=== PATIENT | female | born 1945 | race Caucasian/White ===

== ENCOUNTER → 2018-03-12 14:27 | Outpatient (CLI) | payer MEDICARE, SELFPAY ==
[2018-03-12 16:02] LABS: ALB/GLOB Ratio 1.3 RATIO (0.9-2.4); AST(SGOT) 21 U/L (15-37); Alanine Aminotransfer ALT/SGPT 23 U/L (13-56); Albumin, Serum 3.9 g/dL (3.2-5.0); Alkaline Phosphatase 98 U/L (45-117); Anion Gap 6 (5-15); BUN 12 mg/dL (7-18); Calcium,Total 8.8 mg/dL (8.5-10.1); Chloride 104 mmol/L (98-107); Creatinine, Serum 1.09 mg/dL (0.55-1.02); EST Glomerular Filtration Rate 52 mL/min (>60); Est Glom Filt Rate - Afr Amer 63 mL/min (>60); Globulin 3.1 g/dL (2.2-4.2); Glucose 85 mg/dL (74-106); Potassium 3.6 mmol/L (3.5-5.1); Sodium Level 140 mmol/L (136-145); Thyroid Stim Hormone (TSH) 1.42 uIU/mL (0.358-3.74)
== END ==
PROVIDERS: Family Provider Family Medicine; PCP Family Medicine; Referring Provider Family Medicine; Visit Provider Family Medicine
DX: Z00.00 Encounter for general adult medical examination without abnormal findings (principal); J44.9 Chronic obstructive pulmonary disease, unspecified; R53.83 Other fatigue; E55.9 Vitamin D deficiency, unspecified; E66.9 Obesity, unspecified; Z13.220 Encounter for screening for lipoid disorders
CPT/HCPCS: 36415; 80053; 82306; 84443

== ENCOUNTER → 2018-06-25 14:11 | Outpatient (CLI) | payer MEDICARE, SELFPAY ==
--- NOTE | 2018-06-25 14:14 | RAD_ITS ---
STUDY: X-RAY - PELVIS AND RIGHT HIP REASON FOR EXAM: Female, 72 years old. Right hip pain. TECHNIQUE: 3 views of the pelvis and hip. COMPARISON: None. FINDINGS: There is a normal bowel gas pattern. Normal visualized soft tissue structures. s there is scoliotic curvature of the lower lumbar spine with degenerative change. Normal bilateral iliac wings, sacroiliac joints and visualized sacrum. Normal bilateral superior and inferior pubic rami. Normal pubic symphysis. Normal bilateral ischial tuberosities. Normal visualized femoral head. There is enthesopathic spurring at the greater trochanter. Normal acetabulum. Normal hip joint. There is no fracture. RAD/HIP, UNI W/ Pelvis 2-3 Views IMPRESSION: Mild spurring. Joint space is well-preserved. Electronically Signed: Pk Ramirez MD at 14:32 EST , Service support ,
== END ==
PROVIDERS: Family Provider Family Medicine; PCP Family Medicine; Referring Provider Family Medicine; Visit Provider Family Medicine
DX: M25.551 Pain in right hip (principal)
CPT/HCPCS: 73502

== ENCOUNTER 2018-09-20 16:42 | Inpatient (IN) | payer MEDICARE, SELFPAY ==
[2018-09-20] VITALS (25 sets, daily range): BP systolic 111–155; BP diastolic 43–81; PULSE 59–98; RESP 11–23; TEMP 35.6–36.5; O2SAT 96–100; BMI 41.3
--- NOTE | 2018-09-20 16:48 | RAD_ITS ---
STUDY: X-RAY CHEST REASON FOR EXAM: Female, 73 years old. Chest pain TECHNIQUE: Single AP portable view of the chest. COMPARISON: Prior chest radiograph of January 19, 2017. FINDINGS: Reduced inspiration with some mild generalized atelectatic changes without new consolidation, focal atelectasis or a substantial pleural effusion. There is no demonstrated pleural abnormality. Normal size heart. Normal mediastinum and elvie. Normal visualized pulmonary arteries. There is atherosclerotic calcification of the aortic arch with tortuosity. Normal visualized thoracic spine. Normal visualized ribs, clavicles, and shoulders. There is no demonstrated abnormality of the visualized soft tissue structures of the upper abdomen. RAD/Chest 1 View (Portable) IMPRESSION: Reduced inspiration with generalized atelectatic changes without other acute findings or changes. Negative for major consolidation, focal atelectasis, pleural effusion or cardiomegaly. Electronically Signed: Melba Alva MD at 17:02 EDT , Service support ,
--- NOTE | 2018-09-20 16:48 | EKG12_ITS ---
Test Reason : CP Blood Pressure : / mmHG Vent. Rate : 081 BPM Atrial Rate : 081 BPM P-R Int : 170 ms QRS Dur : 130 ms QT Int : 430 ms P-R-T Axes : 071 015 102 degrees QTc Int : 499 ms Normal sinus rhythm Left bundle branch block Abnormal ECG Confirmed by HALI PEDERSEN ([id number]), brands editor PAMELA GIRON ([id number]) on 09/24/2018 4:54:44 PM Referred By: Hali Pedersen Confirmed By:HALI PEDERSEN
[2018-09-20] MEDS: TICAGRELOR 90 MG TABLET 180 MG PO (16:53)
[2018-09-20] MEDS: Heparin Injection (Vial) 5,000 UNIT/ML VIAL 4000 UNIT IV (16:55)
--- NOTE | 2018-09-20 17:00 | CM.ED ---
SOCIAL WORK NOTE THIS WORKER RESPONDED TO STEMI. PATIENT'S SISTER, MOY PRESENT. INTRODUCED ROLE. EDUCATION AND EMOTIONAL SUPPORT PROVIDED. SHAUNA HUERTAS, WOOD MODEL BUILDER, GARNETT MACHINE OPERATOR HELPER.
[2018-09-20] MEDS: 0.9% Normal Saline 1,000 ML 150 ML IV ×2 (17:01→21:30)
[2018-09-20] MEDS: fentaNYL 100 MCG/2 ML Ampul 50 MCG IV (17:01)
[2018-09-20 17:06] LABS: Absolute Lymphocyte Count 2.53 X10^3/ul (0.83-4.51); Absolute Neutrophil Count 3.6 X10^3/uL (2.0-7.7); Basophil# 0.02 X10^3/uL; Basophil% 0.3 % (0-1); Eosinophil# 0.21 X10^3/uL; Hematocrit 42.6 % (37-47); Hemoglobin 14.3 g/dl (12.0-15.0); Lymphocyte # 2.53 X10^3/ul (4.0); Lymphocyte % 35.9 % (19-41); Mean Corp Hgb Conc 33.6 g/gl (32-36); Mean Corpuscular Hgb 31.7 pg (27.0-32.0); Mean Corpuscular Volume 94.5 fL (81-99); Mean Platelet Vol. 10.3 fl (6.2-12.0); Monocyte# 0.73 X10^3/uL; Monocyte% 10.4 % (0-10); Neutrophil # 3.55 X10^3/uL (2.7-7.7); Neutrophil % 50.3 % (47-70); Platelet Count 219 K/mm3 (150-450); RBC Distribution Width CV 13.5 % (11.6-14.6); RBC Distribution Width SD 44.7 fl (35.1-43.9); Red Blood Count 4.51 M/mm3 (4.2-5.4); White Blood Count 7.1 K/mm3 (4.4-11.0)
[2018-09-20 17:07] LABS: POSITIVE COUNT NO; POSITIVE DIFFERENTIAL NO; POSITIVE MORPHOLOGY NO
[2018-09-20 17:13] LABS: International Normalized Ratio 1.1; Prothrombin Time (Protime)PT. 13.6 SECONDS (11.7-14.9)
--- NOTE | 2018-09-20 17:25 | ED.DCSUM_ITS ---
- ER Visit Summary Date of Service: 09/20/18 Chief Complaint: Chest pain History of Present Illness: The patient is a 73 F presents to the emergency department chest pain and arm pain. The patient has no significant history of coronary vascular disease. She does have a long-standing history of smoking and quit in 2014. She has a history of COPD. States on Monday, she began to get a tightness across her chest into her right side with some mild shortness of breath. She states it lasted 2 hours and then went away. She is never had pain like this before. It happened again yesterday but was only there for half an hour. Return today and she was feeling nauseated and more short of breath. It happened with rest. She has no history of coronary vascular disease. Physical Examination: Vital signs reviewed General: Well-nourished, well-developed Head: Normocephalic, atraumatic Eyes: Pupils equal and reactive, extraocular muscles intact Neck, supple, no lymphadenopathy Heart: Regular rate and rhythm Respiratory: No distress, clear bilaterally Abdomen: Soft, nontender, nondistended, no peritoneal signs Back: Nontender Extremities: Nontender, no edema, no cords Skin: Normal color no rash Neuro: Alert and oriented, no focal or lateralizing deficits Test Results: [] Emergency Department Course and Treatment: Prehospital EKG was reviewed. She did have left bundle branch block and some inferior changes, but nothing that would meet criteria for STEMI. On arrival, EKG was repeated. This does show inferior elevation consistent with STEMI. I did send this to Dr. Pedersen and a STEMI team was activated. The patient had already received aspirin in route. She was given Brilinta and heparin. She was given fentanyl which did seem to improve her pain. Chest x-ray was unremarkable. The patient was consented and will be taken to the Coordinator Of Rehabilitation Services for intervention. Treatment Plan: [] Disposition: Admission Impression: 1. Inferior STEMI This note was generated with [employer] dictation software. It may contain incorrect words, spelling, and punctuation that were not noted in review of the chart prior to signing ED Disposition - Plan for ED Patient: Referrals: Jerson Vigil MD [Primary Care Provider] -
--- NOTE | 2018-09-20 17:26 | ED.RN ---
PT TRANSPORTED TO [facility] AT 1718. HAND OFF REPORT GIVEN.
[2018-09-20 17:33] LABS: Anion Gap 5 (5-15); BUN 17 mg/dL (7-18); BUN/Creat Ratio 15.5 RATIO (10-20); Chloride 106 mmol/L (98-107); EST Glomerular Filtration Rate 52 mL/min (>60); Est Glom Filt Rate - Afr Amer 63 mL/min (>60); Estimated Creatinine Clearance 36.03 ml/min; Glucose 128 mg/dL (74-106); Potassium 3.8 mmol/L (3.5-5.1); Sodium Level 139 mmol/L (136-145)
[2018-09-20 17:41] LABS: Pregnancy, Serum, hCG Quali. NEGATIVE Negative (0-9 Nonpreg)
--- NOTE | 2018-09-20 18:15 | CM.ED ---
Social Work Assessment Referral Date: 09/20/18 Date of Assessment: 09/20/18 Informant: SELF REFERRAL Reason for Consult: STEMI/INITIAL ASSESSMENT Information obtained from: PATIENT'S SISTERMOY [phone] Living Arrangements: PATIENT LIVES HOME ALONE IN A 2 STORY APARTMENT NEXT DOOR TO SISTERMOY. DME: NONE Employment/Financial: RETIRED. PATIENT CURRENTLY WORKING FOR [employer] AND IS INVOLVED IN THE COMMUNITY. NO FINANCIAL NEEDS ADDRESSED. Supports: PATIENT HAS GOOD SUPPORT FROM FAMILY AND FRIENDS. Mental Health History: SISTER REPORTS HX OF DEPRESSION FOR PATIENT. PATIENT PRESCRIBED ANTIDEPRESSANT BY PRIMARY CARE PHYSICIAN DR. BUTTS. Substance Abuse History: PATIENT QUIT SMOKING IN 2014 Interventions: SOCIAL SERVICE ASSESSMENT RESPONDED TO STEMI Assessment: ASSESSMENT COMPLETED WITH PATIENT'S SISTER IN TOUR NARRATOR WAITING ROOM. SISTER REPORTS PATIENT HAS GOOD SUPPORT FROM FAMILY AND FRIENDS. SISTER HAS UPDATED PATIENT'S SON, PATRICIA WHO RESIDES IN [place]. PATIENT LIVES HOME ALONE IN A 2 STORY APARTMENT AND IS INDEPENDENT WITH ALL ADLS. SISTER LIVES NEXT DOOR. SISTER REPORTS PATIENT WITH HX OF DEPRESSION AND IS PRESCRIBED AN ANTI DEPRESSANT. PATIENT FOLLOWS WITH DR. BUTTS FOR PRIMARY CARE. EXPLAINED THIS WORKER'S ROLE. SISTER DENIES ANY NEEDS AT THIS TIME. PLAN: ADMIT
[2018-09-20 18:30] LABS: ACT Activated Clotting Time 169 sec (74-137)
[2018-09-20 18:31] LABS: ACT Activated Clotting Time 246 sec (74-137)
--- NOTE | 2018-09-20 18:49 | ECHOCS_ITS ---
Reason For Study: CAD/ASHD Procedure This was a 2D Doppler, Color Flow transthoracic echocardiogram. Contrast injection was performed. Exam performed portable in ICU/CCU. Left Ventricle Normal size and thickness. The estimated ejection fraction is 65 %. Stage 1 diastolic dysfunction. No regional wall motion abnormalities noted. Right Ventricle Normal size and thickness. Normal systolic function. Atria Normal left atrium. Normal right atrium. Normal atrial septum. Mitral Valve The mitral valve is structurally normal. No prolapse or stenosis seen. Trivial mitral valve insufficiency. Tricuspid Valve Normal tricuspid valve. Mild (1+) tricuspid valve insufficiency. Right ventricular systolic pressure estimated to be 33 mmHg. Aortic Valve Normal aortic valve. Trisinus/trileaflet aortic valve. Pulmonic Valve Normal pulmonic valve. Great Vessels Normal aortic root. Normal arch. Normal inferior vena cava. Inferior vena cava collapse with sniff. Pericardium/Pleural No pericardial effusion. Medication Diluted definity 2ml given slow IV push to enhance endocardial definition. Performed a rapid injection of agitated mix of 9 cc saline and 1cc air to assess for atrial septal defect. MMode/2D Measurements & Calculations LVIDd: 3.8 cm IVSd: 0.91 cm LAV(MOD-sp4): 37.9 ml LVIDs: 2.2 cm LVPWd: 0.85 cm FS: 41.6 % LVAd ap4: 24.8 cm2 SV(MOD-sp4): 43.4 ml SV(sp4-el): 46.9 ml EDV(MOD-sp4): 69.5 ml EDV(sp4-el): 75.3 ml LVAs ap4: 13.5 cm2 ESV(MOD-sp4): 26.1 ml ESV(sp4-el): 28.4 ml EF(MOD-sp4): 62.5 % EF(sp4-el): 62.2 % LA A4 area: 14.2 cm2 RA A4 area: 12.5 cm2 Time Measurements MV dec time: 0.18 sec Doppler Measurements & Calculations MV E max martinez: 108.9 cm/sec Lat Peak E' Martinez: 8.5 cm/sec Med Peak E' Martinez: 7.3 cm/sec MV A max martinez: 101.4 cm/sec E/E' lat: 12.8 E/E' med: 14.9 MV E/A: 1.1 MV V2 max: 131.0 cm/sec MV P1/2t max martinez: 131.0 cm/sec Ao V2 max: 123.6 cm/sec MV max P.9 mmHg MV P1/2t: 55.9 msec Ao max P.1 mmHg MV V2 mean: 73.9 cm/sec Ao V2 mean: 85.4 cm/sec MV mean P.6 mmHg MV dec slope: 685.8 cm/sec2 Ao mean P.3 mmHg MV V2 VTI: 31.8 cm MVA(P1/2t): 3.9 cm2 Ao V2 VTI: 26.1 cm LV V1 max: 114.3 cm/sec TR max martinez: 249.0 cm/sec LV V1 max P.2 mmHg TR max P.9 mmHg LV V1 mean P.6 mmHg LV V1 mean: 73.8 cm/sec LV V1 VTI: 24.3 cm Interpretation Summary The estimated ejection fraction is 65 %. Stage 1 diastolic dysfunction. Trivial mitral valve insufficiency. Mild (1+) tricuspid valve insufficiency. Right ventricular systolic pressure estimated to be 33 mmHg. Compared to echo report dated 02/18/2012, no appreciable changes noted. The study was technically difficult. Contrast injection was performed. Ordering Physician: Mani Pedersen Referring Physician: Mani Pedersen Performed By: Warren Sim [facility]
--- NOTE | 2018-09-20 18:59 | CL.I_ITS ---
Patient Name: FAITH GOMEZ Study Date: 09/20/2018 Performing: Mani Pedersen MD Ht: 62 inches 157 cm : 1945 Wt: 225.2 lbs 102 kg Age: 73 Gender: female BSA: 2 PROCEDURE(S) PERFORMED AD80-MST/COR/LV FL33-JIS, KIM AND/OR PTCA, ARTERY OR GRAFT, SINGLE VESSEL CLINICAL PROFILE AND CO-MORBIDITIES Patient presents with STEMI for emergent cardiac cath. Indications: ACS <= 24 hrs, New Onset Angina <= 2 months, Worsening Angina, Suspected CAD Heart Failure: None Stress/Imaging Stress/Image Study Performed: No Angina Classification Anginal Classification w/in 2 Weeks: CCS III CAD Presentations: STEMI. Symptom onset Date/Time: 09/20/2018 Time Not Available STEMI. 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 Successful PTCA/KIM mid RCA just upstream from initial stent with a 3.5 x 8 Promus synergy, post dila josé antonio with a 4.0 x 8 NC Balloon at 9 atim (3.80 mm) and then at 14 reanna within body of second stent. RECOMMENDATIONS Referred for immediate PCI Highly recommend quitting all tobacco products Follow up with primary sales route driver Risk factor modification ASA Indefinitley Plavix for at least 12 months Routine post interventional care Refer for Outpatient Cardiac Rehab Manual sheath removal per protocol Follow up with Dr. Pedersen Stress test in 3-4 weeks to eval LAD. Will keep sheath in overnight. DESCRIPTION OF PROCEDURE The patient arrived to the procedure lab. The risks and benefits of the procedure as well as a full d escription of our services here and lack of surgical backup were fully explained to the patient and/o r their significant other prior to the catheterization. The Timeout was completed, verifying the christa ect patient and procedure. The patient's procedural site was prepped and draped in the usual fashion. Local anesthetic was given subcutaneously to right groin region with Lidocaine 2%. Using a modified Seldinger technique, arterial access was obtained via the right femoral artery, a 6Fr sheath was inse rted.. Left Coronary Artery selective angiography was performed in multiple views using a 4 Fr. JL5 catheter. Right Coronary Artery selective angiography was then performed in multiple views using a 6 Fr. HS II Guide. Left Ventriculography was performed in FOLRES projection using a 4 Fr. Pigtail catheter . LV to AO pullback pressures were then recorded Runthrough Guide wire was advanced to the RCA. Emerge 2.0 x12 Balloon catheter was inserted. Ball oon catheter was advanced across lesion in the right coronary, mid. PTCA balloon inflated at 6 atms f or 8 secs. PTCA balloon inflated at 12 atms for 9 secs. PTCA balloon inflated at 14 atms for 11 secs. PTCA balloon inflated at 15 atms for 10 secs. Angiogram performed post balloon dilatation. Emerge 2. 50 x 12 Balloon catheter was inserted. Balloon catheter was advanced across lesion in the right coron vicki, mid. PTCA balloon inflated at 10 atms for 9 secs. PTCA balloon inflated at 12 atms for 9 secs. A ngiogram performed post balloon dilatation. Synergy 2.5 x 38 Drug Eluting stent was inserted. Drug El uting stent was advanced across the lesion in the right coronary, mid. Angiogram performed pre stent deployment. Angiogram performed post stent deployment. NC Emerge 3.0 x 12 Balloon catheter was insert ed. Balloon catheter was inserted post stent. Angiogram performed pre balloon dilatation. Angiogram performed post balloon dilatation. Angiogram performed post balloon dilatation. Synergy 3.5 x 8 Drug Eluting stent was inserted. Drug Eluting stent was advanced across the lesion in the right coronary, mid. Angiogram performed pre stent deployment. Angiogram performed post stent deployment. N C Emerge 4.0 x 8 Balloon catheter was inserted. Balloon catheter was advanced across lesion in the ri ght coronary, mid. Angiogram performed pre balloon dilatation. Angiogram performed post balloon dilat ation. The arterial sheath was sutured in place and capped CORONARY ANGIOGRAPHY DOMINANCE: Right Dominant LEFT HEART ASSESSMENT Left Ventricular Ejection Fraction: by LV Gram 55 % Depressed Left Ventricular systolic function LVEDP: 20 mmHg Elevated Left Ventricular End Diastolic Pressure Inferior Basal Hypokinesis - Mild LEFT MAIN: Mild calcification LEFT ANTERIOR DECENDING ARTERY: PROX LAD: Moderate calcification, Mild luminal irregularities less than 30% MID LAD: 65 % Stenosis CIRCUMFLEX ARTERY: Mild luminal irregularities less than 30% RIGHT CORONARY ARTERY: MID RCA: Moderate calcification, 90 % Stenosis RT PLV: Angiographically normal RT PDA: Proximal - Angiographically normal INTERVENTION INFORMATION LESION SITE: RCA (Mid) Lesion Complexity: High/C, lesion at bifurcation: No, thrombus present: Yes, lesion length: 46 mm, cu lprit lesion: Yes Pre Stenosis: 90 % Pre intervention JAXSON flow: 2 PROCEDURE: Drug Eluting Stent with pre and post dilatation Possible small type B contained vessel dissection, covered by initial stent and no evidence of extrav asation or staining. No additional post stent dilation done other than 3.0 12 NC balloon out of conc koko for possible vessel tear or rupture. Post Stenosis: 0 % Post intervention JXASON flow: 3 Lesion Devices: Paperwoventronic 6 Fr HSII 100cm Guide Catheter Germán Sci EMERGE MR 2.00x12 BALLOON Terumo .014 Runthrough Extra Floppy 180cm straight Germán Sci EMERGE MR 2.50x12 BALLOON [employer]án [employer] Synergy MR KIM 2.50x38 Germán Sci NC EMERGE MR 3.00x12 BALLOON [employer]án [employer] Synergy MR KIM 3.50x08 Germán Sci NC EMERGE MR 4.00x08 BALLOON COMPLICATIONS No Complications PROCEDURE MEDICATIONS Fentanyl 25 mcg IV Oxygen: 2 L/min via nasal cannula Heparin 6000 unit(s) IV 09/20/2018 17:34:35 Nitro 200 mcg IC 09/20/2018 17:37:23 IV Bolus: .9 NaCl 1500 ml total 09/20/2018 17:38:01 SUMMARY OF HEMODYNAMIC DATA Time AIR REST ECG 17:26:54 AO 108/62 (85) SA 17:30:58 LV 134/0, 20 18:04:56 LV 130/8, 23 18:05:02 LVp 126/5, 25 18:05:07 AOp 139/63 (97) 18:05:12 Signed By Mani Pedersen MD On 09/21/2018 10:53:44 Signed By Mani Pedersen MD On 09/20/2018 18:58:13 Mani Pedersen MD
--- NOTE | 2018-09-20 19:09 | PCM.HP.STD ---
Problem List (1) CAD (coronary artery disease) Status: Chronic Qualifiers: Coronary Disease-Associated Artery/Lesion type: [place] artery (2) HTN (hypertension) Status: Chronic (3) STEMI (ST elevation myocardial infarction) Status: Acute (4) S/P PTCA (percutaneous transluminal coronary angioplasty) Status: Acute Comment: RCA with KIM on 09/20/18 (5) H/O partial thyroidectomy Status: Chronic (6) Former smoker Status: Chronic Comment: quit 2014 (7) Elevated serum creatinine Status: Acute (8) Obesity Status: Chronic Qualifiers: Obesity classification: adult class 3 (BMI >= 40) (9) Depression Status: Chronic (10) GERD (gastroesophageal reflux disease) Status: Chronic (11) History of breast cancer Status: Chronic Comment: mastectomy was 30 years ago. (12) Left bundle branch block Status: Acute History of Present Illness Date of Admission: 09/20/18 Chief Complaint: chest pain The patient is a 73 year old F with a past medical history of hypertension, GERD, depression, obesity, partial thyroidectomy and former smoking history (quit in 2014) who presented to the emergency department at [facility] on 09/20/2018 complaining of substernal chest pain that radiated to both arms and both shoulders while sitting watching TV The pain was associated with shortness of breath, nausea and diaphoresis. She denied any personal hx of CAD but, there is a FH of CAD in both her parents. She initially had the pain on Monday while exerting herself and described it as tightness across her chest with shortness of breath. It lasted a few hours and went away. the pain recurred the next day with exertion but, once again resolved with no treatment. EKG in the squad showed a left bundle branch block and some inferior changes. The EKG was repeated upon arrival to the emergency department and showed inferior ST segment elevation consistent with STEMI. Code STEMI was called and the cath team was activated. She was given aspirin 324 mg by the paramedics. She was given Brilinta and heparin in the emergency department. EKG showed no evidence of congestive heart failure, pulmonary vascular congestion or infiltrates. It was a decreased respiratory effort. CBC was unremarkable. BMP showed a BUN of 17 with a creatinine of 1.1. Troponin was 0.081 initially. Random glucose was elevated at 128 and she denies any history of diabetes mellitus. She was taken to the Lead Maintenance Technician and had a 90% occlusion of the RCA. There was a 65% occlusion of the mid LAD. 2 stents were placed in the RCA. Postprocedure she was transferred to the intensive care unit. Past Medical History Past Medical History (Chronic Problems): Chronic Problems CAD (coronary artery disease) (Chronic) HTN (hypertension) (Chronic) H/O partial thyroidectomy (Chronic) Former smoker (Chronic) quit 2014 Obesity (Chronic) Depression (Chronic) GERD (gastroesophageal reflux disease) (Chronic) History of breast cancer (Chronic) mastectomy was 30 years ago. Allergies Penicillins Allergy (Verified 09/20/18 16:52) Unknown Sulfa (Sulfonamide Antibiotics) Allergy (Verified 09/20/18 16:52) Hives Home Medications: Ambulatory Orders Medication Instructions Recorded Bupropion HCl [Bupropion Xl] 300 mg PO DAILY 09/20/18 Meloxicam 15 mg PO DAILY 09/20/18 Surgical History: - - Left mastectomy Psychiatric History: Depression BATCH UNLOADER History: No pertinent BATCH UNLOADER history Lives: Alone Smoking Status: Former smoker - Quit in 2014 Tobacco Use: Non-smoker Alcohol: Occasional Drugs: None - *Family History Maternal History Items: Heart Disease Paternal History Items: Heart Disease Review of Systems Constitutional: Denies: Chills, Fever, Weight Change HEENT: Denies: Head Aches, Sinus Congestion, Sinus Drainage Cardiovascular: Reports: Chest Pain. Denies: Edema, Light Headedness, Orthopnea, Palpitations, Syncope Respiratory: Reports: Shortness of Breath - Associated with chest pain. Denies: Cough, Shortness of breath at rest, Sputum production Gastrointestinal: Denies: Abdominal Pain, Nausea, Vomiting Genitourinary: Denies: Dysuria Gynecological: Denies: Vaginal discharge Musculoskeletal: Reports: Joint Pain, Joint stiffness Skin: Denies: Jaundice, Rash, Wounds Neurological: Denies: Focal weakness, Numbness, Tingling, Tremor, Seizures Psychiatric: Denies: Anxiety, Depression, Homicidal Ideations, Suicidal Ideations Endocrine: Denies: Hx of Thyroiditis Hematologic/ Lymphatic: Denies: Easy Bruising, Easy Bleeding, Hx of blood clot VTE Information - Inpt Only VTE Present on Admission: No VTE Mechan Device Prophylaxis: SCD's, Knee High ABRAHAN Hose VTE Pharm Prophylaxis ordered?: No Reason prophylaxis not ordered:: Treatment Not Indicated - Patient just returned from cath and had a large amount of heparin. Will likely start anticoagulation for DVT prophylaxis in the a.m. Patient Problems: Active and Suspected Problems STEMI (ST elevation myocardial infarction) (Acute) S/P PTCA (percutaneous transluminal coronary angioplasty) (Acute) RCA with KIM on 09/20/18 Elevated serum creatinine (Acute) Left bundle branch block (Acute) - Physical Exam General: Alert, Oriented x3, Cooperative, No apparent distress, Well developed, Well nourished HEENT: Atraumatic, PERRLA, EOMI, Normocephalic Oral: Moist Mucosa, No Gingival or Mucosal Lesions/ Ulcerations, - - halitosis Neck: Supple, No JVD, Negative Carotid Bruits, No Nodes, No Nuchal Rigidity, Trachea Midline Lungs: Clear to auscultation - Anterior and lateral.. She is lying flat in bed for the next 6 hours., No rhonchi, No wheeze, No rales Cardiovascular: Regular rate, Regular Rhythm, Normal S1, Normal S2, No murmurs, No rub noted, No Gallop Abdomen: Bowel Sounds Present, Soft, Non Tender, Non-Distended Extremities: No clubbing, No cyanosis, No edema, No Calf Tenderness, Peripheral Pulses Normal Skin: No rashes, No breakdown Musculoskeletal: No Muscle Wasting Neurological: Cranial nerves II-XII grossly intact, Neuro grossly intact Psych/Mental Status: Normal Affect, Appropriate Vital Signs Temp Pulse Resp BP Pulse Ox 97.7 F L 82 21 H 148/79 H 99 09/20/18 16:42 09/20/18 18:50 09/20/18 18:45 09/20/18 18:45 09/20/18 18:45 Oxygen Flow Rate (L/min) 2 Oxygen Delivery Method Nasal Cannula Weight: 225 lb 12.054 oz Body Mass Index (BMI) 41.3 Laboratory Tests Past 24 Hrs 09/20/18 09/20/18 09/20/18 16:55 16:55 16:55 WBC Cancelled 7.1 Corrected WBC Cancelled RBC Cancelled 4.51 Hgb Cancelled 14.3 Hct Cancelled 42.6 MCV Cancelled 94.5 MCH Cancelled 31.7 MCHC Cancelled 33.6 RDW Cancelled 13.5 RDW Differential Cancelled 44.7 H Plt Count Cancelled 219 MPV Cancelled 10.3 Immature Gran % (Auto) Cancelled 0.100 Neut % (Auto) Cancelled 50.3 Lymph % (Auto) Cancelled 35.9 [place] % (Auto) Cancelled 10.4 H Eos % (Auto) Cancelled 3.0 Baso % (Auto) Cancelled 0.3 Absolute Neuts (auto) Cancelled 3.6 Absolute Lymphs (auto) Cancelled 2.53 Total Counted Cancelled Not Reportable Neutrophils % (Manual) Cancelled Band Neutrophils % Cancelled Lymphocytes % (Manual) Cancelled Monocytes % (Manual) Cancelled Eosinophils % (Manual) Cancelled Basophils % (Manual) Cancelled Metamyelocytes % Cancelled Myelocytes % Cancelled Promyelocytes % Cancelled Blast Cells % Cancelled Plasma Cell % (Manual) Cancelled Other Cells % Cancelled Nucleated RBCs/100 WBC Cancelled Differential Comment Cancelled Diff Path Review Cancelled Hypersegmented Neuts Cancelled Atypical Lymphocytes Cancelled Reactive Lymphocytes Cancelled Smudge Cells Cancelled Toxic Granulation Cancelled Dohle Bodies Cancelled Heena Rods Cancelled Platelet Estimate Cancelled Plt Morphology Comment Cancelled RBC Morphology Cancelled Polychromasia Cancelled Hypochromasia Cancelled Poikilocytosis Cancelled Basophilic Stippling Cancelled Anisocytosis Cancelled Microcytosis Cancelled Macrocytosis Cancelled Spherocytes Cancelled Sickle Cells Cancelled Target Cells Cancelled Tear Drop Cells Cancelled Ovalocytes Cancelled Stomatocytes Cancelled Back-Celebration Bodies Cancelled Gael Cells Cancelled Bite Cells Cancelled Acanthocytes (Spur) Cancelled Rouleaux Cancelled Schistocytes Cancelled PT INR APTT Activated Clotting Time Sodium Cancelled Potassium Cancelled Chloride Cancelled Carbon Dioxide Cancelled Anion Gap Cancelled BUN Cancelled Creatinine Cancelled Estim Creat Clear Calc Cancelled Est GFR (MDRD) Af Amer Cancelled Est GFR (MDRD) Non-Af Cancelled BUN/Creatinine Ratio Cancelled Glucose Cancelled Calcium Cancelled Troponin I Cancelled Serum , Qual 09/20/18 09/20/18 09/20/18 16:55 16:55 16:55 WBC Corrected WBC RBC Hgb Hct MCV MCH MCHC RDW RDW Differential Plt Count MPV Immature Gran % (Auto) Neut % (Auto) Lymph % (Auto) [place] % (Auto) Eos % (Auto) Baso % (Auto) Absolute Neuts (auto) Absolute Lymphs (auto) Total Counted Neutrophils % (Manual) Band Neutrophils % Lymphocytes % (Manual) Monocytes % (Manual) Eosinophils % (Manual) Basophils % (Manual) Metamyelocytes % Myelocytes % Promyelocytes % Blast Cells % Plasma Cell % (Manual) Other Cells % Nucleated RBCs/100 WBC Differential Comment Diff Path Review Hypersegmented Neuts Atypical Lymphocytes Reactive Lymphocytes Smudge Cells Toxic Granulation Dohle Bodies Heena Rods Platelet Estimate Plt Morphology Comment RBC Morphology Polychromasia Hypochromasia Poikilocytosis Basophilic Stippling Anisocytosis Microcytosis Macrocytosis Spherocytes Sickle Cells Target Cells Tear Drop Cells Ovalocytes Stomatocytes Back-Celebration Bodies [place] Cells Bite Cells Acanthocytes (Spur) Rouleaux Schistocytes PT 13.6 INR 1.1 APTT 28.0 Activated Clotting Time Sodium 139 Potassium 3.8 Chloride 106 Carbon Dioxide 28.0 Anion Gap 5 BUN 17 Creatinine 1.10 H Estim Creat Clear Calc 36.03 Est GFR (MDRD) Af Amer 63 Est GFR (MDRD) Non-Af 52 L BUN/Creatinine Ratio 15.5 Glucose 128 H Calcium 9.0 Troponin I 0.081 H Serum , Qual NEGATIVE 09/20/18 09/20/18 17:32 18:05 WBC Corrected WBC RBC Hgb Hct MCV MCH MCHC RDW RDW Differential Plt Count MPV Immature Gran % (Auto) Neut % (Auto) Lymph % (Auto) [place] % (Auto) Eos % (Auto) Baso % (Auto) Absolute Neuts (auto) Absolute Lymphs (auto) Total Counted Neutrophils % (Manual) Band Neutrophils % Lymphocytes % (Manual) Monocytes % (Manual) Eosinophils % (Manual) Basophils % (Manual) Metamyelocytes % Myelocytes % Promyelocytes % Blast Cells % Plasma Cell % (Manual) Other Cells % Nucleated RBCs/100 WBC Differential Comment Diff Path Review Hypersegmented Neuts Atypical Lymphocytes Reactive Lymphocytes Smudge Cells Toxic Granulation Dohle Bodies Heena Rods Platelet Estimate Plt Morphology Comment RBC Morphology Polychromasia Hypochromasia Poikilocytosis Basophilic Stippling Anisocytosis Microcytosis Macrocytosis Spherocytes Sickle Cells Target Cells Tear Drop Cells Ovalocytes Stomatocytes Back-Celebration Bodies Gael Cells Bite Cells Acanthocytes (Spur) Rouleaux Schistocytes PT INR APTT Activated Clotting Time 169 H 246 H Sodium Potassium Chloride Carbon Dioxide Anion Gap BUN Creatinine Estim Creat Clear Calc Est GFR (MDRD) Af Amer Est GFR (MDRD) Non-Af BUN/Creatinine Ratio Glucose Calcium Troponin I Serum , Qual Assessment/Plan All Active Problems STEMI (ST elevation myocardial infarction) (Acute) S/P PTCA (percutaneous transluminal coronary angioplasty) (Acute) Elevated serum creatinine (Acute) Left bundle branch block (Acute) Impressions 1. STEMI 2. Status post PTCA/KIM to the RCA with 2 stents -possible dissection but the area is covered by the stent 3. Coronary artery disease 4. Hypertension 5. Depression-on Wellbutrin 6. GERD 7. History of left breast cancer-status post left mastectomy in 1988 8. History of partial thyroidectomy 9. Elevated creatinine 10. Elevated blood sugar at 128 11. 65% stenosis of the mid LAD 12. Former smoker Admitted to the ICU ASA and Brilinta metoprolol, Losartan and high intensity statin Cardiac rehab will meet with the patient in the next 1-2 days Lipid panel in the a.m. Hemoglobin A1c, BMP and CBC in the a.m. Will be brought back in 3-4 weeks for a stress test to evaluate the LAD Sheath was left in because of the possible dissection Code Visit Inpatient E&M: 71906 [facility] Hosp L3
[2018-09-20 20:21] LABS: ACT Activated Clotting Time 186 sec (74-137)
[2018-09-20 21:36] LABS: ACT Activated Clotting Time 180 sec (74-137)
--- NOTE | 2018-09-20 21:45 | NURSING ---
Entered pt room to place manley catheter in pt, hematoma noted around sheath at right arterial femoral site. Pressure applied to area and Dr. Pedersen notified by Yaneli Steiner RN. Orders received to remove sheath. Sheath removed at 2210, hemostasis achieved at 2240.
[2018-09-20] MEDS: Morphine 2 MG/ML Syringe IV (22:14)
[2018-09-20] MEDS: LORazepam 1 MG Tablet PO (23:12)
[2018-09-20] MEDS: Atorvastatin Calcium 80 MG Tablet PO (23:15)
[2018-09-20] MEDS: Metoprolol Tartrate 25 MG Tablet PO (23:15)
[2018-09-20] MEDS: TICAGRELOR 90 MG TABLET PO (23:15)
[2018-09-21] VITALS (44 sets, daily range): BP systolic 90–139; BP diastolic 29–75; PULSE 73–99; RESP 13–33; TEMP 36.6–36.9; O2SAT 92–97
[2018-09-21] MEDS: Morphine 2 MG/ML Syringe IV (03:06)
[2018-09-21 05:24] LABS: Hematocrit 35.2 % (37-47); Hemoglobin 11.6 g/dl (12.0-15.0); Mean Corpuscular Hgb 31.4 pg (27.0-32.0); Mean Corpuscular Volume 95.4 fL (81-99); Mean Platelet Vol. 10.7 fl (6.2-12.0); Platelet Count 204 K/mm3 (150-450); RBC Distribution Width CV 13.4 % (11.6-14.6); RBC Distribution Width SD 44.3 fl (35.1-43.9); Red Blood Count 3.69 M/mm3 (4.2-5.4); Scan Indicated on CBC? Y/N NO; White Blood Count 14.4 K/mm3 (4.4-11.0)
[2018-09-21 05:47] LABS: Hemoglobin A1c 5.8 % (4.2-6.3)
[2018-09-21 06:02] LABS: ALB/GLOB Ratio 1.1 RATIO (0.9-2.4); AST(SGOT) 41 U/L (15-37); Alanine Aminotransfer ALT/SGPT 27 U/L (13-56); Albumin, Serum 2.9 g/dL (3.2-5.0); Alkaline Phosphatase 72 U/L (45-117); Anion Gap 7 (5-15); BUN 16 mg/dL (7-18); BUN/Creat Ratio 18.4 RATIO (10-20); Calcium,Total 7.7 mg/dL (8.5-10.1); Chloride 113 mmol/L (98-107); Cholesterol 159 mg/dL (200); Creatinine, Serum 0.87 mg/dL (0.55-1.02); EST Glomerular Filtration Rate 68 mL/min (>60); Est Glom Filt Rate - Afr Amer 82 mL/min (>60); Estimated Creatinine Clearance 43.46 ml/min; Globulin 2.7 g/dL (2.2-4.2); Glucose 164 mg/dL (74-106); High Density Lipoprotein 61 mg/dL; Magnesium 1.7 mg/dL (1.6-2.6); Protein, Total 5.6 g/dL (6.4-8.2); Sodium Level 144 mmol/L (136-145); Triglycerides 51 mg/dL; Very Low Density Lipoprotein 10 mg/dL (5-40)
[2018-09-21] MEDS: TICAGRELOR 90 MG TABLET PO ×2 (08:11→21:46)
[2018-09-21] MEDS: Losartan Potassium 25 MG Tablet 12.5 MG PO (08:11)
[2018-09-21] MEDS: Aspirin E.C. 81 MG Tablet PO (08:11)
[2018-09-21] MEDS: Metoprolol Tartrate 25 MG Tablet PO ×2 (08:11→21:46)
[2018-09-21] MEDS: Famotidine 20 MG Tablet PO (08:13)
[2018-09-21] MEDS: buPROPion (XL) 300 MG TABLET.XL PO (08:13)
--- NOTE | 2018-09-21 08:21 | CRPHASE1 ---
Patient Communication PHII Cardiac Rehab Discussed with Patient:: Yes Guide to Cardiac Rehab Given to Patient:: Yes Cardiac Rehab Facility Choice List Given to Patient:: Yes Choice Program [facility] CR PHII:: Communication Given to CR, Refer to [facility] Refer Phase II Cardiac Rehab:: Yes Sessions:: 36 sessions - 3 days/wk, 12 weeks Risk Factors/Lifestyle Smoking Status: Former smoker Hx Hypertension: Yes Hx Diabetes Mellitus Type 1: No Hx Diabetes Mellitus Type 2: No Hx Metabolic Disorders: No Hx Dyslipidemia: No Hx Obesity: Yes Height: 5 ft 1 in - BMI 41.2 Post-Menopausal: Yes Stress: Home/Family Laboratory Values: Cardiac Rehab Phase I Labs Hemoglobin A1c 5.8 % (4.2-6.3) 09/21/18 05:10 Triglycerides 51 mg/dL (-199) 09/21/18 05:10 Cholesterol 159 mg/dL (200) 09/21/18 05:10 LDL Cholesterol 88 mg/dL (0-130) 09/21/18 05:10 HDL Cholesterol 61 mg/dL (40-) 09/21/18 05:10 Phase I Education Given On:: [place], Nutrition, Antiplatelet medication Issues Affecting Care:: None Knowledge of Condition:: Yes Learning Preferences: Verbal, Written Hospital Course Presenting Symptoms:: STEMI Medical/Surgical History ND:: Yes - STEMI CAD:: Yes Diabetes:: No Hypertension:: Yes Dyslipidemia:: No GERD:: Yes Cancer:: Yes - HX BREAST Thyroid:: Yes - PARTIAL THYROIDECTOMY Depression:: Yes CABG: No PTCA:: No Discharge/Home/Social Eval Discharge Disposition: Home Cardiac Rehabilitation Info Cardiac Rehabilitation Program Information: Cardiac Rehabilitation is important for patients like you who are recovering from a heart problem. Cardiac rehabilitation programs are recognized as integral to the continued care of the patient with coronary heart disease. The cardiac rehabilitation program is designed to optimize a patient's physical, psychological, and social functioning. Health wound care rn work in cardiac rehabilitation programs and assist you with getting the treatments you need to get stronger and healthier - like exercise, healthy eating habits, and medications. Cardiac rehabilitation has been show to help people with heart problems live longer and have better life enjoyment than people who do not go to cardiac rehabilitation. Please contact the Cardiac Rehabilitation Program at [facility] at in two weeks if you have not heard from them.
--- NOTE | 2018-09-21 08:26 | CRPHASE1_ITS ---
Patient Communication PHII Cardiac Rehab Discussed with Patient:: Yes Guide to Cardiac Rehab Given to Patient:: Yes Cardiac Rehab Facility Choice List Given to Patient:: Yes Choice Program [facility] CR PHII:: Communication Given to CR, Refer to [facility] Refer Phase II Cardiac Rehab:: Yes Sessions:: 36 sessions - 3 days/wk, 12 weeks Risk Factors/Lifestyle Smoking Status: Former smoker Hx Hypertension: Yes Hx Diabetes Mellitus Type 1: No Hx Diabetes Mellitus Type 2: No Hx Metabolic Disorders: No Hx Dyslipidemia: No Hx Obesity: Yes Height: 5 ft 1 in - BMI 41.2 Post-Menopausal: Yes Stress: Home/Family Laboratory Values: Cardiac Rehab Phase I Labs Hemoglobin A1c 5.8 % (4.2-6.3) 09/21/18 05:10 Triglycerides 51 mg/dL (-199) 09/21/18 05:10 Cholesterol 159 mg/dL (200) 09/21/18 05:10 LDL Cholesterol 88 mg/dL (0-130) 09/21/18 05:10 HDL Cholesterol 61 mg/dL (40-) 09/21/18 05:10 Phase I Education Given On:: [place], Nutrition, Antiplatelet medication Issues Affecting Care:: None Knowledge of Condition:: Yes Learning Preferences: Verbal, Written Hospital Course Presenting Symptoms:: STEMI Medical/Surgical History ID:: Yes - STEMI CAD:: Yes Diabetes:: No Hypertension:: Yes Dyslipidemia:: No GERD:: Yes Cancer:: Yes - HX BREAST Thyroid:: Yes - PARTIAL THYROIDECTOMY Depression:: Yes CABG: No PTCA:: No Discharge/Home/Social Eval Discharge Disposition: Home Cardiac Rehabilitation Info Cardiac Rehabilitation Program Information: Cardiac Rehabilitation is important for patients like you who are recovering from a heart problem. Cardiac rehabilitation programs are recognized as integral to the continued care of the patient with coronary heart disease. The cardiac rehabilitation program is designed to optimize a patient's physical, psychological, and social functioning. Health special needs caregiver work in cardiac rehabilitation programs and assist you with getting the treatments you need to get stronger and healthier - like exercise, healthy eating habits, and medications. Cardiac rehabilitation has been show to help people with heart problems live longer and have better life enjoyment than people who do not go to cardiac rehabilitation. Please contact the Cardiac Rehabilitation Program at [facility] at in two weeks if you have not heard from them.
--- NOTE | 2018-09-21 08:27 | CRPH1.INSTRU ---
General Education CAD and cardiac anatomy and function:: Patient communicates acknowledgment Explanation of diagnoses and procedures:: Patient communicates acknowledgment Sign/Symptoms of UT:: Patient communicates acknowledgment Antiplatelet therapy: Patient communicates acknowledgment Proper use of NTG-SL: Not instructed Emergency procedures and activation of EMS: Patient communicates acknowledgment Compliance of all prescribed medications: Patient communicates acknowledgment Smoking Patient Nicotine/Smoking Risk Factors Are:: Cigarettes Recommendations Include:: Previous smoker; encourage continued cessation Nicotine/Smoking Response Code:: Patient communicates acknowledgment Dyslipidemia Recommendations Include:: Lipid profile provided, Reviewed NCEP/ATP guidelines, Therapeutic Lifestyle Change dietary guidelines Dyslipidemia Response Code:: Patient communicates acknowledgment Overweight/Obesity Patient Overweight/Obesity Risk Factors Are:: Obesity - > or = 30 Recommendations Include:: Weight loss of 5-10%, Reduced calorie diet, Exercise 5-7 times/week Overweight/Obesity:: Patient communicates acknowledgment Hypertension Recommendations Include:: Maintain BP <130/85, DASH dietary guidelines, Decrease/maintain normal body weight, Moderation of ETOH Hypertension:: Patient communicates acknowledgment Heart Disease Heart Disease Response Code:: Patient communicates acknowledgment Diabetes Patient Diabetes Risk Factors Are:: No documented hx of diabetes Metabolic Syndrome Recommendations Include:: Does not meet criteria Sedentary Patient Sedentary Risk Factors Are:: Lack of regular exercise Recommendations Include:: Aerobic exercise 5-7 times/week for 20-30 minutes continuously, Benefits of regular exercise, Discussed home walking program, Monitored Outpatient Cardiac Rehab Sedentary Response Code:: Patient communicates acknowledgment Stress Recommendations Include:: Identification of stressors, and assessment of coping skills, Stress management techniques Stress Response Code:: Patient communicates acknowledgment
--- NOTE | 2018-09-21 08:51 | PN_ITS ---
Patient Problems: Active and Suspected Problems STEMI (ST elevation myocardial infarction) (Acute) S/P PTCA (percutaneous transluminal coronary angioplasty) (Acute) RCA with KIM on 09/20/18 Elevated serum creatinine (Acute) Left bundle branch block (Acute) Subjective: All events the past 24 hours of been reviewed. The patient is a 73-year-old female admitted with STEMI on 09/20/2018 and went to [facility]. Catheterization showed a 90% occlusion of the RCA and a 65% occlusion of the mid LAD. 2 stents were placed in the RCA. She developed a hematoma in the right groin last evening and now has extensive bruising. She is afebrile. Blood pressure and heart rate are within normal limits. She is 94-96% saturated on room air. White blood cell count today is elevated at 14.4 and the hemoglobin is 11.6. Creatinine has decreased from 1.1-0.87 with a BUN of 16. Magnesium is 1.7 today. SHANELLE globin A1c was 5.8. Troponin peaked at 7.72. The LDL is 88 and the HDL is 61. Triglycerides are 51. She was seen by cardiac rehab today Review of telemetry shows normal sinus rhythm with occasional PACs and PVCs. No nonsustained ventricular tachycardia or ventricular couplets. She denies chest pain, shortness of breath, nausea, palpitations. She does have some discomfort in her right groin from the pressure applied last night for the hematoma. Denies any calf tenderness. Objective: - Physical Exam General: Alert, Oriented x3, Cooperative, No apparent distress, Well developed, Well nourished, sitting up in bed and waiting for breakfast HEENT: Atraumatic, PERRLA, EOMI, Normocephalic Oral: Moist Mucosa, No Gingival or Mucosal Lesions/ Ulcerations, Neck: Supple, No JVD, Negative Carotid Bruits, No Nodes, No Nuchal Rigidity, Trachea Midline Lungs: Clear to auscultation. No rhonchi, No wheeze, No rales. No conversational dyspnea and no accessory muscle use. She is not tachypneic. Cardiovascular: Regular rate, Regular Rhythm, Normal S1, Normal S2, No murmurs, No rub noted, No Gallop Abdomen: Bowel Sounds Present, Soft, Non Tender, Non-Distended. She has extensive bruising in the right groin extending into the upper anterior thigh and medial thigh. The dressing is dry with no acute bleeding. Extremities: No clubbing, No cyanosis, No edema, No Calf Tenderness, Peripheral Pulses Normal Skin: No rashes, No breakdown Musculoskeletal: No Muscle Wasting Neurological: Cranial nerves II-XII grossly intact, Neuro grossly intact Psych/Mental Status: Normal Affect, Appropriate - Physical Exam Vital Signs Temp Pulse Resp BP Pulse Ox 97.8 F 87 19 H 106/43 L 96 09/21/18 00:00 09/21/18 08:11 09/21/18 08:00 09/21/18 08:00 09/21/18 08:00 Oxygen Flow Rate (L/min) 2 Oxygen Delivery Method Room Air Weight: 223 lb 15.834 oz Body Mass Index (BMI) 41.3 Intake and Output for Last 24 Hours 09/19/18 09/20/18 09/21/18 23:59 23:59 23:59 Intake Total 2912 / 2912 Output Total 1150 / 1150 Balance 1762 / 1762 Laboratory Tests Past 24 Hrs 09/20/18 09/20/18 09/20/18 16:55 16:55 16:55 WBC Cancelled 7.1 Corrected WBC Cancelled RBC Cancelled 4.51 Hgb Cancelled 14.3 Hct Cancelled 42.6 MCV Cancelled 94.5 MCH Cancelled 31.7 MCHC Cancelled 33.6 RDW Cancelled 13.5 RDW Differential Cancelled 44.7 H Plt Count Cancelled 219 MPV Cancelled 10.3 Immature Gran % (Auto) Cancelled 0.100 Neut % (Auto) Cancelled 50.3 Lymph % (Auto) Cancelled 35.9 [place] % (Auto) Cancelled 10.4 H Eos % (Auto) Cancelled 3.0 Baso % (Auto) Cancelled 0.3 Absolute Neuts (auto) Cancelled 3.6 Absolute Lymphs (auto) Cancelled 2.53 Total Counted Cancelled Not Reportable Neutrophils % (Manual) Cancelled Band Neutrophils % Cancelled Lymphocytes % (Manual) Cancelled Monocytes % (Manual) Cancelled Eosinophils % (Manual) Cancelled Basophils % (Manual) Cancelled Metamyelocytes % Cancelled Myelocytes % Cancelled Promyelocytes % Cancelled Blast Cells % Cancelled Plasma Cell % (Manual) Cancelled Other Cells % Cancelled Nucleated RBCs/100 WBC Cancelled Differential Comment Cancelled Diff Path Review Cancelled Hypersegmented Neuts Cancelled Atypical Lymphocytes Cancelled Reactive Lymphocytes Cancelled Smudge Cells Cancelled Toxic Granulation Cancelled Dohle Bodies Cancelled Heena Rods Cancelled Platelet Estimate Cancelled Plt Morphology Comment Cancelled RBC Morphology Cancelled Polychromasia Cancelled Hypochromasia Cancelled Poikilocytosis Cancelled Basophilic Stippling Cancelled Anisocytosis Cancelled Microcytosis Cancelled Macrocytosis Cancelled Spherocytes Cancelled Sickle Cells Cancelled Target Cells Cancelled Tear Drop Cells Cancelled Ovalocytes Cancelled Stomatocytes Cancelled [place] Bodies Cancelled [place] Cells Cancelled Bite Cells Cancelled Acanthocytes (Spur) Cancelled Rouleaux Cancelled Schistocytes Cancelled PT INR APTT Activated Clotting Time Sodium Cancelled Potassium Cancelled Chloride Cancelled Carbon Dioxide Cancelled Anion Gap Cancelled BUN Cancelled Creatinine Cancelled Estim Creat Clear Calc Cancelled Est GFR (MDRD) Af Amer Cancelled Est GFR (MDRD) Non-Af Cancelled BUN/Creatinine Ratio Cancelled Glucose Cancelled Hemoglobin A1c Calcium Cancelled Magnesium Total Bilirubin AST ALT Alkaline Phosphatase Troponin I Cancelled Total Protein Albumin Globulin Albumin/Globulin Ratio Triglycerides Cholesterol LDL Cholesterol VLDL Cholesterol HDL Cholesterol Serum , Qual 09/20/18 09/20/18 09/20/18 16:55 16:55 16:55 WBC Corrected WBC RBC Hgb Hct MCV MCH MCHC RDW RDW Differential Plt Count MPV Immature Gran % (Auto) Neut % (Auto) Lymph % (Auto) [place] % (Auto) Eos % (Auto) Baso % (Auto) Absolute Neuts (auto) Absolute Lymphs (auto) Total Counted Neutrophils % (Manual) Band Neutrophils % Lymphocytes % (Manual) Monocytes % (Manual) Eosinophils % (Manual) Basophils % (Manual) Metamyelocytes % Myelocytes % Promyelocytes % Blast Cells % Plasma Cell % (Manual) Other Cells % Nucleated RBCs/100 WBC Differential Comment Diff Path Review Hypersegmented Neuts Atypical Lymphocytes Reactive Lymphocytes Smudge Cells Toxic Granulation Dohle Bodies Heena Rods Platelet Estimate Plt Morphology Comment RBC Morphology Polychromasia Hypochromasia Poikilocytosis Basophilic Stippling Anisocytosis Microcytosis Macrocytosis Spherocytes Sickle Cells Target Cells Tear Drop Cells Ovalocytes Stomatocytes [place] Bodies Gael Cells Bite Cells Acanthocytes (Spur) Rouleaux Schistocytes PT 13.6 INR 1.1 APTT 28.0 Activated Clotting Time Sodium 139 Potassium 3.8 Chloride 106 Carbon Dioxide 28.0 Anion Gap 5 BUN 17 Creatinine 1.10 H Estim Creat Clear Calc 36.03 Est GFR (MDRD) Af Amer 63 Est GFR (MDRD) Non-Af 52 L BUN/Creatinine Ratio 15.5 Glucose 128 H Hemoglobin A1c Calcium 9.0 Magnesium Total Bilirubin AST ALT Alkaline Phosphatase Troponin I 0.081 H Total Protein Albumin Globulin Albumin/Globulin Ratio Triglycerides Cholesterol LDL Cholesterol VLDL Cholesterol HDL Cholesterol Serum , Qual NEGATIVE 09/20/18 09/20/18 09/20/18 17:32 18:05 20:08 WBC Corrected WBC RBC Hgb Hct MCV MCH MCHC RDW RDW Differential Plt Count MPV Immature Gran % (Auto) Neut % (Auto) Lymph % (Auto) [place] % (Auto) Eos % (Auto) Baso % (Auto) Absolute Neuts (auto) Absolute Lymphs (auto) Total Counted Neutrophils % (Manual) Band Neutrophils % Lymphocytes % (Manual) Monocytes % (Manual) Eosinophils % (Manual) Basophils % (Manual) Metamyelocytes % Myelocytes % Promyelocytes % Blast Cells % Plasma Cell % (Manual) Other Cells % Nucleated RBCs/100 WBC Differential Comment Diff Path Review Hypersegmented Neuts Atypical Lymphocytes Reactive Lymphocytes Smudge Cells Toxic Granulation Dohle Bodies Heena Rods Platelet Estimate Plt Morphology Comment RBC Morphology Polychromasia Hypochromasia Poikilocytosis Basophilic Stippling Anisocytosis Microcytosis Macrocytosis Spherocytes Sickle Cells Target Cells Tear Drop Cells Ovalocytes Stomatocytes [place] Bodies [place] Cells Bite Cells Acanthocytes (Spur) Rouleaux Schistocytes PT INR APTT Activated Clotting Time 169 H 246 H 186 H Sodium Potassium Chloride Carbon Dioxide Anion Gap BUN Creatinine Estim Creat Clear Calc Est GFR (MDRD) Af Amer Est GFR (MDRD) Non-Af BUN/Creatinine Ratio Glucose Hemoglobin A1c Calcium Magnesium Total Bilirubin AST ALT Alkaline Phosphatase Troponin I Total Protein Albumin Globulin Albumin/Globulin Ratio Triglycerides Cholesterol LDL Cholesterol VLDL Cholesterol HDL Cholesterol Serum , Qual 09/20/18 09/20/18 09/20/18 20:15 21:18 23:20 WBC Corrected WBC RBC Hgb Hct MCV MCH MCHC RDW RDW Differential Plt Count MPV Immature Gran % (Auto) Neut % (Auto) Lymph % (Auto) [place] % (Auto) Eos % (Auto) Baso % (Auto) Absolute Neuts (auto) Absolute Lymphs (auto) Total Counted Neutrophils % (Manual) Band Neutrophils % Lymphocytes % (Manual) Monocytes % (Manual) Eosinophils % (Manual) Basophils % (Manual) Metamyelocytes % Myelocytes % Promyelocytes % Blast Cells % Plasma Cell % (Manual) Other Cells % Nucleated RBCs/100 WBC Differential Comment Diff Path Review Hypersegmented Neuts Atypical Lymphocytes Reactive Lymphocytes Smudge Cells Toxic Granulation Dohle Bodies Heena Rods Platelet Estimate Plt Morphology Comment RBC Morphology Polychromasia Hypochromasia Poikilocytosis Basophilic Stippling Anisocytosis Microcytosis Macrocytosis Spherocytes Sickle Cells Target Cells Tear Drop Cells Ovalocytes Stomatocytes [place] Bodies [place] Cells Bite Cells Acanthocytes (Spur) Rouleaux Schistocytes PT INR APTT Activated Clotting Time 180 H Sodium Potassium Chloride Carbon Dioxide Anion Gap BUN Creatinine Estim Creat Clear Calc Est GFR (MDRD) Af Amer Est GFR (MDRD) Non-Af BUN/Creatinine Ratio Glucose Hemoglobin A1c Calcium Magnesium Total Bilirubin AST ALT Alkaline Phosphatase Troponin I 2.900 H* 7.720 H* Total Protein Albumin Globulin Albumin/Globulin Ratio Triglycerides Cholesterol LDL Cholesterol VLDL Cholesterol HDL Cholesterol Serum , Qual 09/21/18 09/21/18 09/21/18 05:10 05:10 05:10 WBC 14.4 H Corrected WBC RBC 3.69 L Hgb 11.6 L Hct 35.2 L MCV 95.4 MCH 31.4 MCHC 33.0 RDW 13.4 RDW Differential 44.3 H Plt Count 204 MPV 10.7 Immature Gran % (Auto) Neut % (Auto) Lymph % (Auto) [place] % (Auto) Eos % (Auto) Baso % (Auto) Absolute Neuts (auto) Absolute Lymphs (auto) Total Counted Neutrophils % (Manual) Band Neutrophils % Lymphocytes % (Manual) Monocytes % (Manual) Eosinophils % (Manual) Basophils % (Manual) Metamyelocytes % Myelocytes % Promyelocytes % Blast Cells % Plasma Cell % (Manual) Other Cells % Nucleated RBCs/100 WBC Differential Comment Diff Path Review Hypersegmented Neuts Atypical Lymphocytes Reactive Lymphocytes Smudge Cells Toxic Granulation Dohle Bodies Heena Rods Platelet Estimate Plt Morphology Comment RBC Morphology Polychromasia Hypochromasia Poikilocytosis Basophilic Stippling Anisocytosis Microcytosis Macrocytosis Spherocytes Sickle Cells Target Cells Tear Drop Cells Ovalocytes Stomatocytes [place] Bodies Gael Cells Bite Cells Acanthocytes (Spur) Rouleaux Schistocytes PT INR APTT Activated Clotting Time Sodium 144 Potassium 4.0 Chloride 113 H Carbon Dioxide 24.0 Anion Gap 7 BUN 16 Creatinine 0.87 Estim Creat Clear Calc 43.46 Est GFR (MDRD) Af Amer 82 Est GFR (MDRD) Non-Af 68 BUN/Creatinine Ratio 18.4 Glucose 164 H Hemoglobin A1c 5.8 Calcium 7.7 L Magnesium 1.7 Total Bilirubin 0.50 AST 41 H ALT 27 Alkaline Phosphatase 72 Troponin I 7.200 H* Total Protein 5.6 L Albumin 2.9 L Globulin 2.7 Albumin/Globulin Ratio 1.1 Triglycerides 51 Cholesterol 159 LDL Cholesterol 88 VLDL Cholesterol 10 HDL Cholesterol 61 Serum , Qual Medical Necessity - Tobacco Use Smoking Status: Former smoker Tobacco Use: Non-smoker Assessment/Plan All Active Problems STEMI (ST elevation myocardial infarction) (Acute) S/P PTCA (percutaneous transluminal coronary angioplasty) (Acute) Elevated serum creatinine (Acute) Left bundle branch block (Acute) Impressions 1. STEMI 2. Status post PTCA/KIM to the RCA with 2 stents -possible dissection but the area is covered by the stent 3. Coronary artery disease 4. Hypertension 5. Depression-on Wellbutrin 6. GERD 7. History of left breast cancer-status post left mastectomy in 1988 8. History of partial thyroidectomy 9. Elevated creatinine 10. Elevated blood sugar at 128 11. 65% stenosis of the mid LAD 12. Former smoker 13. hematoma right groin supplement the mag to keep it around 2. Maintain the potassium around 4 check a UA and culture and DC the sindhu this AM She has been seen by the rn cvor who recommends a [id number] calorie diet for weight loss If she remains stable will likely transfer to PCU later today. Recheck lab in a.m. Will be brought back in 3-4 weeks for a stress test to evaluate the LAD. If the stress test is positive she will likely need a stent to the LAD. Code Visit Inpatient E&M: 70764 Subs Hosp L2
[2018-09-21] MEDS: Magnesium Oxide 400 MG Tablet PO (09:17)
--- NOTE | 2018-09-21 09:19 | CASEMGMT ---
RN CM Assessment Presentation: STEMI Intro role of CM and purpose of RN CM assessment to patient in room. Demographics, PCP and Pharmacy verified. PCP: Dr. Jerson Vigil Specialists: Dr. Pedersen Preferred Pharmacy: [facility] [place] [place]rien Insurance: [facility] [place] Prescription Benefit: yes, discussed Brillinta savings card with pt. Pt states she does not have a lot of income. - Call to [facility]. Cost of Brillinta 90 mg BID one month @ [facility] would be ~$97.00/month; Cost for mail order- 90 day supply would be $165.00. Spoke with patient who will consider. Pt will get first month free supply. LNOK: Jenifer Jasso, Sister Living Arrangements: Lives independently in own home, sister lives next door. Pt states she is independent in ADL. Transportation: Drives DME:Cane only HHC: none Patient DC goals:Home DC PLAN: Home
[2018-09-21 09:22] LABS: Color, Urine Yellow (Yellow); Glucose, Dipstick Normal (Normal); Ketone-Dipstick 5 mg/dl (Negative); Leukocyte Esterase-Dipstick 100 /ul (Negative); Nitrite-Dipstick Positive (Negative); Occult Blood-Urine 150 /ul (Negative); Protein-Dipstick 30 mg/dl (Negative); Specific Gravity, Urine 1.025 (1.002-1.030); Urine Clarity Sl. Cloudy (Clear); Urine Urobilinogen Normal (Normal)
[2018-09-21 09:25] LABS: Urine Bilirubin Dipstick 1 mg/dL (Negative)
[2018-09-21 09:28] LABS: Bacteria 1+ /hpf (None Seen); Mucous, Urine 1+ /hpf (<or=2+); Red Blood Cells-Urine 10-25 SEEN /hpf (0-5); Squamous Epithelial Cells - UA 0-5 SEEN /hpf (5-10); White Blood Cells 10-25 SEEN /hpf (0-5)
--- NOTE | 2018-09-21 10:00 | EKG12_ITS ---
Test Reason : AM Blood Pressure : / mmHG Vent. Rate : 076 BPM Atrial Rate : 076 BPM P-R Int : 162 ms QRS Dur : 120 ms QT Int : 448 ms P-R-T Axes : 071 -02 077 degrees QTc Int : 504 ms Normal sinus rhythm Low voltage QRS Septal infarct , age undetermined Abnormal ECG When compared with ECG of 20-SEP-2018 18:42, MANUAL COMPARISON REQUIRED, DATA IS UNCONFIRMED Confirmed by LUIS EDUARDO MILLER, MISTI ([id number]), image editor PAMELA GIRON ([id number]) on 09/26/2018 2:03:13 PM Referred By: Mani Pedersen Confirmed By:MISTI HOFF MD
--- NOTE | 2018-09-21 10:12 | PCM.PN.CARD ---
Subjectve: Patient doing much better this morning. No further chest pain or arm pain. Patient had a slight hematoma last evening requiring sheath removal overnight with a FemoStop placement. Patient has a moderate-sized superficial medial ecchymosis which is soft. She has 2+ DP and PT pulses bilaterally. Hemoglobin and creatinine are within nominal limits. EKG shows normal sinus rhythm with resolved inferior ST elevation and baseline left bundle branch block. Peak troponin is 7.7 and now trending downwards to 7.2.. Objective: Vital Signs Temp Pulse Resp BP Pulse Ox 97.8 F 79 20 H 99/34 L 95 09/21/18 00:00 09/21/18 09:00 09/21/18 09:00 09/21/18 09:00 09/21/18 09:00 Oxygen Flow Rate (L/min) 2 Oxygen Delivery Method Room Air Weight: 223 lb 15.834 oz Body Mass Index (BMI) 41.3 Intake and Output for Last 24 Hours 09/19/18 09/20/18 09/21/18 23:59 23:59 23:59 Intake Total 2912 / 2912 Output Total 1150 / 1150 Balance 1762 / 1762 General: Awake, Alert, Oriented x 3 HEENT: PERRL, EOMI, Sclera Non Icteric Neck: Supple, Good ROM, No Lymph Node Enlargement Lungs: Clear to auscultation Cardiovascular: Regular Rhythm, Normal S1, Normal S2, No Murmurs, No Rubs, No Gallops Vascular: No Carotid Bruits, Normal Femoral Pulses, Normal Radial Pulses, Normal Dorsalis Pedal Pulse, Normal Posterior Tibial Pulses Abdomen: Bowel Sounds Present, Soft, Non Tender, No HSM, No Organomegaly Extremities: No Cyanosis, No Clubbing, No edema Neurological: No Focal Motor or Sensory Deficit 09/20/18 16:55: WBC Cancelled, Corrected WBC Cancelled, RBC Cancelled, Hgb Cancelled, Hct Cancelled, MCV Cancelled, MCH Cancelled, MCHC Cancelled, RDW Cancelled, RDW Differential Cancelled, Plt Count Cancelled, MPV Cancelled, Immature Gran % (Auto) Cancelled, Neut % (Auto) Cancelled, Lymph % (Auto) Cancelled, [place] % (Auto) Cancelled, Eos % (Auto) Cancelled, Baso % (Auto) Cancelled, Absolute Neuts (auto) Cancelled, Total Counted Cancelled, Neutrophils % (Manual) Cancelled, Band Neutrophils % Cancelled, Lymphocytes % (Manual) Cancelled, Monocytes % (Manual) Cancelled, Eosinophils % (Manual) Cancelled, Basophils % (Manual) Cancelled, Metamyelocytes % Cancelled, Myelocytes % Cancelled, Promyelocytes % Cancelled, Blast Cells % Cancelled, Plasma Cell % (Manual) Cancelled, Other Cells % Cancelled 09/20/18 16:55: Sodium Cancelled, Potassium Cancelled, Chloride Cancelled, Carbon Dioxide Cancelled, Anion Gap Cancelled, BUN Cancelled, Creatinine Cancelled, Est GFR (MDRD) Af Amer Cancelled, Est GFR (MDRD) Non-Af Cancelled, BUN/Creatinine Ratio Cancelled, Glucose Cancelled, Calcium Cancelled, Troponin I Cancelled 09/20/18 16:55: WBC 7.1, RBC 4.51, Hgb 14.3, Hct 42.6, MCV 94.5, MCH 31.7, MCHC 33.6, RDW 13.5, RDW Differential 44.7 H, Plt Count 219, MPV 10.3, Immature Gran % (Auto) 0.100, Neut % (Auto) 50.3, Lymph % (Auto) 35.9, [place] % (Auto) 10.4 H, Eos % (Auto) 3.0, Baso % (Auto) 0.3, Absolute Neuts (auto) 3.6, Total Counted Not Reportable 09/20/18 16:55: PT 13.6, INR 1.1, APTT 28.0 09/20/18 16:55: Sodium 139, Potassium 3.8, Chloride 106, Carbon Dioxide 28.0, Anion Gap 5, BUN 17, Creatinine 1.10 H, Est GFR (MDRD) Af Amer 63, Est GFR (MDRD) Non-Af 52 L, BUN/Creatinine Ratio 15.5, Glucose 128 H, Calcium 9.0, Troponin I 0.081 H 09/20/18 20:15: Troponin I 2.900 H* 09/20/18 23:20: Troponin I 7.720 H* 09/21/18 05:10: WBC 14.4 H, RBC 3.69 L, Hgb 11.6 L, Hct 35.2 L, MCV 95.4, MCH 31.4, MCHC 33.0, RDW 13.4, RDW Differential 44.3 H, Plt Count 204, MPV 10.7 09/21/18 05:10: Sodium 144, Potassium 4.0, Chloride 113 H, Carbon Dioxide 24.0, Anion Gap 7, BUN 16, Creatinine 0.87, Est GFR (MDRD) Af Amer 82, Est GFR (MDRD) Non-Af 68, BUN/Creatinine Ratio 18.4, Glucose 164 H, Calcium 7.7 L, Magnesium 1.7, Total Bilirubin 0.50, Troponin I 7.200 H*, Triglycerides 51, Cholesterol 159, LDL Cholesterol 88, VLDL Cholesterol 10, HDL Cholesterol 61 09/21/18 05:10: Hemoglobin A1c 5.8 09/21/18 09:10: Urine Color Yellow, Urine Clarity Sl. Cloudy, Urine pH 5.0, Ur Specific [place] 1.025, Urine Protein 30 H, Urine Glucose (UA) Normal, Urine Ketones 5 H, Urine Occult Blood 150 H, Urine Nitrite Positive H, Urine Bilirubin 1 H, Urine Urobilinogen Normal, Ur Leukocyte Esterase 100 H, Urine RBC 10-25 SEEN, Urine WBC 10-25 SEEN Rhythm: EKG: ECHO: Stress Test: Cardiac Cath: PCI: CT Surgery: Holter monitor: EPS: PPM: CXR: Chest CT Scan: Medical Necessity - Tobacco Use Smoking Status: Former smoker Tobacco Use: Non-smoker Assessment/Plan 1. Coronary artery disease: Patient is status post acute inferior wall myocardial infarction requiring emergent catheterization and angioplasty and drug-eluting stent to her mid RCA. She received a 2.5 ex-38 Promus Synergy stent, followed immediately upstream with a 3.5 ex-8 Promus Synergy stent. The longer of the 2 stents was postdilated with a 3.0 noncompliant balloon and the shorter stent was postdilated with a 4.0 mm balloon. Patient has remaining mid LAD's eccentric moderately calcified stenosis which was left for medical management and assessment by stress testing in several weeks time. Patient's peak troponin is 7.7 and is trending downwards. Her LV function appeared to be normal at the end of the procedure. We are awaiting echocardiogram to document her LV function. This point I would recommend continuing baby aspirin, Brilinta, beta blockers, Cozaar, and statin based medications. I would recommend continuing telemetry in the ICU for at least 24 more hours given her myocardial infarction. Assuming everything is okay with her groin tomorrow morning she may be able to be discharged home on Monday. 2. Hyperlipidemia: We have initiated statin based medication with Lipitor 80 mg p.o. nightly and will repeat lipid profile in 6 weeks time. 3. If her stress test is abnormal for anterior ischemia, would recommend returning for elective angioplasty and stenting of her mid LAD at the bifurcation of the diagonal branch. Her stress test will take place in 3-4 weeks time. 4. Thank you very much for the opportunity to participate in the cardiac care of your patient. Code Visit Inpatient E&M: 87292 Subs Hosp L2
--- NOTE | 2018-09-21 16:38 | PN_ITS ---
Progress Note Patient is scheduled for a post hospital office follow-up on 10/05/2018 at 11:[address] Pedersen with the [facility] office.
[2018-09-21] MEDS: LORazepam 1 MG Tablet PO (21:46)
[2018-09-21] MEDS: Atorvastatin Calcium 80 MG Tablet PO (21:46)
[2018-09-22] VITALS (19 sets, daily range): BP systolic 98–149; BP diastolic 31–68; PULSE 74–95; RESP 16–22; TEMP 36.8–37.2; O2SAT 92–97
[2018-09-22] MEDS: 0.9% Normal Saline 1,000 ML 999 ML IV (04:34)
[2018-09-22 06:26] LABS: Absolute Lymphocyte Count 2.22 X10^3/ul (0.83-4.51); Absolute Neutrophil Count 8.5 X10^3/uL (2.0-7.7); Basophil# 0.02 X10^3/uL; Basophil% 0.2 % (0-1); Eosinophil# 0.24 X10^3/uL; Eosinophils% 1.9 % (0-5); Hemoglobin 10.5 g/dl (12.0-15.0); Lymphocyte # 2.22 X10^3/ul (4.0); Lymphocyte % 17.7 % (19-41); Mean Corp Hgb Conc 32.8 g/gl (32-36); Mean Corpuscular Hgb 31.7 pg (27.0-32.0); Mean Corpuscular Volume 96.7 fL (81-99); Mean Platelet Vol. 10.1 fl (6.2-12.0); Monocyte# 1.55 X10^3/uL; Monocyte% 12.4 % (0-10); Neutrophil # 8.46 X10^3/uL (2.7-7.7); Neutrophil % 67.6 % (47-70); Platelet Count 160 K/mm3 (150-450); RBC Distribution Width CV 13.8 % (11.6-14.6); RBC Distribution Width SD 48.5 fl (35.1-43.9); Red Blood Count 3.31 M/mm3 (4.2-5.4); White Blood Count 12.5 K/mm3 (4.4-11.0)
[2018-09-22 06:28] LABS: Differential Indicated SCAN CRITERIA MET; POSITIVE COUNT NO; POSITIVE DIFFERENTIAL YES; POSITIVE MORPHOLOGY NO
[2018-09-22 06:36] LABS: Anion Gap 2 (5-15); BUN 20 mg/dL (7-18); BUN/Creat Ratio 19.4 RATIO (10-20); Calcium,Total 7.6 mg/dL (8.5-10.1); Chloride 112 mmol/L (98-107); Creatinine, Serum 1.03 mg/dL (0.55-1.02); EST Glomerular Filtration Rate 56 mL/min (>60); Est Glom Filt Rate - Afr Amer 68 mL/min (>60); Estimated Creatinine Clearance 36.71 ml/min; Glucose 92 mg/dL (74-106); Potassium 3.7 mmol/L (3.5-5.1); Sodium Level 141 mmol/L (136-145)
--- NOTE | 2018-09-22 07:39 | PN_ITS ---
Patient Problems: Active and Suspected Problems STEMI (ST elevation myocardial infarction) (Acute) S/P PTCA (percutaneous transluminal coronary angioplasty) (Acute) RCA with KIM on 09/20/18 Elevated serum creatinine (Acute) Left bundle branch block (Acute) Subjective: All events of the past 24 hours of been reviewed. She is afebrile. Vital signs are stable. Pulse ox is 93-96% on room air She became somewhat confused and agitated last night and was given Ativan. Ativan seemed to increase confusion. At admission she admitted to social use of alcohol. All lab was personally reviewed. White blood cell count was 12.5 today with 60% neutrophils. Hemoglobin is 10.5 and platelets are within normal limits. BMP is remarkable for a BUN of 20 and a creatinine of 1.03, up from 0.87 on 09/21/2018. Intake and output are not accurate. Calcium corrected for hypoalbuminemia is low normal. Echocardiogram showed an ejection fraction of 65%. There is stage I diastolic dysfunction and trivial mitral valve insufficiency. The right ventricular systolic pressure was estimated to be 33. Telemetry with no no significant ectopy Objective: - Physical Exam General: Alert, Oriented x3, Cooperative, had some confusion last night and states she had nightmares. She got Ativan and the confusion worsened HEENT: Atraumatic, PERRLA, EOMI, Normocephalic Oral: Moist Mucosa, No Gingival or Mucosal Lesions/ Ulcerations, Neck: Supple, No JVD, Negative Carotid Bruits, No Nodes, No Nuchal Rigidity, Trachea Midline Lungs: she has coarse crackles in the bases today. Was tachypneic after walking back from the BR today. No conversational dyspnea and no accessory muscle use. She is not tachypneic. Cardiovascular: Regular rate, Regular Rhythm, Normal S1, Normal S2, No murmurs, No rub noted, No Gallop Abdomen: Bowel Sounds Present, Soft, Non Tender, Non-Distended. She has extensive bruising in the right groin extending into the upper anterior thigh and medial thigh. She also has bruising of the left medial thigh today. The areas of ecchymosis are soft. The dressing is dry with no acute bleeding. Extremities: No clubbing, No cyanosis, No edema, No Calf Tenderness, Peripheral Pulses Normal Skin: No rashes, No breakdown Musculoskeletal: No Muscle Wasting Neurological: Cranial nerves II-XII grossly intact, Neuro grossly intact Psych/Mental Status: Normal Affect, Appropriate - Physical Exam Vital Signs Temp Pulse Resp BP Pulse Ox 98.3 F 86 22 H 135/59 H 96 09/22/18 00:00 09/22/18 06:00 09/22/18 06:00 09/22/18 06:00 09/22/18 06:00 Oxygen Flow Rate (L/min) 2 Oxygen Delivery Method Room Air Weight: 226 lb 6.636 oz Body Mass Index (BMI) 41.3 Intake and Output for Last 24 Hours 09/20/18 09/21/18 09/22/18 23:59 23:59 23:59 Intake Total 4002 / 4002 1300 / 1300 Output Total 1585 / 1585 Balance 2417 / 2417 1300 / 1300 Laboratory Tests Past 24 Hrs 09/21/18 09/22/18 09/22/18 09:10 06:00 06:00 WBC 12.5 H RBC 3.31 L Hgb 10.5 L Hct 32.0 L MCV 96.7 MCH 31.7 MCHC 32.8 RDW 13.8 RDW Differential 48.5 H Plt Count 160 MPV 10.1 Immature Gran % (Auto) 0.200 Neut % (Auto) 67.6 Lymph % (Auto) 17.7 L [place] % (Auto) 12.4 H Eos % (Auto) 1.9 Baso % (Auto) 0.2 Absolute Neuts (auto) 8.5 H Absolute Lymphs (auto) 2.22 Total Counted Not Reportable Sodium 141 Potassium 3.7 Chloride 112 H Carbon Dioxide 27.0 Anion Gap 2 L BUN 20 H Creatinine 1.03 H Estim Creat Clear Calc 36.71 Est GFR (MDRD) Af Amer 68 Est GFR (MDRD) Non-Af 56 L BUN/Creatinine Ratio 19.4 Glucose 92 Calcium 7.6 L Magnesium 2.0 Urine Color Yellow Urine Clarity Sl. Cloudy Urine pH 5.0 Ur Specific [place] 1.025 Urine Protein 30 H Urine Glucose (UA) Normal Urine Ketones 5 H Urine Occult Blood 150 H Urine Nitrite Positive H Urine Bilirubin 1 H Urine Urobilinogen Normal Ur Leukocyte Esterase 100 H Urine RBC 10-25 SEEN Urine WBC 10-25 SEEN Ur Squamous Epith Cells 0-5 SEEN Urine Bacteria 1+ Urine Mucus 1+ Medical Necessity - Tobacco Use Smoking Status: Former smoker Tobacco Use: Non-smoker Assessment/Plan All Active Problems STEMI (ST elevation myocardial infarction) (Acute) S/P PTCA (percutaneous transluminal coronary angioplasty) (Acute) Elevated serum creatinine (Acute) Left bundle branch block (Acute) Impressions 1. STEMI 2. Status post PTCA/KIM to the RCA with 2 stents -possible dissection but the area is covered by the stent 3. Coronary artery disease 4. Hypertension 5. Depression-on Wellbutrin 6. GERD 7. History of left breast cancer-status post left mastectomy in 1988 8. History of partial thyroidectomy 9. Elevated creatinine 10. Elevated blood sugar at 128 11. 65% stenosis of the mid LAD 12. Former smoker 13. hematoma right groin with ecchymosis of the perineum, R medial and upper anterior thigh 14. sundowning? transfer to PCU Increase activity - lives alone and needs to be closer to her baseline with ambulation prior to DC Seroquel 25 mg at 2100 nightly while in the hospital recheck lab in the AM PA and Lateral CXR.......may need lasix if there is PVC Overnight trending pulse ox for sleep disordered breathing. She desaturates in the night when sleeping Start Rocephin for suspected UTI - it was a cath specimen Code Visit Inpatient E&M: 13218 Subs Hosp L2
[2018-09-22] MEDS: Magnesium Oxide 400 MG Tablet PO (08:46)
[2018-09-22] MEDS: Aspirin E.C. 81 MG Tablet PO (08:46)
--- NOTE | 2018-09-22 08:52 | PN.CARD_ITS ---
Subjectve: She has some mild crackles at her right base this morning, but denies any chest pain. Patient completely lucid this morning however last evening she appeared to have some owning and confusion. Heart rate is running around 99-100 bpm but the patient states that her heart rate at home is always in the 90s. Her right groin is clean/dry/intact with mild soft ecchymosis along the surface and medial part of her thigh. Improving from yesterday. No fevers or chills. Objective: Vital Signs Temp Pulse Resp BP Pulse Ox 98.3 F 86 22 H 135/59 H 96 09/22/18 00:00 09/22/18 06:00 09/22/18 06:00 09/22/18 06:00 09/22/18 06:00 Oxygen Flow Rate (L/min) 2 Oxygen Delivery Method Room Air Weight: 226 lb 6.636 oz Body Mass Index (BMI) 41.3 Intake and Output for Last 24 Hours 09/20/18 09/21/18 09/22/18 23:59 23:59 23:59 Intake Total 4002 / 4002 1300 / 1300 Output Total 1585 / 1585 Balance 2417 / 2417 1300 / 1300 General: Awake, Alert, Oriented x 3 HEENT: PERRL, EOMI, Sclera Non Icteric Neck: Supple, Good ROM, No Lymph Node Enlargement Lungs: Clear to auscultation Cardiovascular: Regular Rhythm, Normal S2, No Rubs, No Gallops Murmur Murmur: Grade 2/6, Holosystolic Vascular: No Carotid Bruits, Normal Femoral Pulses, Normal Radial Pulses, Normal Dorsalis Pedal Pulse, Normal Posterior Tibial Pulses Abdomen: Bowel Sounds Present, Soft, Non Tender, No HSM, No Organomegaly Extremities: No Cyanosis, No Clubbing, No edema Neurological: No Focal Motor or Sensory Deficit 09/21/18 09:10: Urine Color Yellow, Urine Clarity Sl. Cloudy, Urine pH 5.0, Ur Specific [place] 1.025, Urine Protein 30 H, Urine Glucose (UA) Normal, Urine Ketones 5 H, Urine Occult Blood 150 H, Urine Nitrite Positive H, Urine Bilirubin 1 H, Urine Urobilinogen Normal, Ur Leukocyte Esterase 100 H, Urine RBC 10-25 SEEN, Urine WBC 10-25 SEEN 09/22/18 06:00: WBC 12.5 H, RBC 3.31 L, Hgb 10.5 L, Hct 32.0 L, MCV 96.7, MCH 31.7, MCHC 32.8, RDW 13.8, RDW Differential 48.5 H, Plt Count 160, MPV 10.1, Immature Gran % (Auto) 0.200, Neut % (Auto) 67.6, Lymph % (Auto) 17.7 L, [place] % (Auto) 12.4 H, Eos % (Auto) 1.9, Baso % (Auto) 0.2, Absolute Neuts (auto) 8.5 H, Total Counted Not Reportable 09/22/18 06:00: Sodium 141, Potassium 3.7, Chloride 112 H, Carbon Dioxide 27.0, Anion Gap 2 L, BUN 20 H, Creatinine 1.03 H, Est GFR (MDRD) Af Amer 68, Est GFR (MDRD) Non-Af 56 L, BUN/Creatinine Ratio 19.4, Glucose 92, Calcium 7.6 L, Magnesium 2.0 Rhythm: Telemetry normal sinus rhythm with rare PACs. EKG: Normal sinus rhythm with resolved inferior ST elevation and baseline left bundle branch block. ECHO: Normal LV function, no evidence of pericardial effusion. Stress Test: Cardiac Cath: PCI: CT Surgery: Holter monitor: EPS: PPM: CXR: Chest CT Scan: Medical Necessity - Tobacco Use Smoking Status: Former smoker Tobacco Use: Non-smoker Assessment/Plan 1. Coronary artery disease: Patient is status post acute inferior wall myocardial infarction requiring emergent catheterization and angioplasty and drug-eluting stent to her mid RCA. She received a 2.5 x-38 Promus Synergy stent, followed immediately upstream with a 3.5 x-8 Promus Synergy stent. The longer of the 2 stents was postdilated with a 3.0 noncompliant balloon and the shorter stent was postdilated with a 4.0 mm balloon. Patient has remaining mid LAD's eccentric moderately calcified stenosis which was left for medical management and assessment by stress testing in several weeks time. Patient's peak troponin is 7.7 and is trending downwards. Her LV function appeared to be normal at the end of the procedure. Echocardiogram on 09/21/18 confirmed normal LV function, no evidence of pericardial effusion, 1+ tricuspid regurgitation which would explain her systolic murmur. This point I would recommend continuing baby aspirin, Brilinta, beta blockers, Cozaar, and statin based medications. Would recommend increasing her metoprolol to 50 mg p.o. twice daily and titrating up from there to keep her heart rate in the 70s. In addition, recommend chest x-ray PA and lateral to determine if she possibly has any concomitant pneumonia. Her initial chest x-ray suggested poss ible right lower lobe infiltrate although this was minimal at best. She does have some crackles in her right base and did have an episode of confusion last evening. If there is any suspicion of pneumonia would recommend antibiotic treatment given her recent myocardial infarction. 2. Hyperlipidemia: We have initiated statin based medication with Lipitor 80 mg p.o. nightly and will repeat lipid profile in 6 weeks time. 3. If her stress test is abnormal for anterior ischemia, would recommend returning for elective angioplasty and stenting of her mid LAD at the bifurcation of the diagonal branch. Her stress test will take place in 3-4 weeks time. 4. Thank you very much for the opportunity to participate in the cardiac care of your patient. Patient may be transferred to PCU. Discussed with Dr. Orta. Code Visit Inpatient E&M: 36941 Subs Hosp L2
--- NOTE | 2018-09-22 10:00 | RAD_ITS ---
STUDY: X-RAY CHEST REASON FOR EXAM: Female, 73 years old. Shortness of breath. TECHNIQUE: Single AP portable view of the chest. COMPARISON: 09/20/2016. FINDINGS: The lungs are clear and expanded. There is no demonstrated pleural abnormality. Normal size heart. Normal mediastinum and elvie. Normal visualized pulmonary arteries. There is atherosclerotic calcification of the aortic arch. Normal visualized thoracic spine. Normal visualized ribs, clavicles, and shoulders. There is no demonstrated abnormality of the visualized soft tissue structures of the upper abdomen. RAD/Chest PA and Lateral IMPRESSION: No active pulmonary disease. Electronically Signed: Leon Araya MD at 14:17 EDT Tel , Service support ,
--- NOTE | 2018-09-22 10:00 | EKG12_ITS ---
Test Reason : AM EKG Blood Pressure : / mmHG Vent. Rate : 088 BPM Atrial Rate : 088 BPM P-R Int : 166 ms QRS Dur : 126 ms QT Int : 412 ms P-R-T Axes : 074 003 046 degrees QTc Int : 498 ms Normal sinus rhythm Left bundle branch block Abnormal ECG When compared with ECG of 21-SEP-2018 05:19, MANUAL COMPARISON REQUIRED, DATA IS UNCONFIRMED Confirmed by LUIS EDUARDO MILLER, MISTI ([id number]), television news video editor PAMELA GIRON ([id number]) on 09/26/2018 2:02:23 PM Referred By: Mani Pedersen Confirmed By:MISTI HOFF MD
[2018-09-22] MEDS: Ceftriaxone 1 GM/50 ML BAG IV (10:46)
[2018-09-22] MEDS: Losartan Potassium 25 MG Tablet 12.5 MG PO (10:53)
[2018-09-22] MEDS: buPROPion (XL) 300 MG TABLET.XL PO (10:53)
[2018-09-22] MEDS: Famotidine 20 MG Tablet PO (10:54)
[2018-09-22] MEDS: TICAGRELOR 90 MG TABLET PO ×2 (10:54→21:50)
[2018-09-22] MEDS: Metoprolol Tartrate 50 MG Tablet PO ×2 (10:55→21:50)
[2018-09-22] MEDS: Atorvastatin Calcium 80 MG Tablet PO (21:50)
[2018-09-22] MEDS: QUEtiapine 25 MG Tablet PO (21:50)
[2018-09-23] VITALS (13 sets, daily range): BP systolic 112–133; BP diastolic 40–59; PULSE 74–89; RESP 16–18; TEMP 36.6–37.1; O2SAT 94–98
[2018-09-23 06:19] LABS: Hematocrit 30.5 % (37-47); Hemoglobin 9.8 g/dl (12.0-15.0); Mean Corp Hgb Conc 32.1 g/gl (32-36); Mean Corpuscular Volume 96.5 fL (81-99); Mean Platelet Vol. 11.4 fl (6.2-12.0); Platelet Count 145 K/mm3 (150-450); RBC Distribution Width CV 13.8 % (11.6-14.6); RBC Distribution Width SD 46.3 fl (35.1-43.9); Red Blood Count 3.16 M/mm3 (4.2-5.4); White Blood Count 9.6 K/mm3 (4.4-11.0)
[2018-09-23 06:20] LABS: Scan Indicated on CBC? Y/N NO
[2018-09-23 06:49] LABS: Anion Gap 6 (5-15); BUN 17 mg/dL (7-18); BUN/Creat Ratio 19.2 RATIO (10-20); Calcium,Total 8.1 mg/dL (8.5-10.1); Chloride 113 mmol/L (98-107); Creatinine, Serum 0.89 mg/dL (0.55-1.02); EST Glomerular Filtration Rate 66 mL/min (>60); Est Glom Filt Rate - Afr Amer 80 mL/min (>60); Estimated Creatinine Clearance 42.48 ml/min; Glucose 97 mg/dL (74-106); Potassium 3.8 mmol/L (3.5-5.1); Sodium Level 143 mmol/L (136-145)
--- NOTE | 2018-09-23 09:24 | ADUL_ITS ---
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 Rt CFV demonstrated normal phasic bloodflow. Rt Groin Pseudoaneurysm identified measuring 1.2 x 1.3 cm with a visible neck measuring .9 cm x .4 cm. Procedure Exam performed portable in patient room. Interpretation Summary Right groin pseudoaneurysm 1.2 x 1.3 cm. Neck 0.9 x 0.4 cm Normal flow right common femoral artery and vein. Ordering Physician: Mani Pedersen Referring Physician: OLI BUTTS Performed By: Veronica Marrero, VALERIE, RVT
[2018-09-23] MEDS: Famotidine 20 MG Tablet PO (09:27)
[2018-09-23] MEDS: buPROPion (XL) 300 MG TABLET.XL PO (09:27)
[2018-09-23] MEDS: Aspirin E.C. 81 MG Tablet PO (09:27)
[2018-09-23] MEDS: Ceftriaxone 1 GM/50 ML BAG IV (09:27)
[2018-09-23] MEDS: Losartan Potassium 25 MG Tablet 12.5 MG PO (09:27)
[2018-09-23] MEDS: TICAGRELOR 90 MG TABLET PO ×2 (09:27→21:57)
[2018-09-23] MEDS: Magnesium Oxide 400 MG Tablet PO (09:27)
[2018-09-23] MEDS: Metoprolol Tartrate 50 MG Tablet PO ×2 (09:27→21:57)
[2018-09-23] MEDS: 0.9% NaCl Peripheral Flush Adult/Peds IV (09:49)
--- NOTE | 2018-09-23 10:00 | EKG12_ITS ---
Test Reason : AM EKG Blood Pressure : / mmHG Vent. Rate : 077 BPM Atrial Rate : 077 BPM P-R Int : 166 ms QRS Dur : 122 ms QT Int : 410 ms P-R-T Axes : 080 006 019 degrees QTc Int : 463 ms Normal sinus rhythm Left bundle branch block Abnormal ECG When compared with ECG of 22-SEP-2018 05:31, MANUAL COMPARISON REQUIRED, DATA IS UNCONFIRMED Confirmed by LUIS EDUARDO MILLER, MISTI ([id number]), web content editor PAMELA GIRON ([id number]) on 09/26/2018 1:39:27 PM Referred By: Mani Pedersen Confirmed By:MISTI HOFF MD
--- NOTE | 2018-09-23 10:00 | PN.CARD_ITS ---
Subjectve: Patient complains of worsening right groin pain, ecchymosis, and tenderness. Physical exam this morning demonstrated a right femoral artery area which was tender, and an audible bruit was noted over her right femoral artery area. She also has some point tenderness over her right lateral part of her thigh, and ecchymosis which has worsened since yesterday. I am concerned the patient may have an undiagnosed or newly formed pseudoaneurysm, and I recommended to complete bedrest with a sandbag at 10 pounds until an ultrasound can be obtained of her right femoral artery area. No plans for discharge today. From a cardiac standpoint she denies any chest pain and feels much better. No further issues last evening. Patient got a good night sleep and feels much better. Objective: Vital Signs Temp Pulse Resp BP Pulse Ox 98.5 F 82 16 122/57 H 95 09/23/18 09:24 09/23/18 09:27 09/23/18 09:24 09/23/18 09:24 09/23/18 09:24 Oxygen Flow Rate (L/min) 2 Oxygen Delivery Method Room Air Weight: 223 lb 1.725 oz Body Mass Index (BMI) 41.3 Intake and Output for Last 24 Hours 09/21/18 09/22/18 09/23/18 23:59 23:59 23:59 Intake Total 4002 / 4002 1939 120 / 120 Output Total 1585 / 1585 Balance 2417 / 2417 1939 120 / 120 General: Awake, Alert, Oriented x 3 HEENT: PERRL, EOMI, Sclera Non Icteric Neck: Supple, Good ROM, No Lymph Node Enlargement Lungs: Clear to auscultation Cardiovascular: Regular Rhythm, Normal S1, Normal S2, No Murmurs, No Rubs, No Gallops Vascular: No Carotid Bruits, Normal Femoral Pulses, Normal Radial Pulses, Normal Dorsalis Pedal Pulse, Normal Posterior Tibial Pulses Abdomen: Bowel Sounds Present, Soft, Non Tender, No HSM, No Organomegaly Extremities: No Cyanosis, No Clubbing, No edema Neurological: No Focal Motor or Sensory Deficit 09/23/18 05:15: WBC 9.6, RBC 3.16 L, Hgb 9.8 L, Hct 30.5 L, MCV 96.5, MCH 31.0, MCHC 32.1, RDW 13.8, RDW Differential 46.3 H, Plt Count 145 L, MPV 11.4 09/23/18 05:15: Sodium 143, Potassium 3.8, Chloride 113 H, Carbon Dioxide 24.0, Anion Gap 6, BUN 17, Creatinine 0.89, Est GFR (MDRD) Af Amer 80, Est GFR (MDRD) Non-Af 66, BUN/Creatinine Ratio 19.2, Glucose 97, Calcium 8.1 L Rhythm: EKG: ECHO: Stress Test: Cardiac Cath: PCI: CT Surgery: Holter monitor: EPS: PPM: CXR: Chest CT Scan: Medical Necessity - Tobacco Use Smoking Status: Former smoker Tobacco Use: Non-smoker Assessment/Plan 1. Coronary artery disease: Patient is status post acute inferior wall myocardial infarction requiring emergent catheterization and angioplasty and drug-eluting stent to her mid RCA. She received a 2.5 x-38 Promus Synergy stent, followed immediately upstream with a 3.5 x-8 Promus Synergy stent. The longer of the 2 stents was postdilated with a 3.0 noncompliant balloon and the shorter stent was postdilated with a 4.0 mm balloon. Patient has remaining mid LAD's eccentric moderately calcified stenosis which was left for medical management and assessment by stress testing in several weeks time. Patient's peak troponin is 7.7 and is trending downwards. Her LV function appeared to be normal at the end of the procedure. Echocardiogram on 09/21/18 confirmed normal LV function, no evidence of pericardial effusion, 1+ tricuspid regurgitation which would explain her systolic murmur. This point I would recommend continuing baby aspirin, Brilinta, beta blockers, Cozaar, and statin based medications. Would recommend increasing her metoprolol to 50 mg p.o. twice daily and titrating up from there to keep her heart rate in the 70s. In addition, chest x-ray yesterday was negative. Her initial chest x- ray suggested possible right lower lobe infiltrate although this was minimal at best. This morning, the patient complains of worsening right groin tenderness, ecchymosis, and now the patient has evidence of a systolic bruit over her right femoral artery artery suggesting either pseudoaneurysm or AV fistula. I recommended the patient maintain complete bedrest, have a 10 pound sandbag placed over her right femoral area, and undergo an ultrasound of her right groin tomorrow morning. The patient has a pseudoaneurysm, she will require this to be injected prior to discharge or surgically corrected if indicated. 2. Hyperlipidemia: We have initiated statin based medication with Lipitor 80 mg p.o. nightly and will repeat lipid profile in 6 weeks time. 3. If her stress test is abnormal for anterior ischemia, would recommend returning for elective angioplasty and stenting of her mid LAD at the bifurcation of the diagonal branch. Her stress test will take place in 3-4 weeks time. This may need to be done via the left groin given her right groin complications. 4. Thank you very much for the opportunity to participate in the cardiac care of your patient. Patient will remain admitted and on bedrest until her ultrasound tomorrow morning. Code Visit Inpatient E&M: 54239 Subs Hosp L2
--- NOTE | 2018-09-23 13:45 | PN_ITS ---
Patient Problems: Active and Suspected Problems Pseudoaneurysm following procedure (Acute) STEMI (ST elevation myocardial infarction) (Acute) S/P PTCA (percutaneous transluminal coronary angioplasty) (Acute) RCA with KIM on 09/20/18 Elevated serum creatinine (Acute) Left bundle branch block (Acute) Subjective: All events of the past 24 hours been reviewed Patient is afebrile. Vital signs are stable and she is 95% saturated on room air. All lab was personally reviewed. White blood cell count is normal at 9.6 today. Hemoglobin is 9.8, down from 10.5 yesterday and the patient is not on IV fluids. Platelet count is decreasing and is 145,000 and this may be secondary to blood loss from extensive ecchymosis of the groin. Creatinine has improved and is 0.89 today with a BUN of 17. Microbiology: Urine is growing a pansensitive E. coli, greater than 100,000 colonies. Radiology: Chest x-ray on 09/22/2018 shows no infiltrates, pleural effusions or pulmonary vascular congestion. She complains of increased right groin pain today. Dr. Pedersen feels she may have formed a pseudoaneurysm and he recommended bed rest with a sandbag at 10 pounds until a femoral artery ultrasound can be done. Objective: PHYSICAL EXAM: GENERAL: alert, oriented X 3, Cooperative, NAD ORAL: moist mucosa, no mucosal lesions NECK: No JVD, supple, trachea midline LUNGS: CTA, symmetric chest expansion HEART: RRR, Normal S1 and S2, no rub, no gallop, no murmur ABDOMEN: soft, NT, ND, BS present, no guarding with palpation EXTREMITIES: no edema, no cyanosis, no calf tenderness, bruit in the right groin, extensive ecchymosis but skin is soft SKIN: No rashes, no breakdown NEUROLOGIC: no focal neurologic deficits PSYCH: appropriate, normal affect, pleasant - Physical Exam Vital Signs Temp Pulse Resp BP Pulse Ox 98.5 F 82 16 122/57 H 95 09/23/18 09:24 09/23/18 09:27 09/23/18 09:24 09/23/18 09:24 09/23/18 09:24 Oxygen Flow Rate (L/min) 2 Oxygen Delivery Method Room Air Weight: 223 lb 1.725 oz Body Mass Index (BMI) 41.3 Intake and Output for Last 24 Hours 09/21/18 09/22/18 09/23/18 23:59 23:59 23:59 Intake Total 4002 / 4002 1939 422 / 422 Output Total 1585 / 1585 Balance 2417 / 2417 1939 422 / 422 Microbiology Past 72 Hours 09/21/18 09:10 Urine Culture - Final Urine Catheter - Samson Presumptive E. coli Laboratory Tests Past 24 Hrs 09/23/18 09/23/18 05:15 05:15 WBC 9.6 RBC 3.16 L Hgb 9.8 L Hct 30.5 L MCV 96.5 MCH 31.0 MCHC 32.1 RDW 13.8 RDW Differential 46.3 H Plt Count 145 L MPV 11.4 Sodium 143 Potassium 3.8 Chloride 113 H Carbon Dioxide 24.0 Anion Gap 6 BUN 17 Creatinine 0.89 Estim Creat Clear Calc 42.48 Est GFR (MDRD) Af Amer 80 Est GFR (MDRD) Non-Af 66 BUN/Creatinine Ratio 19.2 Glucose 97 Calcium 8.1 L Medical Necessity - Tobacco Use Smoking Status: Former smoker Tobacco Use: Non-smoker Assessment/Plan All Active Problems Pseudoaneurysm following procedure (Acute) STEMI (ST elevation myocardial infarction) (Acute) S/P PTCA (percutaneous transluminal coronary angioplasty) (Acute) Elevated serum creatinine (Acute) Left bundle branch block (Acute) Impressions 1. STEMI 2. Status post PTCA/KIM to the RCA with 2 stents -possible dissection but the area is covered by the stent 3. Coronary artery disease 4. Hypertension 5. Depression-on Wellbutrin 6. GERD 7. History of left breast cancer-status post left mastectomy in 1988 8. History of partial thyroidectomy 9. Elevated creatinine 10. Elevated blood sugar at 128 11. 65% stenosis of the mid LAD 12. Former smoker 13. hematoma right groin with ecchymosis of the perineum, R medial and upper anterior thigh - 14. Suspected pseudoaneurysm right groin-ultrasound ordered 15. Urinary tract infection Await the results of the ultrasound-if pseudoaneurysm is present will need to consult Dr. Salamanca Discussed with Dr. Pedersen-we will keep at bedrest Recheck H&H in the a.m. Code Visit Inpatient E&M: [id number] [facility] Hosp L2
[2018-09-23] MEDS: Atorvastatin Calcium 80 MG Tablet PO (21:57)
[2018-09-23] MEDS: QUEtiapine 25 MG Tablet PO (21:57)
[2018-09-24] VITALS (20 sets, daily range): BP systolic 100–129; BP diastolic 34–60; PULSE 66–82; RESP 16–20; TEMP 36.6–37.1; O2SAT 95–100
[2018-09-24] MEDS: Menthol/Lanolin/Calamine/Znox 113 GM Tube 1 APPLIC TOPICAL ×3 (09:21→22:28)
[2018-09-24] MEDS: Metoprolol Tartrate 50 MG Tablet PO ×2 (09:22→22:29)
[2018-09-24] MEDS: Famotidine 20 MG Tablet PO (09:22)
[2018-09-24] MEDS: buPROPion (XL) 300 MG TABLET.XL PO (09:23)
[2018-09-24] MEDS: TICAGRELOR 90 MG TABLET PO (09:23)
[2018-09-24] MEDS: Losartan Potassium 25 MG Tablet 12.5 MG PO (09:23)
[2018-09-24] MEDS: Magnesium Oxide 400 MG Tablet PO (09:23)
[2018-09-24] MEDS: Aspirin E.C. 81 MG Tablet PO (09:24)
[2018-09-24] MEDS: 0.9% NaCl Peripheral Flush Adult/Peds IV (09:26)
[2018-09-24] MEDS: Ceftriaxone 1 GM/50 ML BAG IV (09:31)
--- NOTE | 2018-09-24 13:46 | PN.CARD_ITS ---
Subjectve: Patient doing well this morning. Ultrasound evaluation this morning shows possible pseudoaneurysm of unknown size. Final result is pending. Right groin demonstrates mild ecchymosis and is softer than yesterday. Right femoral artery bruit heard yesterday is very faint today. 2+ DP and PT pulses bilaterally. Given the patient's hematoma her hemoglobin has dropped more than 4 g but is mostly contained in her right thigh area which is soft. No RP bleed noted. Objective: Vital Signs Temp Pulse Resp BP Pulse Ox 98.5 F 66 18 129/59 H 97 09/24/18 09:20 09/24/18 10:52 09/24/18 09:20 09/24/18 09:22 09/24/18 09:20 Oxygen Flow Rate (L/min) 2 Oxygen Delivery Method Room Air Weight: 216 lb 4.375 oz Body Mass Index (BMI) 41.3 Intake and Output for Last 24 Hours 09/22/18 09/23/18 09/24/18 23:59 23:59 23:59 Intake Total 1939 / 1939 1292 / 1292 310 / 310 Output Total 1725 / 1725 1000 / 1000 Balance 1939 / 1939 -433 / -433 -690 / -690 General: Awake, Alert, Oriented x 3 HEENT: PERRL, EOMI, Sclera Non Icteric Neck: Supple, Good ROM, No Lymph Node Enlargement Lungs: Clear to auscultation Cardiovascular: Regular Rhythm, Normal S1, Normal S2, No Murmurs, No Rubs, No Gallops Vascular: No Carotid Bruits, Normal Femoral Pulses, R Femoral Artery Bruit, Normal Radial Pulses, Normal Dorsalis Pedal Pulse, Normal Posterior Tibial Pulses Abdomen: Bowel Sounds Present, Soft, Non Tender, No HSM, No Organomegaly Extremities: No Cyanosis, No Clubbing, No edema Neurological: No Focal Motor or Sensory Deficit Rhythm: EKG: ECHO: Stress Test: Cardiac Cath: PCI: CT Surgery: Holter monitor: EPS: PPM: CXR: Chest CT Scan: Medical Necessity - Tobacco Use Smoking Status: Former smoker Tobacco Use: Non-smoker Assessment/Plan 1. Coronary artery disease: Patient is status post acute inferior wall myocardial infarction requiring emergent catheterization and angioplasty and drug-eluting stent to her mid RCA. She received a 2.5 x-38 Promus Synergy stent, followed immediately upstream with a 3.5 x-8 Promus Synergy stent. The longer of the 2 stents was postdilated with a 3.0 noncompliant balloon and the shorter stent was postdilated with a 4.0 mm balloon. Patient has remaining mid LAD's eccentric moderately calcified stenosis which was left for medical management and assessment by stress testing in several weeks time. Patient's peak troponin is 7.7 and is trending downwards. Her LV function appeared to be normal at the end of the procedure. Echocardiogram on 09/21/18 confirmed normal LV function, no evidence of pericardial effusion, 1+ tricuspid regurgitation which would explain her systolic murmur. This point I would recommend continuing baby aspirin, Brilinta, beta blockers, Cozaar, and statin based medications. Would recommend increasing her metoprolol to 50 mg p.o. twice daily and titrating up from there to keep her heart rate in the 70s. In addition, chest x-ray yesterday was negative. Her initial chest x- ray suggested possible right lower lobe infiltrate although this was minimal at best. This morning, the patient complains of worsening right groin tenderness, ecchymosis, and now the patient has evidence of a systolic bruit over her right femoral artery artery suggesting either pseudoaneurysm or AV fistula. U/s done this am suggests a pseuodaneurysm with final results pending. Pt may require thrombin injection with Dr Salamanca later today if indicated. I recommended the patient maintain complete bedrest until this has been determined. Given the patient's right groin hematoma and large thigh, she has dropped her hemoglobin below the 4.0 g threshold however she has no additional bleeding, no retroperitoneal bleeding, and no evidence of other sources of anemia. Hopefully with time this will normalize. We will repeat her CBC in several weeks time. 2. Hyperlipidemia: We have initiated statin based medication with Lipitor 80 mg p.o. nightly and will repeat lipid profile in 6 weeks time. 3. If her stress test is abnormal for anterior ischemia, would recommend returning for elective angioplasty and stenting of her mid LAD at the bifurcation of the diagonal branch. Her stress test will take place in 3-4 weeks time. This may need to be done via the left groin given her right groin complications. 4. Thank you very much for the opportunity to participate in the cardiac care of your patient. Patient will remain admitted and on bedrest until her ultrasound eval has been completed. Will await Dr Salamanca's recommendation with respect to d/c home. Code Visit Inpatient E&M: 22842 Subs Hosp L2
--- NOTE | 2018-09-24 17:01 | PN_ITS ---
Patient Problems: Active and Suspected Problems STEMI (ST elevation myocardial infarction) (Acute) S/P PTCA (percutaneous transluminal coronary angioplasty) (Acute) RCA with KIM on 09/20/18 Elevated serum creatinine (Acute) Left bundle branch block (Acute) Subjective: All events of the past 24 hours been reviewed. Afebrile since admission Vital signs are stable She is 97% saturated on room air I was in her room talking to her when she got a sudden pain in the right groin. There is a hematoma just distal to the puncture site and it was enlarging as I stood there. Per Dr. Pedersen's note there is a possible pseudoaneurysm. I called Dr. Salamanca and he was unaware of a consult. We are applying pressure and he is alerting the non-invasive vascular lab. She had 2 BM's yesterday. One was formed and the other had a lot of gas and was more loose. Someone put in a C. difficile and she is currently in isolation but she does not meet criteria for even checking C. difficile. Objective: - Physical Exam General: Alert, Oriented x3, Cooperative slept better last night. no confusion frustrated about being restricted to bed HEENT: Atraumatic, PERRLA, EOMI, Normocephalic Oral: Moist Mucosa, No Gingival or Mucosal Lesions/ Ulcerations, Neck: Supple, No JVD, Negative Carotid Bruits, No Nodes, No Nuchal Rigidity, Trachea Midline Lungs: she has coarse crackles in the bases today but they mostly cleared after a few deep breaths Cardiovascular: Regular rate, Regular Rhythm, Normal S1, Normal S2, No murmurs, No rub noted, No Gallop Abdomen: Bowel Sounds Present, Soft, Non Tender, Non-Distended. Extremities: No clubbing, No cyanosis, No edema, No Calf Tenderness, Peripheral Pulses Normal Skin: No rashes, No breakdown Musculoskeletal: No Muscle Wasting Neurological: Cranial nerves II-XII grossly intact, Neuro grossly intact Psych/Mental Status: Normal Affect, Appropriate There is a rapidly enlarging hematoma in the right groin. The remainder of the thigh is soft. She had sudden onset of pain. - Physical Exam Vital Signs Temp Pulse Resp BP Pulse Ox 98.5 F 75 18 117/57 L 97 09/24/18 14:56 09/24/18 14:59 09/24/18 14:56 09/24/18 14:56 09/24/18 14:56 Oxygen Flow Rate (L/min) 2 Oxygen Delivery Method Room Air Weight: 216 lb 4.375 oz Body Mass Index (BMI) 41.3 Intake and Output for Last 24 Hours 09/22/18 09/23/18 09/24/18 23:59 23:59 23:59 Intake Total 1939 1292 / 1292 310 / 310 Output Total 1725 / 1725 1000 / 1000 Balance 1939 -433 / -433 -690 / -690 Microbiology Past 72 Hours 09/21/18 09:10 Urine Culture - Final Urine Catheter - Samson Presumptive E. coli Medical Necessity - Tobacco Use Smoking Status: Former smoker Tobacco Use: Non-smoker Assessment/Plan All Active Problems STEMI (ST elevation myocardial infarction) (Acute) S/P PTCA (percutaneous transluminal coronary angioplasty) (Acute) Elevated serum creatinine (Acute) Left bundle branch block (Acute) Impressions 1. STEMI 2. Status post PTCA/KIM to the RCA with 2 stents -possible dissection but the area is covered by the stent 3. Coronary artery disease 4. Hypertension 5. Depression-on Wellbutrin 6. GERD 7. History of left breast cancer-status post left mastectomy in 1988 8. History of partial thyroidectomy 9. Elevated creatinine 10. Elevated blood sugar at 128 11. 65% stenosis of the mid LAD 12. Former smoker 13. hematoma right groin with ecchymosis of the perineum, R medial and upper anterior thigh - possible pseudoaneurysm...... currently there is a rapidly enlarging hematoma which we are applying pressure to. Dr. Salamanca has been notified and is calling in the noninvasive vascular team. Dr. Pedersen was notified via text and is now in the room holding pressure Recheck HH tonight after vascular lab Recheck Lab in the AM Continue the Rocephin for now Maintain Samson until she is off bedrest - Code Visit Inpatient E&M: [id number] [facility] L3
[2018-09-24] MEDS: Morphine 4 MG/ML Syringe IV (17:25)
--- NOTE | 2018-09-24 18:14 | NURSING ---
Dr. Orta reported to charge histotechnologist at 1700 that pt was having sudden onset of pain while she was at the patients bedside and visualized hematoma forming at this time. Dr. Pedersen and Dr. Salamanca informed immediately. This RN spoke with Dr. Salamanca on the phone by 1705 and made him aware of the hematoma. Dr. Pedersen at the bedside by 17:08 with charge histotechnologist continuing to apply manual pressure to right groin hematoma site. Verbal orders taken and morphine 4mg IV given with Dr. Pedersen at the bedside. Dr. Salamanca called this RN at 1721 to state the pt would be going down in about 30 minutes to noninvasive vascular lab. This RN stated to Dr. Salamanca unaware of last time pt had ate but would make NPO immediately.
--- NOTE | 2018-09-24 18:15 | ADUL_ITS ---
Reason For Study: RT groin PSA thrombin injection Right Velocities Successfully thrombosed rt groin pseudoaneurysm. Procedure Exam performed in department. Interpretation Summary Successful thrombosis right groin pseudoaneurysm Ordering Physician: Sanjiv Salamanca Referring Physician: Mani Pedersen Performed By: Shayla Kohler RVT
--- NOTE | 2018-09-24 18:32 | PCM.OPRPT ---
Problem List (1) Pseudoaneurysm following procedure Status: Acute Report of Operation Date of Procedure: 09/24/18 Pre-Operative Diagnosis: Pseudoaneurysm right common femoral artery status post cardiac catheterization Post-Operative Diagnosis: Expanding pseudoaneurysm right common femoral artery status post cardiac catheterization Surgery/Procedure Performed:: Right groin pseudoaneurysm thrombin injection Description of Surgical Findings:: 73-year-old female. She had undergone a right common femoral artery access cardiac catheterization and coronary stent placement x2. A small pseudoaneurysm 1.3 cm in diameter was noted earlier today. Later today the patient had acute onset of right groin burning and pain. A FemoStop was applied and direct pressure was held. The patient was subsequently taken to the noninvasive vascular lab. Duplex ultrasound was again performed suggesting more hematoma and slight extension of the pseudoaneurysm. It was felt pertinent to proceed on with ultrasound-guided thrombin injection. I discussed the technique with the patient. She is aware of the benefit risk complications and alternatives. The patient was supine in her bed. Ultrasound had been performed demonstrating a good line of access. The right groin was sterilely prepped and draped with Betadine. Under ultrasound guidance 1% lidocaine was instilled and a total of 5 cc was used. Then utilizing thrombin 5000 units per vial diluted to 1000 units/cc was utilized. Under ultrasound guidance a 25-gauge needle was advanced into the more anterior aspect of the pseudoaneurysm. A fairly broad neck was identified. 0.15 cc was injected under ultrasound color-flow guidance. The pseudoaneurysm was rapidly thrombosed as did the neck. The femoral vessels remain patent. The patient had no discomfort. The patient remained with a 3+ vigorous right DP pulse. There were no apparent complications. The patient was relieved to groin discomfort at the completion. A sterile gauze dressing was applied. The patient will be returned to her room. It is anticipated that 6 hours of bedrest will be performed. Vascular checks to the right lower extremity have been requested. A follow-up duplex exam of the right groin will be requested tomorrow morning. There were no apparent complications the patient tolerated it well. After discussion with Dr. Mani Pedersen her evening dose of Brilinta will be held. Pending any difficulties she may resume her normal anticoagulation tomorrow morning ideally after the duplex is achieved. Sanjiv Salamanca M.D., F.A.C.S. Type of Anesthesia:: Local
[2018-09-24 21:15] LABS: Hematocrit 30.1 % (37-47); Hemoglobin 9.9 g/dl (12.0-15.0)
[2018-09-24] MEDS: QUEtiapine 25 MG Tablet PO (22:29)
[2018-09-24] MEDS: Atorvastatin Calcium 80 MG Tablet PO (22:29)
[2018-09-25] VITALS (15 sets, daily range): BP systolic 107–125; BP diastolic 43–58; PULSE 61–132; RESP 16–18; TEMP 36.7–37.4; O2SAT 94–99
--- NOTE | 2018-09-25 05:22 | PCM.PN.SRG ---
Patient Problems: Active and Suspected Problems Pseudoaneurysm following procedure (Acute) STEMI (ST elevation myocardial infarction) (Acute) S/P PTCA (percutaneous transluminal coronary angioplasty) (Acute) RCA with KIM on 09/20/18 Elevated serum creatinine (Acute) Left bundle branch block (Acute) Subjective: Pt notes persistent tenderness right groin and swollen right thigh and leg - Physical Exam Extremities: - - Right groin appropriately tender but not severe 3+ right DP pulse Vital Signs Temp Pulse Resp BP Pulse Ox 98.0 F 77 16 123/45 H 99 09/25/18 00:33 09/25/18 00:33 09/25/18 00:33 09/25/18 00:33 09/25/18 00:33 Oxygen Flow Rate (L/min) 2 Oxygen Delivery Method Room Air Weight: 216 lb 4.375 oz Body Mass Index (BMI) 41.3 Intake and Output for Last 24 Hours 09/23/18 09/24/18 09/25/18 23:59 23:59 23:59 Intake Total 1292 / 1292 850 / 850 Output Total 1725 / 1725 1525 / 1525 Balance -433 / -433 -675 / -675 Microbiology Past 72 Hours 09/21/18 09:10 Urine Culture - Final Urine Catheter - Samson Presumptive E. coli Laboratory Tests Past 24 Hrs 09/24/18 21:00 Hgb 9.9 L Hct 30.1 L Medical Necessity - Tobacco Use Smoking Status: Former smoker Tobacco Use: Non-smoker Assessment/Plan All Active Problems Pseudoaneurysm following procedure (Acute) STEMI (ST elevation myocardial infarction) (Acute) S/P PTCA (percutaneous transluminal coronary angioplasty) (Acute) Elevated serum creatinine (Acute) Left bundle branch block (Acute) Pt may mobilize Duplex right groin repeat this a.m.
[2018-09-25 07:18] LABS: Hematocrit 28.9 % (37-47); Hemoglobin 9.5 g/dl (12.0-15.0); Mean Corp Hgb Conc 32.9 g/gl (32-36); Mean Corpuscular Hgb 31.6 pg (27.0-32.0); Mean Platelet Vol. 10.9 fl (6.2-12.0); Platelet Count 185 K/mm3 (150-450); RBC Distribution Width CV 14.1 % (11.6-14.6); RBC Distribution Width SD 48.8 fl (35.1-43.9); Red Blood Count 3.01 M/mm3 (4.2-5.4); White Blood Count 12.3 K/mm3 (4.4-11.0)
[2018-09-25 07:23] LABS: Scan Indicated on CBC? Y/N NO
[2018-09-25 07:36] LABS: Anion Gap 4 (5-15); BUN 18 mg/dL (7-18); BUN/Creat Ratio 17.6 RATIO (10-20); Calcium,Total 8.2 mg/dL (8.5-10.1); Chloride 109 mmol/L (98-107); Creatinine, Serum 1.02 mg/dL (0.55-1.02); EST Glomerular Filtration Rate 56 mL/min (>60); Est Glom Filt Rate - Afr Amer 68 mL/min (>60); Estimated Creatinine Clearance 37.07 ml/min; Glucose 101 mg/dL (74-106); Sodium Level 140 mmol/L (136-145)
--- NOTE | 2018-09-25 08:00 | ADUL_ITS ---
Reason For Study: PSA s/p thrombin injection Right Velocities Successfully thrombosed rt groin pseudoaneurysm ONLINE ADVERTISING MANAGER demonstrates normal color flow and doppler signal of 138 cm/s CFV demonstrates normal phasic blood flow signal. Procedure Exam performed portable in patient room. Interpretation Summary Right groin pseudoaneurysm remains thrombosed. Normal flow seen in the right common femoral artery and vein Ordering Physician: Mani Pedersen Referring Physician: Mani Pedersen Performed By: Shayla Kohler RVT
--- NOTE | 2018-09-25 09:20 | PN.CARD_ITS ---
Subjectve: Patient doing okay this morning, complains of right inner thigh pain and tenderness. Patient had newly discovered pseudoaneurysm yesterday and while awaiting injection had release of acute bleeding from her pseudoaneurysm requiring direct manual pressure for 30 minutes followed by FemoStop placement. Patient underwent urgent thrombin injection by ultrasound guidance by Dr. Salamanca last evening with a successful occlusion of her pseudoaneurysm. This morning she has some mild tenderness over the site however there are no bruits. Her hemoglobin has decreased more than 4 g all of which appears to be due to groin hematoma. Patient has no evidence of GI or retroperitoneal hematoma. She has 2+ DP and PT pulses bilaterally. No chest pain overnight. Objective: Vital Signs Temp Pulse Resp BP Pulse Ox 99.4 F H 87 18 110/48 L 95 09/25/18 04:30 09/25/18 07:21 09/25/18 04:30 09/25/18 04:30 09/25/18 06:27 Oxygen Flow Rate (L/min) 2 Oxygen Delivery Method Room Air Weight: 221 lb 5.506 oz Body Mass Index (BMI) 41.3 Intake and Output for Last 24 Hours 09/23/18 09/24/18 09/25/18 23:59 23:59 23:59 Intake Total 1292 / 1292 850 / 850 150 / 150 Output Total 1725 / 1725 1525 / 1525 200 / 200 Balance -433 / -433 -675 / -675 -50 / -50 General: Awake, Alert, Oriented x 3 HEENT: PERRL, EOMI, Sclera Non Icteric Neck: Supple, Good ROM, No Lymph Node Enlargement Lungs: Clear to auscultation Cardiovascular: Regular Rhythm, Normal S1, Normal S2, No Murmurs, No Rubs, No Gallops Vascular: No Carotid Bruits, Normal Femoral Pulses, Normal Radial Pulses, Normal Dorsalis Pedal Pulse, Normal Posterior Tibial Pulses Abdomen: Bowel Sounds Present, Soft, Non Tender, No HSM, No Organomegaly Extremities: No Cyanosis, No Clubbing, No edema Neurological: No Focal Motor or Sensory Deficit 09/24/18 21:00: Hgb 9.9 L, Hct 30.1 L 09/25/18 06:23: WBC 12.3 H, RBC 3.01 L, Hgb 9.5 L, Hct 28.9 L, MCV 96.0, MCH 31.6, MCHC 32.9, RDW 14.1, RDW Differential 48.8 H, Plt Count 185, MPV 10.9 09/25/18 06:23: Sodium 140, Potassium 4.0, Chloride 109 H, Carbon Dioxide 27.0, Anion Gap 4 L, BUN 18, Creatinine 1.02, Est GFR (MDRD) Af Amer 68, Est GFR (MDRD) Non-Af 56 L, BUN/Creatinine Ratio 17.6, Glucose 101, Calcium 8.2 L Rhythm: EKG: ECHO: Stress Test: Cardiac Cath: PCI: CT Surgery: Holter monitor: EPS: PPM: CXR: Chest CT Scan: Medical Necessity - Tobacco Use Smoking Status: Former smoker Tobacco Use: Non-smoker Assessment/Plan 1. Coronary artery disease: Patient is status post acute inferior wall myocardial infarction requiring emergent catheterization and angioplasty and drug-eluting stent to her mid RCA. She received a 2.5 x-38 Promus Synergy stent, followed immediately upstream with a 3.5 x-8 Promus Synergy stent. The longer of the 2 stents was postdilated with a 3.0 noncompliant balloon and the shorter stent was postdilated with a 4.0 mm balloon. Patient has remaining mid LAD's eccentric moderately calcified stenosis which was left for medical management and assessment by stress testing in several weeks time. Patient's peak troponin is 7.7 and is trending downwards. Her LV function appeared to be normal at the end of the procedure. Echocardiogram on 09/21/18 confirmed normal LV function, no evidence of pericardial effusion, 1+ tricuspid regurgitation which would explain her systolic murmur. This point I would recommend continuing baby aspirin, Brilinta, beta blockers, Cozaar, and statin based medications. Would recommend increasing her metoprolol to 50 mg p.o. twice daily and titrating up from there to keep her heart rate in the 70s. In addition, chest x-ray yesterday was negative. Her initial chest x- ray suggested possible right lower lobe infiltrate although this was minimal at best. This morning, the patient complains of worsening right groin tenderness, ecchymosis, and now the patient has evidence of a systolic bruit over her right femoral artery artery suggesting either pseudoaneurysm or AV fistula. U/s done yesterday suggested a pseuodaneurysm with final results pending. During the day pt developed another spontaneous hematoma requiring direct manual pressure and urgent successful thrombin injection. Repeat u/s is pending but no bruit noted this am. Given the patient's right groin hematoma and large thigh, she has dropped her hemoglobin below the 4.0 g threshold however she has no additional bleeding, no retroperitoneal bleeding, and no evidence of other sources of anemia. Hopefully with time this will normalize. Hgb stable at 9.0. We will repeat her CBC in several weeks time. Patient's right groin area has some significant ecchymosis and resolving hematoma and feels warm to touch however no overt infectious process noted at this time. Pending the outcome of her ultrasound will determine whether she can get into a chair today and ambulate. She may require physical therapy evaluation to determine if she can go home versus a bridge facility. 2. Hyperlipidemia: We have initiated statin based medication with Lipitor 80 mg p.o. nightly and will repeat lipid profile in 6 weeks time. 3. If her stress test is abnormal for anterior ischemia, would recommend returning for elective angioplasty and stenting of her mid LAD at the bifurcation of the diagonal branch. Her stress test will take place in 3-4 weeks time. This may need to be done via the left groin given her right groin complications. 4. Thank you very much for the opportunity to participate in the cardiac care of your patient. Code Visit Inpatient E&M: 02311 Subs Hosp L2
[2018-09-25] MEDS: Famotidine 20 MG Tablet PO (10:06)
[2018-09-25] MEDS: buPROPion (XL) 300 MG TABLET.XL PO (10:06)
[2018-09-25] MEDS: Magnesium Oxide 400 MG Tablet PO (10:06)
[2018-09-25] MEDS: Losartan Potassium 25 MG Tablet 12.5 MG PO (10:07)
[2018-09-25] MEDS: Aspirin E.C. 81 MG Tablet PO (10:07)
[2018-09-25] MEDS: TICAGRELOR 90 MG TABLET PO ×2 (10:07→21:23)
[2018-09-25] MEDS: Metoprolol Tartrate 50 MG Tablet PO ×2 (10:07→21:23)
[2018-09-25] MEDS: Ceftriaxone 1 GM/50 ML BAG IV (10:08)
[2018-09-25] MEDS: QUEtiapine 25 MG Tablet PO (21:23)
[2018-09-25] MEDS: Atorvastatin Calcium 80 MG Tablet PO (21:23)
--- NOTE | 2018-09-25 23:09 | PCM.PROGNOTE ---
Patient Problems: Active and Suspected Problems Pseudoaneurysm following procedure (Acute) STEMI (ST elevation myocardial infarction) (Acute) S/P PTCA (percutaneous transluminal coronary angioplasty) (Acute) RCA with KIM on 09/20/18 Elevated serum creatinine (Acute) Left bundle branch block (Acute) Subjective: The patient is a 73 year old F with a past medical history of hypertension, GERD, depression, obesity, partial thyroidectomy and former smoking history (quit in 2014) who presented to the emergency department at [facility] on 09/20/2018 complaining of substernal chest pain that radiated to both arms and both shoulders while sitting watching TV The pain was associated with shortness of breath, nausea and diaphoresis. She denied any personal hx of CAD but, there is a FH of CAD in both her parents. She initially had the pain on Monday while exerting herself and described it as tightness across her chest with shortness of breath. It lasted a few hours and went away. the pain recurred the next day with exertion but, once again resolved with no treatment. EKG in the squad showed a left bundle branch block and some inferior changes. The EKG was repeated upon arrival to the emergency department and showed inferior ST segment elevation consistent with STEMI. Code STEMI was called and the cath team was activated. She was given aspirin 324 mg by the paramedics. She was given Brilinta and heparin in the emergency department. EKG showed no evidence of congestive heart failure, pulmonary vascular congestion or infiltrates. It was a decreased respiratory effort. CBC was unremarkable. BMP showed a BUN of 17 with a creatinine of 1.1. Troponin was 0.081 initially. Random glucose was elevated at 128 and she denies any history of diabetes mellitus. She was taken to the [facility] and had a 90% occlusion of the RCA. There was a 65% occlusion of the mid LAD. 2 stents were placed in the RCA. Postprocedure she was transferred to the intensive care unit. She developed a large hematoma on the first night in ICU and had to have pressure held. Following transfer to the intensive care unit on 09/23 she developed a bruit in the right groin and there was concern for a pseudoaneurysm. A duplex scan of the right groin revealed a right groin pseudoaneurysm measuring 1.2 x 1.3 cm. On 09/24/2018 the bruit was very soft and she was thought to be stable. Later in the day on 09/24/2018 she developed sudden onset of pain in the right groin with a rapidly enlarging hematoma. Dr. Salamanca was consulted and she was taken to the vascular lab and had a right groin pseudoaneurysm thrombin injection. Hemoglobin on 09/25/2018 is stable at 9.5 and there has been no further bleeding. Duplex scan of the right groin on 09/25/2018 showed that the right groin pseudoaneurysm remained thrombosed. She was taken out of bed rest and allowed to move about her room. She has been at bedrest for a large portion of her admission and feels that her gait is unsteady. She lives by herself and has steps so she will need to be cleared by physical therapy to be safe prior to going home. All events of the past 24 hours of been reviewed. She is afebrile with stable vital signs She is 97% saturated on room air All lab was personally reviewed and the hemoglobin is stable. White blood cell count is elevated at 12.3 and I suspect this is due to stress. Platelets are within normal limits. The BMP is unremarkable. She denies chest pain, shortness of breath, palpitations. Her only complaint at this time is some pain in the right groin and stiff knees. Objective: General: Alert, Oriented x3, Cooperative HEENT: Atraumatic, PERRLA, EOMI, Normocephalic Oral: Moist Mucosa, No Gingival or Mucosal Lesions/ Ulcerations, Neck: Supple, No JVD, Negative Carotid Bruits, No Nodes, No Nuchal Rigidity, Trachea Midline Lungs: she has coarse crackles in the bases today again but, they mostly cleared after a few deep breaths Cardiovascular: Regular rate, Regular Rhythm, Normal S1, Normal S2, No murmurs, No rub noted, No Gallop Abdomen: Bowel Sounds Present, Soft, Non Tender, Non-Distended. Extremities: No clubbing, No cyanosis, No edema, No Calf Tenderness, Peripheral Pulses Normal Skin: No rashes, No breakdown Musculoskeletal: No Muscle Wasting Neurological: Cranial nerves II-XII grossly intact, Neuro grossly intact Psych/Mental Status: Normal Affect, Appropriate There is considerable difference in size between the right thigh and the left thigh. There is extensive ecchymosis of the right thigh with small area of ecchymosis on the medial left side thigh. There is extensive bruising over the mons pubis. The tissue is soft with no hematoma palpated however she does have some tenderness with palpation in the right groin. - Physical Exam Vital Signs Temp Pulse Resp BP Pulse Ox 98.3 F 80 16 125/58 H 97 09/25/18 21:00 09/25/18 22:57 09/25/18 21:00 09/25/18 21:23 09/25/18 21:00 Oxygen Flow Rate (L/min) 2 Oxygen Delivery Method Room Air Weight: 221 lb 5.506 oz Body Mass Index (BMI) 41.3 Intake and Output for Last 24 Hours 09/23/18 09/24/18 09/25/18 23:59 23:59 23:59 Intake Total 1292 / 1292 850 / 850 150 / 150 Output Total 1725 / 1725 1525 / 1525 440 / 440 Balance -433 / -433 -675 / -675 -290 / -290 Microbiology Past 72 Hours 09/21/18 09:10 Urine Culture - Final Urine Catheter - Samson Presumptive E. coli Laboratory Tests Past 24 Hrs 09/25/18 09/25/18 06:23 06:23 WBC 12.3 H RBC 3.01 L Hgb 9.5 L Hct 28.9 L MCV 96.0 MCH 31.6 MCHC 32.9 RDW 14.1 RDW Differential 48.8 H Plt Count 185 MPV 10.9 Sodium 140 Potassium 4.0 Chloride 109 H Carbon Dioxide 27.0 Anion Gap 4 L BUN 18 Creatinine 1.02 Estim Creat Clear Calc 37.07 Est GFR (MDRD) Af Amer 68 Est GFR (MDRD) Non-Af 56 L BUN/Creatinine Ratio 17.6 Glucose 101 Calcium 8.2 L Medical Necessity - Tobacco Use Smoking Status: Former smoker Tobacco Use: Non-smoker Assessment/Plan All Active Problems Pseudoaneurysm following procedure (Acute) STEMI (ST elevation myocardial infarction) (Acute) S/P PTCA (percutaneous transluminal coronary angioplasty) (Acute) Elevated serum creatinine (Acute) Left bundle branch block (Acute) Impressions 1. STEMI 2. Status post PTCA/KIM to the RCA with 2 stents -possible dissection but the area is covered by the stent 3. Coronary artery disease 4. Hypertension 5. Depression-on Wellbutrin 6. GERD 7. History of left breast cancer-status post left mastectomy in 1988 8. History of partial thyroidectomy 9. Elevated creatinine 10. Elevated blood sugar at 128 11. 65% stenosis of the mid LAD 12. Former smoker 13. hematoma right groin with ecchymosis of the perineum, R medial and upper anterior thigh - 14. Pseudoaneurysm requiring emergent consult by Dr. Salamanca for thrombin injection. 15. Urinary tract infection Hemoglobin is stable. Discontinue Samson catheter Discontinue bed rest Continue PT/OT She will need to be brought back for a stress test in 3-4 weeks to evaluate the LAD-there was a 65% stenosis at the time of cath. She has been seen by cardiac rehab. She should be referred by her primary care physician for an outpatient sleep study because she desaturates while sleeping Stable for discharge whenever she demonstrates that she is safe to ambulate and to go upstairs at her home. She does live alone Code Visit Inpatient E&M: [id number] [facility] Hosp L2
[2018-09-26] VITALS (7 sets, daily range): BP systolic 106–123; BP diastolic 45–63; PULSE 75–90; RESP 16–20; TEMP 36.7–37.1; O2SAT 95–97
--- NOTE | 2018-09-26 08:37 | PCM.PN.CARD ---
Subjectve: Patient doing much better this morning, still with some minor tenderness over her right groin site but or hematoma is much softer, ecchymosis is about the same in her upper thigh down to the medial portion of her right knee. No bruits detected, 2+ DP and PT pulses bilaterally. Telemetry negative. Hemoglobin stable. Objective: Vital Signs Temp Pulse Resp BP Pulse Ox 98.2 F 79 18 121/58 H 95 09/26/18 06:42 09/26/18 07:07 09/26/18 06:42 09/26/18 06:42 09/26/18 06:42 Oxygen Flow Rate (L/min) 2 Oxygen Delivery Method Room Air Weight: 223 lb 15.834 oz Body Mass Index (BMI) 41.3 Intake and Output for Last 24 Hours 09/24/18 09/25/18 09/26/18 23:59 23:59 23:59 Intake Total 850 / 850 350 / 350 100 / 100 Output Total 1525 / 1525 440 / 440 350 / 350 Balance -675 / -675 -90 / -90 -250 / -250 General: Awake, Alert, Oriented x 3 HEENT: PERRL, EOMI, Sclera Non Icteric Neck: Supple, Good ROM, No Lymph Node Enlargement Lungs: Clear to auscultation Cardiovascular: Regular Rhythm, Normal S1, Normal S2, No Murmurs, No Rubs, No Gallops Vascular: No Carotid Bruits, Normal Femoral Pulses, Normal Radial Pulses, Normal Dorsalis Pedal Pulse, Normal Posterior Tibial Pulses Abdomen: Bowel Sounds Present, Soft, Non Tender, No HSM, No Organomegaly Extremities: No Cyanosis, No Clubbing, No edema Neurological: No Focal Motor or Sensory Deficit Rhythm: EKG: ECHO: Stress Test: Cardiac Cath: PCI: CT Surgery: Holter monitor: EPS: PPM: CXR: Chest CT Scan: Medical Necessity - Tobacco Use Smoking Status: Former smoker Tobacco Use: Non-smoker Assessment/Plan 1. Coronary artery disease: Patient is status post acute inferior wall myocardial infarction requiring emergent catheterization and angioplasty and drug-eluting stent to her mid RCA. She received a 2.5 x-38 Promus Synergy stent, followed immediately upstream with a 3.5 x-8 Promus Synergy stent. The longer of the 2 stents was postdilated with a 3.0 noncompliant balloon and the shorter stent was postdilated with a 4.0 mm balloon. Patient has remaining mid LAD's eccentric moderately calcified stenosis which was left for medical management and assessment by stress testing in several weeks time. Patient's peak troponin is 7.7 and is trending downwards. Her LV function appeared to be normal at the end of the procedure. Echocardiogram on 09/21/18 confirmed normal LV function, no evidence of pericardial effusion, 1+ tricuspid regurgitation which would explain her systolic murmur. This point I would recommend continuing baby aspirin, Brilinta, beta blockers, Cozaar, and statin based medications. Would recommend increasing her metoprolol to 50 mg p.o. twice daily and titrating up from there to keep her heart rate in the 70s. In addition, chest x-ray yesterday was negative. Her initial chest x-ray suggested possible right lower lobe infiltrate although this was minimal at best. Given the patient's right groin hematoma and large thigh, she has dropped her hemoglobin below the 4.0 g threshold however she has no additional bleeding, no retroperitoneal bleeding, and no evidence of other sources of anemia. Hopefully with time this will normalize. Hgb stable at 9.0. We will repeat her CBC in several weeks time. Patient had a right groin pseudoaneurysm which was injected with thrombin by Dr. Sanjiv Salamanca on 09/24/18. Repeat ultrasound demonstrated successful thrombin injection and no recurrence of pseudoaneurysm. Her right groin is still somewhat tender however much improved over yesterday and continues to improve on a daily basis. The patient was ambulate in yesterday without difficulty. I recommended the patient ambulate this morning in the halls of the hospital and if her right groin remained stable she may be discharged home. She will follow-up in 2 weeks time for blood pressure check and a groin check. I have instructed the patient that if she notices any worsening pain, discharge, tenderness, or develops fevers or chills or redness around the wound site that she is to notify us immediately or call 911 if her groin begins to bleed. The patient does have support at home with her sister living next door and several friends who live above her who can check on her. 2. Hyperlipidemia: We have initiated statin based medication with Lipitor 80 mg p.o. nightly and will repeat lipid profile in 6 weeks time. 3. If her stress test is abnormal for anterior ischemia, would recommend returning for elective angioplasty and stenting of her mid LAD at the bifurcation of the diagonal branch. Her stress test will take place in 4 weeks time. This may need to be done via the left groin given her right groin complications. 4. Thank you very much for the opportunity to participate in the cardiac care of your patient. Patient may be discharged home of her ambulation is successful this morning. Code Visit Inpatient E&M: [id number] Subs Hosp L2
--- NOTE | 2018-09-26 08:41 | PN.CARD_ITS ---
Subjectve: Patient doing much better this morning, still with some minor tenderness over her right groin site but or hematoma is much softer, ecchymosis is about the same in her upper thigh down to the medial portion of her right knee. No bruits detected, 2+ DP and PT pulses bilaterally. Telemetry negative. Hemoglobin stable. Objective: Vital Signs Temp Pulse Resp BP Pulse Ox 98.2 F 79 18 121/58 H 95 09/26/18 06:42 09/26/18 07:07 09/26/18 06:42 09/26/18 06:42 09/26/18 06:42 Oxygen Flow Rate (L/min) 2 Oxygen Delivery Method Room Air Weight: 223 lb 15.834 oz Body Mass Index (BMI) 41.3 Intake and Output for Last 24 Hours 09/24/18 09/25/18 09/26/18 23:59 23:59 23:59 Intake Total 850 / 850 350 / 350 100 / 100 Output Total 1525 / 1525 440 / 440 350 / 350 Balance -675 / -675 -90 / -90 -250 / -250 General: Awake, Alert, Oriented x 3 HEENT: PERRL, EOMI, Sclera Non Icteric Neck: Supple, Good ROM, No Lymph Node Enlargement Lungs: Clear to auscultation Cardiovascular: Regular Rhythm, Normal S1, Normal S2, No Murmurs, No Rubs, No Gallops Vascular: No Carotid Bruits, Normal Femoral Pulses, Normal Radial Pulses, Normal Dorsalis Pedal Pulse, Normal Posterior Tibial Pulses Abdomen: Bowel Sounds Present, Soft, Non Tender, No HSM, No Organomegaly Extremities: No Cyanosis, No Clubbing, No edema Neurological: No Focal Motor or Sensory Deficit Rhythm: EKG: ECHO: Stress Test: Cardiac Cath: PCI: CT Surgery: Holter monitor: EPS: PPM: CXR: Chest CT Scan: Medical Necessity - Tobacco Use Smoking Status: Former smoker Tobacco Use: Non-smoker Assessment/Plan 1. Coronary artery disease: Patient is status post acute inferior wall myocardial infarction requiring emergent catheterization and angioplasty and drug-eluting stent to her mid RCA. She received a 2.5 x-38 Promus Synergy stent, followed immediately upstream with a 3.5 x-8 Promus Synergy stent. The longer of the 2 stents was postdilated with a 3.0 noncompliant balloon and the shorter stent was postdilated with a 4.0 mm balloon. Patient has remaining mid LAD's eccentric moderately calcified stenosis which was left for medical manag ement and assessment by stress testing in several weeks time. Patient's peak troponin is 7.7 and is trending downwards. Her LV function appeared to be normal at the end of the procedure. Echocardiogram on 09/21/18 confirmed normal LV function, no evidence of pericardial effusion, 1+ tricuspid regurgitation which would explain her systolic murmur. This point I would recommend continuing baby aspirin, Brilinta, beta blockers, Cozaar, and statin based medications. Would recommend increasing her metoprolol to 50 mg p.o. twice daily and titrating up from there to keep her heart rate in the 70s. In addition, chest x-ray yesterday was negative. Her initial chest x- ray suggested possible right lower lobe infiltrate although this was minimal at best. Given the patient's right groin hematoma and large thigh, she has dropped her hemoglobin below the 4.0 g threshold however she has no additional bleeding, no retroperitoneal bleeding, and no evidence of other sources of anemia. Hopefully with time this will normalize. Hgb stable at 9.0. We will repeat her CBC in several weeks time. Patient had a right groin pseudoaneurysm which was injected with thrombin by Dr. Sanjiv Salamanca on 09/24/18. Repeat ultrasound demonstrated successful thrombin injection and no recurrence of pseudoaneurysm. Her right groin is still somewhat tender however much improved over yesterday and continues to improve on a daily basis. The patient was ambulate in yesterday without difficulty. I recommended the patient ambulate this morning in the halls of the hospital and if her right groin remained stable she may be discharged home. She will follow- up in 2 weeks time for blood pressure check and a groin check. I have instructed the patient that if she notices any worsening pain, discharge, te nderness, or develops fevers or chills or redness around the wound site that she is to notify us immediately or call 911 if her groin begins to bleed. The patient does have support at home with her sister living next door and several friends who live above her who can check on her. 2. Hyperlipidemia: We have initiated statin based medication with Lipitor 80 mg p.o. nightly and will repeat lipid profile in 6 weeks time. 3. If her stress test is abnormal for anterior ischemia, would recommend returning for elective angioplasty and stenting of her mid LAD at the bifurcation of the diagonal branch. Her stress test will take place in 4 weeks time. This may need to be done via the left groin given her right groin complications. 4. Thank you very much for the opportunity to participate in the cardiac care of your patient. Patient may be discharged home of her ambulation is successful this morning. Code Visit Inpatient E&M: [id number] Subs Hosp L2
[2018-09-26] MEDS: Ceftriaxone 1 GM/50 ML BAG IV (09:40)
[2018-09-26] MEDS: Metoprolol Tartrate 50 MG Tablet PO (09:41)
[2018-09-26] MEDS: Magnesium Oxide 400 MG Tablet PO (09:41)
[2018-09-26] MEDS: buPROPion (XL) 300 MG TABLET.XL PO (09:41)
[2018-09-26] MEDS: Famotidine 20 MG Tablet PO (09:41)
[2018-09-26] MEDS: Losartan Potassium 25 MG Tablet 12.5 MG PO (09:41)
[2018-09-26] MEDS: Acetaminophen 325 MG Tablet 650 MG PO (09:41)
[2018-09-26] MEDS: Aspirin E.C. 81 MG Tablet PO (09:42)
[2018-09-26] MEDS: TICAGRELOR 90 MG TABLET PO (09:42)
--- NOTE | 2018-09-26 11:35 | DCINST_ITS ---
- Discharge Diagnoses Current Active Problems: Current Active and Chronic Problems Pseudoaneurysm following procedure (Acute) Stented coronary artery (Chronic 09/20/18) Single vessel CAD of the mid RCA Successful PTCA/KIM mid RCA with a 2.5 x 38 Promus post dilated with a 3.0 x 12 NC Balloon; 90%-->0%, no rupture. Successful PTCA/KIM mid RCA just upstream from initial stent with a 3.5 x 8 Promus synergy, post dilated with a 4.0 x 8 NC Balloon at 9 atim (3.80 mm) and then at 14 reanna within body of second stent. CAD (coronary artery disease) (Chronic) HTN (hypertension) (Chronic) STEMI (ST elevation myocardial infarction) (Acute) S/P PTCA (percutaneous transluminal coronary angioplasty) (Acute) RCA with KIM on 09/20/18 H/O partial thyroidectomy (Chronic) Former smoker (Chronic) quit 2014 Elevated serum creatinine (Acute) Obesity (Chronic) Depression (Chronic) GERD (gastroesophageal reflux disease) (Chronic) History of breast cancer (Chronic) mastectomy was 30 years ago. Left bundle branch block (Acute) You will use the following diet at home:: Cardiac Discharge Activity: Return to Normal Activity Call your doctor if your incision/area has: Continuous Slow Oozing, Sudden Increased Bleeding, Increased Pain/ Swelling, Increased Redness, Foul Smelling Discharge, Swelling at the incision site Call your doctor if you observe: Fever of 101 or Higher, Shortness of breath, Dizziness, Fainting spells, - - If you notice right groin worsening pain, discharge, tenderness or if you develop fever, notify cardiology immediately. If right groin site begins to bleed, call 911. Additional Instructions: Stress test ordered for 10/19/18. Allergies/Adverse Reactions: Allergies Penicillins Allergy (Verified 09/20/18 16:52) Unknown Sulfa (Sulfonamide Antibiotics) Allergy (Verified 09/20/18 16:52) Hives Medications to take at Discharge Bupropion HCl [Bupropion Xl] 300 mg PO DAILY 09/20/18 Aspirin E.C. [Ecotrin] 81 mg PO DAILY@0800 #30 tablet 09/26/18 Atorvastatin Calcium [Lipitor] 80 mg PO QHS #30 tablet 09/26/18 Famotidine [Pepcid] 20 mg PO DAILY #30 tablet 09/26/18 Losartan Potassium [Cozaar] 12.5 mg PO DAILY #30 tablet 09/26/18 Metoprolol Tartrate [Lopressor (beta navya)] 50 mg PO BID #60 tablet 09/26/18 Ticagrelor [Brilinta] 90 mg PO BID #60 tablet 09/26/18 The following prescriptions were given: Aspirin E.C. [Ecotrin] 81 mg PO DAILY@0800 #30 tablet Atorvastatin Calcium [Lipitor] 80 mg PO QHS #30 tablet Famotidine [Pepcid] 20 mg PO DAILY #30 tablet Losartan Potassium [Cozaar] 12.5 mg PO DAILY #30 tablet Metoprolol Tartrate [Lopressor (beta navya)] 50 mg PO BID #60 tablet Ticagrelor [Brilinta] 90 mg PO BID #60 tablet Orders to be completed after discharge: Phase II, Outpatient Cardiac Rehab Location: None Selected Primary Care Physician: Jerson Vigil MD [Primary Care Provider] - Please follow up with your Primary Care Physician in: 1 Week Test Results: Test results from this visit will be discussed in further detail at your follow- up appointment, if applicable. Please Follow Up With: Mani Pedersen MD - Blood pressure and groin check When: 10/05/18 Proposed Discharge Date: 09/26/18
--- NOTE | 2018-09-26 11:36 | PCM.DC.SUM ---
<Hermila Valente - Last Filed: 09/26/18 11:58> Discharge Date and Diagnosis Date of Admission: 09/20/18 Date of Discharge: 09/26/18 - Primary Discharge Diagnosis Active and Suspected Problems 1. STEMI/CAD s/p PTCA/KIM to RCA with two stents 2. Right groin hematoma/pseudoaneurysm post cardiac catheterization status post thrombin injection 3. Acute E. coli UTI 4. Hypertension 5. Hyperlipidemia 6. Depression 7. GERD 8. History of left breast cancer status post left mastectomy 1988 9. History of tobacco use 10. Chronic kidney disease stage II - Secondary Discharge Diagnosis Chronic Problems Stented coronary artery (Chronic 09/20/18) Single vessel CAD of the mid RCA Successful PTCA/KIM mid RCA with a 2.5 x 38 Promus post dilated with a 3.0 x 12 NC Balloon; 90%-->0%, no rupture. Successful PTCA/KIM mid RCA just upstream from initial stent with a 3.5 x 8 Promus synergy, post dilated with a 4.0 x 8 NC Balloon at 9 atim (3.80 mm) and then at 14 reanna within body of second stent. CAD (coronary artery disease) (Chronic) HTN (hypertension) (Chronic) H/O partial thyroidectomy (Chronic) Former smoker (Chronic) quit 2014 Obesity (Chronic) Depression (Chronic) GERD (gastroesophageal reflux disease) (Chronic) History of breast cancer (Chronic) mastectomy was 30 years ago. Hospital Course and Treatment Imaging Results: Diagnostic Data Chest X-Ray 09/22/18 10:00 IMPRESSION: No active pulmonary disease. Electronically Signed: Leon Araya MD at 14:17 EDT Tel , Service support , Dr. Salamanca- Vascular Surgery Dr. Kee- Cardiology Operations: None Procedures: 2-D Echocardiogram, Cardiac catheterization - w/ PTCA to RCA, - - Right groin pseudoaneurysm thrombin injection Summary of Care Provided: The patient is a 73 year old F admitted 09/20/2018 due to chest pain. 1. STEMI/CAD s/p PTCA/KIM to RCA with two stents-patient underwent cardiac catheterization 09/20/18 which demonstrated a 90% occlusion of the RCA and 2 stents were placed in the RCA. She was noted to have 65% occlusion of the mid LAD. Echocardiogram completed which showed an EF of 65%, stage I diastolic dysfunction, mild tricuspid valve insufficiency, RVSP estimated to be 33 mmHg. Patient will undergo outpatient stress echo in approximately 4 weeks, if abnormal she will return for elective angioplasty and stenting of her mid LAD. Stress echo ordered by cardiology for 10/19/2018. She will continue aspirin, statin, Brilinta, losartan, metoprolol at discharge. Follow-up with cardiology 10/05/18 for groin check. 2. Right groin hematoma/pseudoaneurysm post cardiac catheterization status post thrombin injection-patient underwent right groin pseudoaneurysm injection with thrombin 09/24/[address] Salamanca. Duplex scan of right groin 09/25/2018 showed right groin pseudoaneurysm remains thrombosed. No further complications. Patient instructed if she has recurrent bleeding to call 911. She was also educated that if she has worsening pain, discharge, tenderness or develops fevers that she is to call cardiology immediately. Follow-up with cardiology as noted above. Follow-up with primary care physician in 1 week. 3. Acute E. coli UTI-culture showed E. coli. Patient received IV Rocephin X5 days. 4. Hypertension-stable, continue losartan and metoprolol regimen. 5. Hyperlipidemia-placed on high-dose statin by cardiology. Patient will have repeat lipid profile in 6 weeks. 6. Depression-continue home bupropion regimen. 7. GERD-continue famotidine regimen. 8. History of left breast cancer status post left mastectomy 1988 9. History of tobacco use 10. Chronic kidney disease stage II-stable. General: Alert, Oriented x3, Cooperative HEENT: Atraumatic, PERRLA, EOMI, Normocephalic Oral: Moist Mucosa, No Gingival or Mucosal Lesions/ Ulcerations, Neck: Supple, No JVD, Negative Carotid Bruits, No Nodes, No Nuchal Rigidity, Trachea Midline Lungs: she has coarse crackles in the bases today again but, they mostly cleared after a few deep breaths Cardiovascular: Regular rate, Regular Rhythm, Normal S1, Normal S2, No murmurs, No rub noted, No Gallop Abdomen: Bowel Sounds Present, Soft, Non Tender, Non-Distended. Extremities: No clubbing, No cyanosis, No edema, No Calf Tenderness, Peripheral Pulses Normal Skin: No rashes, No breakdown Musculoskeletal: No Muscle Wasting Neurological: Cranial nerves II-XII grossly intact, Neuro grossly intact Psych/Mental Status: Normal Affect, Appropriate Patient seen and examined prior to discharge. Physical assessment as noted above. Patient is stable for discharge with follow up recommendations as noted above. This patient was seen by RAYNE Cornejo under the supervision of Dr. Powers. - Physical Exam Vital Signs Temp Pulse Resp BP Pulse Ox 98.6 F 90 16 123/63 H 97 09/26/18 09:40 09/26/18 09:41 09/26/18 09:40 09/26/18 09:40 09/26/18 09:40 Oxygen Flow Rate (L/min) 2 Oxygen Delivery Method Room Air Weight: 223 lb 15.834 oz Body Mass Index (BMI) 41.3 Intake and Output for Last 24 Hours 09/24/18 09/25/18 09/26/18 23:59 23:59 23:59 Intake Total 850 / 850 350 / 350 100 / 100 Output Total 1525 / 1525 440 / 440 350 / 350 Balance -675 / -675 -90 / -90 -250 / -250 Microbiology Past 72 Hours 09/21/18 09:10 Urine Culture - Final Urine Catheter - Samson Presumptive E. coli Discharge Diet: Low fat/ Low Cholesterol Discharge Activity: Return to Normal Activity Call your doctor if your incision/area has: Continuous Slow Oozing, Sudden Increased Bleeding, Increased Pain/ Swelling, Increased Redness, Foul Smelling Discharge, Swelling at the incision site Call your doctor if you observe: Fever of 101 or Higher, Shortness of breath, Dizziness, Fainting spells, - - If you notice right groin worsening pain, discharge, tenderness or if you develop fever, notify cardiology immediately. If right groin site begins to bleed, call 911. Home Medications: Medications to take at Discharge Bupropion HCl [Bupropion Xl] 300 mg PO DAILY 09/20/18 Aspirin E.C. [Ecotrin] 81 mg PO DAILY@0800 #30 tablet 09/26/18 Atorvastatin Calcium [Lipitor] 80 mg PO QHS #30 tablet 09/26/18 Famotidine [Pepcid] 20 mg PO DAILY #30 tablet 09/26/18 Losartan Potassium [Cozaar] 12.5 mg PO DAILY #30 tablet 09/26/18 Metoprolol Tartrate [Lopressor (beta kayla)] 50 mg PO BID #60 tablet 09/26/18 Ticagrelor [Brilinta] 90 mg PO BID #60 tablet 09/26/18 Following Prescrptions Were Given to Patient: Aspirin E.C. [Ecotrin] 81 mg PO DAILY@0800 #30 tablet Atorvastatin Calcium [Lipitor] 80 mg PO QHS #30 tablet Famotidine [Pepcid] 20 mg PO DAILY #30 tablet Losartan Potassium [Cozaar] 12.5 mg PO DAILY #30 tablet Metoprolol Tartrate [Lopressor (beta kayla)] 50 mg PO BID #60 tablet Ticagrelor [Brilinta] 90 mg PO BID #60 tablet Other Amb Orders: Phase II, Outpatient Cardiac Rehab Location: None Selected Primary Care Physician: Jerson Vigil MD [Primary Care Provider] - Please follow up with your Primary Care Physician in: 1 Week Please Follow Up With: Mani Pedersen MD - Blood pressure and groin check When: 10/05/18 Disposition: Home Minutes spent on discharge:: 35 Patient Condition:: Stable Medical Necessity - Tobacco Use Smoking Status: Former smoker Tobacco Use: Non-smoker Meaningful Use Info Meaningful Use Diagnoses (Choose all that apply): AMI - AMI Aspirin given w/in 24hrs of arrival?: Yes ASA at discharge?: Yes Statins at discharge?: Yes Micheal/ARB at discharge?: Yes Beta Kayla at discharge?: Yes Done w/ Acute [place] measure.: Yes <Marjorie Powers - Last Filed: 09/27/18 13:33> Discharge Date and Diagnosis - Secondary Discharge Diagnosis Chronic Problems (Last Updated 09/26/18 @ 11:37 by RAYNE Cornejo) Stented coronary artery (Chronic 09/20/18) Single vessel CAD of the mid RCA Successful PTCA/KIM mid RCA with a 2.5 x 38 Promus post dilated with a 3.0 x 12 NC Balloon; 90%-->0%, no rupture. Successful PTCA/KIM mid RCA just upstream from initial stent with a 3.5 x 8 Promus synergy, post dilated with a 4.0 x 8 NC Balloon at 9 atim (3.80 mm) and then at 14 reanna within body of second stent. CAD (coronary artery disease) (Chronic) HTN (hypertension) (Chronic) H/O partial thyroidectomy (Chronic) Former smoker (Chronic) quit 2014 Obesity (Chronic) Depression (Chronic) GERD (gastroesophageal reflux disease) (Chronic) History of breast cancer (Chronic) mastectomy was 30 years ago. Hospital Course and Treatment Summary of Care Provided: Hospitalist note: Discharge summary above reviewed and I agree with above discharge and treatment plan. Patient was admitted because of chest pain, found to have acute ST elevation WA. She underwent emergent cardiac catheterization and she was found to have RCA lesion status post PTCA/KIM. Post catheterization, patient had right groin hematoma and pseudoaneurysm that was treated with thrombin injection. She was treated with aspirin, statins, beta-blockers, Brilinta and losartan. She was found to have E. coli acute cystitis which was treated with IV Rocephin and she completed 5 days of IV Rocephin. with treatment, patient symptoms improved and she was stabilized. Her vital signs are stable on the day of discharge. 2D echocardiogram revealed ejection fraction of 65%, stage I diastolic dysfunction, RVSP of 33. Patient discharged home in a stable medical condition, discharged on aspirin, statins, Brilinta, metoprolol and losartan, recommended follow-up with PCP in 1 week, follow-up with cardiology in 2 weeks. - Physical Exam General: Alert, Oriented x3, Cooperative, No apparent distress. HEENT: Atraumatic, PERRLA, EOMI. Neck: Supple, No JVD, Negative Carotid Bruits, Trachea Midline, Thyroid Normal. Lungs: Clear to auscultation, Normal air movement, No rhonchi, No wheeze, No rales. Cardiovascular: Regular rate, Regular Rhythm, Normal S1, Normal S2, PMI Normal. Abdomen: Bowel Sounds Present, Soft, Non Tender, Non-Distended, No Hepato-splenomegaly. Extremities: No clubbing, No cyanosis, No edema Skin: No rashes, No breakdown Neurological: Neuro grossly intact Vital Signs are stable. This note was generated with [employer] software. It may contain incorrect words, spelling, and punctuation that were not noted in checking the note before signing. - Physical Exam Vital Signs Temp Pulse Resp BP Pulse Ox 98.1 F 79 16 106/45 L 96 09/26/18 13:50 09/26/18 13:50 09/26/18 13:50 09/26/18 13:50 09/26/18 13:50 Oxygen Flow Rate (L/min) 2 Oxygen Delivery Method Room Air Weight: 223 lb 15.834 oz Body Mass Index (BMI) 41.3 Intake and Output for Last 24 Hours 09/24/18 09/25/18 09/26/18 23:59 23:59 23:59 Intake Total 850 / 850 350 / 350 439.9 / 439.9 Output Total 1525 / 1525 440 / 440 650 / 650 Balance -675 / -675 -90 / -90 -210.1 / -210.1 Disposition: Home Minutes spent on discharge:: 32 Patient Condition:: Stable Meaningful Use Info Meaningful Use Diagnoses (Choose all that apply): AMI - AMI Aspirin given w/in 24hrs of arrival?: Yes ASA at discharge?: Yes Statins at discharge?: Yes Micheal/ARB at discharge?: Yes Beta Kayla at discharge?: Yes Done w/ Acute [place] measure.: Yes Code Visit Inpatient E&M: 28576 Disch Hosp
--- NOTE | 2018-09-27 16:27 | CASEMGMT ---
HANG JAQUEZ Discharge Follow-Up Phone Call. Candace: 12 Strata: 4 Discharge Date: 09/26/18 Adm Dx: STEMI. Call to pt to inquire about how she has been doing since being discharged from the hospital. Pt stated, I'm not doing very well. She states she is having back pain but that she is currently sitting in Dr Vigil's office awaiting for her appt. She also states she has not picked up her medications she was discharged home on and is concerned about having to walk back to the pharmacy. HANG JAQUEZ inquired if there is someone that can go to the pharmacy for her. She states her sister is with her and can help her but that she feels she needs to be there to discuss the cost of the medication with the pharmacist. HANG JAQUEZ suggested if she has questions/concerns for the pharmacist that she call the pharmacist 1st to see if she can discuss these things over the phone 1st before walking back to the pharmacy. Pt stated that's a good idea. I think I will do that. Offered to give pt her pharmacy's phone number but she states already has it. Pt stated she has the Brilinta savings card with her and will give it to her sister when she picks up the medication. Pt also stated she was concerned about the cost of refills on the Brilinta after the savings card. HANG JAQUEZ advised pt to talk with Dr Pedersen about this at her follow-up appt to discuss other options of more affordable medication. Pt voices understanding and states she will do that. Pt voices appreciation of phone call and assistance. Pt denies having any other questions/concerns about discharge instructions/appt's at this time. Renan ODOM RN, CM
== END 2018-09-26 14:51 | disposition home or self-care (01) | DRG 246 ==
LOC: ED 16:54 → ICU 19:28 → PCU 09-23 13:40 → ICU 09-24 11:28 → PCU 09-24 11:29
PROVIDERS: Admitting Provider Internal Medicine; Emergency Provider Emergency Medicine; Family Provider Family Medicine; PCP Family Medicine; Referring Provider Internal Medicine Cardiovascular Disease; Visit Provider Hospitalist
DX: I21.19 ST elevation (STEMI) myocardial infarction involving other coronary artery of inferior wall (principal); I25.42 Coronary artery dissection; N39.0 Urinary tract infection, site not specified; I97.630 Postprocedural hematoma of a circulatory system organ or structure following a cardiac catheterization; I97.89 Other postprocedural complications and disorders of the circulatory system, not elsewhere classified; Z68.41 Body mass index [BMI] 40.0-44.9, adult; I25.10 Atherosclerotic heart disease of native coronary artery without angina pectoris; F32.9 Major depressive disorder, single episode, unspecified; I10 Essential (primary) hypertension; Y84.0 Cardiac catheterization as the cause of abnormal reaction of the patient, or of later complication, without mention of misadventure at the time of the procedure; I44.7 Left bundle-branch block, unspecified; E78.5 Hyperlipidemia, unspecified; K21.9 Gastro-esophageal reflux disease without esophagitis; I72.4 Aneurysm of artery of lower extremity; Z87.891 Personal history of nicotine dependence; Z90.12 Acquired absence of left breast and nipple; Z85.3 Personal history of malignant neoplasm of breast; E66.9 Obesity, unspecified
CPT/HCPCS: 36415; 71045; 71046; 80048; 80053; 80061; 81001; 83036; 83735; 84484; 84703; 85014; 85018; 85025; 85027; 85347; 85610; 85730; 87086; 87088; 87186; 92941; 93005; 93306; 93458; 93926; 97110; 97116; 97162; 97166; 97530; 99152; 99285; J7030; Q9957; Q9967; A4216; C1725; C1769; C1874; C1887; C8929; C9606

== ENCOUNTER → 2018-09-27 17:06 | Outpatient (CLI) | payer MEDICARE, SELFPAY ==
[2018-09-20 18:25] VITALS: BMI 41.3
[2018-09-27 17:43] LABS: Absolute Lymphocyte Count 1.79 X10^3/ul (0.83-4.51); Absolute Neutrophil Count 9.2 X10^3/uL (2.0-7.7); Basophil# 0.02 X10^3/uL; Basophil% 0.2 % (0-1); Eosinophils% 2.3 % (0-5); Hemoglobin 9.3 g/dl (12.0-15.0); Lymphocyte # 1.79 X10^3/ul (4.0); Lymphocyte % 13.9 % (19-41); Mean Corp Hgb Conc 32.1 g/gl (32-36); Mean Corpuscular Hgb 31.4 pg (27.0-32.0); Mean Platelet Vol. 11.4 fl (6.2-12.0); Monocyte# 1.53 X10^3/uL; Monocyte% 11.9 % (0-10); Neutrophil # 9.21 X10^3/uL (2.7-7.7); Neutrophil % 71.3 % (47-70); Platelet Count 228 K/mm3 (150-450); RBC Distribution Width CV 14.3 % (11.6-14.6); RBC Distribution Width SD 46.7 fl (35.1-43.9); Red Blood Count 2.96 M/mm3 (4.2-5.4); White Blood Count 12.9 K/mm3 (4.4-11.0)
[2018-09-27 17:45] LABS: Differential Indicated SCAN CRITERIA MET; POSITIVE COUNT NO; POSITIVE DIFFERENTIAL YES; POSITIVE MORPHOLOGY NO
[2018-09-27 18:10] LABS: Anisocytosis RARE; Hypochromasia RARE; Macrocytosis RARE; Platelet Estimate ADEQUATE (ADEQ)
[2018-10-01 12:57] LABS: Pathologist Review Reviewed
== END ==
PROVIDERS: Family Provider Family Medicine; PCP Family Medicine; Referring Provider Family Medicine; Visit Provider Family Medicine
DX: D64.9 Anemia, unspecified (principal)
CPT/HCPCS: 36415; 85025

== ENCOUNTER → 2018-10-16 11:35 | Outpatient (CLI) | payer MEDICARE, SELFPAY ==
[2018-09-20 18:25] VITALS: BMI 41.3
[2018-10-05 11:28] VITALS: BMI 38.9
--- NOTE | 2018-10-16 12:24 | PCM.CR.ITP ---
General Information - Education/Goals Barriers to Learning: None Individual Counseling: Initial Assessment: Overweight/Obesity, Sedentary Lifestyle, Stress, Family History of Heart Disease (under 65 years) Cardiac Rehabilitation Goals: 1. Maintain the individual as the primary focus of care. 2. To improve the patient's quality of life. 3. Identification of cardiac risk factors and provide cardiac risk factor management. 4. Enhance the psychosocial status of the patient. 5. Reconditioning enough to allow the patient to resume customary activities. 6. Control symptoms of cardiac disease Scale for measuring improvement of personal goals: Enter appropriate number in Comments. 2 = Unchanged. 3 = Slightly Better. 4 = Moderate Improvement. 5 = Met my Goal Personal Goals: Initial Assessment: Improve management of stress and emotions, Improve energy level, Participate in home exercise program, Get back to work, or to resume activities faster, Improve knowledge of cardiac disease, Improve muscle strength and endurance, Improve diet and eating habits (eat healthier), Control risk factors (learn risk factor modification), Other goal: - IMPROVE BALANCE, WT CONTROL, Exercise - Initial Assessment - Visit Date of Eval: 10/16/18 - Stages of Change Stages of Change:: Action - Hypertension Do any of the following apply?: No - Intervention Home Exercise/Activity Goal:: Sitting Time <3 hrs/day Nutrition - Initial Assessment - Program Goals Nutrition Program Goals: LDL <70. Total Cholesterol <200. HDL >45. Triglycerides <150. HgbA1C <7%. BMI <25 - Visit Date of Assessment:: 10/16/18 - Stages of Change Stages of Change:: Action - Lipids Total Cholesterol (mg/dL) Goal = less than 200 mg/dL: 159 HDL Cholesterol (mg/dL) Goal = less than 45 mg/dL: 61 LDL Cholesterol (mg/dL) Goal = less than 70 mg/dL: 88 Triglycerides (mg/dL) Goal = less than 150 mg/dL: 51 Lipid Medication: LIPITOR - Diabetes Diabetes:: No - Weight Management Height: 5 ft 2 in Weight:: 213 lb - Intervention Referral to dietitian:: No Referral to Diabetic Clinic:: No Will attend diet classes:: Yes - Education Gave educational materials for:: Signs & symptoms of hypoglycemia, Signs & symptoms of hyperglycemia, Relate diabetes to coronary artery disease, Healthy eating Tobacco - Initial Assessment - Program Goals Tobacco Program Goals: Complete smoking cessation. Attend education classes. Improve Knowledge Test score - Stage of Change Stages of Change:: Action - Family Support Do you have family support?: Yes - Tobacco Use Tobacco Use: Non-smoker How long ago did you quit using tobacco products?: Greater than or equal to 6 months ago Years Smokin Do you use smokeless tobacco?: No - Intervention Smoking Cessation Referral:: No - Education Gave educational material for:: Tobacco triggers, Coronary artery disease, Risk factors, Sexuality, Medical compliance, Cardiac A&P, Angina signs & symptoms Psychosocial - Initial Assess - Target Goals Target Goals: Assess presence or absence of depression. Using a valid screening tool, maximizes coping skills. Positive support system - Stages of Change Stages of Change:: Action - Psychosocial Test Tool Used:: HANDS Depression Questionnaire - Intervention PS - Interventions: Yes Attend Stress Management Classes, Yes Uses Stress Management Skills, No Referral to Mental Health, No Referral to [facility] Case Management, No Referral to Physician - Education Gave educational materials for:: Coping techniques, Signs & symptoms of depression, Stress management, Relaxation techniques - Patient/Program Goal Preventative Medication(s):: Aspirin, Clopidogrel, Beta navya, Statin/lipid - Assistive Devices Assistive Devices:: Cane - PT USES CAN NEEDED FOR BALANCE Patient Health Questionnaire Initial Assessment 1. Little interest or pleasure in doing things: Several days 2. Feeling down, depressed, or hopeless: Several days 3. Trouble falling or staying asleep, or sleeping too much: More than half the days 4. Feeling tired or having little energy: Several days 5. Poor appetite or overeating: Nearly every day 6. Feeling bad about yourself -- or that you are a failure or have let yourself or your family down: Several days 7. Trouble concentrating on things, such as reading the newspaper or watching television: Not at all 8. Moving or speaking so slowly that other people could have noticed. Or the opposite - being so fidgety or restless that you have been moving around a lot more than usual: Not at all 9. Thoughts that you would be better off , or of hurting yourself in some way: Not at all How difficult have these problems made it for you to do your work, take care of things at home, or get along with other people?: Somewhat difficult Total Score: 9 SAURABH-Q SV Test - Statements CAD is a disease of the arteries in the heart: False - Examples of risk factors for heart disease: True Angina is chest pain or discomfort: I Don't Know The benefits of resistance training include: True Eating more meat and dairy products: False Anti-platelet medications such as aspirin are important: True The only effective way to manage stress: False An exercise warm-up slowly increases heart rate: True Prepared, processed foods usually have high sodium: True Depression is common after a heart attack: True The statin medications lower cholesterol: True To control blood pressure, lower the amount of sodium: True If someone gets chest discomfort during walking: False Transfats are partially hydrogenated vegetable oils: True Sleep apnea that is not treated increases the risk: I Don't Know To control cholesterol, one should become a vegetarian: False Someone knows if he/she is exercising at the right level: True Diabetes cannot be prevented with exercise & health eating: False Stress is a large risk for heart attack: I Don't Know A diet that can help lower blood pressure is rich in: True - Total Score Total Correct Responses: 17 Self-Efficacy Initial Assessment We would like to know how confident you are in doing certain activities. Please select your confidence level for:: Select your confidence level for the following using the scale 1-10 where 1 is not at all confident and 10 is totally confident. Your score is the average of all 6 responses. Fatigue: How confident are you that you can keep the fatigue caused by your disease from interfering with the things you want to do? Select Number: 9 Physical Discomfort or Pain: How confident are you that you can keep the physical discomfort or pain of your disease from interfering with the things you want to do? Select Number: 9 Emotional Distress: How confident are you that you can keep the emotional distress caused by your disease from interfering with the things you want to do? Select Number: 8 Other Symptoms or Health Problems: How confident are you that you can keep other symptoms or health problems from interfering with the things you want to do? Select Number: 9 Different Tasks and Activities: How confident are you that you can do the different tasks and activities needed to manage your health condition so as to reduce your need to see a doctor? Select Number: 9 Medication: How confident are you that you can do things other than just taking medication to reduce how much your illness affects your everyday life? Select Number: 10 Total Score:: 9 Nutrition Survey - Nutrition Survey Instructions Scoring Instructions: Scoring is as follows: Yes = 1 points. No = 0 point. Patient score that is >/=12 is considered to be at potential nutritional risk and could benefit from a referral to a registered dietitian. - Nutrition Survey Initial Have you lost >10 lbs over the past 2 months without trying?: Yes Are you following a special diet at home for diabetes, low fat, or low salt?: No Are you interested in meeting with a dietitian for help understanding your diet?: Yes Do you eat less than 3 meals a day?: Yes Do you eat fatty meats (glez, sausage, ribs, etc), fried foods, desserts, large amounts of salad dressings, margarine, butter, or cheese most days?: No Do you have food allergies? [Enter types in comment field]: No Do you eat in restaurants more than 3 times a week?: No Do you season food with salt, seasoning salt, or garlic salt?: Yes Do you used canned, boxed, frozen meals, or soups, seasoning packets?: Yes Total Score:: 5
--- NOTE | 2018-10-16 12:27 | CR.HP_ITS ---
CR - History & Physical - General Arrival date:: 10/16/18 Arrival time:: 11:30 Date of Referral:: 09/21/18 Date of CR Evaluation:: 10/16/18 Referring Physician: HALI REYES Primary Diagnosis: PCI WITH STENT - History of Present Cardiac Event Onset Date: Enter Onset Date of cardiac illnesses in Comment field below - Medications Home Medications: Ambulatory Orders Medication Instructions Recorded Bupropion HCl [Bupropion Xl] 300 mg PO DAILY 09/20/18 Aspirin E.C. [Ecotrin] 81 mg PO DAILY@0800 #30 tab 09/26/18 Atorvastatin Calcium [Lipitor] 80 mg PO QHS #30 tab 09/26/18 Famotidine [Pepcid] 20 mg PO DAILY #30 tab 09/26/18 Losartan Potassium [Cozaar] 12.5 mg PO DAILY #30 tab 09/26/18 Metoprolol Tartrate [Lopressor 50 mg PO BID #60 tab 09/26/18 (beta navya)] clopidogrel 75 mg tablet 75 mg PO DAILY #90 tab 10/02/18 ferrous sulfate 325 mg (65 mg 325 mg PO DAILY tab 10/05/18 iron) tablet omeprazole 20 mg capsule,delayed 20 mg PO DAILY 10/05/18 release tramadol 50 mg tablet 50 mg PO QHS 10/05/18 - Allergies Allergies/Adverse Reactions: Allergies Penicillins Allergy (Verified 10/05/18 11:38) localized swelling at injection site Sulfa (Sulfonamide Antibiotics) Allergy (Verified 10/01/18 14:19) Hives - Sleep Disorder Evaluation Hx of Sleep Apnea: No Do you snore loudly (louder than talking or can be heard through closed doors)?: No Do you often feel tired/ fatigued/ sleepy during daytime?: Yes Has anyone observed you stop breathing during sleep?: No History of Hypertension (for STOP score): No STOP Results: Negative Advanced Directives - Advanced Directives Power of Circular Knife Machine Cutter: No Living Will: No - ON MY LIST OF THINGS TO DO Advance Directives Information Provided: Yes Advance Directives on File: No DNR Order?:: No Past Medical History - Past Medical Illness Medical History: Past Medical History (Last Updated 10/05/18 @ 11:37 by Zuri Bennett) Atherosclerotic heart disease of [place] coronary artery without angina pectoris (Chronic) I25.10 Single vessel CAD of the mid RCA Successful PTCA/KIM mid RCA with a 2.5 x 38 Promus post dilated with a 3.0 x 12 NC Balloon; 90%-->0%, no rupture. Successfulm within body of second stent. PTCA/KIM mid RCA just upstream from initial stent with a 3.5 x 8 Promus synergy, post dilated with a 4.0 x 8 NC Balloon at 9 atim (3.80 mm) and then at 14 reanna within body of second stent. STEMI (ST elevation myocardial infarction) (Acute) I21.3 Former smoker (Chronic) Z87.891 quit 2014 Obesity (Chronic) E66.9 GERD (gastroesophageal reflux disease) (Chronic) K21.9 History of breast cancer (Chronic) Z85.3 mastectomy was 30 years ago. 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 Successfulm within body of second stent. PTCA/KIM mid RCA just upstream from initial stent with a 3.5 x 8 Promus synergy, post dilated with a 4.0 x 8 NC Balloon at 9 atim (3.80 mm) and then at 14 reanna within body of second stent. 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 Left click = Reports ([place]) Review of Present Symptoms: Reports: Shortness of Breath with Exertion, Fatigue - MOSTLY FROM THE LEG DISCOMFORT, Appetite - Special Diet - CARDIAC DIET. Denies: Shortness of Breath at Rest, Operative Discomfort, Angina, Wound Healing, Dizziness/Lightheadedness, Heart Arrhythmia/Irregularities, Appetite - Normal - NO APPETITE AT ALL, Sleep - Normal - HARD TO GO TO SLEEP AND HARD TO STAY ASLEEP - Pain Is Patient Pain Free?: Yes Pain Location: other - PT STILL HAS LEG DICOMFORT FROM THE PSEUDOANEURYSM Risk Factor Assessment - Vital Signs Temperature: 98.6 F Respiratory Rate: 16 Pulse Ox: 97 Blood Pressure: 118/70 Nailbeds:: PINK - Pulse Pulse Rate: 67 Pulse Rhythm: Regular - Hypertension How long have you been treated?: I NEVER HAT HTN Blood Pressure Sitting - Left Arm: 118/70 - Stress Stress: Long-standing - VOLUNTEER WORK - Blood Cholesterol/Lipids Total Cholesterol (mg/dL) Goal = less than 200 mg/dL: 159 HDL Cholesterol (mg/dL) Goal = less than 40 mg/dL: 61 LDL Cholesterol (mg/dL) Goal = less than 70 mg/dL: 88 Triglycerides (mg/dL) Goal = less than 150 mg/dL: 51 - Diabetes Nutrition Referral for Diabetes: No - Obesity Height: 5 ft 2 in Weight:: 213 lb Weight in Pounds: 213.0 lbs Weight Source: Estimated by Patient Body Mass Index (BMI): 38.9 Nutritional Referral for Obesity: No - Physical Inactivity Physical Inactivity: None - Risk Stratification Risk Guidelines: Lowest Risk: Risk Factor for Smoking, Risk Factor for Dyslipidemia, Risk Factor for Diabetes, Risk Factor for Hypertension, Moderate Risk: Risk Factor for Obesity, Risk Factor for Sedentary Lifestyle - INACTIVE DUE TO LEG DISCOMFORT, Highest Risk: Risk Factor for Depression - WELLBUTRIN - For Smoking Smoking Risk Guidelines: Smoking Low Risk: None or quit greater than 6 months ago. Smoking Moderate Risk: Smoker or quit 6 months or less ago. Smoking High Risk: Smoker - For Dyslipidemia Dyslipidemia Risk Guidelines: Low Risk: Moderate Risk: High Risk: 15-25% fat 25.1-29% fat >/= 30% fat. <7% sat fat 7-9% sat fat >9% sat fat. <150 mg chol 150-299 mg chol >/= 300 mg chol. LDL <100 LDL 100-129 LDL >/= 130. Chol/HDL ratio <5.0 Chol/HDL ratio 5.0-6.0 Chol/HDL ratio >6.0. Triglycerides <100 Triglycerides 100-149 Triglycerides >/= 150 - For Diabetes Mellitus Diabetes Risk Guidelines: Diabetes Low Risk: HgA1c <6.5% and/or FBG <120. Diabetes Moderate Risk: HgA1c 6.6-7.9% and/or FBG 120-180. Diabetes High Risk: HgA1c >/= 8% and/or FBG >180 - For Obesity/Overweight Obesity/Overweight Risk Guidelines: Obesity Low Risk: BMI <25.0. Obesity Moderate Risk: BMI 25-29.9. Obesity High Risk: BMI >/= 30.0 - For Hypertension Hypertension Risk Guidelines: Hypertension Low Risk: Systolic <120 and Diastolic <80. Hypertension Moderate Risk: Systolic 120-139 and Diastolic 80-89. Hypertension High Risk: Systolic >/= 140 and Diastolic >/= 90 - For Sedentary Lifestyle Sedentary Lifestyle Risk Guidelines: Sedentary Lifestyle Low Risk: >/= 1,500 kcal/week. Sedentary Lifestyle Moderate Risk: 700-1,499 kcal/week. Sedentary Lifestyle High Risk: < 700 kcal/week - For Depression Depression Risk Guidelines: Depression Low Risk: Not clinically depressed. Depression Moderate Risk: Mildly depressed. Depression High Risk: Clinically depressed - Family History Family History: Family History (Last Updated 10/05/18 @ 11:37 by Zuri Bennett) Father CAD (coronary artery disease) Myocardial infarction Mother Hypertension Motivation - Motivation to Participate On a scale of 1 to 10, how prepared are you to commit to attending program?: 10 What do you see as barriers to successfully being able to complete the program?: POSSIBLE SCHEDULE? What do you see as the benefits of succesfully completing the program? In other words, what do you hope to get out of participating in the program?: BETTER PHYSICAL AND EMOTION HEALTH, DIETARY Are there issues you are dealing with that will interfere with completing the program?: NONE Do you have a spouse or signficant other, family or friends who will help support you to complete the program?: FRIEND, SISTER WHO LIVES NEXT DOOR AND SON
[2018-10-16 12:56] VITALS: BP 118/70; PULSE 67; RESP 16; TEMP 37; O2SAT 97; BMI 38.9
== END ==
PROVIDERS: Family Provider Family Medicine; PCP Family Medicine; Referring Provider Internal Medicine Cardiovascular Disease; Visit Provider Internal Medicine Cardiovascular Disease
DX: I25.10 Atherosclerotic heart disease of native coronary artery without angina pectoris (principal); I25.2 Old myocardial infarction; Z95.5 Presence of coronary angioplasty implant and graft

== ENCOUNTER → 2018-10-24 13:39 | Outpatient (CLI) | payer MEDICARE, SELFPAY ==
[2018-09-20 18:25] VITALS: BMI 41.3
[2018-10-16 12:56] VITALS: BMI 38.9
--- NOTE | 2018-10-24 13:41 | STEWCON_ITS ---
Reason For Study: EVALUATE RCA Stress Results Protocol: Dobutamine with definity Maximum Predicted HR: 147 bpm Target HR: 125 bpm % Maximum Predicted HR: 86 % DurationHeart Rate Stage (mm:ss) (bpm) BP Comment BASELINE 82 151/752.5 CC DEFINITY DOBUTAMINE 10 MCG 3:17 91 139/680.5 MG DEFINITY DOBUTAMINE 20 MCG 3:00 113 134/66LOW BACK(RIGHT TAIL BONE AREA)PRESSURE PAIN DOBUTAMINE 30 MCG 2:05 126 118/531CC DEFINITY, LOW BACK PAIN EASING SLIGHTLY RECOVERY 98 120/611.5 CC DEFINITY Stress Duration: 8:22 mm:ss Maximum Stress HR: 126 bpm Baseline Echocardiogram Findings The estimated ejection fraction is 65 %. Stress Echo Wall motion Data Resting WM Intermediate WM Stress WM Resting Wall Motion Wall Motion Stress No regional wall motion No regional wall motion abnormalities noted. abnormalities noted. EKG Data The baseline ECG displays normal sinus rhythm. LBBB. The patient was titrated from 10 mcg to a maximun of 30 mcg of dobutamine during the stress. The maximum heart rate attained was 134 beats per minute. This was 91% of maximum predicted heart rate. During dobutamine infusion, there were no ST or T wave changes noted to suggest ischemia. No clinical angina was noted. Doppler Measurements & Calculations TR max itgre: 288.9 cm/sec TR max P.4 mmHg Interpretation Summary The estimated ejection fraction is 65 %. Normal, adequate, dobutamine echocardiogram. Negative for ischemia by EKG and echocardiographic anterior. No anginal symptoms noted. Rare PVCs and PACs noted. Appropriate blood pressure response to dobutamine. Final LVEF is 75%. Decreased sensitivity due to baseline left bundle branch block and poor echo windows requiring Definity enhancing agent. Test terminated due to attainment of target heart rate. No complications. The study was technically difficult. Contrast injection was performed. Ordering Physician: Mani Pedersen Referring Physician: Mani Pedersen Performed By: Bebe Villavicencio RDCS
== END ==
PROVIDERS: Family Provider Family Medicine; PCP Family Medicine; Referring Provider Internal Medicine Cardiovascular Disease; Visit Provider Internal Medicine Cardiovascular Disease
DX: I25.10 Atherosclerotic heart disease of native coronary artery without angina pectoris (principal); I25.2 Old myocardial infarction; Z95.5 Presence of coronary angioplasty implant and graft
CPT/HCPCS: 93017; 93350; J7040; Q9957; A4216; C8928

== ENCOUNTER → 2018-10-26 10:42 | Outpatient (CLI) | payer MEDICARE, SELFPAY ==
[2018-10-26 09:33] VITALS: BMI 38.4
[2018-10-26 12:31] LABS: Absolute Lymphocyte Count 1.51 X10^3/ul (0.83-4.51); Absolute Neutrophil Count 3.3 X10^3/uL (2.0-7.7); Basophil# 0.03 X10^3/uL; Basophil% 0.5 % (0-1); Eosinophil# 0.26 X10^3/uL; Eosinophils% 4.4 % (0-5); Hematocrit 39.3 % (37-47); Hemoglobin 12.2 g/dl (12.0-15.0); Lymphocyte # 1.51 X10^3/ul (4.0); Lymphocyte % 25.8 % (19-41); Mean Corpuscular Hgb 31.2 pg (27.0-32.0); Mean Corpuscular Volume 100.5 fL (81-99); Mean Platelet Vol. 11.8 fl (6.2-12.0); Monocyte# 0.77 X10^3/uL; Monocyte% 13.1 % (0-10); Neutrophil # 3.28 X10^3/uL (2.7-7.7); Platelet Count 169 K/mm3 (150-450); RBC Distribution Width CV 14.9 % (11.6-14.6); RBC Distribution Width SD 53.8 fl (35.1-43.9); Red Blood Count 3.91 M/mm3 (4.2-5.4); White Blood Count 5.9 K/mm3 (4.4-11.0)
[2018-10-26 12:34] LABS: POSITIVE COUNT NO; POSITIVE DIFFERENTIAL NO; POSITIVE MORPHOLOGY NO
== END ==
PROVIDERS: Family Provider Family Medicine; PCP Family Medicine; Referring Provider Family Medicine; Visit Provider Family Medicine
DX: D64.9 Anemia, unspecified (principal)
CPT/HCPCS: 36415; 85025

== ENCOUNTER 2018-11-09 14:15 | Outpatient (RCR) | payer MEDICARE, SELFPAY ==
[2018-10-16 12:56] VITALS: BMI 38.9
== END 2018-11-09 23:59 ==
LOC: CR 14:15
PROVIDERS: Family Provider Family Medicine; PCP Family Medicine; Referring Provider Internal Medicine Cardiovascular Disease; Visit Provider Internal Medicine Cardiovascular Disease
DX: I21.3 ST elevation (STEMI) myocardial infarction of unspecified site (principal); I25.10 Atherosclerotic heart disease of native coronary artery without angina pectoris; Z95.5 Presence of coronary angioplasty implant and graft
CPT/HCPCS: 93798

== ENCOUNTER 2018-12-07 14:15 | Outpatient (RCR) | payer MEDICARE, SELFPAY ==
[2018-11-10 01:18] VITALS: BMI 38.9
--- NOTE | 2018-11-14 08:37 | CR.ITP_ITS ---
Exercise - 30-day Assessment - Visit Date of Eval: 11/14/18 Session #:: 7 - Stages of Change Stages of Change:: Action - Physician Prescribed Exercise Modalities: Treadmill, Airdyne, NuStep, SciFit Frequency (days/week): 3 Duration (Minutes):: 30-45 Intensity: 60-80% age predicted maximum heart rate reserve METs - Progression: 0.5-1.0 MET, RPE 11-14 WEEK: 2.5 Target Heart Rate:: 96-125 - Hypertension Resting Blood Pressure:: 128/56 Peak Exercise Blood Pressure:: 150/76 Medication Changes:: No - Intervention Home Exercise/Activity Goal:: Moderate Exercise 30 min/day x 5 days/wk - Education Goals:: Warm-up, RPE ESTEFANY Scale, S/S, Safe Exercise, Self-Monitoring - Exercise Program Goals Exercise Program Goals: Aerobic Activity >30 min Nutrition - 30-Day Assessment - Program Goals Nutrition Program Goals: LDL <70. Total Cholesterol <200. HDL >45. Triglycerides <150. HgbA1C <7%. BMI <25 - Visit Date of Eval: 11/14/18 - Stages of Change Stages of Change:: Action - Lipids Has the patient seen the dietitian?: No - Diabetes Diabetes:: No Insulin: No Non-Insulin Dependent?: No - Weight Management Weight:: 207 lb - decrease 6# this month - Intervention Referral to dietitian:: No Referral to Diabetic Clinic:: No Will attend diet classes:: Yes - Education Attended class for:: Healthy eating Tobacco - 30-Day Assessment - Program Goals Tobacco Program Goals: Complete smoking cessation. Attend education classes. Improve Knowledge Test score - Stage of Change Stages of Change:: Action - Learning Barriers Learning Barriers: Participates in education - Family Support Do you have family support?: Yes - Tobacco Use Tobacco Use: Non-smoker Do you use smokeless tobacco?: No - Intervention Smoking Cessation Referral:: No Individual Education/Counseling:: No Education Schedule Given:: Yes - Education Attended class for:: Coronary artery disease, Risk factors, Sexuality, Medical compliance, Cardiac A&P, Angina signs & symptoms Psychosocial - 30-Day Assess - Target Goals Target Goals: Assess presence or absence of depression. Using a valid screening tool, maximizes coping skills. Positive support system - Stages of Change Stages of Change:: Action - Psychosocial Test Tool Used:: HANDS Depression Questionnaire - Intervention PS - Interventions: Yes Attend Stress Management Classes, No Referral to Mental Health, No Referral to [facility] Case Management, No Referral to Physician, No Uses Stress Management Skills - Education Attended classes for:: Coping techniques, Signs & symptoms of depression, Stress management, Relaxation techniques - Patient/Program Goal Preventative Medication(s):: Aspirin, Clopidogrel, Beta navya, Statin/lipid - Assistive Devices Assistive Devices:: None Fall Risk Assessed:: Yes Patient Health Questionnaire 30-Day Re-eval Assessment 1. Little interest or pleasure in doing things: Several days 2. Feeling down, depressed, or hopeless: Several days 3. Trouble falling or staying asleep, or sleeping too much: Several days 4. Feeling tired or having little energy: Not at all 5. Poor appetite or overeating: More than half the days 6. Feeling bad about yourself -- or that you are a failure or have let yourself or your family down: Several days 7. Trouble concentrating on things, such as reading the newspaper or watching television: Not at all 8. Moving or speaking so slowly that other people could have noticed. Or the opposite - being so fidgety or restless that you have been moving around a lot more than usual: Not at all 9. Thoughts that you would be better off , or of hurting yourself in some way: Not at all How difficult have these problems made it for you to do your work, take care of things at home, or get along with other people?: Somewhat difficult Total Score: 6 Self-Efficacy 30-Day Re-eval Assessment We would like to know how confident you are in doing certain activities. Please select your confidence level for:: Select your confidence level for the following using the scale 1-10 where 1 is not at all confident and 10 is totally confident. Your score is the average of all 6 responses. Fatigue: How confident are you that you can keep the fatigue caused by your disease from interfering with the things you want to do? Select Number: 9 Physical Discomfort or Pain: How confident are you that you can keep the physical discomfort or pain of your disease from interfering with the things you want to do? Select Number: 9 Emotional Distress: How confident are you that you can keep the emotional distress caused by your disease from interfering with the things you want to do? Select Number: 8 Other Symptoms or Health Problems: How confident are you that you can keep other symptoms or health problems from interfering with the things you want to do? Select Number: 9 Different Tasks and Activities: How confident are you that you can do the different tasks and activities needed to manage your health condition so as to reduce your need to see a doctor? Select Number: 10 Medication: How confident are you that you can do things other than just taking medication to reduce how much your illness affects your everyday life? Select Number: 10 Total Score:: 9
[2018-11-14 08:39] VITALS: BP 128/56; BP 150/76
== END 2018-12-09 23:59 ==
LOC: CR 14:15
PROVIDERS: Family Provider Family Medicine; PCP Family Medicine; Referring Provider Internal Medicine Cardiovascular Disease; Visit Provider Internal Medicine Cardiovascular Disease
DX: I21.3 ST elevation (STEMI) myocardial infarction of unspecified site (principal); I25.10 Atherosclerotic heart disease of native coronary artery without angina pectoris; Z95.5 Presence of coronary angioplasty implant and graft
CPT/HCPCS: 93798

== ENCOUNTER → 2018-12-21 14:54 | Outpatient (CLI) | payer MEDICARE, SELFPAY ==
[2018-12-10 00:52] VITALS: BMI 38.4
[2018-12-21 16:25] LABS: AST(SGOT) 28 U/L (15-37); Alanine Aminotransfer ALT/SGPT 30 U/L (13-56); Albumin, Serum 3.6 g/dL (3.2-5.0); Alkaline Phosphatase 124 U/L (45-117); Bilirubin, Direct 0.16 mg/dL (0.00-0.30); Cholesterol 125 mg/dL (200); Globulin 3.4 g/dL (2.2-4.2); High Density Lipoprotein 72 mg/dL; Triglycerides 65 mg/dL; Very Low Density Lipoprotein 13 mg/dL (5-40)
== END ==
PROVIDERS: Family Provider Family Medicine; PCP Family Medicine; Referring Provider Physician Assistant Medical; Visit Provider Physician Assistant Medical
DX: I25.10 Atherosclerotic heart disease of native coronary artery without angina pectoris (principal)
CPT/HCPCS: 80061; 80076

== ENCOUNTER 2019-01-09 14:15 | Outpatient (RCR) | payer MEDICARE, SELFPAY ==
[2018-12-10 00:52] VITALS: BP 128/56; BP 150/76; BMI 38.4
--- NOTE | 2018-12-14 08:33 | PCM.CR.ITP ---
Exercise - 60-Day Assessment - Visit Date of Eval: 12/14/18 Session #:: 19 - Patient missed due to personal reasons. - Stages of Change Stages of Change:: Action - Physician Prescribed Exercise Modalities: Treadmill, Airdyne, NuStep, SciFit Frequency (days/week): 3 Duration (Minutes):: 30-45 Intensity: 60-80% age predicted maximum heart rate reserve METs - Progression: 0.5-1.0 MET, RPE 11-14 WEEK: 3.5 Maximal level per patient Target Heart Rate:: 96-125 with max HR of 104 - Hypertension Resting Blood Pressure:: 140/78 Peak Exercise Blood Pressure:: 158/72 Medication Changes:: No - Intervention Home Exercise/Activity Goal:: Moderate Exercise 30 min/day x 5 days/wk - Education Goals:: Warm-up, RPE ESTEFANY Scale, S/S, Safe Exercise, Self-Monitoring - Exercise Program Goals Exercise Program Goals: Aerobic Activity >30 min Nutrition - 60-Day Assessment - Program Goals Nutrition Program Goals: LDL <70. Total Cholesterol <200. HDL >45. Triglycerides <150. HgbA1C <7%. BMI <25 - Visit Date of Eval: 12/14/18 - Stages of Change Stages of Change:: Action - Lipids Has the patient seen the dietitian?: No - Diabetes Diabetes:: No Insulin: No Non-Insulin Dependent?: No - Weight Management Weight:: 208 lb 8 oz - unchanged - Intervention Referral to dietitian:: Yes Referral to Diabetic Clinic:: No Will attend diet classes:: Yes - Education Attended class for:: Healthy eating Tobacco - 60-Day Assessment - Program Goals Tobacco Program Goals: Complete smoking cessation. Attend education classes. Improve Knowledge Test score - Stage of Change Stages of Change:: Action - Learning Barriers Learning Barriers: Participates in education - Family Support Do you have family support?: Yes - Tobacco Use Tobacco Use: Non-smoker Do you use smokeless tobacco?: No - Intervention Smoking Cessation Referral:: No Individual Education/Counseling:: No Education Schedule Given:: Yes - Education Attended class for:: Coronary artery disease, Risk factors, Sexuality, Medical compliance, Cardiac A&P, Angina signs & symptoms Psychosocial - Initial Assess - Target Goals Target Goals: Assess presence or absence of depression. Using a valid screening tool, maximizes coping skills. Positive support system - Psychosocial Test Tool Used:: HANDS Depression Questionnaire - Assistive Devices Fall Risk Assessed:: Yes Psychosocial - 60-Day Assess - Target Goals Target Goals: Assess presence or absence of depression. Using a valid screening tool, maximizes coping skills. Positive support system - Stages of Change Stages of Change:: Action - Psychosocial Test Tool Used:: HANDS Depression Questionnaire - Intervention PS - Interventions: Yes Attend Stress Management Classes, No Referral to Mental Health, No Referral to [facility] Case Management, No Referral to Physician, No Uses Stress Management Skills - Education Attended classes for:: Coping techniques, Signs & symptoms of depression, Stress management, Relaxation techniques - Patient/Program Goal Preventative Medication(s):: Aspirin, Clopidogrel, Beta navya, Statin/lipid - Assistive Devices Assistive Devices:: None Fall Risk Assessed:: Yes Patient Health Questionnaire 60-Day Re-eval Assessment 1. Little interest or pleasure in doing things: Several days 2. Feeling down, depressed, or hopeless: Several days 3. Trouble falling or staying asleep, or sleeping too much: Several days 4. Feeling tired or having little energy: Not at all 5. Poor appetite or overeating: More than half the days 6. Feeling bad about yourself -- or that you are a failure or have let yourself or your family down: Several days 7. Trouble concentrating on things, such as reading the newspaper or watching television: Not at all 8. Moving or speaking so slowly that other people could have noticed. Or the opposite - being so fidgety or restless that you have been moving around a lot more than usual: Not at all 9. Thoughts that you would be better off , or of hurting yourself in some way: Not at all How difficult have these problems made it for you to do your work, take care of things at home, or get along with other people?: Somewhat difficult Total Score: 6 Self-Efficacy 60-Day Re-eval Assessment We would like to know how confident you are in doing certain activities. Please select your confidence level for:: Select your confidence level for the following using the scale 1-10 where 1 is not at all confident and 10 is totally confident. Your score is the average of all 6 responses. Fatigue: How confident are you that you can keep the fatigue caused by your disease from interfering with the things you want to do? Select Number: 9 Physical Discomfort or Pain: How confident are you that you can keep the physical discomfort or pain of your disease from interfering with the things you want to do? Select Number: 9 Emotional Distress: How confident are you that you can keep the emotional distress caused by your disease from interfering with the things you want to do? Select Number: 9 Other Symptoms or Health Problems: How confident are you that you can keep other symptoms or health problems from interfering with the things you want to do? Select Number: 9 Different Tasks and Activities: How confident are you that you can do the different tasks and activities needed to manage your health condition so as to reduce your need to see a doctor? Select Number: 9 Medication: How confident are you that you can do things other than just taking medication to reduce how much your illness affects your everyday life? Select Number: 9 Total Score:: 9
[2018-12-14 08:37] VITALS: BP 140/78; BP 158/72
== END 2019-01-09 23:59 ==
LOC: CR 14:15
PROVIDERS: Family Provider Family Medicine; PCP Family Medicine; Referring Provider Internal Medicine Cardiovascular Disease; Visit Provider Internal Medicine Cardiovascular Disease
DX: I21.3 ST elevation (STEMI) myocardial infarction of unspecified site (principal); I25.10 Atherosclerotic heart disease of native coronary artery without angina pectoris; Z95.5 Presence of coronary angioplasty implant and graft
CPT/HCPCS: 93798

== ENCOUNTER 2019-01-21 14:15 | Outpatient (RCR) | payer MEDICARE, SELFPAY ==
[2019-01-03 12:58] VITALS: BMI 37.3
[2019-01-10 00:51] VITALS: BP 140/78; BP 158/72
--- NOTE | 2019-01-14 08:12 | CR.ITP_ITS ---
General Information - General Information Admitting Diagnosis: PCI with Stenting - Education/Goals Barriers to Learning: None Cardiac Rehabilitation Goals: 1. Maintain the individual as the primary focus of care. 2. To improve the patient's quality of life. 3. Identification of cardiac risk factors and provide cardiac risk factor management. 4. Enhance the psychosocial status of the patient. 5. Reconditioning enough to allow the patient to resume customary activities. 6. Control symptoms of cardiac disease Scale for measuring improvement of personal goals: Enter appropriate number in Comments. 2 = Unchanged. 3 = Slightly Better. 4 = Moderate Improvement. 5 = Met my Goal Exercise - 90-Day Assessment - Visit Date of Eval: 01/14/19 Session #:: 32 - Stages of Change Stages of Change:: Action - Physician Prescribed Exercise Modalities: Treadmill, Airdyne, NuStep Frequency (days/week): 3 Duration (Minutes):: 30-45 Intensity: 60-80% age predicted maximum heart rate reserve METs - Progression: 0.5-1.0 MET, RPE 11-14 WEEK: 3.5 Target Heart Rate:: 96-125 Max HR 105 - Hypertension Resting Blood Pressure:: 114/56 Peak Exercise Blood Pressure:: 150/72 - Intervention Home Exercise/Activity Goal:: Sitting Time <3 hrs/day - Education Goals:: Warm-up, RPE ESTEFANY Scale, S/S, Safe Exercise, Self-Monitoring - Exercise Program Goals Exercise Program Goals: Aerobic Activity >30 min, B/P <130/80 Nutrition - 90-Day Assessment - Program Goals Nutrition Program Goals: LDL <70. Total Cholesterol <200. HDL >45. Triglycerides <150. HgbA1C <7%. BMI <25 - Visit Date of Eval: 01/14/19 - Stages of Change Stages of Change:: Action - Weight Management Weight:: 91.626 kg - Intervention Referral to dietitian:: Yes Referral to Diabetic Clinic:: No Will attend diet classes:: Yes - Education Attended class for:: Signs & symptoms of hypoglycemia, Signs & symptoms of hyperglycemia, Relate diabetes to coronary artery disease, Healthy eating Tobacco - 90-Day Assessment - Program Goals Tobacco Program Goals: Complete smoking cessation. Attend education classes. Improve Knowledge Test score - Stage of Change Stages of Change:: Action - Learning Barriers Learning Barriers: Participates in education - Family Support Do you have family support?: Yes - Tobacco Use Tobacco Use: Non-smoker Do you use smokeless tobacco?: No - Intervention Smoking Cessation Referral:: No Individual Education/Counseling:: No Education Schedule Given:: Yes - Education Attended class for:: Treating Heart Disease, How The Heart Works, What it means to have Heart Disease, How Coronary Artery Disease is Diagnosed, Heart Procedures, What Heart Medications Do, Risk Factors & Modifications, Living an Active Life, Nutrition, Emotions & Heart Disease, Stress Management & Relaxation, Sleep Disorders & Heart Disease Psychosocial - Initial Assess - Target Goals Target Goals: Assess presence or absence of depression. Using a valid screening tool, maximizes coping skills. Positive support system - Psychosocial Test Tool Used:: HANDS Depression Questionnaire - Assistive Devices Fall Risk Assessed:: Yes Psychosocial - 90-Day Assess - Target Goals Target Goals: Assess presence or absence of depression. Using a valid screening tool, maximizes coping skills. Positive support system - Stages of Change Stages of Change:: Action - Psychosocial Test Tool Used:: HANDS Depression Questionnaire - Intervention PS - Interventions: Yes Attend Stress Management Classes, Yes Uses Stress Management Skills, No Referral to Mental Health, No Referral to [facility] Case Manag ement, No Referral to Physician - Education Attended classes for:: Coping techniques, Signs & symptoms of depression, Stress management, Relaxation techniques - Assistive Devices Assistive Devices:: None Fall Risk Assessed:: Yes Patient Health Questionnaire 90-Day Re-eval Assessment 1. Little interest or pleasure in doing things: Several days 2. Feeling down, depressed, or hopeless: Several days 3. Trouble falling or staying asleep, or sleeping too much: Several days 4. Feeling tired or having little energy: Not at all 5. Poor appetite or overeating: More than half the days 6. Feeling bad about yourself -- or that you are a failure or have let yourself or your family down: Several days 7. Trouble concentrating on things, such as reading the newspaper or watching television: Not at all 8. Moving or speaking so slowly that other people could have noticed. Or the opposite - being so fidgety or restless that you have been moving around a lot more than usual: Not at all 9. Thoughts that you would be better off , or of hurting yourself in some way: Not at all How difficult have these problems made it for you to do your work, take care of things at home, or get along with other people?: Somewhat difficult Total Score: 6 Self-Efficacy 90-Day Re-eval Assessment We would like to know how confident you are in doing certain activities. Please select your confidence level for:: Select your confidence level for the following using the scale 1-10 where 1 is not at all confident and 10 is totally confident. Your score is the average of all 6 responses. Fatigue: How confident are you that you can keep the fatigue caused by your disease from interfering with the things you want to do? Select Number: 9 Physical Discomfort or Pain: How confident are you that you can keep the physical discomfort or pain of your disease from interfering with the things you want to do? Select Number: 9 Emotional Distress: How confident are you that you can keep the emotional distress caused by your disease from interfering with the things you want to do? Select Number: 9 Other Symptoms or Health Problems: How confident are you that you can keep other symptoms or health problems from interfering with the things you want to do? Select Number: 9 Different Tasks and Activities: How confident are you that you can do the different tasks and activities needed to manage your health condition so as to reduce your need to see a doctor? Select Number: 9 Medication: How confident are you that you can do things other than just taking medication to reduce how much your illness affects your everyday life? Select Number: 9 Total Score:: 9
[2019-01-14 08:22] VITALS: BP 114/56; BP 150/72
== END 2019-02-09 23:59 ==
LOC: CR 14:15
PROVIDERS: Family Provider Family Medicine; PCP Family Medicine; Referring Provider Internal Medicine Cardiovascular Disease; Visit Provider Internal Medicine Cardiovascular Disease
DX: I21.3 ST elevation (STEMI) myocardial infarction of unspecified site (principal); I25.10 Atherosclerotic heart disease of native coronary artery without angina pectoris; Z95.5 Presence of coronary angioplasty implant and graft
CPT/HCPCS: 93798

== ENCOUNTER → 2019-07-02 14:25 | Outpatient (CLI) | payer MEDICARE, SELFPAY ==
[2019-01-03 12:58] VITALS: BMI 37.3
[2019-07-02 15:41] LABS: AST(SGOT) 41 U/L (15-37); Alanine Aminotransfer ALT/SGPT 47 U/L (13-56); Albumin, Serum 3.6 g/dL (3.2-5.0); Alkaline Phosphatase 129 U/L (45-117); Bilirubin, Direct 0.23 mg/dL (0.00-0.30); Cholesterol 139 mg/dL (200); Globulin 3.2 g/dL (2.2-4.2); High Density Lipoprotein 82 mg/dL; Protein, Total 6.8 g/dL (6.4-8.2); Triglycerides 62 mg/dL; Very Low Density Lipoprotein 12 mg/dL (5-40)
== END ==
LOC: LAB 14:27
PROVIDERS: PCP Family Medicine; Referring Provider Physician Assistant Medical; Visit Provider Physician Assistant Medical
DX: I25.10 Atherosclerotic heart disease of native coronary artery without angina pectoris (principal)
CPT/HCPCS: 36415; 80061; 80076

== ENCOUNTER → 2019-12-27 06:12 | Outpatient (CLI) | payer MEDICARE, SELFPAY ==
[2019-12-05 14:11] VITALS: BMI 36.6
--- NOTE | 2019-12-27 09:29 | STRESSREP ---
Stress Test Report Pharmacologic myocardial perfusion stress test. 74-year-old lady with a history of coronary artery disease. Stress protocol: Resting EKG demonstrates normal sinus rhythm with a rate of 87 bpm and a left bundle branch block. 0.4 mg of regadenoson was infused per usual protocol followed by Intravenous saline flush injection continuous color television console monitor was performed. Patient maintained sinus rhythm throughout the recording with a left bundle branch block pattern. At rest there were no ST or T wave changes noted to suggest abnormal flow reserve at peak infusion nonspecific ST-T wave changes were noted with no meet the criteria for abnormal flow reserve. The resting blood pressure was 124/68 with a final blood pressure 120/62 mmHg. Myocardial perfusion protocol. 12.0 mCi of technetium 99m sestamibi was injected at rest. 0.4 mg of regadenoson was infused per protocol peak infusion 35.0 mCi of technetium 99m sestamibi was injected stress images were obtained stress and rest images were reconstructed and compared in the short axis vertical long horizontal long axis. Gated images were also obtained Perfusion SPECT analysis: Review of the stress images demonstrate normal uptake of tracer noted in all areas of the myocardium the resting images similar demonstrate normal uptake of tracer noted in all areas of myocardium. No areas of reversibility are noted suggest ischemia. Gated SPECT analysis: The gated ejection fraction is hyperdynamic and estimated to be over 80%. Conclusion: Normal pharmacologic myocardial perfusion stress test. Preserved ejection fraction. Left bundle branch block pattern noted.
== END ==
LOC: CVS 06:13
PROVIDERS: PCP Family Medicine; Referring Provider Internal Medicine Cardiovascular Disease; Visit Provider Internal Medicine Cardiovascular Disease
DX: Z01.810 Encounter for preprocedural cardiovascular examination (principal); I25.10 Atherosclerotic heart disease of native coronary artery without angina pectoris; Z98.61 Coronary angioplasty status
CPT/HCPCS: 78452; 93017; A9500; A4216; J2785

== ENCOUNTER 2019-12-30 07:24 | Day surgery (SDC) | payer MEDICARE, SELFPAY ==
[2019-12-05 14:11] VITALS: BMI 36.6
--- NOTE | 2019-12-07 11:01 | HP_ITS ---
Intake Vital Signs 12/05/19 BMI 36.6 12/05/19 Height 5 ft 2 in 12/05/19 BP 130/77 H 12/05/19 Blood Pressure Location Rt brachial 12/05/19 Position Sitting 12/05/19 Respiration 20 H 12/05/19 Pulse 69 12/05/19 Temp 98.5 F 12/05/19 Temp Source Temporal 12/05/19 Pulse Oximetry (%) 98 Intake Visit Reasons: Positive Cologuard Chief Complaint: positive cologuard Box Tender Required: No Is patient in pain?: No Allergies Penicillins Allergy (Verified 12/05/19 14:09) localized swelling at injection site Sulfa (Sulfonamide Antibiotics) Allergy (Verified 12/05/19 14:09) Hives Medications Bupropion HCl [Bupropion Xl] 300 mg PO DAILY 09/20/18 [History Confirmed 12/05/19] omeprazole 20 mg capsule,delayed release 20 mg PO DAILY 10/05/18 [History Confirmed 12/05/19] aspirin 81 mg tablet,delayed release 81 mg PO DAILY@0800 #90 tab 01/03/19 [Rx Confirmed 12/05/19] vitamin B complex 1 tab PO DAILY 07/04/19 [History Confirmed 12/05/19] atorvastatin 80 mg tablet 80 mg PO QHS #90 tab 09/17/19 [Rx Confirmed 12/05/19] clopidogrel 75 mg tablet 75 mg PO DAILY #90 tab 09/17/19 [Rx Confirmed 12/05/19] metoprolol tartrate 50 mg tablet 50 mg PO BID #180 tab 09/17/19 [Rx Confirmed 12/05/19] losartan 25 mg tablet 12.5 mg PO DAILY #45 tab 09/27/19 [Rx Confirmed 12/05/19] Is last menstrual period known: No Post menopausal: Yes Patient : No PFSH Medical History Atherosclerotic heart disease of [place] coronary artery without angina pectoris (Chronic) STEMI (ST elevation myocardial infarction) (Acute) Former smoker (Chronic) Obesity (Chronic) GERD (gastroesophageal reflux disease) (Chronic) History of breast cancer (Chronic) Left bundle branch block (Acute) Surgical History Stented coronary artery (Chronic 09/20/18) S/P PTCA (percutaneous transluminal coronary angioplasty) (Acute) H/O partial thyroidectomy (Chronic) Family History Father CAD (coronary artery disease) Myocardial infarction Mother Hypertension Social History (Updated 12/07/19 @ 11:[address] Mani Jordan MD) Smoking Status: Former smoker HPI HPI Surgical H&P: Yes HPI: FAITH GOMEZ, is a 74 F who presents to the office today for Evaluation of a positive Cologuard test. Patient has never had a colonoscopy. She is not having any current bowel problems. She is not noticing any diarrhea or melena. She has no complaints of abdominal pain. ROS General General: Yes weight change and breast cancer; no appetite, fatigue, colon cancer or weakness HEENT HEENT: No difficulty swallowing, eye injury, eye surgery, swollen glands or hoarseness Endo Endocrine: No thyroid disease, diabetes mellitus, thyroid cancer, Hair loss, heat intolerance or cold intolerance Musc Musculoskeletal: Yes back problems and arthritis; no rheumatoid arthritis, gout or joint pain Cardio Cardiovascular: Yes heart attack and heart stent; no murmur, pacemaker, heart disease, atrial fibrillation, high blood pressure, palpitations, shortness of breat with exertion or chest pain Psych Psychiatric: Yes depression; no anxiety or hearing voices Resp Respiratory: Yes shortness of breath, No sleep apnea, No cough, Yes COPD, No asthma, No emphysema, No wheezing Gastro Gastrointestinal: No abdominal pain, No nausea or vomiting, No diarrhea, Yes constipation, Yes blood in stool, Yes acid reflux, Yes hemorrhoids, No ulcers, No gallbladder problem, No black,tarry stools [place] Hematologic: Yes blood thinners, No blood disorders, No bleeding, No anemia, No blood clots Neuro Neurologic: No weakness Exam Const General: no acute distress, well developed, well hydrated Orientation: oriented to person, oriented to place, oriented to time [facility] Head: normocephalic, atraumatic Ears: external ears normal Mouth: moist mucous membranes Eyes Sclera: sclerae normal Pupils: normal by confrontation Neck Neck: no lymphadenopathy noted Neck mass: No Thyroid: thyroid normal, symmetrical Chest Chest palpation & inspection: normal inspection of the chest Resp Effort & Inspection: normal respiratory effort Auscultation: clear to auscultation bilaterally Percussion: percussion normal Cardio Rate: regular rate Rhythm: regular rhythm Heart Sounds: no murmurs GI Palpation: soft, no hepatosplenomegaly, no masses, nontender Rectal Exam: other Other: Rectal exam deferred. Extrem General: normal to inspection, no clubbing, cyanosis or edema Assessment & Plan Problems 1. Positive colorectal cancer screening using Cologuard test R19.5 Plan I have discussed the above with the patient. I have offered the patient colonoscopy for evaluation. I have explained the risks/benefits of the procedure and described the procedure. I have discussed the risks with the patient, including but not limited to: infection, bleeding, perforation of the GI tract requiring emergency surgery, inability to complete the procedure, injury to any internal organs, complications of anesthesia, etc. - the patient understands and agrees to proceed. I have answered all the patient's questions to the patient's satisfaction and the patient has no further questions. The patient has been given instructions for the colon cleansing preparation. Coding Level of Care Code Off vis,new,level 3 Diagnoses Positive colorectal cancer screening using Cologuard test R19.5 12/07/19 1101 <Electronically signed by Mani samaniego MD> Date _ Mani Jordan MD I have re-examined the patient. There are no clinical changes since date of exam.
[2019-12-30] VITALS (9 sets, daily range): BP systolic 119–141; BP diastolic 47–96; PULSE 60–93; RESP 16–18; TEMP 36.3–37.3; O2SAT 95–97; BMI 35.2
[2019-12-30] MEDS: Lactated Ringers 1,000 ML 100 ML IV (08:10)
--- NOTE | 2019-12-30 08:30 | COLBX_PTH ---
PATIENT: FAITH GOMEZ LOC: EN U#:[id number] AGE/SX: 74/F ROOM: RE12/30/[address]: Dr. Mani Jordan MD : 1945 BED: DIS: 12/30/2019 SPEC #: [id number] RECD: 12/30/19 10:08 STATUS: PROMISE MCKENZIE #: [id number] SURI: 12/30/19 08:[address]: Mani Jordan DEPT: SURGICAL PATHOLOGY RECD BY: Viv Iqbal ENTERED: 12/30/19 11:20 SP TYPE: COLON BX OTHR DR: Dr. Jerson Vigil MD Tissues: A - Transverse colon B - Sigmoid colon biopsy Procedures: Surgery Specimen Level IV HEADER OPERATION: Colonoscopy (MAC) PRE-OP DIAGNOSIS: Positive Cologuard test TISSUE SUBMITTED: A - Transverse polyp biopsy, B - Sigmoid polyp biopsy MICROSCOPIC DIAGNOSIS A. Transverse colon polyp, biopsy: Tubular adenoma. B. Sigmoid colon polyp, biopsy: Hyperplastic polyp. CUBA:mariann 12/31/19 MICROSCOPIC DESCRIPTION Slides are reviewed. GROSS DESCRIPTION A - Received in fixative is one container labeled with the patient's name and designated transverse polyp biopsy. The specimen consists of one irregular fragment of light olguin soft tissue that measures 0.4 x 0.3 x 0.1 cm. The specimen is totally submitted in one cassette. B - Received in fixative is one container labeled with the patient's name and designated sigmoid polyp biopsy. The specimen consists of two irregular fragments of light olguin soft tissue that in aggregate measure 0.5 x 0.3 x 0.1 cm. The specimen is totally submitted in one cassette. / SJ:mariann 12/30/19 TC:1 CPT: 29777 x2
--- NOTE | 2019-12-30 09:03 | OP.COLON_ITS ---
Patient Name: Ania Parks Procedure Date: 12/30/2019 8:30 AM Date of : 1945 Age: 74 Procedure: Colonoscopy Indications: positive cologuard test Providers: Mani Jordan MD Referring MD: Jerson Vigil MD Medicines: See the Anesthesia note for documentation of the administered medications Patient Profile: This is a 74 year old female. Refer to note in patient chart for documentation of history and physical. Last Colonoscopy: none. The patient's first colonoscopy is today. Complications: No immediate complications. Procedure: Pre-Anesthesia Assessment: - Prior to the procedure, a History and Physical was performed, and patient medications and allergies were reviewed. The patient's tolerance of previous anesthesia was also reviewed. The risks and benefits of the procedure and the sedation options and risks were discussed with the patient. All questions were answered, and informed consent was obtained. Prior Anticoagulants: The patient has taken aspirin, last dose was 7 days prior to procedure. ASA Grade Assessment: II - A patient with mild systemic disease. After reviewing the risks and benefits, the patient was deemed in satisfactory condition to undergo the procedure. After I obtained informed consent, the scope was passed under direct vision. Throughout the procedure, the patient's blood pressure, pulse, and oxygen saturations were monitored continuously. The colonoscope was introduced through the anus and advanced to the cecum, identified by appendiceal orifice and ileocecal valve. The colonoscopy was performed without difficulty. The patient tolerated the procedure well. The quality of the bowel preparation was good. Scope In: 8:40:33 AM Scope Withdrawal Time 0 hours 9 minutes 41 seconds Scope Out: 8:59:19 AM Total Procedure Duration Time 0 hours 18 minutes 46 seconds Findings: Two sessile polyps were found in the sigmoid colon and transverse colon. The polyps were 4 to 5 mm in size. These polyps were removed with a jumbo cold forceps. Resection and retrieval were complete. Multiple small and large-mouthed diverticula were found in the sigmoid colon and descending colon. No biopsies or other specimens were collected for this exam. Non-bleeding internal hemorrhoids were found during retroflexion. The hemorrhoids were mild and small. The exam was otherwise without abnormality. Impression: - Two 4 to 5 mm polyps in the sigmoid colon and in the transverse colon, removed with a jumbo cold forceps. Resected and retrieved. - Diverticulosis in the sigmoid colon and in the descending colon. No specimens collected. - Non-bleeding internal hemorrhoids. - The examination was otherwise normal. Recommendation: - Discharge patient to home. - Resume previous diet. - Continue present medications. - Await pathology results. - Repeat colonoscopy in 5 years for surveillance. - Return to my office in 1 week. Procedure Code(s): --- Professional --- 17195, Colonoscopy, flexible; with biopsy, single or multiple Diagnosis Code(s): --- Professional --- D12.5, Benign neoplasm of sigmoid colon D12.3, Benign neoplasm of transverse colon (hepatic flexure or splenic flexure) K64.8, Other hemorrhoids K57.30, Diverticulosis of large intestine without perforation or abscess without bleeding CPT copyright 2017 [employer]. All rights reserved. The codes documented in this report are preliminary and upon clinic nurse review may be revised to meet current compliance requirements. MD Mani Jameson MD 12/30/2019 9:03:12 AM This report has been signed electronically. Number of Addenda: 0 Note Initiated On: 12/30/2019 8:30 AM
--- NOTE | 2019-12-30 09:03 | OP.CCLET_ITS ---
12/30/2019 Jerson Vigil MD [address] [place] [address] Re : Colonoscopy procedure for Ania Parks Dear Dr. Vigil This procedure was performed on Monday, December 30, 2019. My impressions and recommendations are as follows: Impressions : - Two 4 to 5 mm polyps in the sigmoid colon and in the transverse colon, removed with a jumbo cold forceps. Resected and retrieved. - Diverticulosis in the sigmoid colon and in the descending colon. No specimens collected. - Non-bleeding internal hemorrhoids. - The examination was otherwise normal. Recommendations : - Discharge patient to home. - Resume previous diet. - Continue present medications. - Await pathology results. - Repeat colonoscopy in 5 years for surveillance. - Return to my office in 1 week. My findings are described in the full procedure note, which is enclosed. If I can be of further assistance, please feel free to contact me at Doctor phone number(s): , Fax: [phone], Work: . Sincerely, MD Mani Jameson MD 12/30/2019 9:03:12 AM This report has been signed electronically.
== END 2019-12-30 10:05 | disposition home or self-care (01) ==
LOC: EN 07:24 → AC 07:25
PROVIDERS: Anesthesiology; PCP Family Medicine; Referring Provider Family Medicine; Visit Provider Surgery
PROC: 0DJD8ZZ Inspection of Lower Intestinal Tract, Via Natural or Artificial Opening Endoscopic (ICD-10-PCS; CPT 45378; principal; 2019-12-30 08:25)
DX: D12.3 Benign neoplasm of transverse colon (principal); D12.5 Benign neoplasm of sigmoid colon; K57.30 Diverticulosis of large intestine without perforation or abscess without bleeding; Z11.59 Encounter for screening for other viral diseases; K64.8 Other hemorrhoids; K21.9 Gastro-esophageal reflux disease without esophagitis; I25.10 Atherosclerotic heart disease of native coronary artery without angina pectoris; I44.7 Left bundle-branch block, unspecified; M19.90 Unspecified osteoarthritis, unspecified site; F32.9 Major depressive disorder, single episode, unspecified; F41.9 Anxiety disorder, unspecified; E66.9 Obesity, unspecified; Z68.35 Body mass index [BMI] 35.0-35.9, adult; Z78.0 Asymptomatic menopausal state; Z79.82 Long term (current) use of aspirin; Z79.02 Long term (current) use of antithrombotics/antiplatelets; Z79.899 Other long term (current) drug therapy; I25.2 Old myocardial infarction; Z85.3 Personal history of malignant neoplasm of breast; Z87.891 Personal history of nicotine dependence; Z95.5 Presence of coronary angioplasty implant and graft
CPT/HCPCS: 45380; 87635; 88305; G2023; J7120; J1610; J2405; U0003

== ENCOUNTER → 2020-02-21 11:50 | Outpatient (CLI) | payer MEDICARE, SELFPAY ==
[2019-07-04 15:04] VITALS: BMI 36.6
[2019-12-30 07:51] VITALS: BMI 35.2
[2020-02-21 13:09] LABS: AST(SGOT) 77 U/L (15-37); Alanine Aminotransfer ALT/SGPT 56 U/L (13-56); Albumin, Serum 3.5 g/dL (3.2-5.0); Alkaline Phosphatase 179 U/L (45-117); Anion Gap 4 (5-15); BUN 24 mg/dL (7-18); BUN/Creat Ratio 19.2 RATIO (10-20); Bilirubin, Direct 0.22 mg/dL (0.00-0.30); Chloride 107 mmol/L (98-107); Cholesterol 139 mg/dL (200); Creatinine, Serum 1.25 mg/dL (0.55-1.02); EST Glomerular Filtration Rate 45 mL/min (>60); Est Glom Filt Rate - Afr Amer 54 mL/min (>60); Globulin 3.5 g/dL (2.2-4.2); Glucose 100 mg/dL (74-106); High Density Lipoprotein 76 mg/dL; Potassium 4.5 mmol/L (3.5-5.1); Sodium Level 140 mmol/L (136-145); Triglycerides 58 mg/dL; Very Low Density Lipoprotein 12 mg/dL (5-40)
[2020-02-21 13:13] LABS: Vitamin D,25 Hydroxy 49.4 ng/mL
== END ==
PROVIDERS: Physician Assistant Medical; PCP Family Medicine; Referring Provider Family Medicine; Visit Provider Family Medicine
DX: Z00.00 Encounter for general adult medical examination without abnormal findings (principal); E55.9 Vitamin D deficiency, unspecified; E78.00 Pure hypercholesterolemia, unspecified; I25.10 Atherosclerotic heart disease of native coronary artery without angina pectoris
CPT/HCPCS: 36415; 80048; 80061; 80076; 82306

== ENCOUNTER 2020-08-10 10:28 | Outpatient (RCR) | payer MEDICARE, SELFPAY ==
[2020-07-30 11:34] VITALS: BMI 38.2
== END 2020-08-10 23:59 ==
LOC: IMMUN 10:28
PROVIDERS: PCP Family Medicine; Visit Provider Family Medicine
DX: Z23 Encounter for immunization (principal)
CPT/HCPCS: 0011A; 0012A

== ENCOUNTER 2021-01-22 10:30 | Outpatient (RCR) | payer MEDICARE, SELFPAY ==
[2020-07-30 11:34] VITALS: BMI 38.2
--- NOTE | 2020-12-25 16:16 | HP.PTEVAL_ITS ---
Patient's Visit Information FAITH GOMEZ is a 75 year old F referred to Physical Therapy by Dr. Jerson Vigil MD with a diagnosis of frequent falls. Date of Evaluation: 12/25/20 Physical Therapist: Nikolay Eng, DENICE, OCS, CSCS - Visit Plan Frequency: 2x /Week Duration: 4-6 Weeks Plan: Neurocom test, then 2xweek for 4 weeks(minimize to a couple visit due to cost if possible. Will need FW weight shifts, vestibular balance challenges and gym based strength for LE and posture/CORE. - Subjective Fall risk. Parked car next to curb adn tripped on it. Legs would not hold her up once she hit the curb. Also had a fall gettting out of the shower several months ago. That was a fall due to balance. Mi in 2019 and the meds mess with her balance. No spinning just unsteay. No regular exercises. Used to work out at before covid. May want to get back to workout. No spinning, no neuropathy. Sleep is not great, getting 6 hours and used to get 8. Not employed. Spends day on computer. A lot of time on the phone. Meetings. B asic ADLs are OK at home. Has stairs at home with railing which are difficult going up. Feels weak and SOB. - Objective Leans L in sitting and standing and posterior. Posture is hunched adn unstable in core with MMT and transfers. Walks I continuing with L lean. Trasnfers with UE. Steps are reciprocal but weaker R and needs to pull with UE. Lacks FW weight shift. LB AROM R SB limited but otherwise WFL. R leg longer than L by 1/2 inch ins tanding(hip heights). LE strength 4/5 in ankles and knees and hip flexion, 4- in abd and rotations. 3+ in extension. reflexes 2/3 patella and achilles. Sensation LEWNL to gross light touch. Coordination to reciprocal toe tap and hand tap is good. foam stance is hard with ec and head movements diinish balance in gait. - Balance Scores Functional Gait Assessment Score: 22 % Disability: 26.6700 CATSIB Score (Max score 120 seconds): 93 - Goals Goal 1:: 25/30 FGA to diminish fall risk Goal Time Frame: 4-6 Weeks Goal 2:: Neurocom balance test adn give results. Goal Time Frame: 4-6 Weeks Goal 3:: Pt feel 75% more stable in gait and balance Goal Time Frame: 4-6 Weeks Goal 4:: I approp gym based balance and strength program. Goal Time Frame: 4-6 Weeks - Rehabilitation Potential Physical Therapy Diagnosis: falls and imbalance Rehabilitation Potential: Fair - Anticipated Interventions Patient/Client Instruction: Educate patient on: Condition, Plan of Care, Risk Factors For the Purpose of:: To improve gait and locomotor functions, To improve balance, To improve safety with gait Therapeutic Exercise to Include: Strength training, Balance training, Postural training, Neuromotor development For the Purpose of:: To improve gait and locomotor functions, To improve balance, To improve safety with gait Thank you for the opportunity to evaluate your patient. For Medicare and Medicare HMO plans, please review the plan of care and approve it. It will need to be FAXED BACK to us at [phone] for Medicare purposes. For Medicare only, by signing this I certify the plan of care. Please let me know if there are questions or concerns regarding this plan of care. Physician Signature: Date:
--- NOTE | 2020-12-29 18:47 | HP.PTCOM_ITS ---
PT Communication Note 12/29/[address] Jerson Vigil MD , Thank you for the referral of Ania to [facility] for balance assessment. I have enclosed a copy of the results for your review. In general summation, she scored slightly low on preference in the Sensory Organization Test. She also had diminished forward excursion on the Limits of S tability Test. With these results in mind, I plan to see her 2x/week for 4 weeks for balance and strengthening exercise to help address her deficits. If there are questions regarding her testing or PT, please feel free to call me. Thank you. Sincerely, Nikolay Eng, DPT, OCS, CSCS Contact Information
--- NOTE | 2021-03-26 07:20 | HP.PT.NRP ---
FAITH GOMEZ was seen in my office for initial evaluation on 12/25/20. The following Plan of Care was established for this patient: Initial Frequency: 2x /Week Initial Duration: 4-6 Weeks Patient/Client Instruction: Educate patient on: Condition, Plan of Care, Risk Factors For the Purpose of:: To improve gait and locomotor functions, To improve balance, To improve safety with gait Therapeutic Exercise to Include: Strength training, Balance training, Postural training, Neuromotor development For the Purpose of:: To improve gait and locomotor functions, To improve balance, To improve safety with gait This patient was last seen in our office 01/22/21. Pertinent comments regarding their Physical therapy will appear below: Pt seen for 5 visits of POC. She felt like she wanted to try the exercises on her own after last session and was to f/u 3 weeks later for recheck but did not schedule or attend this visit. At t his point, it has been over 2 months and I will disocntinue due to nonattendance. At this point I will be discontinuing this patient from physical therapy. I would be happy to see this patient again in the future if found appropriate by the physician. Thank you! Nikolay Eng, DPT, OCS, CSCS Balance/Gait/Functional tests - Balance/Special Test Scores Functional Gait Assessment Score: 22 % Disability: 26.6700 CATSIB Score (Max score 120 seconds): 93 Lower Extremity Functional Score: 57
== END 2021-01-22 19:00 | disposition home or self-care (01) ==
LOC: PT 10:30
PROVIDERS: PCP Family Medicine; Referring Provider Family Medicine; Visit Provider Family Medicine
DX: R29.6 Repeated falls (principal)
CPT/HCPCS: 97110; 97162; 97750

== ENCOUNTER → 2021-03-01 15:41 | Outpatient (CLI) | payer MEDICARE, SELFPAY ==
[2021-03-01 18:27] LABS: BNP,B-Type NATRIURETIC PEPTIDE 70.5 pg/mL (0-100)
[2021-03-01 18:32] LABS: AST(SGOT) 26 U/L (15-37); Alanine Aminotransfer ALT/SGPT 29 U/L (13-56); Albumin, Serum 3.1 g/dL (3.2-5.0); Alkaline Phosphatase 120 U/L (45-117); Anion Gap 8 (5-15); BUN 11 mg/dL (7-18); BUN/Creat Ratio 11.4 RATIO (10-20); Bilirubin, Direct 0.25 mg/dL (0.00-0.30); Calcium,Total 8.9 mg/dL (8.5-10.1); Chloride 107 mmol/L (98-107); Cholesterol 119 mg/dL (200); Creatinine, Serum 0.97 mg/dL (0.55-1.02); EST Glomerular Filtration Rate 60 mL/min (>60); Est Glom Filt Rate - Afr Amer 72 mL/min (>60); Globulin 3.5 g/dL (2.2-4.2); Glucose 103 mg/dL (74-106); High Density Lipoprotein 73 mg/dL; Potassium 4.1 mmol/L (3.5-5.1); Protein, Total 6.6 g/dL (6.4-8.2); Sodium Level 140 mmol/L (136-145); Triglycerides 40 mg/dL; Very Low Density Lipoprotein 8 mg/dL (5-40)
[2021-03-01 18:44] LABS: Hemoglobin A1c 5.6 % (3.8-5.6)
[2021-03-02 09:08] LABS: Hepatitis C Antibody Non-Reactive (Nonreactive)
== END ==
PROVIDERS: Nurse Practitioner Family; Physician Assistant Medical; PCP Family Medicine; Visit Provider Family Medicine
DX: I10 Essential (primary) hypertension (principal); I25.10 Atherosclerotic heart disease of native coronary artery without angina pectoris; R06.00 Dyspnea, unspecified; E78.00 Pure hypercholesterolemia, unspecified; Z11.59 Encounter for screening for other viral diseases; Z13.1 Encounter for screening for diabetes mellitus; Z95.5 Presence of coronary angioplasty implant and graft
CPT/HCPCS: 36415; 80048; 80061; 80076; 83036; 83880; 86803

== ENCOUNTER → 2021-03-09 14:50 | Outpatient (CLI) | payer MEDICARE, SELFPAY ==
--- NOTE | 2021-03-09 15:00 | BD_ITS ---
STUDY: DUAL ENERGY X-RAY ABSORPTIOMETRY / DXA REASON FOR EXAM: Female, 75 years old. V780. The patient is postmenopausal. TECHNIQUE: Bone Mineral Density (BMD) measurements of lumbar spine and bilateral hips were obtained. COMPARISON: Comparison is made with prior study dated 05/23/2011. FINDINGS: Lumbar Spine (L1-L4): g/cm2 (0.888) / T-score (-0.8) / Z-score (1.5) Findings are suggestive of normal bone density with a low fracture risk. Left Femur Total: g/cm2 (0.803) / T-score (-1.1) / Z-score (0.7) Left Femoral Neck: g/cm2 (0.654) / T-score (-1.8) / Z-score (0.4) Right Femur Total: g/cm2 (0.853) / T-score (-0.7) / Z-score (1.1) Right Femoral Neck: g/cm2 (0.686) / T-score (-1.5) / Z-score (0.6) The T-Scores on the most recent prior examination were: Lumbar Spine (L1-L4): There has been worsening of bone density since the previous examination. Left Femur Total: which represents a worsening of 5.4%. Right Femur Total: which represents a worsening of 4.5%. BD/Dexa Bone Density Study IMPRESSION: The patient is considered osteopenic as outlined below according to World Davi Organization (WHO) criteria with a moderate fracture risk. There has been worsening of bone density since the previous examination. Reference Information: The T-score is the number of standard deviations above or below the standard which is normal for young adults at their peak bone mineral density. The World Health Organization (WHO) interprets the T-scores as follows: Above -1 Normal bone density Between -1 and -2.5 Osteopenia Equal to / or below -2.5 Osteoporosis As a practical clinical guideline, osteopenia may be graded as follows: Mild -1 through -1.5 Moderate -1.6 through -2.0 Severe -2.1 through -2.4 The Z-score is the number of standard deviations above or below age-matched controls. A Z-score of less than -1.5 would be considered abnormal. References: 1. NIH Osteoporosis and Related Bone Diseases www osteo.org 2. International Society for Clinical Densitometry www iscd.org 3. National Osteoporosis Foundation www nof.org Electronically Signed: Rhett Brandon MD at 8:28 EDT , Service support ,
== END ==
PROVIDERS: PCP Family Medicine; Visit Provider Family Medicine
DX: Z00.00 Encounter for general adult medical examination without abnormal findings (principal); Z78.0 Asymptomatic menopausal state; M85.80 Other specified disorders of bone density and structure, unspecified site
CPT/HCPCS: 77080

== ENCOUNTER → 2022-01-04 | Outpatient (CLI) | payer MEDICARE, SELFPAY ==
[2022-01-04 15:58] LABS: AST(SGOT) 24 U/L (15-37); Alanine Aminotransfer ALT/SGPT 19 U/L (13-56); Albumin, Serum 3.3 g/dL (3.2-5.0); Alkaline Phosphatase 100 U/L (45-117); Anion Gap 5 (5-15); BUN 21 mg/dL (7-18); BUN/Creat Ratio 17.9 RATIO (10-20); Calcium,Total 9.1 mg/dL (8.5-10.1); Chloride 108 mmol/L (98-107); Cholesterol 126 mg/dL (200); Creatinine, Serum 1.17 mg/dL (0.55-1.02); EST Glomerular Filtration Rate 48 mL/min (>60); Est Glom Filt Rate - Afr Amer 58 mL/min (>60); Globulin 3.3 g/dL (2.2-4.2); Glucose 111 mg/dL (74-106); High Density Lipoprotein 75 mg/dL; Potassium 4.2 mmol/L (3.5-5.1); Protein, Total 6.6 g/dL (6.4-8.2); Sodium Level 142 mmol/L (136-145); Triglycerides 72 mg/dL; Very Low Density Lipoprotein 14 mg/dL (5-40)
== END | disposition home or self-care (01) ==
LOC: LAB 14:37
PROVIDERS: PCP Family Medicine; Referring Provider Internal Medicine Cardiovascular Disease; Visit Provider Internal Medicine Cardiovascular Disease
DX: R06.00 Dyspnea, unspecified (principal); I25.10 Atherosclerotic heart disease of native coronary artery without angina pectoris; Z95.5 Presence of coronary angioplasty implant and graft; I10 Essential (primary) hypertension; I44.7 Left bundle-branch block, unspecified; E66.9 Obesity, unspecified; Z85.3 Personal history of malignant neoplasm of breast; E78.00 Pure hypercholesterolemia, unspecified
CPT/HCPCS: 36415; 80053; 80061

== ENCOUNTER → 2023-01-03 | Outpatient (CLI) | payer MEDICARE, SELFPAY ==
[2023-01-03 19:14] LABS: ALB/GLOB Ratio 1.1 RATIO (0.9-2.4); AST(SGOT) 34 U/L (15-37); Alanine Aminotransfer ALT/SGPT 36 U/L (13-56); Albumin, Serum 3.7 g/dL (3.2-5.0); Alkaline Phosphatase 114 U/L (45-117); Anion Gap 7 (5-15); BUN 17 mg/dL (7-18); BUN/Creat Ratio 12.1 RATIO (10-20); Chloride 106 mmol/L (98-107); Cholesterol 143 mg/dL (200); Creatinine, Serum 1.41 mg/dL (0.55-1.02); EST Glomerular Filtration Rate 38 mL/min (>60); Est Glom Filt Rate - Afr Amer 47 mL/min (>60); Globulin 3.4 g/dL (2.2-4.2); Glucose 108 mg/dL (74-106); High Density Lipoprotein 88 mg/dL; Potassium 3.5 mmol/L (3.5-5.1); Protein, Total 7.1 g/dL (6.4-8.2); Sodium Level 142 mmol/L (136-145); Triglycerides 67 mg/dL; Very Low Density Lipoprotein 13 mg/dL (5-40)
== END | disposition home or self-care (01) ==
LOC: MTLAB 16:10
PROVIDERS: PCP Family Medicine; Referring Provider Family Medicine; Visit Provider Family Medicine
DX: I10 Essential (primary) hypertension (principal)
CPT/HCPCS: 36415; 80053; 80061

== ENCOUNTER → 2023-02-27 | Outpatient (CLI) | payer MEDICARE, SELFPAY ==
[2023-02-27 15:55] LABS: Anion Gap 6 (5-15); BUN 13 mg/dL (7-18); BUN/Creat Ratio 11.9 RATIO (10-20); Calcium,Total 8.6 mg/dL (8.5-10.1); Chloride 109 mmol/L (98-107); Creatinine, Serum 1.09 mg/dL (0.55-1.02); EST Glomerular Filtration Rate 52 mL/min (>60); Est Glom Filt Rate - Afr Amer 63 mL/min (>60); Glucose 100 mg/dL (74-106); Potassium 4.1 mmol/L (3.5-5.1); Sodium Level 142 mmol/L (136-145)
== END | disposition home or self-care (01) ==
PROVIDERS: PCP Family Medicine; Referring Provider Family Medicine; Visit Provider Family Medicine
DX: Z00.00 Encounter for general adult medical examination without abnormal findings (principal)
CPT/HCPCS: 36415; 80048

== ENCOUNTER 2023-04-15 09:22 | Observation (INO) | payer MEDICARE, SELFPAY ==
[2023-04-15] VITALS (7 sets, daily range): BP systolic 105–143; BP diastolic 58–92; PULSE 95–106; RESP 14–18; TEMP 36.4–36.5; O2SAT 93–98; BMI 32.5; BMI 32.8
--- NOTE | 2023-04-15 09:46 | RAD_ITS ---
EXAM: XR CHEST, 1 VIEW CLINICAL INDICATION: cough TECHNIQUE: Frontal view of the chest. COMPARISON: XR Chest dated 09/22/2018 FINDINGS: LUNGS AND PLEURAL SPACES: Mild diffuse interstitial thickening of the lungs which may represent acute or chronic inflammatory change. Question of a 12 mm nodule within the right midlung. Follow-up PA and lateral views of the chest recommended. HEART: Normal heart size. MEDIASTINUM: No mediastinal or hilar mass. BONES/JOINTS: No acute abnormality. RAD/Chest 1 View (Portable) IMPRESSION: Question 12 mm right pulmonary nodule. Mild diffuse interstitial thickening of the lungs. As above. Electronically Signed: Arsalan Ramos MD at 10:37 EDT ,
--- NOTE | 2023-04-15 09:46 | EKG12_ITS ---
Test Reason : NEURO SYMPTOMS Blood Pressure : / mmHG Vent. Rate : 094 BPM Atrial Rate : 094 BPM P-R Int : 184 ms QRS Dur : 134 ms QT Int : 424 ms P-R-T Axes : -12 072 -49 degrees QTc Int : 530 ms Normal sinus rhythm Non-specific intra-ventricular conduction block T wave abnormality, consider inferolateral ischemia Abnormal ECG Confirmed by NATALIE MILLER, KELLE ([id number]), health editor ALAINA TOBIAS ([id number]) on 04/24/2023 6:59:14 AM Referred By: SRIDEVI Confirmed By:EDMUND ESTRADA MD
--- NOTE | 2023-04-15 09:46 | CT_ITS ---
INDICATION: vertigo, slurred speech EXAMINATION: CTA HEAD - CTA Head and Neck W/ Contrast Injection (and W/O Contrast Images if performed) TECHNIQUE: [place]/head CT angiogram protocol was performed following IV contrast. Routine carotid CT angiogram protocol was performed without and with IV contrast. NASCET criteria using the distal ICAs for comparison were used for evaluation of stenoses. 3D reconstructions were reviewed of the CT angiogram head and neck. A radiation dose optimization technique was used for this scan. IV Contrast dosage and agent: 100 cc [id number] COMPARISON: None. FINDINGS: --Anterior cerebral circulation: ACAs: No significant stenosis at the visualized segments. ACOM: Not identified. MCAs: No significant stenosis at the visualized segments. --Posterior cerebral circulation: PCOMs: Not present. senior quality assurance specialist: No significant stenosis at the visualized segments. BASILAR ARTERY: No significant stenosis. --Carotid and vertebral circulation: AORTIC ARCH AND BRANCHES: Normal anatomy, patent. RIGHT CCA: No occlusion, significant stenosis or dissection. RIGHT ICA: Calcific plaquing at the carotid bulb. No occlusion, significant stenosis or dissection. LEFT CCA: No occlusion, significant stenosis or dissection. LEFT ICA: Calcific plaquing at the carotid bulb. No occlusion, significant stenosis or dissection. RIGHT VERTEBRAL ARTERY: No occlusion, significant stenosis or dissection. LEFT VERTEBRAL ARTERY: No occlusion, significant stenosis or dissection. NECK SOFT TISSUES: Right thyroid lobe is absent. Left thyroid lobe is enlarged with heterogeneous echotexture without discrete nodule. LUNG APICES: 11 mm somewhat spiculated left upper lobe pulmonary nodule suspicious for neoplasm. BONES: Unremarkable. CT/CTA Head AND Neck W/ Contrast IMPRESSION: No evidence of significant arterial stenosis, large vessel occlusion or intracranial aneurysm. 11 mm spiculated left upper lobe pulmonary nodule suspicious for neoplasm. Status post right thyroidectomy. Enlarged left thyroid lobe without discrete evidence of a mass. Electronically Signed: Arsalan Ramos MD at 11:04 EDT ,
--- NOTE | 2023-04-15 09:47 | EDS_ITS ---
HPI History of Present Illness Chief Complaint: Neuro S/Sx Detail of Chief Complaint: Dizziness, slurred speech, generalized weakness Informant: patient and family Onset/Context/Timing Onset: Days Context: Gradual Onset Narrative Narrative: Patient presents with slurred speech and feeling off balance for the past 3 days, although symptoms are much worse this morning. She denies headache. When asked about vision change daughter states that she has been misinterpreting what she sees thinking that she sees a dog or cat when she has no pets. Daughter feels that her speech is slightly slurred, although improved when compared to earlier this morning. [facility] Medical History Atherosclerotic heart disease of [place] coronary artery without angina pectoris Depression Essential (primary) hypertension Former smoker GERD (gastroesophageal reflux disease) History of breast cancer History of ST elevation myocardial infarction (STEMI) (09/20/18) Left bundle branch block Obesity Pseudoaneurysm following procedure (09/20/18) Home Medications bupropion HCl 300 mg 24 hr tablet, extended release 300 mg PO DAILY 09/20/18 [History Last Taken Unknown] omeprazole 20 mg capsule,delayed release 20 mg PO DAILY 10/05/18 [History Last Taken Unknown] aspirin 81 mg tablet,delayed release 81 mg PO DAILY@0800 #90 tabs 01/03/19 [Rx Last Taken Unknown] vitamin B complex (B Complex-Vitamin B12 tablet) 1 tab PO DAILY 07/04/19 [History Last Taken Unknown] furosemide 40 mg tablet 40 mg PO DAILY PRN edema #90 tabs 01/04/22 [Rx Last Taken Unknown] atorvastatin 80 mg tablet 80 mg PO QHS #90 tabs 08/31/22 [Rx Last Taken Unknown] clopidogrel 75 mg tablet (Plavix) 75 mg PO DAILY #90 tabs 08/31/22 [Rx Last Taken Unknown] losartan 25 mg tablet 12.5 mg (1/2 x 25 mg) PO DAILY #45 tabs 08/31/22 [Rx Last Taken Unknown] metoprolol tartrate 25 mg tablet 25 mg PO BID #180 tabs 01/04/23 [Rx Last Taken Unknown] Allergy/AdvReac Type Severity Reaction Status Date / Time Penicillins Allergy localized Verified 04/15/23 09:23 swelling at injection site Sulfa (Sulfonamide Allergy Hives Verified 04/15/23 09:23 Antibiotics) Family History Father CAD (coronary artery disease) Myocardial infarction Mother Hypertension Surgical History H/O partial thyroidectomy History of coronary artery stent placement (09/20/18) Social History Smoking Status: Former smoker ROS ROS ED Constitutional Constitutional ED: Denies chills or fever(s) Eyes Eyes: Denies change in vision or discharge from eye(s) ENT ENT ED: Denies discharge from eye(s), rhinorrhea or sore throat Cardiovascular Cardiovascular: Denies chest pain or palpitations Respiratory/Chest Respiratory/Chest: Denies cough or dyspnea Gastrointestinal Gastrointestinal: Denies abdominal pain, nausea or vomiting Genitourinary Genitourinary ED: Denies dysuria Musculoskeletal Musculoskeletal: Denies back pain or extremity pain Integumentary Denies Abrasions or rash Neurologic Neurologic: Reports weakness; Denies headache(s) or paresthesias Psychiatric Psychiatric: Denies anxiety or depression Allergic/Immunologic Allergic/Immunologic ED: Denies lip swelling or urticaria EXAM Physical Exam Const Vital Signs: 04/15/23 09:23 04/15/23 13:31 Temperature 97.6 F L Temperature Source Temporal Pulse Rate 101 H 95 Respiratory Rate 14 Blood Pressure 134/92 H 143/62 H Blood Pressure Mean 106 89 Pulse Ox 98 Oxygen Delivery Method Room Air Positive well nourished and well developed General Appearance ED: well developed HEENT Reports dry mucous membranes Mouth ED: Yes dry mucous membranes Mouth: dry mucous membranes Eyes EOMs intact bilaterally Chest Wall inspection of chest normal and palpation of chest normal Resp normal respiratory effort and clear to auscultation bilaterally Cardio regular rate and regular rhythm GI non-tender Auscultation: normoactive bowel sounds Palpation: soft Extremity normal to inspection Neuro oriented x3 Neuro Narrative: NIH equals 0 the time of my exam (09:45) Sensorium / Orientation: alert Psych mental status grossly normal Skin no rashes or lesions noted MDM MDM MDM Narrative Medical decision making narrative: Patient placed on monitoring coordinator. EKG obtained to evaluate for cardiac arrhythmia/ischemia. Chest x-ray obtained to evaluate for acute lung pathology, cardiac size, or mediastinal abnormality. Labwork obtained to evaluate for leukocytosis, anemia, and electrolyte derangement. Urinalysis obtained to evaluate for infection/hematuria. CT of the head obtained along with CTA of the head and neck to evaluate for any acute abnormalities. History & Record Review Discussion w/independent historian: Patient Lab Data Attestation: I reviewed the patient's lab results. Labs: Laboratory Results - last 24 hr 04/15/23 04/15/23 04/15/23 09:35 09:36 11:18 WBC 8.2 RBC 3.56 L Hgb 10.3 L Hct 33.0 L MCV 92.7 MCH 28.9 MCHC 31.2 L RDW Std Deviation 47.2 H RDW Coeff of [place] 14.1 Plt Count 254 MPV 10.7 Immature Gran % (Auto) 0.400 Neut % (Auto) 59.8 Lymph % (Auto) 26.6 [place] % (Auto) 9.9 Eos % (Auto) 2.8 Baso % (Auto) 0.5 Absolute Neuts (auto) 4.9 Absolute Lymphs (auto) 2.17 Nucleated RBC % 0 PT 14.9 INR 1.2 APTT 28.5 Sodium 142 Potassium 3.6 Chloride 106 Carbon Dioxide 27.0 Anion Gap 9 BUN 11 Creatinine 1.40 H Estim Creat Clear Calc 26.62 Est GFR (MDRD) Af Amer 47 L Est GFR (MDRD) Non-Af 39 L BUN/Creatinine Ratio 7.9 L Glucose 139 H Calcium 9.2 Troponin I High Sens 9 Urine Color Yellow Urine Clarity Clear Urine pH 5.0 Ur Specific [place] 1.010 Urine Protein Negative Urine Glucose (UA) Normal Urine Ketones Negative Urine Occult Blood Negative Urine Nitrite Negative Urine Bilirubin Negative Urine Urobilinogen Normal Ur Leukocyte Esterase Negative Urine RBC 0 SEEN Urine WBC 0 SEEN Ur Squamous Epith Cells 0-5 SEEN Urine Bacteria 0 SEEN Urine Mucus 1+ POC Glucose 132 H Radiography Chest X-Ray - ED: 1 View, Read by ED Physician and Chronic Changes Diagnostic Testing: Clinical Impression(s) from Imaging Studies Chest X-Ray 04/15/23 09:46 IMPRESSION: Question 12 mm right pulmonary nodule. Mild diffuse interstitial thickening of the lungs. As above. Electronically Signed: Arsalan Ramos MD at 10:37 EDT , Head/Neck CTA 04/15/23 09:46 IMPRESSION: No evidence of significant arterial stenosis, large vessel occlusion or intracranial aneurysm. 11 mm spiculated left upper lobe pulmonary nodule suspicious for neoplasm. Status post right thyroidectomy. Enlarged left thyroid lobe without discrete evidence of a mass. Electronically Signed: Arsalan Ramos MD at 11:04 EDT , ADDENDUM: 04/15/23 1231 IMPRESSION: undefined EKG Initial EKG: Attestation: I personally reviewed and interpreted this EKG as follows: Interpretation: Sinus Rhythm (Sinus at 94 with intraventricular conduction delay. No acute ischemia.) Treatment and Re-Evaluation :: CBC reveals normal white count 8.2 with a hemoglobin of 10.3. This appears consistent with prior values. Chemistry studies reveal a BUN of 11 and a creatinine 1.40. This is only slightly increased over baseline. Urinalysis reveals no evidence of infection. Troponin is normal at 9. Portable chest x- ray per mitral rotation was chronic changes. Radiology interpretation reviewed and feels there is a questionable right pulmonary nodule. CT of the head along with CTA of the head and neck is obtained. No evidence of significant stenosis. Noncontrast brain is unremarkable. There is an 11 mm spiculated left upper lobe nodule that is suspicious and needs further work-up. Test results are discussed with patient and her daughter at bedside. She was able to get up to bedside commode but states she still feels very unsteady on her feet. She does state that her symptoms are improved but she is not back to baseline. Given her unsteadiness I do feel she would benefit from observation for MRI to rule out CVA and physical therapy evaluation for her gait. I will sp eak with the hospitalist. Discharge Plan Triage Chief Complaint: Neuro S/Sx ED Provider: Kiersten Sierra Dx/Rx/DC Orders Clinical Impression: Unsteady gait, Dizziness, Weakness Prescriptions: No Action omeprazole 20 mg capsule,delayed release(DR/EC) 20 mg PO DAILY aspirin 81 mg tablet,delayed release (DR/EC) 81 mg PO DAILY@0800 Qty: 90 3RF vitamin B complex [B Complex-Vitamin B12] Tablet 1 tab PO DAILY furosemide 40 mg tablet 40 mg PO DAILY PRN (Reason: edema) Qty: 90 3RF metoprolol tartrate 25 mg tablet 25 mg PO BID Qty: 180 4RF bupropion HCl 300 MG tablet extended release 24 hr 300 mg PO DAILY losartan 25 mg tablet 12.5 mg PO DAILY Qty: 45 3RF atorvastatin 80 mg tablet 80 mg PO QHS Qty: 90 3RF clopidogrel [Plavix] 75 mg tablet 75 mg PO DAILY Qty: 90 3RF Primary Care Provider: Jerson Vigil Referrals: Jerson Vigil MD [Primary Care Provider] - Disposition Disposition: Acute Care Hospital [facility]
[2023-04-15 09:51] LABS: Absolute Lymphocyte Count 2.17 X10^3/uL (0.83-4.51); Absolute Neutrophil Count 4.9 X10^3/uL (2.0-7.7); Basophil# 0.04 X10^3/uL; Basophil% 0.5 % (0-1); Eosinophil# 0.23 X10^3/uL; Eosinophils% 2.8 % (0-5); Hemoglobin 10.3 g/dL (12.0-15.0); Lymphocyte # 2.17 X10^3/ul (0.83-4.51); Lymphocyte % 26.6 % (19-41); Mean Corp Hgb Conc 31.2 g/dL (32-36); Mean Corpuscular Hgb 28.9 pg (27.0-32.0); Mean Corpuscular Volume 92.7 fL (81-99); Mean Platelet Vol. 10.7 fl (6.2-12.0); Monocyte# 0.81 X10^3/uL; Monocyte% 9.9 % (0-10); NRBC Flagged by Analyzer 0 % (0-5); Neutrophil # 4.87 X10^3/uL (2.7-7.7); Neutrophil % 59.8 % (47-70); Platelet Count 254 K/mm3 (150-450); RBC Distribution Width CV 14.1 % (11.6-14.6); RBC Distribution Width SD 47.2 fl (35.1-43.9); Red Blood Count 3.56 M/mm3 (4.2-5.4); White Blood Count 8.2 K/mm3 (4.4-11.0)
[2023-04-15 09:53] LABS: Bedside Glucose 132 mg/dL (74-106)
[2023-04-15] MEDS: 0.9% Normal Saline (1000mL) 1,000 ML 150 ML IV (10:07)
[2023-04-15 10:09] LABS: Anion Gap 9 (5-15); BUN 11 mg/dL (7-18); BUN/Creat Ratio 7.9 RATIO (10-20); Calcium,Total 9.2 mg/dL (8.5-10.1); Chloride 106 mmol/L (98-107); EST Glomerular Filtration Rate 39 mL/min (>60); Est Glom Filt Rate - Afr Amer 47 mL/min (>60); Estimated Creatinine Clearance 26.62 ml/min; Glucose 139 mg/dL (74-106); Potassium 3.6 mmol/L (3.5-5.1); Sodium Level 142 mmol/L (136-145); Troponin-I HS 9 pg/mL (3.0-54.0)
[2023-04-15 10:18] LABS: International Normalized Ratio 1.2; Prothrombin Time (Protime)PT. 14.9 SECONDS (11.7-14.9)
[2023-04-15 10:19] LABS: Partial Thromboplast Time 28.5 Seconds (24.1-36.2)
[2023-04-15] MEDS: Metoclopramide 10 MG/2 ML Vial 5 MG IV (11:15)
[2023-04-15] MEDS: DiphenhydrAMINE 50 MG/ML Syringe 12.5 MG IV (11:16)
[2023-04-15 11:24] LABS: Bacteria 0 SEEN /hpf (None Seen); Red Blood Cells-Urine 0 SEEN /hpf (0-5); White Blood Cells 0 SEEN /hpf (0-5)
[2023-04-15 11:57] LABS: Color, Urine Yellow (Yellow); Glucose, Dipstick Normal (Normal); Ketone-Dipstick Negative (Negative); Leukocyte Esterase-Dipstick Negative /ul (Negative); Nitrite-Dipstick Negative (Negative); Occult Blood-Urine Negative /ul (Negative); Protein-Dipstick Negative (Negative); Urine Bilirubin Dipstick Negative (Negative); Urine Clarity Clear (Clear); Urine Urobilinogen Normal (Normal)
[2023-04-15 12:41] LABS: Mucous, Urine 1+ /hpf (<or=2+); Squamous Epithelial Cells - UA 0-5 SEEN /hpf (5-10)
--- NOTE | 2023-04-15 14:01 | NURSING ---
PCU OBS VELA UNSTEADY GAIT, SLURRED SPEECH
--- NOTE | 2023-04-15 14:44 | HP.PCM.HOS_ITS ---
HPI - General General Date of Admission: 04/15/23 Date of Service: 04/15/23 Chief Complaint: Off balance, shaking HPI Narrative FAITH GOMEZ, is a 77 F with history of coronary artery disease, hypertension, breast cancer, right lobe of thyroid removed in the 1970s who presented to [facility] 04/15/2023 with shaking, weakness, unsteadiness and slurred speech worse this morning. Symptoms have been off and on for 3 days however's in the ED CTA head and neck obtained with no acute abnormalities, patient still feeling unsteady even though she is feeling slightly better. Hospitalist called for admission for stroke rule out. Patient evaluated with sister at bedside. Patient has had difficulties with intermittent unsteadiness over the past several years however over the past 3 days she has had accompanied shaking, needing to hold onto the wall occasionally due to feeling so unsteady, generalized weakness in this a.m. she had some slurred speech according to her sister in association with her hand shaking around 10 AM, feels slightly better at time of evaluation however still feels somewhat shaky and unbalanced and does not feel back to normal. Additionally not eating or drinking particularly well, has lost 30 pounds in the past 6 months, occasionally will feel lightheaded when bending over and standing s traight up but she reports this is different than the unsteady feeling when she is walking around but over the past several days has happened despite using her cane. Denies chest pain or shortness of breath. Last night did have episode where she thought that a full back at the end of her bed might of been a dog and called her sister and it turned out to just be a duffel bag. Did not report any specific other complaints at this time. [facility] Medical History (Updated 04/15/23 @ 14:[address] Harmony Lopes MD) Atherosclerotic heart disease of [place] coronary artery without angina pectoris Depression Essential (primary) hypertension Former smoker GERD (gastroesophageal reflux disease) History of breast cancer History of ST elevation myocardial infarction (STEMI) (09/20/18) Left bundle branch block Lung nodule, solitary Obesity Pseudoaneurysm following procedure (09/20/18) Home Medications bupropion HCl 300 mg 24 hr tablet, extended release 300 mg PO DAILY 09/20/18 [History Last Taken Unknown] omeprazole 20 mg capsule,delayed release 20 mg PO DAILY 10/05/18 [History Last Taken Unknown] aspirin 81 mg tablet,delayed release 81 mg PO DAILY@0800 #90 tabs 01/03/19 [Rx Last Taken Unknown] vitamin B complex (B Complex-Vitamin B12 tablet) 1 tab PO DAILY 07/04/19 [History Last Taken Unknown] furosemide 40 mg tablet 40 mg PO DAILY PRN edema #90 tabs 01/04/22 [Rx Last Taken Unknown] atorvastatin 80 mg tablet 80 mg PO QHS #90 tabs 08/31/22 [Rx Last Taken Unknown] clopidogrel 75 mg tablet (Plavix) 75 mg PO DAILY #90 tabs 08/31/22 [Rx Last Taken Unknown] losartan 25 mg tablet 12.5 mg (1/2 x 25 mg) PO DAILY #45 tabs 08/31/22 [Rx Last Taken Unknown] metoprolol tartrate 25 mg tablet 25 mg PO BID #180 tabs 01/04/23 [Rx Last Taken Unknown] albuterol sulfate 90 mcg/actuation aerosol inhaler (ProAir HFA) 2 inh inhalation Q6H PRN sob 04/15/23 [History Last Taken Unknown] Allergy/AdvReac Type Severity Reaction Status Date / Time Penicillins Allergy localized Verified 04/15/23 09:23 swelling at injection site Sulfa (Sulfonamide Allergy Hives Verified 04/15/23 09:23 Antibiotics) Family History Father CAD (coronary artery disease) Myocardial infarction Mother Hypertension Surgical History H/O partial thyroidectomy History of coronary artery stent placement (09/20/18) Social History Smoking Status: Former smoker ROS ROS Narrative General: Denies fever/chills HENT: Denies headache, denies stuffy nose, denies sore throat EYES: Denies changes in vision but did think she saw a black dog last night Resp: Denies cough, denies shortness of breath Cardiac: Denies chest pain GI: Denies abdominal pain, denies changes in bowel, denies nausea/vomiting : Denies changes in urination Extremity: Denies swelling MSK: Some generalized weakness and feeling of being off balance Neuro: Denies any numbness/tingling, feeling of being off balance and shaky Heme: Easy bruising Skin: Denies rashes Psychiatric: No complaints voiced Vital Signs Vital Signs Vital Signs: 04/15/23 09:23 04/15/23 13:31 04/15/23 13:53 Temperature 97.6 F L 97.6 F L Temperature Source Temporal Pulse Rate 101 H 95 95 Respiratory Rate 14 14 Blood Pressure 134/92 H 143/62 H 143/62 H Blood Pressure Mean 106 89 89 Pulse Ox 98 98 Oxygen Delivery Method Room Air Weight Weight: 80.6 kg Body Mass Index (BMI) 32.5 Physical Exam Narrative General: Alert, oriented, no apparent distress HEENT: Atraumatic, normocephalic Eyes: Anicteric, normal conjunctiva, extraocular movements intact, pupils equal Neck: Supple Respiratory: Clear to auscultation bilaterally, normal respiratory effort Cardiovascular: Regular rate and rhythm GI: Soft, nontender, nondistended Extremities: No edema Musculoskeletal: Strength 5 out of 5 in right upper extremity, 5 out of 5 left upper extremity, 5 out of 5 right lower extremity, 5 out of 5 left lower extremity Neuro: No overt focal neurological deficits, cranial nerves II through XII intact, [id number] without significant difficulty bilaterally Skin: No rashes appreciated Psych: Cooperative Results Lab / Micro Data 04/15/23 09:36 04/15/23 09:36 Labs: Laboratory Results - last 24 hr 04/15/23 09:35: POC Glucose 132 H 04/15/23 09:36: WBC 8.2, RBC 3.56 L, Hgb 10.3 L, Hct 33.0 L, MCV 92.7, MCH 28.9, MCHC 31.2 L, RDW Std Deviation 47.2 H, RDW Coeff of Vamshi 14.1, Plt Count 254, MPV 10.7, Immature Gran % (Auto) 0.400, Neut % (Auto) 59.8, Lymph % (Auto) 26.6, [place] % (Auto) 9.9, Eos % (Auto) 2.8, Baso % (Auto) 0.5, Absolute Neuts (auto) 4.9, Absolute Lymphs (auto) 2.17, Nucleated RBC % 0, PT 14.9, INR 1.2, APTT 28.5, Sodium 142, Potassium 3.6, Chloride 106, Carbon Dioxide 27.0, Anion Gap 9, BUN 11, Creatinine 1.40 H, Estim Creat Clear Calc 26.62, Est GFR (MDRD) Af Amer 47 L, Est GFR (MDRD) Non-Af 39 L, BUN/Creatinine Ratio 7.9 L, Glucose 139 H, Calcium 9.2, Troponin I High Sens 9 04/15/23 11:18: Urine Color Yellow, Urine Clarity Clear, Urine pH 5.0, Ur Specific [place] 1.010, Urine Protein Negative, Urine Glucose (UA) Normal, Urine Ketones Negative, Urine Occult Blood Negative, Urine Nitrite Negative, Urine Bilirubin Negative, Urine Urobilinogen Normal, Ur Leukocyte Esterase Negative, Urine RBC 0 SEEN, Urine WBC 0 SEEN, Ur Squamous Epith Cells 0-5 SEEN, Urine Bacteria 0 SEEN, Urine Mucus 1+ Radiology Impression Chest X-Ray 04/15/23 09:46 IMPRESSION: Question 12 mm right pulmonary nodule. Mild diffuse interstitial thickening of the lungs. As above. Electronically Signed: Arsalan Ramos MD at 10:37 EDT , Head/Neck CTA 04/15/23 09:46 IMPRESSION: No evidence of significant arterial stenosis, large vessel occlusion or intracranial aneurysm. 11 mm spiculated left upper lobe pulmonary nodule suspicious for neoplasm. Status post right thyroidectomy. Enlarged left thyroid lobe without discrete evidence of a mass. Electronically Signed: Arsalan Ramos MD at 11:04 EDT , ADDENDUM: 04/15/23 1231 IMPRESSION: undefined Assessment & Plan Assessment/Plan (1) Dizziness: (2) Essential (primary) hypertension: (3) History of breast cancer: (4) History of coronary artery stent placement: (5) Lung nodule, solitary: PLAN: Plan #Unsteadiness with hand shaking and slurred speech this a.m. -Admit to tele -CTA head and neck with no acute changes in ED -MRI ordered, patient's been having symptoms off and on for 3 days so was not stroke call and NIH of 0, not a thrombolytic candidate -NIH q4hr -asa, continue Plavix, statin -Echo w/ bubble study -PT/OT/Speech eval -Hold BP medications to allow for permissive hypertension for 24 hours unless SBP greater than 220 or DBP greater than 120 or until stroke is ruled out -We will also get B12 and folic acid as patient not eating well and given her feeling of unsteadiness cannot rule out vitamin B12 deficiency the less likely -UA benign #Left upper lobe lung nodule -11 mm spiculated left upper lobe nodule concerning for malignancy -Discussed with patient she has no knowledge of previously having lung nodule -We will need close follow-up for further work-up and management especially given her recent 30 pound weight loss #CKD unclear subtype -Creatinine 1.40, previously 1.09 however the value prior is 1.41 -Unclear if there is a component of worsening kidney function due to dehydration, patient is receiving fluids -We will check again tomorrow, holding losartan #Coronary artery disease -With history of stent in 2019 -Continue home aspirin, Plavix, atorvastatin #GERD -Continue PPI #Hypertension -Holding home medications at this time #DVT ppx: Lovenox subcu Harmony Lopes MD Time spent in the patient's overall evaluation,decision-making process, review of diagnostic data, adjustment of management, discussion with other providers, nursing nursing and ancillary staff involved in patient's care documentation, 60 minutes Charges/Coding Visit Charges Inpatient E&M: 39601 Init Hosp L2
--- NOTE | 2023-04-15 14:54 | ECHOD_ITS ---
Reason For Study: TIA/CVA Procedure This was a 2D Doppler, Color Flow transthoracic echocardiogram. The study was technically difficult. Exam performed portable in patient room. Left Ventricle Normal LV size. The estimated ejection fraction is 65 %. No evidence for diastolic dysfunction. No regional wall motion abnormalities noted. Right Ventricle Normal RV size. Normal systolic function. Atria Normal left atrium. Normal right atrium. No doppler evidence for ASD. Bubble contrast study negative for right to left interatrial shunt. Mitral Valve There is no mitral valve stenosis. Trivial mitral valve insufficiency. Tricuspid Valve There is no tricuspid stenosis. Trivial tricuspid valve insufficiency. Pulmonary artery systolic pressure is 45 mmHg. Aortic Valve Trisinus/trileaflet aortic valve. There is no aortic stenosis. No aortic valve insufficiency. Pulmonic Valve There is no pulmonic valvular stenosis. No pulmonic valve insufficiency. Great Vessels Normal aortic root. Pericardium/Pleural No pericardial effusion. Medication Performed a rapid injection of agitated mix of 9 cc saline and 1cc air to assess for atrial septal defect. MMode/2D Measurements & Calculations LVIDd: 3.7 cm IVSd: 0.81 cm Ao root diam: 3.2 cm LVIDs: 2.9 cm LVPWd: 0.93 cm RVDd: 3.8 cm FS: 23.5 % LAV(MOD-bp): 37.7 ml LA A4 area: 15.3 cm2 RA A4 area: 14.7 cm2 LAV(MOD-bp) Indexed: 20.7 ml/m2 LAV(MOD-sp2): 32.8 ml LAV(MOD-sp4): 41.9 ml TAPSE: 2.1 cm Time Measurements MV dec time: 0.17 sec Doppler Measurements & Calculations MV E max martinez: 119.9 cm/sec Lat Peak E' Martinez: 12.1 cm/sec Med Peak E' Martinez: 12.5 cm/sec MV A max martinez: 132.0 cm/sec E/E' lat: 9.9 E/E' med: 9.6 MV E/A: 0.91 MV V2 max: 158.1 cm/sec Ao V2 max: 139.4 cm/sec LV V1 max: 110.7 cm/sec MV max P.0 mmHg Ao max P.8 mmHg LV V1 max P.9 mmHg MV V2 mean: 104.1 cm/sec Ao V2 mean: 101.9 cm/sec LV V1 mean P.9 mmHg MV mean P.1 mmHg Ao mean P.7 mmHg LV V1 mean: 79.1 cm/sec MV V2 VTI: 27.6 cm Ao V2 VTI: 25.7 cm LV V1 VTI: 22.9 cm AV (velocity ratio): 0.89 PA V2 max: 143.9 cm/sec TR max martinez: 291.3 cm/sec TR max P.9 mmHg ECHO/Echo Complete Interpretation Summary The estimated ejection fraction is 65 %. No evidence for diastolic dysfunction. Trivial mitral valve insufficiency. Ordering Physician: Harmony Lopes Referring Physician: Jerson Vigil Performed By: Warren Sim RCS
[2023-04-15] MEDS: 0.9% Normal Saline (1000mL) 1,000 ML 75 ML IV (15:56)
[2023-04-15] MEDS: Atorvastatin Calcium 80 MG Tablet PO (19:42)
[2023-04-16] VITALS (10 sets, daily range): BP systolic 102–123; BP diastolic 42–57; PULSE 94–99; RESP 16–18; TEMP 36.6–36.8; O2SAT 86–99; BMI 32.8
[2023-04-16 05:30] LABS: Absolute Lymphocyte Count 1.71 X10^3/uL (0.83-4.51); Absolute Neutrophil Count 4.8 X10^3/uL (2.0-7.7); Basophil# 0.02 X10^3/uL; Basophil% 0.3 % (0-1); Eosinophil# 0.08 X10^3/uL; Eosinophils% 1.1 % (0-5); Hematocrit 26.4 % (37-47); Hemoglobin 8.1 g/dL (12.0-15.0); Lymphocyte # 1.71 X10^3/ul (0.83-4.51); Mean Corp Hgb Conc 30.7 g/dL (32-36); Mean Corpuscular Hgb 28.5 pg (27.0-32.0); Mean Platelet Vol. 10.3 fl (6.2-12.0); Monocyte# 0.78 X10^3/uL; Monocyte% 10.5 % (0-10); NRBC Flagged by Analyzer 0 % (0-5); Neutrophil # 4.81 X10^3/uL (2.7-7.7); Neutrophil % 64.7 % (47-70); Platelet Count 187 K/mm3 (150-450); RBC Distribution Width CV 14.4 % (11.6-14.6); RBC Distribution Width SD 48.6 fl (35.1-43.9); Red Blood Count 2.84 M/mm3 (4.2-5.4); White Blood Count 7.4 K/mm3 (4.4-11.0)
[2023-04-16 06:50] LABS: ALB/GLOB Ratio 0.9 RATIO (0.9-2.4); AST(SGOT) 29 U/L (15-37); Alanine Aminotransfer ALT/SGPT 25 U/L (13-56); Albumin, Serum 2.6 g/dL (3.2-5.0); Alkaline Phosphatase 82 U/L (45-117); Anion Gap 6 (5-15); BUN 10 mg/dL (7-18); BUN/Creat Ratio 9.3 RATIO (10-20); Chloride 112 mmol/L (98-107); Cholesterol 95 mg/dL (200); Creatinine, Serum 1.08 mg/dL (0.55-1.02); EST Glomerular Filtration Rate 52 mL/min (>60); Est Glom Filt Rate - Afr Amer 63 mL/min (>60); Globulin 2.8 g/dL (2.2-4.2); Glucose 74 mg/dL (74-106); High Density Lipoprotein 60 mg/dL; Potassium 3.8 mmol/L (3.5-5.1); Protein, Total 5.4 g/dL (6.4-8.2); Sodium Level 142 mmol/L (136-145); T4 Free Direct 1.42 ng/dL (0.76-1.46); Thyroid Stim Hormone (TSH) 1.63 uIU/mL (0.358-3.74); Triglycerides 41 mg/dL; Very Low Density Lipoprotein 8 mg/dL (5-40)
--- NOTE | 2023-04-16 07:34 | PCM.PN.HOSP ---
Reason for Visit Reason for Visit: Diagnoses Essential (primary) hypertension (04/15/23) Dizziness and giddiness (04/15/23) Solitary pulmonary nodule (04/15/23) Personal history of malignant neoplasm of breast (04/15/23) Presence of coronary angioplasty implant and graft (04/15/23) Subjective Subjective Patient is a 77-year-old lady admitted with unsteadiness as well as slurred speech. Admitted to monitored bed where she is currently undergoing evaluation to rule out CVA Objective Data Objective Data Vital Signs: Vital Signs Temp Pulse Resp BP Pulse Ox O2 Del Method O2 Flow Rate 97.8 F 98 18 112/54 L 92 Room Air 2 04/16/23 05:40 04/16/23 05:40 04/16/23 05:40 04/16/23 05:40 04/16/23 05:40 04/16/23 05:40 04/16/23 02:00 Oxygen Flow Rate (L/min) 2 Oxygen Delivery Method Room Air Weight: 81.4 kg Body Mass Index (BMI) 32.8 Intake & Output: Intake and Output for Last 24 Hours 04/14/23 04/15/23 04/16/23 23:59 23:59 22:59 Intake Total 1590 / 1590 1113.75 / 1113.75 Balance 1590 / 1590 1113.75 / 1113.75 Lab / Micro Data 04/16/23 05:15 04/16/23 05:15 Labs: Laboratory Results - last 24 hr 04/15/23 09:35: POC Glucose 132 H 04/15/23 09:36: WBC 8.2, RBC 3.56 L, Hgb 10.3 L, Hct 33.0 L, MCV 92.7, MCH 28.9, MCHC 31.2 L, RDW Std Deviation 47.2 H, RDW Coeff of Vamshi 14.1, Plt Count 254, MPV 10.7, Immature Gran % (Auto) 0.400, Neut % (Auto) 59.8, Lymph % (Auto) 26.6, [place] % (Auto) 9.9, Eos % (Auto) 2.8, Baso % (Auto) 0.5, Absolute Neuts (auto) 4.9, Absolute Lymphs (auto) 2.17, Nucleated RBC % 0, PT 14.9, INR 1.2, APTT 28.5, Sodium 142, Potassium 3.6, Chloride 106, Carbon Dioxide 27.0, Anion Gap 9, BUN 11, Creatinine 1.40 H, Estim Creat Clear Calc 26.62, Est GFR (MDRD) Af Amer 47 L, Est GFR (MDRD) Non-Af 39 L, BUN/Creatinine Ratio 7.9 L, Glucose 139 H, Calcium 9.2, Troponin I High Sens 9 04/15/23 11:18: Urine Color Yellow, Urine Clarity Clear, Urine pH 5.0, Ur Specific [place] 1.010, Urine Protein Negative, Urine Glucose (UA) Normal, Urine Ketones Negative, Urine Occult Blood Negative, Urine Nitrite Negative, Urine Bilirubin Negative, Urine Urobilinogen Normal, Ur Leukocyte Esterase Negative, Urine RBC 0 SEEN, Urine WBC 0 SEEN, Ur Squamous Epith Cells 0-5 SEEN, Urine Bacteria 0 SEEN, Urine Mucus 1+ 04/16/23 05:15: WBC 7.4, RBC 2.84 L, Hgb 8.1 L, Hct 26.4 L, MCV 93.0, MCH 28.5, MCHC 30.7 L, RDW Std Deviation 48.6 H, RDW Coeff of Vamshi 14.4, Plt Count 187, MPV 10.3, Immature Gran % (Auto) 0.400, Neut % (Auto) 64.7, Lymph % (Auto) 23.0, [place] % (Auto) 10.5 H, Eos % (Auto) 1.1, Baso % (Auto) 0.3, Absolute Neuts (auto) 4.8, Absolute Lymphs (auto) 1.71, Nucleated RBC % 0, Sodium 142, Potassium 3.8, Chloride 112 H, Carbon Dioxide 24.0, Anion Gap 6, BUN 10, Creatinine 1.08 H, Estim Creat Clear Calc 34.50, Est GFR (MDRD) Af Amer 63, Est GFR (MDRD) Non-Af 52 L, BUN/Creatinine Ratio 9.3 L, Glucose 74, Calcium 8.0 L, Total Bilirubin 0.40, AST 29, ALT 25, Alkaline Phosphatase 82, Total Protein 5.4 L, Albumin 2.6 L, Globulin 2.8, Albumin/Globulin Ratio 0.9, Triglycerides 41, Cholesterol 95, LDL Cholesterol 27, VLDL Cholesterol 8, HDL Cholesterol 60, Folate 29.80, TSH 1.63, Free T4 1.42 Radiography Diagnostic Testing: Radiology Impression Chest X-Ray 04/15/23 09:46 IMPRESSION: Question 12 mm right pulmonary nodule. Mild diffuse interstitial thickening of the lungs. As above. Electronically Signed: Arsalan Ramos MD at 10:37 EDT Reading Location ID and State: [facility] / [place] Tel , Service support , Head/Neck CTA 04/15/23 09:46 IMPRESSION: No evidence of significant arterial stenosis, large vessel occlusion or intracranial aneurysm. 11 mm spiculated left upper lobe pulmonary nodule suspicious for neoplasm. Status post right thyroidectomy. Enlarged left thyroid lobe without discrete evidence of a mass. Electronically Signed: Arsalan Ramos MD at 11:04 EDT , ADDENDUM: 04/15/23 1231 IMPRESSION: undefined Physical Exam Narrative GENERAL: cooperative HEENT: Atraumatic; normocephalic EYES; Anicteric, Normal Conjunctiva NECK; supple, normal thyroid, RESPIRATORY: Diminished to auscultation CARDIOVASCULAR: Regular S1 S2, GI: soft, normoactive bowel sounds, : No Renal angle tenderness; EXTREMITIES: No edema, no clubbing, MUSCULOSKELETAL: no muscle wasting NEURO: Awake; no lateralizing signs. SKIN: No Rash PSYCH; Flat affect Assessment & Plan Assessment/Plan (1) Dizziness: PLAN: Plan Patient is a 77-year-old lady admitted with unsteadiness as well as slurred speech. Admitted to monitored bed where she is currently undergoing evaluation to rule out CVA 1. Suspected CVA ? Patient presented with unsteadiness as well as slurred speech. CTA of the head and neck obtained in the ED unremarkable. Admitted to a monitored bed as part of her management 2D echo with bubble study, MRI of the brain ordered. Patient started on aspirin. Was previously on Plavix and atorvastatin 2. Coronary artery disease ? With previous PCI. Patient is on guideline directed medical therapy we will continue 3. Dyslipidemia -Patient is on statin therapy, continued at home dose 4. Anemia - Secondary to chronic disorder monitoring H&H and transfuse if patient becomes symptomatic or hemoglobin falls below 7 5. Chronic kidney disease stage III ? Patient kidney function at baseline 6. Hypertension - Blood pressure controlled, home medications continued with dose adjustment as needed 7. GERD ? On PPI 8. History of breast cancer ? Status postmastectomy more than30 years ago has since remained in remission 9. COPD ? Due to previous tobacco use; aerosol treatment as needed 10 DVT prophylaxis - On enoxaparin Time spent in the patient's overall evaluation,decision-making process, review of diagnostic data, adjustment of management, discussion with other providers, nursing nursing and ancillary staff involved in patient's care documentation, 50 minutes Charges/Coding Visit Charges Inpatient E&M: 08184 Subs Hosp L3
[2023-04-16] MEDS: Clopidogrel Bisulfate 75 MG Tablet PO (09:31)
[2023-04-16] MEDS: Aspirin 81 MG TAB.CHEW PO (09:31)
[2023-04-16] MEDS: Enoxaparin 30 MG/0.3 ML Syringe SC (09:31)
[2023-04-16] MEDS: buPROPion (XL) 300 MG TABLET.XL PO (09:31)
[2023-04-16] MEDS: Pantoprazole Sodium 20 MG Tablet PO (09:31)
[2023-04-16] MEDS: Acetaminophen 325 MG Tablet 650 MG PO (09:56)
[2023-04-16] MEDS: Atorvastatin Calcium 80 MG Tablet PO (19:20)
[2023-04-17] VITALS (8 sets, daily range): BP systolic 110–144; BP diastolic 60–73; PULSE 78–110; RESP 16–18; TEMP 36.6–37.2; O2SAT 92–94; BMI 32.8
[2023-04-17] MEDS: Acetaminophen 325 MG Tablet 650 MG PO (05:39)
[2023-04-17 06:22] LABS: Absolute Neutrophil Count 5.5 X10^3/uL (2.0-7.7); Basophil# 0.04 X10^3/uL; Basophil% 0.4 % (0-1); Eosinophils% 3.3 % (0-5); Hematocrit 28.3 % (37-47); Hemoglobin 8.9 g/dL (12.0-15.0); Lymphocyte % 24.5 % (19-41); Mean Corp Hgb Conc 31.4 g/dL (32-36); Mean Corpuscular Hgb 28.6 pg (27.0-32.0); Mean Platelet Vol. 10.3 fl (6.2-12.0); NRBC Flagged by Analyzer 0 % (0-5); Neutrophil # 5.51 X10^3/uL (2.7-7.7); Neutrophil % 61.4 % (47-70); Platelet Count 192 K/mm3 (150-450); RBC Distribution Width CV 14.5 % (11.6-14.6); RBC Distribution Width SD 47.8 fl (35.1-43.9); Red Blood Count 3.11 M/mm3 (4.2-5.4)
--- NOTE | 2023-04-17 07:00 | MRI_ITS ---
HISTORY: CVA. TECHNIQUE: Multiplanar and multisequence MR images of the brain were obtained without contrast. 274 images. COMPARISON: CT 04/15/2023. FINDINGS: BRAIN PARENCHYMA: Mild foci of increased T2 FLAIR signal in the bilateral cerebral white matter. No abnormal focus of restricted diffusion. No acute intracranial hemorrhage identified. CSF SPACES: Mild generalized volume loss. No significant midline shift or other mass effect.No extra-axial fluid collection. VASCULAR SYSTEM: Major intracranial flow voids are maintained. PARANASAL SINUSES AND MASTOID AIR CELLS: No significant air fluid levels. ORBITS: Bilateral lens resections. MRI/Brain without Contrast IMPRESSION: No evidence for acute infarct. Mild chronic involutional and white matter changes. Electronically Signed: Erika Looney MD at 10:18 EST ,
[2023-04-17 07:06] LABS: Anion Gap 6 (5-15); BUN 10 mg/dL (7-18); BUN/Creat Ratio 8.9 RATIO (10-20); Calcium,Total 8.5 mg/dL (8.5-10.1); Chloride 112 mmol/L (98-107); Creatinine, Serum 1.12 mg/dL (0.55-1.02); EST Glomerular Filtration Rate 50 mL/min (>60); Est Glom Filt Rate - Afr Amer 61 mL/min (>60); Estimated Creatinine Clearance 33.27 ml/min; Glucose 84 mg/dL (74-106); Magnesium 2.1 mg/dL (1.6-2.6); Potassium 3.6 mmol/L (3.5-5.1); Sodium Level 144 mmol/L (136-145)
[2023-04-17] MEDS: buPROPion (XL) 300 MG TABLET.XL PO (09:13)
[2023-04-17] MEDS: Aspirin 81 MG TAB.CHEW PO (09:13)
[2023-04-17] MEDS: Enoxaparin 30 MG/0.3 ML Syringe SC (09:13)
[2023-04-17] MEDS: Clopidogrel Bisulfate 75 MG Tablet PO (09:13)
[2023-04-17] MEDS: Pantoprazole Sodium 20 MG Tablet PO (09:17)
[2023-04-17 09:44] LABS: Vitamin B12 765 pg/mL (211-911); Vitamin D,25 Hydroxy 50.6 ng/mL
--- NOTE | 2023-04-17 12:44 | CASEMGMT ---
Addendum entered by Charo Mishra 04/17/23 14:27: Script for OP therapy received from Dr Lopes and given to pt. She is aware she can take to any location of choice. She denies having further questions/concerns. Original Note: HANG JAQUEZ NOTE: Reviewed therapy notes. Pt ambulated b/w 75- 200 ft today w/CGA vs SBA and use of WW and additional therapy recommended. HANG JAQUEZ to room. Introduced self and role. Pt resting in bed. Pt is alert and oriented. She states she lives alone, is indep @ her baseline, uses a cane @ baseline, and gets her own groceries. She states her sister lives next door. She wishes to discharge home and states feels she will be safe returning home alone. Discussed therapy and questions answered re: HHC and OP therapy. Pt declines wanting HHC, but she would like to do OP therapy. She states she has been to [facility] and she would like to do therapy there. HANG JAQUEZ let her know a script can be provided to her @ discharge and offered to schedule appt for her. She declines, stating she wishes to schedule the appt herself. Pt states she does not have a walker @ home and she does not want one, stating her cane will be sufficient. She was made aware, once she returns home if she changes her mind and feels like she needs a walker, to contact her PCP. She voices understanding. She denies having other discharge planning needs or concners. Renan ODOM RN, CM
--- NOTE | 2023-04-17 14:06 | CHAPLAIN ---
Type of Pastoral Visit _x__ Initial Visit ___ Follow-up Visit ___ On-call Visit ___ General Patient Visit ___ Spiritual Assessment ___ Family Conference ___ Bereavement ___ Rapid Response ___ Code Blue ___ Other (describe below) Pastoral Care Referral From _x__ Patient ___ Family ___ Nurse ___ Physician ___ Furnace And Wash Equipment Operator ___ Budget Assistant ___ Other (describe below) Sacrament/Intervention _x__ Active listening ___ Anointing ___ Pentecostal ___ Bereavement ___ Communion ___ Dayami exploration ___ _x__ Life review ___ Prayer ___ Reconciliation ___ Sacrament of Sick ___ Supportive presence ___ Wedding ___ Other (describe below) Pastoral Comments patient is pretty insistent on leaving hospital ez as she has many other things to do; pt is on [employer] and speaks of how she will overcome it; pt presents with determination to get well and leave hospital;
--- NOTE | 2023-04-17 15:05 | CASEMGMT ---
Met with patient to complete KING form. KING form explained to patient who voiced understanding and signed form. Original form placed in pt?s chart and copy provided to patient. Zuri Henry, Discharge Planning Asst
--- NOTE | 2023-04-17 15:35 | DCINST_ITS ---
Discharge Instructions Diet Discharge Diet: - (DASH diet) Activity Discharge Activity: - (Please use your cane) Follow Up Care Test Results: Test results from this visit will be discussed in further detail at your follow- up appointment, if applicable. Discharge Plan Admission Admit Date/Time: 04/15/23 14:45 Primary Reason for Your Visit: Unsteadiness Attending Provider: Harmony Lopes Primary Care Provider: Jerson Vigil Consulting Providers: Hamrony Lopes; Nikolas Beltran Instructions Patient Instructions: ED Fall Prevention Additional Instructions / Restrictions: DISCHARGE INSTRUCTIONS PLEASE READ *Please take this with you to your next doctors appointment* -Please continue your aspirin and Plavix. Given symptoms with unclear underlying cause he may benefit from following up with neurology upon discharge. Contact information below if you would like to make an appointment to establish care -Please follow-up with pulmonology upon discharge due to the spot found on your left lobe. Please call their office to schedule hospital follow-up. -Recommend outpatient therapy upon discharge -You seem to be slightly dehydrated on presentation, will be important that you maintain your nutrition and oral intake -Please call your primary care provider's office upon discharge to schedule a hospital follow up within 1 week. -For any concerning signs or symptoms please call 911 or proceed to the nearest emergency department Discharge Orders/Prescriptions Prescriptions: Continued omeprazole 20 mg capsule,delayed release(DR/EC) 20 mg PO DAILY aspirin 81 mg tablet,delayed release (DR/EC) 81 mg PO DAILY@0800 Qty: 90 3RF vitamin B complex [B Complex-Vitamin B12] Tablet 1 tab PO DAILY furosemide 40 mg tablet 40 mg PO DAILY PRN (Reason: edema) Qty: 90 3RF metoprolol tartrate 25 mg tablet 25 mg PO BID Qty: 180 4RF bupropion HCl 300 MG tablet extended release 24 hr 300 mg PO DAILY albuterol sulfate [ProAir HFA] 90 mcg/actuation HFA aerosol inhaler 2 inh inhalation Q6H PRN (Reason: sob) losartan 25 mg tablet 12.5 mg PO DAILY Qty: 45 3RF atorvastatin 80 mg tablet 80 mg PO QHS Qty: 90 3RF clopidogrel [Plavix] 75 mg tablet 75 mg PO DAILY Qty: 90 3RF Referrals / Follow Up: Matt Isaac MD [Med Staff - Active Staff] - (Please follow-up with pulmonology upon discharge due to your lung nodule and possible need for further work-up or testing) Jerson Vigil MD [Primary Care Provider] - Within 1 Week Trell Martell MD [Non-Staff -Ordering Privileges] - Disposition Disposition (needs filled in before D/C Order can be placed): Home, Self Care
[2023-04-17] MEDS: Metoprolol Tartrate 25 MG Tablet PO (15:42)
--- NOTE | 2023-04-17 15:47 | DS.PCM_ITS ---
Providers Date of Admission: 04/15/23 Date of Discharge: 04/17/23 Primary Care Physician: Dr. Jerson Vigil MD Reason For Visit: CVA R/O Diagnosis Discharge Diagnosis (1) Dizziness: Status: Acute Code(s): R42 - Dizziness and giddiness Plan #Unsteadiness with hand shaking and slurred speech this a.m.- unsteadiness chronic and intermittent, all other sx resolved #Left upper lobe lung nodule -11 mm spiculated left upper lobe nodule concerning for malignancy #CKD unclear subtype #Coronary artery disease #GERD #Hypertension Medications at Discharge Home Medications bupropion HCl 300 mg 24 hr tablet, extended release 300 mg PO DAILY 09/20/18 omeprazole 20 mg capsule,delayed release 20 mg PO DAILY 10/05/18 aspirin 81 mg tablet,delayed release 81 mg PO DAILY@0800 #90 tabs 01/03/19 vitamin B complex (B Complex-Vitamin B12 tablet) 1 tab PO DAILY 07/04/19 furosemide 40 mg tablet 40 mg PO DAILY PRN edema #90 tabs 01/04/22 atorvastatin 80 mg tablet 80 mg PO QHS #90 tabs 08/31/22 clopidogrel 75 mg tablet (Plavix) 75 mg PO DAILY #90 tabs 08/31/22 losartan 25 mg tablet 12.5 mg (1/2 x 25 mg) PO DAILY #45 tabs 08/31/22 metoprolol tartrate 25 mg tablet 25 mg PO BID #180 tabs 01/04/23 albuterol sulfate 90 mcg/actuation aerosol inhaler (ProAir HFA) 2 inh inhalation Q6H PRN sob 04/15/23 Hospital Course Procedures Transthoracic echo Summary of Care Provided Minutes Spent on Discharge: 32 Hospital Course: FAITH GOMEZ, is a 77 F with history of coronary artery disease, hypertension, breast cancer, right lobe of thyroid removed in the 1970s who presented to [facility] 04/15/2023 with shaking, weakness, unsteadiness and ?slurred speech worse the morning of presentation. She was brought in for stroke work-up. Echo and MRI ordered, no acute stroke and echo unremarkable. Additionally she worked with physical therapy and was felt she could go home with help. She was noted to have a left upper lobe lung nodule and will need to follow with pulmonology on discharge. Patient seemed possibly slightly dehydrated on admission and improved with fluids, recommend maintaining hydration and following up for lung nodule. Her unsteadiness ended up itself has been intermittent over the past several years and it was the accompanying symptoms that brought her to the hospital and these have resolved. Patient would like to go home with outpatient follow-up. Discharge instructions as followed: -Please continue your aspirin and Plavix. Given symptoms with unclear u nderlying cause he may benefit from following up with neurology upon discharge. Contact information below if you would like to make an appointment to establish care -Please follow-up with pulmonology upon discharge due to the spot found on your left lobe. Please call their office to schedule hospital follow-up. -Recommend outpatient therapy upon discharge -You seem to be slightly dehydrated on presentation, will be important that you maintain your nutrition and oral intake -Please call your primary care provider's office upon discharge to schedule a hospital follow up within 1 week. -For any concerning signs or symptoms please call 911 or proceed to the nearest emergency department Physical Exam Narrative General: Alert, oriented, no apparent distress HEENT: Atraumatic, normocephalic Eyes: Anicteric, normal conjunctiva, extraocular movements grossly intact Neck: Supple Respiratory: Clear to auscultation bilaterally, normal respiratory effort Cardiovascular: Regular rate GI: Soft, nontender, nondistended Extremities: No edema Musculoskeletal: Moving all extremities Neuro: No overt focal neurological deficits Skin: No rashes appreciated Psych: Cooperative Weight / BMI Weight Weight: 81.4 kg Body Mass Index (BMI) 32.8 ABG / Lab / Microbiology Data 04/17/23 05:55 04/17/23 05:55 Laboratory: Laboratory Results - last 24 hr 04/16/23 05:15: Vitamin B12 765, Vitamin D 25-Hydroxy 50.6 04/17/23 05:55: WBC 9.0, RBC 3.11 L, Hgb 8.9 L, Hct 28.3 L, MCV 91.0, MCH 28.6, MCHC 31.4 L, RDW Std Deviation 47.8 H, RDW Coeff of Vamshi 14.5, Plt Count 192, MPV 10.3, Immature Gran % (Auto) 0.400, Neut % (Auto) 61.4, Lymph % (Auto) 24.5, [place] % (Auto) 10.0, Eos % (Auto) 3.3, Baso % (Auto) 0.4, Absolute Neuts (auto) 5.5, Absolute Lymphs (auto) 2.20, Nucleated RBC % 0, Sodium 144, Potassium 3.6, Chloride 112 H, Carbon Dioxide 26.0, Anion Gap 6, BUN 10, Creatinine 1.12 H, Estim Creat Clear Calc 33.27, Est GFR (MDRD) Af Amer 61, Est GFR (MDRD) Non-Af 50 L, BUN/Creatinine Ratio 8.9 L, Glucose 84, Calcium 8.5, Phosphorus 3.0, Magnesium 2.1 Radiography Diagnostic Testing: Radiology Impression Echocardiogram 04/15/23 14:54 Interpretation Summary The estimated ejection fraction is 65 %. No evidence for diastolic dysfunction. Trivial mitral valve insufficiency. Ordering Physician: Harmony Lopes Referring Physician: Jerson Vigil Performed By: Warren Sim [facility] Brain MRI 04/17/23 07:00 IMPRESSION: No evidence for acute infarct. Mild chronic involutional and white matter changes. Electronically Signed: Erika Looney MD at 10:18 EST Reading Location ID and State: [facility] / [place] Tel , Service support , D/C Instructions Discharge Diet: - (DASH diet) Meaningful Use Info Meaningful Use Diagnoses (Choose all that apply): None applicable Discharge Plan Admission Admit Date/Time: 04/15/23 14:45 Primary Reason for Your Visit: Unsteadiness Attending Provider: Harmony Lopes Primary Care Provider: Jerson Vigil Consulting Providers: Harmony Lopes; Nikolas Beltran Instructions Patient Instructions: ED Fall Prevention Additional Instructions / Restrictions: DISCHARGE INSTRUCTIONS PLEASE READ *Please take this with you to your next doctors appointment* -Please continue your aspirin and Plavix. Given symptoms with unclear underlying cause he may benefit from following up with neurology upon discharge. Contact information below if you would like to make an appointment to establish care -Please follow-up with pulmonology upon discharge due to the spot found on your left lobe. Please call their office to schedule hospital follow-up. -Recommend outpatient therapy upon discharge -You seem to be slightly dehydrated on presentation, will be important that you maintain your nutrition and oral intake -Please call your primary care provider's office upon discharge to schedule a hospital follow up within 1 week. -For any concerning signs or symptoms please call 911 or proceed to the nearest emergency department Discharge Orders/Prescriptions Prescriptions: Continued omeprazole 20 mg capsule,delayed release(DR/EC) 20 mg PO DAILY aspirin 81 mg tablet,delayed release (DR/EC) 81 mg PO DAILY@0800 Qty: 90 3RF vitamin B complex [B Complex-Vitamin B12] Tablet 1 tab PO DAILY furosemide 40 mg tablet 40 mg PO DAILY PRN (Reason: edema) Qty: 90 3RF metoprolol tartrate 25 mg tablet 25 mg PO BID Qty: 180 4RF bupropion HCl 300 MG tablet extended release 24 hr 300 mg PO DAILY albuterol sulfate [ProAir HFA] 90 mcg/actuation HFA aerosol inhaler 2 inh inhalation Q6H PRN (Reason: sob) losartan 25 mg tablet 12.5 mg PO DAILY Qty: 45 3RF atorvastatin 80 mg tablet 80 mg PO QHS Qty: 90 3RF clopidogrel [Plavix] 75 mg tablet 75 mg PO DAILY Qty: 90 3RF Referrals / Follow Up: Matt Isaac MD [Med Staff - Active Staff] - (Please follow-up with pulmonology upon discharge due to your lung nodule and possible need for further work-up or testing) Jerson Vigil MD [Primary Care Provider] - Within 1 Week Trell Martell MD [Non-Staff -Ordering Privileges] - Disposition Disposition (needs filled in before D/C Order can be placed): Home, Self Care Charges/Coding Visit Charges Inpatient E&M: 77670 Disch Hosp >30min
== END 2023-04-17 17:02 | disposition home or self-care (01) ==
LOC: ED 14:18 → PCU 15:01
PROVIDERS: Internal Medicine; Admitting Provider Internal Medicine; Emergency Provider Emergency Medicine; PCP Family Medicine; Visit Provider Internal Medicine
DX: R42 Dizziness and giddiness (principal); N18.30 Chronic kidney disease, stage 3 unspecified; Z79.02 Long term (current) use of antithrombotics/antiplatelets; Z87.891 Personal history of nicotine dependence; I25.10 Atherosclerotic heart disease of native coronary artery without angina pectoris; R91.1 Solitary pulmonary nodule; Z95.5 Presence of coronary angioplasty implant and graft; I12.9 Hypertensive chronic kidney disease with stage 1 through stage 4 chronic kidney disease, or unspecified chronic kidney disease; R47.81 Slurred speech; R26.81 Unsteadiness on feet; K21.9 Gastro-esophageal reflux disease without esophagitis; Z79.899 Other long term (current) drug therapy; Z79.82 Long term (current) use of aspirin; F32.A Depression, unspecified; I08.1 Rheumatic disorders of both mitral and tricuspid valves; R94.31 Abnormal electrocardiogram [ECG] [EKG]; I45.9 Conduction disorder, unspecified; R53.1 Weakness
CPT/HCPCS: 36415; 70496; 70498; 70551; 71045; 80048; 80053; 80061; 81001; 82306; 82607; 82746; 82962; 83735; 84100; 84439; 84443; 84484; 85025; 85610; 85730; 92610; 93005; 93306; 94762; 96361; 96372; 96374; 96375; 97162; 97166; 97530; 97535; 99221; 99284; 99406; J7030; Q9957; Q9967; A4216; G0378

== ENCOUNTER → 2023-04-28 | Outpatient (CLI) | payer MEDICARE, SELFPAY ==
[2023-04-28 19:09] LABS: Anion Gap 8 (5-15); BUN 21 mg/dL (7-18); BUN/Creat Ratio 16.2 RATIO (10-20); Calcium,Total 8.7 mg/dL (8.5-10.1); Chloride 107 mmol/L (98-107); EST Glomerular Filtration Rate 42 mL/min (>60); Est Glom Filt Rate - Afr Amer 51 mL/min (>60); Glucose 115 mg/dL (74-106); Potassium 3.7 mmol/L (3.5-5.1); Sodium Level 141 mmol/L (136-145)
== END | disposition home or self-care (01) ==
LOC: MFPLAB 15:35
PROVIDERS: PCP Family Medicine; Visit Provider Family Medicine
DX: R91.1 Solitary pulmonary nodule (principal)
CPT/HCPCS: 36415; 80048

== ENCOUNTER → 2023-05-26 | Outpatient (CLI) | payer MEDICARE, SELFPAY ==
--- NOTE | 2023-05-26 10:44 | CT_ITS ---
STUDY: CT CHEST WITH CONTRAST REASON FOR EXAM: Female, 77 years old. Pulmonary nodule RADIATION DOSAGE (If Supplied By Facility): CTDIvol = ( 11.35 ) mGy, DLP = ( 326.55 ) mGycm TECHNIQUE: Transaxial imaging was performed following intravenous administration of IV 100mL Isovue-300. Multiplanar coronal and sagittal images were reformatted. Individualized dose optimization techniques were used for this CT. COMPARISON: Comparison is made with prior chest radiograph dated April 15, 2023. FINDINGS: CHEST Diffuse enlargement of the left lobe of the thyroid gland with substernal extension. There is a 7.6 mm x 12.8 mm. Nodule in the anterior aspect of the left upper lobe as seen on axial image #38. There is also evidence of a 1.8 cm x 1.3 cm spiculated mass in the lateral aspect of the right upper lobe. There is no demonstrated pleural abnormality. There are calcifications of the coronary arteries. Normal mediastinum. Normal hilar regions. Normal unenhanced pulmonary arteries. There is atherosclerotic calcification of the aortic arch. There are multi-level degenerative changes of the thoracic spine. Mild loss of height of the mid dorsal vertebrae. There is no demonstrated abnormality of the visualized upper abdomen. CT/Chest WITH Contrast IMPRESSION: 7.6 mm x 12.8 mm nodule in the left upper lobe. 1.8 cm x 1.3 cm spiculated mass in the lateral aspect of the right upper lobe. Correlation with the PET scan is recommended. Electronically Signed: Rhett Brandon MD at 15:06 EST ,
--- NOTE | 2023-05-29 10:38 | PFTCOMP ---
COMPLETE PULMONARY FUNCTION TEST INTERPRETATION Brief HPI: Patient is a 77-year-old female, currently under the care of Dr. Tavares, who presents to [facility] for complete pulmonary function tests secondary to diagnosis of pulmonary nodule. Respiratory therapist reports good effort and reproducible results. Interpretation: Forced expiration spirometry shows a mild large airways obstructive ventilatory defect with an FEV1 of 80% predicted. There is a significant bronchodilator response in FVC and FEV1 by strict ATS criteria. Spirograms are of good quality and plateau slowly, indicating slowly emptying areas of the lungs. The respiratory flow volume loop shows decreased expiratory flow rates at all lung volumes consistent with airway obstruction. Lung volumes by body plethysmography show a normal total lung capacity at 4.36 L, 95% predicted. FRC and RV are elevated out of proportion. Lung volume measurements are consistent with air-trapping. Diffusion capacity by carbon monoxide is decreased at 53% predicted. The airway resistance is elevated. No previous pulmonary function tests were available for review. Impression: Partially reversible mild large airways obstructive ventilatory defect, resulting in air trapping, and a disproportionate reduction in diffusion capacity
== END | disposition home or self-care (01) ==
PROVIDERS: PCP Family Medicine; Referring Provider Internal Medicine Critical Care Medicine; Visit Provider Internal Medicine Critical Care Medicine
DX: R91.1 Solitary pulmonary nodule (principal); F17.211 Nicotine dependence, cigarettes, in remission
CPT/HCPCS: 71260; 94060; 94726; 94729; Q9967; A4216

== ENCOUNTER → 2023-06-16 | Outpatient (CLI) | payer MEDICARE, SELFPAY ==
[2023-06-16] VITALS (15 sets, daily range): BP systolic 100–139; BP diastolic 51–80; PULSE 102–107; RESP 14–18; TEMP 36.7–36.9; O2SAT 90–179; BMI 32.0
--- NOTE | 2023-06-16 | ASPIGT_PTH ---
PATHOLOGY RESULTS PATIENT: FAITH GOMEZ LOC: CT U#:[id number] AGE/SX: 77/F ROOM: RE06/16/[address]: Dr. Mann Tavares DO : 1945 BED: DIS: 06/16/2023 SPEC #: [id number] RECD: 06/16/23 10:29 STATUS: PROMISE REAnnie #: [id number] SURI: 06/16/23 00:[address]: Mann Tavares DEPT: SURGICAL PATHOLOGY RECD BY: Yolanda Hicks ENTERED: 06/16/23 10:30 SP TYPE: ASP RAD OTHR DR: Dr. Jerson Vigil MD Tissues: Lung, NOS Procedures: FNA Specimen Adequacy Special Stain Group II Surgery Specimen Level IV Imprint (control) HEADER OPERATION: CT-guided lung biopsy PRE-OP DIAGNOSIS: Lung nodule right TISSUE SUBMITTED: Lung 20-gauge x4 MICROSCOPIC DIAGNOSIS Right lung nodule, CT-guided core biopsy: Non-small cell carcinoma, favor squamous cell carcinoma. See comment. CUBA:mariann 06/19/2023 SJ:mariann 07/14/2023 COMMENT The specimen is evaluated at the time of biopsy by Dr. Live. Immediate Evaluation = Malignant cells present derived from non-small cell carcinoma. Immunohistochemistry ([id number]) supports the above diagnosis. Molecular studies on the tumor can be performed if clinically indicated. Please notify the laboratory if they are needed. MICROSCOPIC DESCRIPTION Slides are reviewed. GROSS DESCRIPTION Received in fixative is one container labeled with the patient's name and designated lung. The specimen consists of multiple irregular fragments of olguin soft tissue that in aggregate measure 0.5 x 0.1 x 0.1 cm. The specimen is totally submitted in one cassette. Two touch imprints are prepared at the time of core biopsy. / CUBA:mariann 06/16/2023 TC:0 CPT: 70914, 46783
--- NOTE | 2023-06-16 | ASPIGT_PTH ---
PATHOLOGY RESULTS PATIENT: FAITH GOMEZ LOC: CT U#:[id number] AGE/SX: 77/F ROOM: RE06/16/[address]: Dr. Mann Tavares DO : 1945 BED: DIS: 06/16/2023 SPEC #: [id number] RECD: 06/16/23 10:29 STATUS: PROMISE REAnnie #: [id number] SURI: 06/16/23 00:[address]: Mann Tavares DEPT: SURGICAL PATHOLOGY RECD BY: Yolanda Hicks ENTERED: 06/16/23 10:30 SP TYPE: ASP RAD OTHR DR: Dr. Jerson Vigil MD Tissues: Lung, NOS Procedures: FNA Specimen Adequacy Special Stain Group II Surgery Specimen Level IV Imprint (control) HEADER OPERATION: CT-guided lung biopsy PRE-OP DIAGNOSIS: Lung nodule right TISSUE SUBMITTED: Lung 20-gauge x4 MICROSCOPIC DIAGNOSIS Lung, CT-guided core biopsy: Non-small cell carcinoma, favor squamous cell carcinoma. See comment. CUBA:mariann 06/19/2023 COMMENT The specimen is evaluated at the time of biopsy by Dr. Live. Immediate Evaluation = Malignant cells present derived from non-small cell carcinoma. Immunohistochemistry ([id number]) supports the above diagnosis. Molecular studies on the tumor can be performed if clinically indicated. Please notify the laboratory if they are needed. MICROSCOPIC DESCRIPTION Slides are reviewed. GROSS DESCRIPTION Received in fixative is one container labeled with the patient's name and designated lung. The specimen consists of multiple irregular fragments of olguin soft tissue that in aggregate measure 0.5 x 0.1 x 0.1 cm. The specimen is totally submitted in one cassette. Two touch imprints are prepared at the time of core biopsy. / CUBA:mariann 06/16/2023 TC:0 CPT: 46231, 35757
[2023-06-16 08:31] LABS: Platelet Count 253 K/mm3 (150-450)
[2023-06-16 09:00] LABS: International Normalized Ratio 1.1; Partial Thromboplast Time 28.5 Seconds (24.1-36.2); Prothrombin Time (Protime)PT. 14.5 SECONDS (11.7-14.9)
[2023-06-16] MEDS: 0.9% Saline Lock 10 ML Syringe IV (09:15)
[2023-06-16] MEDS: 0.9% Normal Saline (250mL Bag) 250 ML 15 ML IV (09:15)
[2023-06-16] MEDS: Midazolam 2 MG/2 ML Syringe IV (09:33)
[2023-06-16] MEDS: fentaNYL 100 MCG/2 ML Ampul IV (09:33)
[2023-06-16] MEDS: Lidocaine 2% (20 ml mdv) 20 ML Vial INFILT (09:35)
--- NOTE | 2023-06-16 10:00 | IMM_PTH ---
PATHOLOGY RESULTS PATIENT: FAITH GOMEZ LOC: CT U#:[id number] AGE/SX: 77/F ROOM: RE06/16/[address]: Dr. Mann Tavares DO : 1945 BED: DIS: 06/16/2023 SPEC #: [id number] RECD: 06/16/23 14:33 STATUS: PROMISE REQ #: [id number] SURI: 06/16/23 10:[address]: Mann Tavares DEPT: IMMUNOHISTOCHEMISTRY RECD BY: Akanksha Nevarez ENTERED: 06/16/23 14:36 SP TYPE: IMMUNO OTHR DR: Dr. Jerson Vigil MD Tissues: Right lung, NOS Procedures: RCC (add) NAPSIN A (add) CK20 (add) CK5-6 (add) CK7 (add) CK8 (add) E-CAD (add) HEP PAR (add) HER2 ZARA (add) KI-67 (add) MAMM (add) P53 (add) NJ (add) TTF1 (add) Pankeratin (add) GATA3 (add) P40 (add) ER (initial) PHYSICIAN & INSTITUTION [address] [address] SPECIMEN INFORMATION: Tissue Source: Right lung nodule Clinical Info: Right lung nodule Specimen Number: [id number] CPT code: 44336, 40407 x17 METHODOLOGY: Deparaffinized sections of prefer/formalin-fixed tissue or PAP/DQ stained slides are incubated with monoclonal/polyclonal antibodies/oligonucleotide probes. Localization is made via biotin free immunoperoxidase method. Appropriate controls are performed and reacted as expected. Results on target cell population are indicated in the following table: RESULTS: ANTIBODY / CLONE RESULT ER (6F11) negative NJ (1E2) negative Her-2neu (CB11) negative E-Cad (ECH-6) positive Mammaglobin (31A5) positive, rare cells, weak GATA3 (L50-823) negative AE1-3 (AE1/AE3/PCK26) positive CK7 (OV-TL12/30) positive, focal CK8 (43gqpvI01) positive CK20 (KS20.8) negative TTF-1 (8G7G3/1) negative Napsin A (Rabbit Polyclonal) negative HepPar (OCh1E5) negative RCC (PN-15) negative CK5-6 (D5 & 1684) positive P40 (BC28) positive P53 (DO-7) negative (null pattern) Ki-67 (30-9) positive, moderate These tests were developed and their performance characteristics determined by [facility]. They may not have been cleared or approved by the U.S. Food and Drug Administration. The FDA has determined that such clearance or approval is not necessary. The above immunohistochemical/dualISH markers are ordered and reviewed by the Pathologist. INTERPRETATION: Right lung nodule, CT-guided core biopsy: Non-small cell carcinoma, favor squamous cell carcinoma. SJ:mariann 06/19/2023
--- NOTE | 2023-06-16 10:01 | PCM.OP.PRO ---
Procedure Report Date of Procedure: 06/16/23 Assessment & Plan Assessment/Plan (1) Lung nodule, solitary: PLAN: PROCEDURE: CT GUIDED CORE NEEDLE LUNG BIOPSY ORDERING PROVIDER: Dr. Mann Tavares INDICATION: Female, 77 years old. Solitary lung nodule, right upper lobe. PROVIDER: CARTER Steele CONSENT: Written informed consent was obtained having explained the risks, benefits and alternatives in detail with the patient and sister who accepted the risks and agreed to proceed. Laboratory review and clinical assessment was performed. PRE-PROCEDURE SEDATION ASSESSMENT: Current history and physical dictated by referring physician and reviewed. No clinical changes since date of exam. Patient has an ASA Class of 2. PROCEDURAL SEDATION PROTOCOL: The Drugs used were: 2 mg Versed, IV, and 50 mcg Fentanyl, IV. The sedation time was: 15 minutes, starting at 9:33 AM and terminated at 9:48 AM. The procedural sedation protocol was independently monitored by the department nurse. RADIATION DOSAGE (If Supplied By Facility): CTDIvol = 15.18 mGy, DLP = 278.64 mGycm Individualized dose optimization techniques were used for this CT. TECHNIQUE: The patient was placed in a supine position. A noncontrast CT was performed to localize the lesion in the right upper lobe. The skin surface was prepped and draped in a sterile fashion. 2% lidocaine was used for local anesthesia. Using CT guidance, a 20-gauge coaxial biopsy device was advanced to the periphery of the lesion. A total of 4 core specimens were obtained. Specimens were microscopically reviewed by pathology in the CT suite and placed in formalin solution. BioSentry tract sealant system was deployed at the biopsy site, and the biopsy needle was removed. A sterile occlusive dressing was applied to the biopsy site. The patient tolerated the procedure well, despite minimal hemoptysis. An immediate chest xray was ordered, per protocol. A negative biopsy does not exclude malignancy. Further imaging or clinical followup based on patient condition and degree of clinical suspicion for malignancy. Suggest rebiopsy, if biopsy results do not match with clinical scenario. IMPRESSION: 1. CT directed core needle biopsy of right upper lobe mass using CT image guidance with image documentation as described. Pathology results are pending. 2. Procedural Sedation protocol utilized with independent monitoring by the department nurse. Procedures Radiology Radiology CT Procedures: [id number] Biopsy Lung
--- NOTE | 2023-06-16 10:30 | RAD_ITS ---
STUDY: X-RAY CHEST REASON FOR EXAM: Female, 77 years old. Post lung biopsy -- Immediately post lung biopsy TECHNIQUE: Frontal inspiration and expiration views COMPARISON: April 15, 2023 FINDINGS: There are monitoring devices. There is right midlung opacity consistent with mass and postbiopsy changes. There is no demonstrated pleural abnormality. Normal size heart. Normal mediastinum and elvie. Normal visualized pulmonary arteries. There is atherosclerotic calcification of the aortic arch with tortuosity. Normal visualized thoracic spine. Normal visualized ribs, clavicles, and shoulders. There is no demonstrated abnormality of the visualized soft tissue structures of the upper abdomen. RAD/Chest Insp/Exp 2 View IMPRESSION: Right lung mass and postbiopsy changes. No pneumothorax seen. Electronically Signed: Pk Ramirez MD at 10:39 EST ,
--- NOTE | 2023-06-16 11:48 | RAD_ITS ---
STUDY: X-RAY CHEST REASON FOR EXAM: Female, 77 years old. 2 hr post lung biopsy -- TECHNIQUE: Frontal inspiration and expiration views COMPARISON: Earlier the same day FINDINGS: There are monitoring devices. There is stable right midlung opacity consistent with mass and postbiopsy changes. There is no demonstrated pleural abnormality. Normal size heart. Normal mediastinum and elvie. Normal visualized pulmonary arteries. There is atherosclerotic calcification of the aortic arch with tortuosity. Normal visualized thoracic spine. Normal visualized ribs, clavicles, and shoulders. There is no demonstrated abnormality of the visualized soft tissue structures of the upper abdomen. RAD/Chest Insp/Exp 2 View IMPRESSION: Right lung mass and postbiopsy changes. No pneumothorax seen. Electronically Signed: Pk Ramirez MD at 12:23 EST ,
== END | disposition home or self-care (01) ==
LOC: CT 08:13
PROVIDERS: PCP Family Medicine; Referring Provider Internal Medicine Critical Care Medicine; Visit Provider Internal Medicine Critical Care Medicine
DX: C34.91 Malignant neoplasm of unspecified part of right bronchus or lung (principal); F17.211 Nicotine dependence, cigarettes, in remission; I25.10 Atherosclerotic heart disease of native coronary artery without angina pectoris
CPT/HCPCS: 32408; 36415; 71046; 77012; 85049; 85610; 85730; 88172; 88305; 88313; 88341; 88342; 99156; J7050; C2613

== ENCOUNTER → 2023-06-27 | Outpatient (CLI) | payer MEDICARE, SELFPAY ==
--- NOTE | 2023-06-27 09:30 | PET_ITS ---
EXAMINATION: FDG PET/CT ? INDICATIONS: 77-year-old female with a history of pulmonary nodularity. ? COMPARISON EXAMINATION:? CT of the chest report 05/26/2023 ? INDEX LESION SIZE SUV INTERPRETATION Bilateral upper lung ernst, right and left upper lobes 21.1 mm, largest 8.2 max Fulfills quantitative criteria for viable neoplasm, definitive histopathologic analysis recommended. ? TECHNIQUE: Following the intravenous administration of 14.5 mCi of F-18 deoxyglucose via the right antecubital fossa, multiplanar image acquisitions of the head, neck, chest, abdomen and pelvis to the level of the midthigh, obtained at one-hour post radiopharmaceutical administration contemporaneously interpreted with the current CT of the chest, abdomen and pelvis dated 06/27/2023 via coregistration reveal: ? SERUM GLUCOSE LEVEL:? 135 mg/dL? HEIGHT:?? 62 inches WEIGHT:?? 175 pounds ? FINDINGS: ? HEAD/NECK:? There is no evidence of abnormal increased glucose metabolism in the pharyngeal mucosal space, parapharyngeal space, oropharynx, bilateral-lateral and anterior neck, hypopharynx and distribution of the larynx. ? The visualized portion of the cerebral cortical-subcortical structures demonstrate symmetric and preserved glucose metabolism. ? CHEST:? Facilitated radiopharmaceutical concentration is defined in the bilateral upper lung ernst involving right upper and left upper lobes. The calculated maximum standard uptake value is 8.2. The maximal axial diameter of the largest corresponding parenchymal density is 21.1 mm.? ? CT of the chest demonstrates the following anatomic characteristics: Atherosclerotic calcification is defined in the thoracic aorta without evidence of dilatation, aneurysm formation. Coronary artery calcification is observed. The left breast appears surgically absent. Right and left axillary soft tissue densities are ametabolic. The left lobe thyroid gland is enlarged with evidence of substernal proliferation. ? ABDOMEN/PELVIS:? Normal physiologic distribution of the radiopharmaceutical is identified in the hepatic (4.1) and splenic parenchyma, both renal units, urinary bladder, and visualized intestinal tract. Diffuse intestinal tract is identified in all four quadrants of the abdominal-pelvic mesentery. ? CT of the abdomen and pelvis is remarkable for the following: Atherosclerotic calcification is defined in the abdominal aorta without evidence of dilatation, aneurysm formation. Pelvic arterial calcification is observed. Scattered colonic diverticulosis is noted without evidence of diverticulitis. Right and left inguinal soft tissue densities are ametabolic. ? SKELETAL:? There is no evidence of quantitatively significant enhanced glucose metabolism on meticulous inspection of the appendicular and axial skeletal structures. ? Degenerative changes defined in the thoracic and lumbar spine demonstrate no evidence of increased glucose metabolism. There are no sclerotic, mixed sclerotic-lytic, or primarily lytic changes defined in the axial skeletal structures with evidence of increased FDG uptake. ? PET/PET/CT Tumor Base -Thigh Init IMPRESSION: 1. ABNORMAL EXAMINATION INDICATIVE OF MALIGNANT-VIABLE NEOPLASM. 2. Increased radiopharmaceutical concentration defined in the right and left upper lung ernst fulfills quantitative criteria for viable neoplasm. Histopathologic analysis is recommended. Electronic Signature Jatinder Sinclair D.O. Accurate Quantification of SUVs for this report are calculated using the exclusive [employer]. (U.S. Patent No. [phone] B2 [phone] [place] patent [phone]). Standardization and correction of the FDG SUV metric via [employer] [employer] technology allow for vendor non-specific objective quantitative examination comparison and optimization of the sensitivity and specificity of the FDG PET-CT examination. . [email or web address] Electronically Signed: Jatinder Sinclair DO at 12:17 EST ,
== END | disposition home or self-care (01) ==
LOC: ONC 09:16
PROVIDERS: PCP Family Medicine; Referring Provider Family Medicine; Visit Provider Family Medicine
DX: R91.8 Other nonspecific abnormal finding of lung field (principal)
CPT/HCPCS: 78815; A9552

== ENCOUNTER → 2023-07-13 | Outpatient (CLI) | payer MEDICARE, SELFPAY ==
[2023-07-13] VITALS (17 sets, daily range): BP systolic 103–137; BP diastolic 38–90; PULSE 83–90; RESP 12–18; TEMP 37.1; O2SAT 92–99; BMI 31.2
--- NOTE | 2023-07-13 | ASPIGT_PTH ---
PATHOLOGY RESULTS PATIENT: FAITH GOMEZ LOC: [place] U#:[id number] AGE/SX: 77/F ROOM: RE07/13/[address]: Dr. Oliverio Vega MD : 1945 BED: DIS: 07/13/2023 SPEC #: [id number] RECD: 07/13/23 10:00 STATUS: PROMISE REAnnie #: [id number] SURI: 07/13/23 00:[address]: Oliverio Vega DEPT: SURGICAL PATHOLOGY RECD BY: Zoila Brownlee ENTERED: 07/13/23 10:42 SP TYPE: ASP RAD OTHR DR: Dr. Jerson Vigil MD Tissues: Lung, NOS Procedures: FNA Specimen Adequacy Special Stain Group II Surgery Specimen Level IV Imprint (control) HEADER OPERATION: CT-guided lung biopsy PRE-OP DIAGNOSIS: Left lung nodule TISSUE SUBMITTED: Left lung 20-gauge x4 MICROSCOPIC DIAGNOSIS Left lung, CT-guided core biopsy: Non-small cell carcinoma, favor squamous cell carcinoma. CUBA:mariann 07/14/2023 COMMENT The specimen is evaluated at the time of biopsy by Dr. Live. Immediate Evaluation = Malignant cells present derived from non-small cell carcinoma. The specimen also shows extensive fibrosis. Immunohistochemistry ([id number]) supports the above diagnosis. Molecular studies on the tumor can be performed if clinically indicated. Please notify the laboratory if they are needed. Please also make reference to previous specimen [id number], right lung nodule, CT guide core biopsy with a diagnosis of non-small cell carcinoma, favor squamous cell carcinoma . Case has been reviewed in consultation with Dr. Gonzalez who concurs with the above diagnosis. IDC:AM MICROSCOPIC DESCRIPTION Slides are reviewed. GROSS DESCRIPTION Received in fixative is one container labeled with the patient's name and designated left lung. The specimen consists of multiple irregular fragments of olguin soft tissue that in aggregate measure 1.0 x 0.1 x 0.1 cm. The specimen is totally submitted in one cassette. Two touch imprints are prepared at the time of core biopsy. / CUBA:mariann 07/13/2023 TC:0 CPT: 95037, 92288
--- NOTE | 2023-07-13 | IMM_PTH ---
PATHOLOGY RESULTS PATIENT: FAITH GOMEZ LOC: CT U#:[id number] AGE/SX: 77/F ROOM: RE07/13/[address]: Dr. Oliverio Vega MD : 1945 BED: DIS: 07/13/2023 SPEC #: [id number] RECD: 07/13/23 11:17 STATUS: PROMISE REQ #: [id number] SURI: 07/13/23 00:[address]: Oliverio Vega DEPT: IMMUNOHISTOCHEMISTRY RECD BY: Yolanda Hicks ENTERED: 07/13/23 11:24 SP TYPE: IMMUNO OTHR DR: Dr. Jerson Vigil MD Tissues: Lung, NOS Procedures: RCC (add) NAPSIN A (add) CK20 (add) CK5-6 (add) CK7 (add) CK8 (add) HEP PAR (add) FL (add) TTF1 (add) Pankeratin (add) P40 (add) ER (initial) PHYSICIAN & INSTITUTION [address] [address] SPECIMEN INFORMATION: Tissue Source: Left upper lobe lung Clinical Info: Left lung nodule Specimen Number: [id number] CPT code: 93018, 69417 x11 METHODOLOGY: Deparaffinized sections of prefer/formalin-fixed tissue or PAP/DQ stained slides are incubated with monoclonal/polyclonal antibodies/oligonucleotide probes. Localization is made via biotin free immunoperoxidase method. Appropriate controls are performed and reacted as expected. Results on target cell population are indicated in the following table: RESULTS: ANTIBODY / CLONE RESULT ER (6F11) negative FL (1E2) negative AE1-3 (AE1/AE3/PCK26) positive CK7 (OV-TL12/30) negative CK8 (44wsncR30) positive, focal and weak CK20 (KS20.8) negative TTF-1 (8G7G3/1) negative Napsin A (Rabbit Polyclonal) negative HepPar (OCh1E5) negative RCC (PN-15) negative CK5-6 (D5 & 1684) positive P40 (BC28) positive These tests were developed and their performance characteristics determined by [facility]. They may not have been cleared or approved by the U.S. Food and Drug Administration. The FDA has determined that such clearance or approval is not necessary. The above immunohistochemical/dualISH markers are ordered and reviewed by the Pathologist. INTERPRETATION: Left upper lobe lung, CT-guided core biopsy: Non-small cell carcinoma, favor squamous cell carcinoma. SJ:mariann 07/14/2023
[2023-07-13 08:02] LABS: Absolute Lymphocyte Count 1.26 X10^3/uL (0.83-4.51); Absolute Neutrophil Count 5.5 X10^3/uL (2.0-7.7); Basophil# 0.05 X10^3/uL; Basophil% 0.6 % (0-1); Eosinophil# 0.24 X10^3/uL; Eosinophils% 3.1 % (0-5); Hematocrit 30.6 % (37-47); Hemoglobin 8.8 g/dL (12.0-15.0); Lymphocyte # 1.26 X10^3/ul (0.83-4.51); Lymphocyte % 16.1 % (19-41); Mean Corp Hgb Conc 28.8 g/dL (32-36); Mean Corpuscular Hgb 22.9 pg (27.0-32.0); Mean Corpuscular Volume 79.7 fL (81-99); Mean Platelet Vol. 10.8 fl (6.2-12.0); Monocyte# 0.77 X10^3/uL; Monocyte% 9.8 % (0-10); NRBC Flagged by Analyzer 0 % (0-5); Platelet Count 288 K/mm3 (150-450); RBC Distribution Width CV 16.7 % (11.6-14.6); RBC Distribution Width SD 47.3 fl (35.1-43.9); Red Blood Count 3.84 M/mm3 (4.2-5.4); White Blood Count 7.9 K/mm3 (4.4-11.0)
[2023-07-13 08:22] LABS: AST(SGOT) 25 U/L (15-37); Alanine Aminotransfer ALT/SGPT 24 U/L (13-56); Albumin, Serum 3.3 g/dL (3.2-5.0); Alkaline Phosphatase 127 U/L (45-117); Anion Gap 3 (5-15); BUN 14 mg/dL (7-18); BUN/Creat Ratio 11.7 RATIO (10-20); Calcium,Total 9.4 mg/dL (8.5-10.1); Chloride 114 mmol/L (98-107); EST Glomerular Filtration Rate 46 mL/min (>60); Est Glom Filt Rate - Afr Amer 56 mL/min (>60); Globulin 3.2 g/dL (2.2-4.2); Glucose 106 mg/dL (74-106); LDH 193 U/L (84-246); Magnesium 2.2 mg/dL (1.6-2.6); Phosphorus 3.1 mg/dL (2.5-4.9); Potassium 3.5 mmol/L (3.5-5.1); Protein, Total 6.5 g/dL (6.4-8.2); Sodium Level 144 mmol/L (136-145)
[2023-07-13 08:29] LABS: International Normalized Ratio 1.1; Prothrombin Time (Protime)PT. 14.5 SECONDS (11.7-14.9)
[2023-07-13 08:30] LABS: Partial Thromboplast Time 30.6 Seconds (24.1-36.2)
[2023-07-13 08:36] LABS: Cholesterol 121 mg/dL (200); High Density Lipoprotein 75 mg/dL; Triglycerides 54 mg/dL; Very Low Density Lipoprotein 11 mg/dL (5-40)
[2023-07-13] MEDS: 0.9% Normal Saline (250mL Bag) 250 ML 15 ML IV (09:16)
[2023-07-13] MEDS: fentaNYL 100 MCG/2 ML Ampul IV (09:19)
[2023-07-13] MEDS: Midazolam 2 MG/2 ML Syringe IV ×2 (09:19→09:29)
[2023-07-13] MEDS: Lidocaine 2% (20 ml mdv) 20 ML Vial INFILT (09:30)
--- NOTE | 2023-07-13 09:51 | PRO.PCM_ITS ---
Procedure Report Date of Procedure: 07/13/23 Assessment & Plan Assessment/Plan (1) Left upper lobe pulmonary nodule: PLAN: PROCEDURE: CT GUIDED CORE NEEDLE LUNG BIOPSY ORDERING PROVIDER: Dr. Vega INDICATION: Female, 77 years old. Left upper lobe nodule. PROVIDER: CARTER Steele CONSENT: Written informed consent was obtained having explained the risks, benefits and alternatives in detail with the patient who accepted the risks and agreed to proceed. Laboratory review and clinical assessment was performed. PRE-PROCEDURE SEDATION ASSESSMENT: Current history and physical dictated by referring physician and reviewed. No clinical changes since date of exam. Patient has an ASA Class of 1. PROCEDURAL SEDATION PROTOCOL: The Drugs used were: 2 mg Versed, IV, and 50 mcg Fentanyl, IV. The sedation time was: 23 minutes, starting at 9:19 AM and terminated at 9:42 AM. The procedural sedation protocol was independently monitored by the department nurse. RADIATION DOSAGE (If Supplied By Facility): CTDIvol = 16.38 mGy, DLP = 203.50 mGycm Individualized dose optimization techniques were used for this CT. TECHNIQUE: The patient was placed in a supine position. A noncontrast CT was performed to localize the lesion in the left upper lobe. The skin surface was prepped and draped in a sterile fashion. 2% lidocaine was used for local anesthesia. Using CT guidance, a 20-gauge coaxial biopsy device was advanced to the periphe ry of the lesion. A total of 4 core specimens were obtained. Specimens were microscopically reviewed by pathology in the CT suite and placed in formalin solution. BioSentry tract sealant system was deployed at the biopsy site, and the biopsy needle was removed. A sterile occlusive dressing was applied to the biopsy site. The patient tolerated the procedure well. An immediate chest xray was ordered, per protocol. A negative biopsy does not exclude malignancy. Further imaging or clinical followup based on patient condition and degree of clinical suspicion for malignancy. Suggest rebiopsy, if biopsy results do not match with clinical scenario. IMPRESSION: 1. CT directed core needle biopsy of left upper lobe nodule using CT image guidance with image documentation as described. Pathology results are pending. 2. Procedural Sedation protocol utilized with independent monitoring by the department nurse. Procedures Radiology Radiology CT Procedures: 02001 Biopsy Lung
--- NOTE | 2023-07-13 09:55 | RAD_ITS ---
STUDY: X-RAY CHEST REASON FOR EXAM: Female, 77 years old. Post lung biopsy -- Immediately post lung biopsy TECHNIQUE: AP inspiration and expiration views. COMPARISON: Comparison is made with prior study dated June 16, 2023. FINDINGS: The patient is status post left lung biopsy. No evidence of pneumothorax on the immediate post left lung biopsy radiographs. RAD/Chest Insp/Exp 2 View IMPRESSION: No evidence of pneumothorax on the immediate post left lung biopsy radiographs. Electronically Signed: Rhett Brandon MD at 10:10 EST ,
--- NOTE | 2023-07-13 11:55 | RAD_ITS ---
STUDY: X-RAY CHEST REASON FOR EXAM: Female, 77 years old. 2 hr post lung biopsy -- 2 hours post lung biopsy TECHNIQUE: AP inspiration and expiration views. COMPARISON: Comparison is made with prior study done earlier in the day. FINDINGS: EKG electrodes are seen. There is no evidence of pneumothorax on the two-hour post left lung biopsy radiographs. RAD/Chest Insp/Exp 2 View IMPRESSION: No evidence of pneumothorax on the 2 hour post left lung biopsy radiographs. Electronically Signed: Rhett Brandon MD at 15:18 EST ,
== END | disposition home or self-care (01) ==
PROVIDERS: Internal Medicine Cardiovascular Disease; PCP Family Medicine; Referring Provider Internal Medicine Medical Oncology; Visit Provider Internal Medicine Medical Oncology
DX: C34.92 Malignant neoplasm of unspecified part of left bronchus or lung (principal); C34.91 Malignant neoplasm of unspecified part of right bronchus or lung; R91.1 Solitary pulmonary nodule; Z85.3 Personal history of malignant neoplasm of breast; I25.10 Atherosclerotic heart disease of native coronary artery without angina pectoris; E78.00 Pure hypercholesterolemia, unspecified; I10 Essential (primary) hypertension
CPT/HCPCS: 32408; 36415; 71046; 77012; 80053; 80061; 83615; 83735; 84100; 85025; 85610; 85730; 88172; 88305; 88313; 88341; 88342; 99156; J7050

== ENCOUNTER 2023-07-31 15:41 | Outpatient (RCR) | payer MEDICARE, SELFPAY | END 2023-08-10 23:59 | LOC: NS 15:41 | PROVIDERS: PCP Family Medicine; Visit Provider Internal Medicine Medical Oncology | DX: Z71.3 Dietary counseling and surveillance (principal) ==

== ENCOUNTER → 2023-09-05 | Outpatient (CLI) | payer MEDICARE, SELFPAY | END | disposition home or self-care (01) | LOC: LABSPEC 16:35 | PROVIDERS: PCP Family Medicine; Referring Provider Internal Medicine Medical Oncology; Visit Provider Internal Medicine Medical Oncology | DX: D64.9 Anemia, unspecified (principal) | CPT/HCPCS: 82274 ==

== ENCOUNTER 2023-09-20 13:07 | Day surgery (SDC) | payer MEDICARE, SELFPAY ==
[2023-09-20] VITALS (8 sets, daily range): BP systolic 102–150; BP diastolic 50–66; PULSE 78–90; RESP 16–18; TEMP 36.1–36.8; O2SAT 92–100
--- NOTE | 2023-09-20 13:17 | PCM.HP.BLA ---
History and Physical Date of Admission: 09/20/23 Date of Service: 09/14/23 MR#: [id number] Acct: [id number] Name: FAITH GOMEZ Rep #: [id number] : 1945 Provider: Dr. Madison Florez MD Age/Sex: 78/F Location: [facility] Status: Signed Intake Vital Signs 09/07/2407:29 09/13/2412:45 Height 5 ft 2 in 5 ft 2 in Weight: 167 lb 5 oz 164 lb BMI 30.6 29.9 BP 146/76 H 148/82 H Blood Pressure Location Lt brachial Lt brachial Position Sitting Sitting Respiration 18 17 Pulse 94 89 Pulse Source Monitor Monitor Temp 97.8 F Pulse Oximetry (%) 98 93 Oxygen Delivery Method room air room air Intake Visit Reasons: Esophagogastroduodenoscopy Chief Complaint: egd/c-scope Is patient in pain?: No Allergies Penicillins Allergy (Verified 09/14/23 13:46) localized swelling at injection siteSulfa (Sulfonamide Antibiotics) Allergy (Verified 09/14/23 13:46) Hives Medications bupropion HCl 300 mg 24 hr tablet, extended release 300 mg PO DAILY 09/20/18 [History Confirmed 09/14/23] omeprazole 20 mg capsule,delayed release 20 mg PO DAILY 10/05/18 [History Confirmed 09/14/23] aspirin 81 mg tablet,delayed release 81 mg PO DAILY@0800 #90 tabs 01/03/19 [Rx Confirmed 09/14/23] vitamin B complex (B Complex-Vitamin B12 tablet) 1 tab PO DAILY 07/04/19 [History Confirmed 09/14/23] furosemide 40 mg tablet 40 mg PO DAILY PRN edema #90 tabs 01/04/22 [Rx Confirmed 09/14/23] atorvastatin 80 mg tablet 80 mg PO QHS #90 tabs 08/31/22 [Rx Confirmed 09/14/23] clopidogrel 75 mg tablet (Plavix) 75 mg PO DAILY #90 tabs 08/31/22 [Rx Confirmed 09/14/23] losartan 25 mg tablet 12.5 mg (1/2 x 25 mg) PO DAILY #45 tabs 08/31/22 [Rx Confirmed 09/14/23] metoprolol tartrate 25 mg tablet 25 mg PO BID #180 tabs 01/04/23 [Rx Confirmed 09/14/23] albuterol sulfate 90 mcg/actuation aerosol inhaler (ProAir HFA) 2 inh inhalation Q6H PRN sob 04/15/23 [History Confirmed 09/14/23] cholecalciferol (vitamin D3) 50 mcg (2,000 unit) capsule 50 mcg PO DAILY 07/04/23 [History Confirmed 09/14/23] PFSH Medical History Arthritis Atherosclerotic heart disease of [place] coronary artery without angina pectoris COPD (chronic obstructive pulmonary disease) Coronary artery disease Depression Essential (primary) hypertension Former smoker GERD (gastroesophageal reflux disease) History of breast cancer History of ST elevation myocardial infarction (STEMI) (09/20/18) Left bundle branch block Lung nodule, solitary Obesity Pseudoaneurysm following procedure (09/20/18) Wears dentures Wears glasses Wears hearing aid Surgical History H/O partial thyroidectomy History of coronary artery stent placement (09/20/18) History of left mastectomy History of tonsillectomy Family History Father CAD (coronary artery disease) Myocardial infarctionMother Hypertension Social History Smoking Status: Former smoker HPI HPI HPI: 70-year-old female presents for EGD and colonoscopy due to anemia. Patient's last colonoscopy was in 2019 per patient she had a couple polyps at that time. Patient states she has bowel movements about every other day denies any blood or black stools. Patient denies any chronic abdominal pain/nausea/vomiting/reflux. Patient denies any family history of colon cancer. Patient did have a cardiac stent placed in 2019 is currently on aspirin and Plavix daily. Patient's hemoglobin is currently 7.7 from 8.8 at the beginning of July 2023. Patient is currently on omeprazole 20 mg p.o. daily as well. ROS General General: Yes weight change, fatigue and breast cancer; No appetite, colon cancer or weakness HEENT HEENT: Yes eye surgery; No difficulty swallowing, eye injury, swollen glands or hoarseness Endo Endocrine: Yes thyroid disease; No diabetes mellitus, thyroid cancer, Hair loss, heat intolerance or cold intolerance Skin Skin: Yes rash and changing moles Musc Musculoskeletal: Yes back problems and arthritis; No rheumatoid arthritis, gout or joint pain Cardio Cardiovascular: Yes heart disease, heart attack and heart stent; No murmur, pacemaker, atrial fibrillation, high blood pressure, palpitations, shortness of breat with exertion or chest pain Psych Psychiatric: Yes depression; No anxiety or hearing voices Resp Respiratory: Yes shortness of breath, No sleep apnea, No cough, Yes COPD, No asthma, No emphysema and No wheezing Gastro Gastrointestinal: No abdominal pain, No nausea or vomiting, No diarrhea, No constipation, Yes blood in stool, Yes acid reflux, Yes hemorrhoids, No ulcers, No gallbladder problem and No black,tarry stools [place] Hematologic: Yes blood thinners, No blood disorders, Yes bleeding, Yes anemia and No blood clots Neuro Neurologic: No system reviewed and no additional complaints, except as documented, No as per HPI, No abnormal gait, No abnormal hearing, No abnormal movements, No abnormal speech, No behavioral changes, No burning sensations, No confusion, No convulsions, No disequilibrium, No dizziness, No localized weakness, No frequent falls, No headache(s), No lack of coordination, No loss of vision, No memory loss, No numbness, No other visual disturbances, No radicular pain, No restless legs, No sensory deficit, No syncope, No tingling, No tremor(s), No weakness and No other Exam Const General: cooperative, healthy appearing, comfortable and no acute distress [facility] Head: normocephalic and atraumatic Neck Neck: supple Resp Effort & Inspection: normal respiratory effort Cardio Rate: regular rate GI Inspection: non-distended Palpation: soft and nontender Skin General: no rashes or lesions noted Neuro General: CN's II-XI intact bilaterally Extrem General: normal to inspection Psych Mental Status: mental status grossly normal Attitude: cooperative Assessment and Plan Assessment and Plan (1) Iron deficiency anemia: Status: Acute Qualifiers: Iron deficiency anemia type: chronic blood loss Qualified Code(s): D50.0 - Iron deficiency anemia secondary to blood loss (chronic) (2) Positive occult stool blood test: Status: Acute (3) Squamous cell carcinoma of right lung: Status: Acute Comment: R upper lobe nodule 2cm with hypermetabolic activity-cT1c cN0. CT guided biopsy shows NSCLC-squamous cell type. Received SBRT 08/14/2023 to 08/23/2023 (4) Squamous cell carcinoma of left lung: Status: Acute Comment: Stage I(cT1 cN0 M0). Received SBRT 08/14/2023 to 08/23/2023. Plan Discussed with patient we will have her hold her Plavix for 5 days okay to stay on the baby aspirin. I have discussed the above with the patient. I have offered the patient esophagogastroduodenoscopy and colonoscopy for evaluation. I have explained the risks/benefits of the procedure and described the procedure. I have discussed the risks with the patient, including but not limited to: infection, bleeding, perforation of the GI tract requiring emergency surgery, inability to complete the procedure, injury to any internal organs, complications of anesthesia, etc. - the patient understands and agrees to proceed. I have answered all the patient's questions to the patient's satisfaction and the patient has no further questions. The patient has been given instructions for the colon cleansing preparation. 1 day of clears, MiraLAX Dulcolax prep. Madison Florez M.D. Pager: [phone] [facility] [address] [place] [address], [address] [place] [address] Office: [phone] Coding Level of Care Code Off vis,new,level 3 Diagnoses Iron deficiency anemia due to chronic blood loss D50.0 Iron deficiency anemia type: chronic blood loss Positive occult stool blood test R19.5 Squamous cell carcinoma of right lung C34.91 Squamous cell carcinoma of left lung C34.92 09/15/23 1224 <Electronically signed by Madison Florez MD> Date Madison Florez MD
[2023-09-20] MEDS: Lactated Ringers 1,000 ML 15 ML IV (13:50)
--- NOTE | 2023-09-20 14:30 | EGD_PTH ---
PATIENT: FAITH GOMEZ LOC: EN U#:[id number] AGE/SX: 78/F ROOM: RE09/20/[address]: Dr. Madison Florez MD : 1945 BED: DIS: 09/20/2023 SPEC #: [id number] RECD: 09/20/23 17:46 STATUS: PROMISE REAnnie #: [id number] SURI: 09/20/23 14:[address]: Madison Florez DEPT: SURGICAL PATHOLOGY RECD BY: Zoila Brownlee ENTERED: 09/21/23 12:01 SP TYPE: EGD BIOPSY OT DR: Dr. Jerson Vigil MD Tissues: A - Gastric mucous membrane B - Ascending colon Procedures: Surgery Specimen Level IV HEADER OPERATION: Colonoscopy, EGD biopsy, Polypectomy PRE-OP DIAGNOSIS: Iron deficiency anemia, Positive occult stool blood test, Squamous cell carcinoma of right lung, Squamous cell carcinoma of left lung TISSUE SUBMITTED: A- Antrum biopsy, B- Ascending colon mass MICROSCOPIC DIAGNOSIS A. Gastric antrum, biopsy: Chronic gastritis. B. 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 / 09/22/23 COMMENT A. The results of immunohistochemistry for Helicobacter pylori will be reported separately ([id number]). B. Immunohistochemistry ([id number]) supports the above diagnosis. Case has been reviewed in consultation with Dr. Live who concurs with the above diagnosis. IDC:[id number] MICROSCOPIC DESCRIPTION Slides are reviewed. GROSS DESCRIPTION A. Received in fixative is one container labeled with the patient's name and designated Antrum biopsy. The specimen consists of one irregular fragment of light olguin soft tissue that measures 0.3 x 0.3 x 0.1 cm. The specimen is totally submitted in one cassette. B. Received in fixative is one container labeled with the patient's name and designated Ascending colon mass. The specimen consists of multiple polypoid fragments measuring in aggregate 2.5 x 2.0 x 0.3cm. The entire specimen is submitted in one cassette. / 09/21/23 TC:0 CPT: 02883t8
--- NOTE | 2023-09-20 14:30 | IMM_PTH ---
PATIENT: FAITH GOMEZ LOC: EN U#:[id number] AGE/SX: 78/F ROOM: RE09/20/[address]: Dr. Madison Florez MD : 1945 BED: DIS: 09/20/2023 SPEC #: [id number] RECD: 09/21/23 09:05 STATUS: PROMISE REQ #: [id number] SURI: 09/20/23 14:[address]: Madison Florez DEPT: IMMUNOHISTOCHEMISTRY RECD BY: Scott White ENTERED: 09/21/23 09:06 SP TYPE: IMMUNO OTHR DR: Dr. Jerson Vigil MD Tissues: A - Stomach, NOS Procedures: H Pylori (initial) PHYSICIAN & INSTITUTION [place] [address] SPECIMEN INFORMATION: Tissue Source: A- Antrum biopsy Clinical Info: Iron deficiency anemia, Positive occult stool blood test, Squamous cell carcinoma of right lung, Squamous cell carcinoma of left lung Specimen Number: [id number], B CPT code: 63026 METHODOLOGY: Deparaffinized sections of prefer/formalin-fixed tissue or PAP/DQ stained slides are incubated with monoclonal/polyclonal antibodies/oligonucleotide probes. Localization is made via biotin free immunoperoxidase method. Appropriate controls are performed and reacted as expected. Results on target cell population are indicated in the following table: RESULTS: ANTIBODY / CLONE RESULT Block A H Pylori (polyclonal) negative Block B MLH1 (M1) negative MSH2 (25D12) positive MSH6 (44) positive PMS2 (IIE0007) positive Ki-67 (30-9) positive, >95% P53 (DO-7) positive, wild type MOC-31 (4561) positive CK20 (KS20.8) positive CK7 (OV-TL12/30) negative These tests were developed and their performance characteristics determined by [facility]. They may not have been cleared or approved by the U.S. Food and Drug Administration. The FDA has determined that such clearance or approval is not necessary. The above immunohistochemical/dualISH markers are ordered and reviewed by the Pathologist. INTERPRETATION: A. Antrum, biopsy: Negative for Helicobacter pylori organisms. B. Ascending colon mass: Invasive adenocarcinoma. Result of Microsatellite Instability Study: Positive (loss of mismatch protein; microsatellite instability detected). 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
--- NOTE | 2023-09-20 14:30 | IMM_PTH ---
PATIENT: FAITH GOMEZ LOC: EN U#:[id number] AGE/SX: 78/F ROOM: RE09/20/[address]: Dr. Madison Florez MD : 1945 BED: DIS: 09/20/2023 SPEC #: [id number] RECD: 09/21/23 09:05 STATUS: PROMISE REQ #: [id number] SURI: 09/20/23 14:[address]: Madison Florez DEPT: IMMUNOHISTOCHEMISTRY RECD BY: Scott White ENTERED: 09/21/23 09:06 SP TYPE: IMMUNO OTHR DR: Dr. Jerson Vigli MD Tissues: A - Stomach, NOS Procedures: H Pylori (initial) PHYSICIAN & INSTITUTION [place] [address] SPECIMEN INFORMATION: Tissue Source: A- Antrum biopsy Clinical Info: Iron deficiency anemia, Positive occult stool blood test, Squamous cell carcinoma of right lung, Squamous cell carcinoma of left lung Specimen Number: [id number] CPT code: 58174 METHODOLOGY: Deparaffinized sections of prefer/formalin-fixed tissue or PAP/DQ stained slides are incubated with monoclonal/polyclonal antibodies/oligonucleotide probes. Localization is made via biotin free immunoperoxidase method. Appropriate controls are performed and reacted as expected. Results on target cell population are indicated in the following table: RESULTS: ANTIBODY / CLONE RESULT Block A H Pylori (polyclonal) negative Block B MLH1 (M1) MSH2 (25D12) MSH6 (44) PMS2 (TDM0797) Ki-67 (30-9) P53 (DO-7) Her-2neu (CB11) MOC-31 (4561) CK20 (KS20.8) CK7 (OV-TL12/30) These tests were developed and their performance characteristics determined by [facility]. They may not have been cleared or approved by the U.S. Food and Drug Administration. The FDA has determined that such clearance or approval is not necessary. The above immunohistochemical/dualISH markers are ordered and reviewed by the Pathologist. INTERPRETATION: A. Antrum, biopsy: Negative for Helicobacter pylori organisms. LOYD/ 09/22/23
--- NOTE | 2023-09-20 15:33 | OP.EGD_ITS ---
Patient Name: Ania Parks Procedure Date: 09/20/2023 2:02 PM Date of : 1945 Age: 78 Procedure: Upper GI endoscopy Indications: Iron deficiency anemia Providers: Madison Florez MD Medicines: Monitored Anesthesia Care Patient Profile: This is a 78 year old female. Complications: No immediate complications. Procedure: Pre-Anesthesia Assessment: - Prior to the procedure, a History and Physical was performed, and patient medications and allergies were reviewed. The patient's tolerance of previous anesthesia was also reviewed. The risks and benefits of the procedure and the sedation options and risks were discussed with the patient. All questions were answered, and informed consent was obtained. Prior Anticoagulants: The patient has taken Plavix (clopidogrel), last dose was 5 days prior to procedure. ASA Grade Assessment: Per anesthesia. After reviewing the risks and benefits, the patient was deemed in satisfactory condition to undergo the procedure. After obtaining informed consent, the endoscope was passed under direct vision. Throughout the procedure, the patient's blood pressure, pulse, and oxygen saturations were monitored continuously. The colonoscope was introduced through the mouth, and advanced to the second part of duodenum. The upper GI endoscopy was accomplished without difficulty. The patient tolerated the procedure well. Scope In: 2:09:03 PM Scope Out: 2:13:56 PM Total Procedure Duration Time 0 hours 4 minutes 53 seconds Findings: The Z-line was variable and was found 40 cm from the incisors. Diffuse moderately erythematous mucosa without bleeding was found in the gastric antrum. Biopsies were taken with a cold forceps for histology. Biopsies were taken with a cold forceps for Helicobacter pylori cultures. The cardia and gastric fundus were normal on retroflexion. Impression: - Z-line variable, 40 cm from the incisors. - Erythematous mucosa in the antrum. Biopsied. Recommendation: - Await pathology results. - Discharge patient to home. - Use Prilosec (omeprazole) 40 mg PO daily. - Continue present medications. - Resume Plavix (clopidogrel) at prior dose in 2 days. Procedure Code(s): --- Professional --- 62925, Esophagogastroduodenoscopy, flexible, transoral; with biopsy, single or multiple Diagnosis Code(s): --- Professional --- K22.89, Other specified disease of esophagus K31.89, Other diseases of stomach and duodenum D50.9, Iron deficiency anemia, unspecified CPT copyright 2021 [employer]. All rights reserved. The codes documented in this report are preliminary and upon supervisor plate forming review may be revised to meet current compliance requirements. MD Madison Hawk MD 09/20/2023 3:33:31 PM This report has been signed electronically. Number of Addenda: 0 Note Initiated On: 09/20/2023 2:02 PM
--- NOTE | 2023-09-20 15:34 | OP.CCLET_ITS ---
09/20/2023 Jerson Vigil MD [address] [place] [address] Re : Upper GI endoscopy procedure for Ania [facility] Dear Dr. Vigil This procedure was performed on Wednesday, September 20, 2023. My impressions and recommendations are as follows: Impressions : - Z-line variable, 40 cm from the incisors. - Erythematous mucosa in the antrum. Biopsied. Recommendations : - Await pathology results. - Discharge patient to home. - Use Prilosec (omeprazole) 40 mg PO daily. - Continue present medications. - Resume Plavix (clopidogrel) at prior dose in 2 days. My findings are described in the full procedure note, which is enclosed. If I can be of further assistance, please feel free to contact me at Doctor phone number(s): , Work: . Sincerely, MD Madison Hawk MD 09/20/2023 3:33:31 PM This report has been signed electronically.
--- NOTE | 2023-09-20 15:40 | OP.COLON_ITS ---
Patient Name: Ania Parks Procedure Date: 09/20/2023 2:14 PM Date of : 1945 Age: 78 Procedure: Colonoscopy Indications: Iron deficiency anemia Providers: Madison Florez MD Medicines: Monitored Anesthesia Care Patient Profile: This is a 78 year old female. Last Colonoscopy: December 2019. Complications: No immediate complications. Procedure: Pre-Anesthesia Assessment: - Prior to the procedure, a History and Physical was performed, and patient medications and allergies were reviewed. The patient's tolerance of previous anesthesia was also reviewed. The risks and benefits of the procedure and the sedation options and risks were discussed with the patient. All questions were answered, and informed consent was obtained. Prior Anticoagulants: The patient has taken Plavix (clopidogrel), last dose was 5 days prior to procedure. ASA Grade Assessment: Per anesthesia. After reviewing the risks and benefits, the patient was deemed in satisfactory condition to undergo the procedure. After I obtained informed consent, the scope was passed under direct vision. Throughout the procedure, the patient's blood pressure, pulse, and oxygen saturations were monitored continuously. The colonoscope was introduced through the anus and advanced to the cecum, identified by the appendiceal orifice, ileocecal valve and palpation. The colonoscopy was technically difficult and complex due to a tortuous colon. The patient tolerated the procedure well. The quality of the bowel preparation was good. Scope In: 2:15:29 PM Scope Withdrawal Time 0 hours 37 minutes 49 seconds Scope Out: 3:22:09 PM Total Procedure Duration Time 1 hour 6 minutes 40 seconds Findings: The perianal and digital rectal examinations were normal. A 22 to 25 mm polyp was found in the ascending colon. The polyp was multi-lobulated. The polyp was removed with a piecemeal technique using a hot snare. Resection and retrieval were complete. Area was tattooed with an injection of Palma ink at/just distal to polyp site. R/o malignancy, small amount of oozing Multiple small-mouthed diverticula were found in the sigmoid colon and descending colon. The exam was otherwise without abnormality. Impression: - One 22 to 25 mm polyp in the ascending colon, removed piecemeal using a hot snare. Resected and retrieved. Tattooed. - Diverticulosis in the sigmoid colon and in the descending colon. - The examination was otherwise normal. Recommendation: - Discharge patient to home. - Resume previous diet. - Resume Plavix (clopidogrel) at prior dose in 2 days. - Await pathology results. - Repeat colonoscopy is recommended for surveillance after piecemeal polypectomy. The colonoscopy date will be determined after pathology results from today's exam become available for review. Procedure Code(s): --- Professional --- 97096, Colonoscopy, flexible; with removal of tumor(s), polyp(s), or other lesion(s) by snare technique 71849, Colonoscopy, flexible; with directed submucosal injection(s), any substance Diagnosis Code(s): --- Professional --- D12.2, Benign neoplasm of ascending colon D50.9, Iron deficiency anemia, unspecified K57.30, Diverticulosis of large intestine without perforation or abscess without bleeding CPT copyright 2021 [employer]. All rights reserved. The codes documented in this report are preliminary and upon professional fee coder review may be revised to meet current compliance requirements. MD Madison Hawk MD 09/20/2023 3:40:44 PM This report has been signed electronically. Number of Addenda: 0 Note Initiated On: 09/20/2023 2:14 PM
--- NOTE | 2023-09-20 15:41 | OP.CCLET_ITS ---
09/20/2023 Jerson Vigil MD [address] [place] [id number] Re : Colonoscopy procedure for Ania Parks Dear Dr. Vigil This procedure was performed on Wednesday, September 20, 2023. My impressions and recommendations are as follows: Impressions : - One 22 to 25 mm polyp in the ascending colon, removed piecemeal using a hot snare. Resected and retrieved. Tattooed. - Diverticulosis in the sigmoid colon and in the descending colon. - The examination was otherwise normal. Recommendations : - Discharge patient to home. - Resume previous diet. - Resume Plavix (clopidogrel) at prior dose in 2 days. - Await pathology results. - Repeat colonoscopy is recommended for surveillance after piecemeal polypectomy. The colonoscopy date will be determined after pathology results from today's exam become available for review. My findings are described in the full procedure note, which is enclosed. If I can be of further assistance, please feel free to contact me at Doctor phone number(s): , Work: . Sincerely, MD Madison Hawk MD 09/20/2023 3:40:44 PM This report has been signed electronically.
== END 2023-09-20 17:13 | disposition home or self-care (01) ==
LOC: EN 13:07 → AC 13:09
PROVIDERS: PCP Family Medicine; Referring Provider Family Medicine; Visit Provider Surgery
PROC: 0DJD8ZZ Inspection of Lower Intestinal Tract, Via Natural or Artificial Opening Endoscopic (ICD-10-PCS; CPT 45378; principal; 2023-09-20 14:25)
DX: C18.2 Malignant neoplasm of ascending colon (principal); C34.92 Malignant neoplasm of unspecified part of left bronchus or lung; C34.91 Malignant neoplasm of unspecified part of right bronchus or lung; J44.9 Chronic obstructive pulmonary disease, unspecified; D50.0 Iron deficiency anemia secondary to blood loss (chronic); I10 Essential (primary) hypertension; Z87.891 Personal history of nicotine dependence; I25.10 Atherosclerotic heart disease of native coronary artery without angina pectoris; R19.5 Other fecal abnormalities; K57.30 Diverticulosis of large intestine without perforation or abscess without bleeding; K21.9 Gastro-esophageal reflux disease without esophagitis; Z79.82 Long term (current) use of aspirin; Z79.02 Long term (current) use of antithrombotics/antiplatelets; Z79.01 Long term (current) use of anticoagulants; K29.50 Unspecified chronic gastritis without bleeding; E78.00 Pure hypercholesterolemia, unspecified; Z79.899 Other long term (current) drug therapy
CPT/HCPCS: 43239; 45381; 45385; 88305; 88342; J7120; A4648; J2405

== ENCOUNTER → 2023-10-06 | Outpatient (CLI) | payer MEDICARE, SELFPAY ==
[2023-10-06 10:36] LABS: Absolute Lymphocyte Count 1.06 X10^3/uL (0.83-4.51); Absolute Neutrophil Count 4.3 X10^3/uL (2.0-7.7); Basophil# 0.04 X10^3/uL; Basophil% 0.6 % (0-1); Eosinophil# 0.15 X10^3/uL; Eosinophils% 2.3 % (0-5); Hematocrit 33.5 % (37-47); Hemoglobin 9.5 g/dL (12.0-15.0); Lymphocyte # 1.06 X10^3/ul (0.83-4.51); Lymphocyte % 16.4 % (19-41); Mean Corp Hgb Conc 28.4 g/dL (32-36); Mean Corpuscular Hgb 23.7 pg (27.0-32.0); Mean Corpuscular Volume 83.5 fL (81-99); Mean Platelet Vol. 9.6 fl (6.2-12.0); Monocyte# 0.87 X10^3/uL; Monocyte% 13.4 % (0-10); NRBC Flagged by Analyzer 0 % (0-5); Neutrophil # 4.32 X10^3/uL (2.7-7.7); Neutrophil % 66.8 % (47-70); POSITIVE MORPHOLOGY YES; Platelet Count 224 K/mm3 (150-450); RBC Distribution Width CV 28.4 % (11.6-14.6); RBC Distribution Width SD 83.2 fl (35.1-43.9); Red Blood Count 4.01 M/mm3 (4.2-5.4); White Blood Count 6.5 K/mm3 (4.4-11.0)
[2023-10-06 10:43] LABS: Differential Indicated SCAN CRITERIA MET
[2023-10-06 11:09] LABS: AST(SGOT) 41 U/L (15-37); Alanine Aminotransfer ALT/SGPT 30 U/L (13-56); Albumin, Serum 3.3 g/dL (3.2-5.0); Alkaline Phosphatase 134 U/L (45-117); Anion Gap 3 (5-15); BUN 14 mg/dL (7-18); BUN/Creat Ratio 13.2 RATIO (10-20); Calcium,Total 9.1 mg/dL (8.5-10.1); Chloride 111 mmol/L (98-107); Creatinine, Serum 1.06 mg/dL (0.55-1.02); EST Glomerular Filtration Rate 53 mL/min (>60); Est Glom Filt Rate - Afr Amer 65 mL/min (>60); Globulin 3.3 g/dL (2.2-4.2); Glucose 103 mg/dL (74-106); Potassium 3.8 mmol/L (3.5-5.1); Protein, Total 6.6 g/dL (6.4-8.2); Sodium Level 143 mmol/L (136-145)
[2023-10-06 11:39] LABS: Differential Comment SCANNED
[2023-10-06 11:40] LABS: Anisocytosis 2+; Macrocytosis 1+; Microcytosis 1+
--- NOTE | 2023-10-06 18:12 | CT_ITS ---
EXAM: CT ABDOMEN AND PELVIS WITH INTRAVENOUS CONTRAST CLINICAL INDICATION: COLON CA TECHNIQUE: Helically acquired images were obtained of the abdomen and pelvis with intravenous contrast. This CT exam was performed using one or more of the following dose reduction techniques: automated exposure control, adjustment of the mA and/or kV according to patient size, and/or use of iterative reconstruction technique. CONTRAST: Oral and amp; IV Readi-CAT and amp; 100mL Isovue-370 COMPARISON: CT chest, 08/03/2023. PET/CT, 06/27/2023. FINDINGS: LOWER THORAX: Spiculated predominantly solid mass in the right middle lobe partially visualized measuring up to 1.3 cm correlating with prior CT although slightly smaller in size and likely indicative of (treated) metastatic disease. Coronary artery calcifications and/or stents. No cardiomegaly or pericardial effusion. ABDOMEN: LIVER: No significant abnormality. Homogeneous. No focal mass. GALLBLADDER AND BILE DUCTS: No significant abnormality. No calcified gallstones. No gallbladder distention or wall edema. No intra- or extrahepatic biliary ductal dilation. PANCREAS: No significant abnormality. No focal cystic or solid mass. SPLEEN: No significant abnormality. Normal size without focal cystic or solid mass. ADRENALS: No significant abnormality. No nodules. KIDNEYS AND URETERS: No significant abnormality. Normal renal size and position. No hydronephrosis. STOMACH AND BOWEL: Colonic diverticulosis without evidence of acute diverticulitis. Pyloric region wall thickening likely secondary to contraction rather than focal disease. No stomach or bowel distention. PELVIS: APPENDIX: A normal appendix is identified in the right lower quadrant. BLADDER: No significant abnormality. REPRODUCTIVE: Normal as visualized. No mass. ABDOMEN and PELVIS: INTRAPERITONEAL SPACE: No significant abnormality. No ascites or other fluid collection. No free air. BONES/JOINTS: Degenerative changes in the spine and scoliotic curvature. Degenerative changes of the bilateral hips. No distinct lytic or blastic osseous lesions are identified. SOFT TISSUES: Status post left mastectomy. External breast prostheses present. No discrete abdominal or pelvic wall hernia. VASCULATURE: Atherosclerosis of the aorta and its branch vessels without evidence of aneurysm. LYMPH NODES: No significant abnormality. No enlarged lymph nodes. CT/Abdomen/Pelvis WITH Contrast IMPRESSION: 1. Spiculated predominantly solid mass in the right middle lobe partially visualized measuring up to 1.3 cm correlating with prior CT although slightly smaller in size and likely indicative of (treated) metastatic disease. 2. Coronary artery calcifications and/or stents. No cardiomegaly or pericardial effusion. 3. Pyloric region wall thickening likely secondary to contraction rather than focal disease. 4. Colonic diverticulosis without evidence of acute diverticulitis. Electronically Signed: Russell Roland DO at 19:01 EDT ,
== END | disposition home or self-care (01) ==
LOC: CT 18:00
PROVIDERS: PCP Family Medicine; Referring Provider Surgery; Visit Provider Internal Medicine Medical Oncology
DX: C18.9 Malignant neoplasm of colon, unspecified (principal); Z85.3 Personal history of malignant neoplasm of breast; D64.9 Anemia, unspecified
CPT/HCPCS: 36415; 74177; 80053; 85025; Q9967

== ENCOUNTER 2023-10-31 14:30 | Outpatient (RCR) | payer MEDICARE, SELFPAY ==
--- NOTE | 2023-09-07 18:17 | HP.PTEVAL_ITS ---
Patient's Visit Information Visit Information Visit Information: FAITH GOMEZ is a 78 year old F referred to Physical Therapy by Dr. Jerson Vigil MD with a diagnosis of LBP. Date of Evaluation: 09/07/23 Physical Therapist: Nikolay Eng, YEISONT, OCS, CSCS Visit Plan Frequency: 2x /Week Duration: 4-6 Weeks Plan: 2x/week for 4-6 weeks for... 1. NS core strengthening to HEP 2. Hip stabs R to HEP 3. gym based general and hip and core strength to [employer] program 4. Focu on frontal plane neutral position with activities in WB/SLS Subjective Subjective: I have COPD adn cannot walk very far. My back hurts all the time when i walk. Has a list in gait that has been building for years. Back hurts with walking at [facility] for appointment. Pain is LB adn she is comfortable at rest. No diagnostics lately. Was getting treated for lung CA with radiation and now is done. Is anemic now. Sleep is not great but not due to pain. Not employed. Lives alone in lower half with some steps to front door, feels weak going up steps. Needs rail. Hobbies: read is OK. No others. No regualr exercises. 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 No treatment for back No leg symptoms. Pain LBP: Pain Intensity (Out of 10): 0 Objective Objective: List leans L with sitting and walking, can correct with VC, R hip weak with SLS and L pelvic drop in stance but worse in SLS and walking. Hunches FW as gets tired. Ambulates safely without AD 200 feet 2x/today withonnly minor pain in LB but more hunching and leaningL as she gets tired. LB aROM WFL and without much pain, leaning R tighter than L. Hip AROM WNL, quads mod tight with psoas, HS min tight. HIP rotation ROM WFL and symmetrical. reflexes 2/3 patella and achilles Sensation LE WNL to gross light touch. - hip scour B. strength hip abd R 3 L 3+, ext 3 B, flexion 3+ B. Core weak in sitting testing. knees 4-/5 and ankles 4/5 without pain. - slump and - SLR. Balance/Special Test Scores Oswestry Low Back Score: 14 Goals Goal 1:: Back pain 50% better to 2/10 at [facility]worst Goal Time Frame: 4-6 Weeks Goal 2:: Pt feel she can walk and stand 50% longer before pain kicks in, walks 400 feet in clinic without pain Goal Time Frame: 4-6 Weeks Goal 3:: I appropriate HEP for hip and core strength and general strength Goal Time Frame: 4-6 Weeks Goal 4:: Patient able to find and maintain frontal plane neutral posture for 5 minutes without VC Goal Time Frame: 4-6 Weeks Goal 5:: 8 or less oswestry Goal Time Frame: 4-6 Weeks Rehabilitation Potential Physical Therapy Diagnosis: weakness in hips and tightness in legs and sedentary lifestyle effecting mobility adn pain Rehabilitation Potential: Fair Anticipated Interventions Patient/Client Instruction: Educate patient on: Condition and Plan of Care For the Purpose of:: To decrease pain, To increase ROM, To improve nutrient delivery to tissue, To improve muscle performance and motor function, To increase tolerance to activity/condition/position, To improve ability of physical actions for home/community/work/leisure and To improve gait and locomotor functions Therapeutic Exercise to Include: Strength training, Flexibilty training, Passive ROM, Active ROM and Dynamic Lumbar Stabilization For the Purpose of:: To decrease pain, To increase ROM, To improve nutrient delivery to tissue, To improve muscle performance and motor function, To increase tolerance to activity/condition/position and To improve ability of physical actions for home/community/work/leisure Thermo therapy (hot pack): Yes For the Purpose of:: To decrease pain and To improve nutrient delivery to tissue Text: Thank you for the opportunity to evaluate your patient. For Medicare and Medicare HMO plans, please review the plan of care and approve it. It will need to be FAXED BACK to us at [phone] for Medicare purposes. For Medicare only, by signing this I certify the plan of care. Please let me know if there are questions or concerns regarding this plan of care. Physician Signature: Date:
--- NOTE | 2023-10-31 15:11 | HP.PTDCSUM ---
Discharge Summary D/C summary: It has been my pleasure to treat FAITH GOMEZ referred by Dr. Jerson Vigil MD, with the diagnosis of LBP for a total of 14 visit(s). Discharge Date: 10/31/23 Please see the following information for a summary of their discharge status. Subjective Subjective: I will have colon surgery on Ca in two days and will not be able to continue at this time. LBP has improved and is still random. No pain today. Achy many days getting out of bed. To doctor in february. Has learned machines but will not be able to continue immediately due to surgery. Pain LBP: Pain Intensity (Out of 10): 0 Overall Improvement % Improvement: 50 Objective Objective/Function: Slight L lean with gait but can focus and correct. Walking I wihtout AD today but using cane normally. no back pain today and min to mod deficits in flexiona dn ext. Goals Goal 1:: Back pain 50% better to 2/10 at [facility] Goal Progress: Goal Met Goal 2:: Pt feel she can walk and stand 50% longer before pain kicks in, walks 400 feet in clinic without pain Goal Progress: Goal Met Goal 3:: I appropriate HEP for hip and core strength and general strength Goal Progress: Goal Met Goal 4:: Patient able to find and maintain frontal plane neutral posture for 5 minutes without VC Goal Progress: Progressing Goal 5:: 8 or less oswestry Goal Progress: Goal Met Plan Plan: d/c due to having surgery D/C Information d/c sentence: If there are questions or concerns regarding this patient's physical therapy, please feel free to call me at [phone]. Thank you for the referral of this patient. Sincerely, Nikolay Eng, DPT, OCS, CSCS Balance/Gait/Functional tests Balance/Special Test Scores Oswestry Low Back Score: 2 Improvement % Improvement: 50
== END 2023-10-31 19:00 | disposition home or self-care (01) ==
LOC: PT 14:30
PROVIDERS: PCP Family Medicine; Referring Provider Family Medicine; Visit Provider Family Medicine
DX: M54.9 Dorsalgia, unspecified (principal)
CPT/HCPCS: 97110; 97161; 97530

== ENCOUNTER 2023-11-02 07:50 | Inpatient (IN) | payer MEDICARE, SELFPAY ==
[2023-11-02] VITALS (17 sets, daily range): BP systolic 103–136; BP diastolic 55–73; PULSE 80–100; RESP 16–18; TEMP 36.2–36.9; O2SAT 97–100; BMI 29.1
--- NOTE | 2023-11-02 08:06 | HP.PCM_ITS ---
History and Physical Date of Admission: 11/02/23 Date of Service: 10/06/23 MR#: [id number] Acct: [id number] Name: FAITH GOMEZ Rep #: [id number] : 1945 Provider: Dr. Madison Florez MD Age/Sex: 78/F Location: [facility] Status: Signed Intake Vital Signs 09/26/2413:28 10/03/2412:43 10/05/2408:06 Height 5 ft 2 in 5 ft 2 in 5 ft 2 in Weight: 163 lb BMI 29.8 Intake Visit Reasons: DISCUSS COLON CANCER Chief Complaint: F/u for colon cancer. Allergies Penicillins Allergy (Verified 10/06/23 09:05) localized swelling at injection siteSulfa (Sulfonamide Antibiotics) Allergy (Verified 10/06/23 09:05) Hives Medications bupropion HCl 300 mg 24 hr tablet, extended release 300 mg PO QHS 09/20/18 [Hist ory Confirmed 10/06/23] omeprazole 20 mg capsule,delayed release 20 mg PO DAILY 10/05/18 [History Confirmed 10/06/23] aspirin 81 mg tablet,delayed release 81 mg PO DAILY@0800 #90 tabs 01/03/19 [Rx Confirmed 10/06/23] vitamin B complex (B Complex-Vitamin B12 tablet) 1 tab PO DAILY 07/04/19 [History Confirmed 10/06/23] furosemide 40 mg tablet 40 mg PO DAILY PRN edema #90 tabs 01/04/22 [Rx Confirmed 10/06/23] metoprolol tartrate 25 mg tablet 25 mg PO BID #180 tabs 01/04/23 [Rx Confirmed 10/06/23] albuterol sulfate 90 mcg/actuation aerosol inhaler (ProAir HFA) 2 inh inhalation Q6H PRN sob 04/15/23 [History Confirmed 10/06/23] cholecalciferol (vitamin D3) 50 mcg (2,000 unit) capsule 50 mcg PO DAILY 07/04/23 [History Confirmed 10/06/23] atorvastatin 80 mg tablet 80 mg PO QHS #90 tabs 09/18/23 [Rx Confirmed 10/06/23] clopidogrel 75 mg tablet (Plavix) 75 mg PO DAILY #90 tabs 09/18/23 [Rx Confirmed 10/06/23] losartan 25 mg tablet 12.5 mg (1/2 x 25 mg) PO DAILY #45 tabs 09/18/23 [Rx Confirmed 10/06/23] PFSH Medical History Alcohol use Ambulates with cane Anxiety Arthritis Atherosclerotic heart disease of [place] coronary artery without angina pectoris Back pain Balance problems Cardiology follow-up encounter COPD (chronic obstructive pulmonary disease) Coronary artery disease Depression DVT (deep venous thrombosis) Essential (primary) hypertension Former smoker Gastric reflux High cholesterol History of breast cancer History of echocardiogram History of edema History of irregular heartbeat History of pain when walking History of ST elevation myocardial infarction (STEMI) (09/20/18) History of stress test Left bundle branch block Low iron Lung nodule, solitary Obesity Pseudoaneurysm following procedure (09/20/18) Shortness of breath on exertion Wears dentures Wears glasses Wears hearing aid Surgical History H/O partial thyroidectomy History of cardiac catheterization History of coronary artery stent placement (09/20/18) History of left mastectomy History of tonsillectomy Hx of colonoscopy Family History Father CAD (coronary artery disease) Myocardial infarctionMother Hypertension Social History Smoking Status: Former smoker HPI HPI HPI: 78-year-old female presents today to discuss surgery for ascending colon cancer. Patient underwent colonoscopy on 09/20/2023 was found to have a ascending colon mass which biopsied showed invasive well to moderately differentiated adenocarcinoma. Patient just finished treatment for lung cancer earlier this year with radiation, but due to the continued anemia had a fecal occult test which was positive thus got referred for EGD and colonoscopy. Patient is scheduled to have her colon cancer workup with CT today and will also order follow-up labs her last hemoglobin was 7.7 the patient has been getting iron in fusions per GI. Patient is on aspirin as well as Plavix due to history of cardiac stent. ROS General General: Yes weight change, fatigue and breast cancer; No appetite or colon cancer HEENT HEENT: Yes eye surgery; No difficulty swallowing, eye injury, swollen glands or hoarseness Endo Endocrine: Yes thyroid disease; No diabetes mellitus, thyroid cancer, Hair loss, heat intolerance or cold intolerance Skin Skin: Yes rash and changing moles Musc Musculoskeletal: Yes back problems and arthritis; No rheumatoid arthritis, gout or joint pain Cardio Cardiovascular: Yes heart disease, heart attack and heart stent; No murmur, pacemaker, atrial fibrillation, high blood pressure, palpitations, shortness of breat with exertion or chest pain Psych Psychiatric: Yes depression; No anxiety or hearing voices Resp Respiratory: Yes shortness of breath, No sleep apnea, No cough, Yes COPD, No asthma, No emphysema and No wheezing Gastro Gastrointestinal: No abdominal pain, No nausea or vomiting, No diarrhea, No constipation, Yes blood in stool, Yes acid reflux, Yes hemorrhoids, No ulcers, No gallbladder problem and No black,tarry stools [place] Hematologic: Yes blood thinners, No blood disorders, Yes bleeding, Yes anemia and No blood clots Neuro Neurologic: No numbness and No tingling Exam Const General: cooperative, healthy appearing, comfortable and no acute distress HENMT Head: normocephalic and atraumatic Neck Neck: supple Resp Effort & Inspection: normal respiratory effort Cardio Rate: regular rate GI Inspection: non-distended Palpation: soft, no hernias and nontender Skin General: no rashes or lesions noted Neuro General: CN's II-XI intact bilaterally Extrem General: normal to inspection Psych Mental Status: mental status grossly normal Attitude: cooperative Assessment and Plan Assessment and Plan (1) Colon cancer: Status: Acute Qualifiers: Colon location: ascending Qualified Code(s): C18.2 - Malignant neoplasm of ascending colon Comment: Discussed Colon cancer, staging with CT. Orders: Orders CBC W/Diff, Automated Today Z85.3 - Personal history of malignant neoplasm of breast Comprehensive Metabolic Profil Today C18.9 - Malignant neoplasm of colon, unspecified, D64.9 - Anemia, unspecified Plan Reviewed CT abdomen pelvis and chest once completed as well as labs. Patient possibly may need transfusion prior to colectomy. Did discuss the anatomy and procedure: ERAS laparoscopic right colectomy, possible open with the patient. Including risks, but not limited to, bleeding, infection (superficial or intraabdominal), injury to another organ (small bowel, colon, ureter, etc.) requiring additional procedures, and blood clots. Also, discussed the pre-op, colon prep and antibiotics. All questions were answered. Will discuss scheduling once workup has been complete. Patient was agreeable to plan. Would have patient hold her Plavix prior to surgery but stay on aspirin. Madison Florez M.D. Pager: [phone] [facility] [address] [place] [address], [address] [place] [address] Office: [phone] Coding Level of Care Code Off vis,est,level 4 Diagnoses Malignant neoplasm of ascending colon C18.2 Colon location: ascending 10/06/23 1304 <Electronically signed by Madison Florez MD> Date Madison Florez MD
[2023-11-02] MEDS: Gabapentin 600 MG Tablet PO (08:59)
[2023-11-02] MEDS: Ciprofloxacin 400 MG/200 ML BAG 200 MG IV (08:59)
[2023-11-02] MEDS: Lactated Ringers 1,000 ML 40 ML IV ×2 (08:59→16:08)
[2023-11-02] MEDS: Acetaminophen 500 MG Tablet 1000 MG PO ×3 (08:59→23:29)
[2023-11-02 09:12] LABS: Magnesium 1.9 mg/dL (1.6-2.6)
[2023-11-02 09:37] LABS: Bedside Glucose 161 mg/dL (74-106)
[2023-11-02] MEDS: Magnesium 2 GM for ERAS IV (09:53)
--- NOTE | 2023-11-02 10:05 | COL._PTH ---
PATIENT: FAITH GOMEZ LOC: MS3 U#:[id number] AGE/SX: 78/F ROOM: [facility] RE11/02/[address]: Dr. Madison Florez MD : 1945 BED: 1 DIS: 11/05/2023 SPEC #: [id number] RECD: 11/02/23 18:20 STATUS: PROMISE RINCON #: [id number] SURI: 11/02/23 10:[address]: Madison Florez DEPT: SURGICAL PATHOLOGY RECD BY: Zoila Brownlee ENTERED: 11/03/23 11:06 SP TYPE: COLON OTHR DR: Dr. Jerson Vigil MD Tissues: Colon, NOS Procedures: Surgery Specimen Level HEADER OPERATION: Laparoscopic, right yuan colectomy- ERAS PRE-OP DIAGNOSIS: Malignant neoplasm of colon TISSUE SUBMITTED: Right yuan colon MICROSCOPIC DIAGNOSIS Right colon, hemicolectomy: Invasive adenocarcinoma. See synoptic report below. LOYD/ 11/10/2023 COMMENT COLON CANCER SUMMARY: Specimen - Colon Procedure - Right hemicolectomy Tumor site - Right colon Tumor size - 2.0 x 1.6 x 0.8cm Macroscopic tumor perforation - Not identified Histologic type - Adenocarcinoma Histologic grade - G2 (moderately differentiated) Microscopic tumor extension - Tumor invades muscularis propria Margins: All margins are uninvolved by invasive carcinoma Treatment effect - Unknown Lymphvascular invasion - Not identified Perineural invasion - Not identified Tumor deposits - Not present Regional lymph nodes- 16 of 16 lymph nodes negative for metastatic carcinoma Associated lesions- None identified Additional pathologic findings - None Ancillary studies: See microsatellite instability study by IHC ([id number]) for complete details. Positive (loss of mismatch protein; microsatellite instability detected). 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 Florez on 11/08/[address] Gonzalez. The above summary is in compliance with [employer] [place] [employer] (CAP) Cancer Protocols Checklist and [place] Joint Committee on Cancer (AJCC), Staging Manual, 8th Ed. MICROSCOPIC DESCRIPTION Slides are reviewed. GROSS DESCRIPTION Received in fixative is one container labeled with the patient's name and designated Right yuan colon. The specimen consists of a 20cm segment of large bowel with attached 9.5cm segment of distal small bowel and attached 5.0cm segment of appendix that has a diameter of 0.7cm. Also present free in the container is a ring of olguin mucosa measuring 5.0cm in diameter and 1.0cm in thickness. No mass lesions are seen in this fragment. Serial sections of the appendix reveals a patent lumen and no mass lesion located approximately 15.0cm from the distal margin of the resection and 14.5cm from the proximal margin of resection is a firm olguin-white mass measuring 2.0 x 1.6 x 0.8cm. The serosa in the area of the mass is inked. Serial section for the mass do not grossly reveal extension into the bowel wall. The attached fibrofatty tissue contains a number of grossly unremarkable nodules resembling lymph nodes. Health And Safety Director sections are submitted in 14 cassettes as follows: 1-Mucosal margin, 2- appendix, 3- ring mucosa free in container, 4- ileocecal valve, 5- uninvolved small and large bowel, 6-8- mass, totally submitted, 10-14- multiple lymph nodes in each cassette. LOYD/ 11/07/2023 TC:0 CPT:94218
[2023-11-02] MEDS: metroNIDAZOLE 500 MG/100 ML BAG 100 MG IV (10:27)
[2023-11-02] MEDS: BUPIVACAINE LIPOSOME/PF 20 ML VIAL OPERA.SITE (12:50)
[2023-11-02] MEDS: Bupivacaine 0.25% 30 ML Vial (12:58)
--- NOTE | 2023-11-02 13:07 | OP.PCM_ITS ---
Report of Operation Date of Procedure: 11/02/23 Pre-Operative Diagnosis: Ascending colon cancer Post-Operative Diagnosis: Same Surgery/Procedure Performed:: ERAS laparoscopic right hemicolectomy Surgeon: Madison Florez director of financial aid: Vale Acosta Type of Anesthesia: General/Supplemental Anesthesiologist: Nikolay Mckenzie Special Medications: Cefotan 2 g IV x 1 Specimen's removed: Right hemicolectomy Estimated Blood Loss (mL): 40 cc Fluids Replaced: 1500 cc Description of Procedure: Synoptic Portion: Element Response Options Operation performed with curative intent. Yes Tumor location ascending colon Extent of colon and vascular resection Right hemicolectomy ? ileocolic Indications this is a 78-year-old female who was found to have well- differentiated adenocarcinoma of the ascending colon on colonoscopy which was done due to anemia. Laparoscopic right colectomy was elected. Description procedure: The patient was placed on operating table in supine position. General Anesthesia was induced. Samson catheter was placed. A timeout was completed verifying correct patient, procedure, site, position, social, and special equipment prior to beginning procedure. An orogastric tube was placed. The abdomen was prepped and draped in usual sterile fashion. An incision was made in the natural skin line above the umbilicus. The fascia was elevated and incised. The peritoneum was elevated and incised. Entry into the peritoneum was confirmed visually and no bowel was noted in the vicinity of the incision. Gregory trocar was placed. The abdomen was insufflated with carbon dioxide to a pressure of 12-15 mmHg. Patient tolerated insufflation well. The laparoscope was then inserted and abdomen inspected. No injuries from initial trocar placement were noted. Additional trochars were then inserted in the following locations 5 mm trocar in the right lower quadrant, superior and inferior midline. The abdomen was inspected area of tattoo was seen in the ascending colon. The table is placed in Trendelenburg position with the right side up. Tap block was used with Exparel, Marcaine, saline?placed under direct visualization laparoscopically. The cecum was grasped with the left hand the operating surgeon lifted up to tent the ileocolic artery. The dissection was then started at the base of the ileocolic artery were joined the superior mesenteric artery. The peritoneum overlying the takeoff of the ileal colic artery was opened using electrocautery. The hemoclips were used to go across ileocolic vessel, once that had been cleaned off. Then the Enseal was used on the distal portion. The lateral attachments of the ascending colon were then divided along the white line of Toldt. Next the transverse colon was also mobilized along with the hepatic flexure using the Enseal. The omentum attached to resect a portion of the colon was divided and resected with the specimen. The supraumbilical incision was enlarged about 8 cm in length. A wound protector was then placed into the peritoneal cavity to prevent port site implantation as well as minimize risk of wound infection. They ascending and transverse colon were then delivered and extracted. The small bowel and colon was then divided extracorporeally with the SUHAS 75 stapler after the right branch of the middle colic was also divided with the Enseal. The mesenteric dissection was completed as needed on the small bowel and colonic sides and the specimen resection was thus completed. The specimen was removed. The 2 ends of the ileum and transverse colon were then aligned, ensuring that the mesentery was not twisted, and the staple [id number] anastomosis using the SUHAS 75 stapler and TL 60. Anastomosis was assessed and patent. A crotch stitch of 3-0 silk was placed The trochars removed under direct visualization. Once the wound protector was removed, gowns and gloves were changed. The supraumbilical incision was closed with 0 PDS suture at the fascia and then the skin was closed with 4-0 Monocryl interrupted sutures. Dry sterile dressings were applied. The sponge and instrument count were correct. The patient was extubated. The patient tolerated procedure well and was taken to the postanesthesia care unit in stable condition. Complications none
[2023-11-02] MEDS: Lactated Ringers 250 ML 999 ML IV (21:01)
[2023-11-02] MEDS: Docusate Sodium 100 MG Capsule PO (21:04)
[2023-11-02] MEDS: Metoprolol Tartrate 25 MG Tablet PO (21:04)
[2023-11-02] MEDS: buPROPion (XL) 300 MG TABLET.XL PO (21:04)
[2023-11-03] VITALS (10 sets, daily range): BP systolic 105–114; BP diastolic 41–59; PULSE 66–92; RESP 16–18; TEMP 36.5–36.9; O2SAT 93–97
[2023-11-03] MEDS: Acetaminophen 500 MG Tablet 1000 MG PO ×3 (06:27→18:40)
[2023-11-03] MEDS: Lactated Ringers 250 ML 999 ML IV (06:45)
[2023-11-03 06:48] LABS: Hematocrit 29.9 % (37-47); Hemoglobin 9.1 g/dL (12.0-15.0); Mean Corp Hgb Conc 30.4 g/dL (32-36); Mean Corpuscular Hgb 26.4 pg (27.0-32.0); Mean Corpuscular Volume 86.7 fL (81-99); Mean Platelet Vol. 10.6 fl (6.2-12.0); POSITIVE MORPHOLOGY YES; Platelet Count 147 K/mm3 (150-450); RBC Distribution Width CV 24.5 % (11.6-14.6); RBC Distribution Width SD 75.3 fl (35.1-43.9); Red Blood Count 3.45 M/mm3 (4.2-5.4); White Blood Count 12.9 K/mm3 (4.4-11.0)
[2023-11-03] MEDS: Lactated Ringers 1,000 ML 40 ML IV (07:03)
--- NOTE | 2023-11-03 07:07 | PN.SURG_ITS ---
Subjective Subjective +flatus, no pain, ambulating with walker, Samson in due to low urine output did receive a 250 cc bolus yesterday and will get another this morning Objective Data Objective Data Vital Signs: Vital Signs Temp Pulse Resp BP Pulse Ox O2 Del Method O2 Flow Rate 98.3 F 92 16 114/54 L 97 Room Air 2 11/03/23 06:30 11/03/23 06:30 11/03/23 06:30 11/03/23 06:30 11/03/23 06:30 11/03/23 06:30 11/02/23 20:54 Oxygen Flow Rate (L/min) 2 Oxygen Delivery Method Room Air Weight: 159 lb 6.307 oz Body Mass Index (BMI) 29.1 Intake & Output: Intake and Output for Last 24 Hours 11/01/23 11/02/23 11/03/23 23:59 23:59 23:59 Intake Total 2373.34 / 2673.34 1555.33 / 1555.33 Output Total 390 / 390 Balance 2373.34 / 2448.34 1165.33 / 1165.33 Lab / Micro Data 11/03/23 06:15 11/03/23 06:15 Labs: Laboratory Results - last 24 hr 11/02/23 08:52: Magnesium 1.9 11/02/23 09:15: POC Glucose 161 H Physical Exam Resp normal respiratory effort Cardio regular rate GI GI Narrative: Abdomen: Soft, nondistended, tender near incision's dressed clean dry and intact, no peritoneal signs Assessment & Plan Assessment/Plan (1) S/P right hemicolectomy: PLAN: Plan POD 1 will advance to transitional diet Continue Samson due to low urine output will give another 250 cc bolus. Continue pain control Continue ambulation Hemoglobin 9.1 this morning will hold on anticoagulation as well as her aspirin and Plavix currently. Madison Florez M.D. Pager: [phone] [facility] [address] [place] [address], [facility]patient [facility]ilion, [address] [place] [address] Office: [phone]
[2023-11-03 07:08] LABS: Scan Indicated on CBC? Y/N YES- FLAGS NOTED
[2023-11-03 08:23] LABS: Anion Gap 8 (5-15); BUN 9 mg/dL (7-18); BUN/Creat Ratio 9.9 RATIO (10-20); Calcium,Total 9.2 mg/dL (8.5-10.1); Chloride 102 mmol/L (98-107); Creatinine, Serum 0.91 mg/dL (0.55-1.02); EST Glomerular Filtration Rate 63 mL/min (>60); Est Glom Filt Rate - Afr Amer 77 mL/min (>60); Estimated Creatinine Clearance 47.44 ml/min; Glucose 115 mg/dL (74-106); Potassium 3.8 mmol/L (3.5-5.1); Sodium Level 132 mmol/L (136-145)
[2023-11-03 08:51] LABS: Differential Comment SCANNED
[2023-11-03] MEDS: Ensure Plus High Protein 120 ML LIQUID PO (09:08)
[2023-11-03] MEDS: Docusate Sodium 100 MG Capsule PO (09:08)
[2023-11-03] MEDS: Metoprolol Tartrate 25 MG Tablet PO ×2 (09:10→22:14)
[2023-11-03] MEDS: Pantoprazole Sodium 20 MG Tablet PO (09:11)
--- NOTE | 2023-11-03 11:55 | CASEMGMT ---
HANG JAQUEZ Assessment: Face to Face with pt for initial transition planning/care coordination assessment. RN LEONID introduced self and role at [facility], pt voices understanding and consents to assessment. Pt is A&O x4 and answers all questions appropriately at this time. Pt sitting up in chair in no distress. Care providers, pharmacy, and demographics verified/updated. Admitting Dx: lap R yuan colectomy PCP:Yaritza Specialists:Gary, onc; tanya Harris onc; Raz Tavares Pulm; Luisito, cardio Preferred Pharmacy: [facility] Retail Insurance: [facility] Prescription Benefit: yes LNOK: Jenifer Jasso, sister;Octaviano Parks, son Living Arrangements: Pt lives alone in the bottom of a duplex with 13 steps to enter with a rail. Pt reports prior to surgery she was I in ADL's/IADL's. Pt denies concerns at home. She states she is able to navigate her stairs without difficulty. Transportation: Pt drives self and denies concerns with transportation. DME:cane HHC/SNF: Denies hx of Pt states no concerns with going home at time of dc. Noted board states FWW. Pt states she does not feel she needs a FWW for at home. She states she wants to only use her cane. Pt to notify RN LEONID should she change her mind. Pt states no further concerns/needs. CM to follow. Advised pt to ask CM if any further question/concerns/needs arise, voices understanding. Pt Goal: Home Plan: Home Jaymie MUARICIO CM
[2023-11-03] MEDS: 0.9% Saline Lock 10 ML Syringe IV (18:41)
--- NOTE | 2023-11-03 21:07 | DCINST_ITS ---
Discharge Instructions Diet Discharge Diet: Light diet - advance as tolerated Activity Discharge Activity: May Not Drive (while taking narcotic pain medications.) May shower in (days): 1 Lifting Restrictions: no lifting >20 lbs x 2 wks, no strenuous exercise for 4 wks Dressing / Incision Call your doctor if your incision/area has: Continuous Slow Oozing, Sudden Increased Bleeding, Increased Pain/ Swelling, Increased Redness, Foul Smelling Discharge and Swelling at the incision site Call your doctor if you observe: Fever of 101 or Higher Remove Dressing in: 2 days Cleanse incision/area with: Soap & Water Additional Dressing/Incision Instructions:: Steri-Strips will fall off in 7 to 10 days, if they do not fall off okay to remove after 10 days. Follow Up Care Please Follow Up With: Madison Florez MD When: Call the office for a follow-up appointment 2 weeks; after 5 PM and on the weekends call [phone] with any concerns. Test Results: Test results from this visit will be discussed in further detail at your follow- up appointment, if applicable. Discharge Plan Admission Admit Date/Time: 11/02/23 07:50 Attending Provider: Madison Florez Primary Care Provider: Jerson Vigil Discharge Orders/Prescriptions Prescriptions: Continued omeprazole 20 mg capsule,delayed release(DR/EC) 20 mg PO DAILY aspirin 81 mg tablet,delayed release (DR/EC) 81 mg PO DAILY@0800 Qty: 90 3RF vitamin B complex [B Complex-Vitamin B12] Tablet 1 tab PO DAILY furosemide 40 mg tablet 40 mg PO DAILY PRN (Reason: edema) Qty: 90 3RF metoprolol tartrate 25 mg tablet 25 mg PO BID Qty: 180 4RF cholecalciferol (vitamin D3) 50 mcg (2,000 unit) capsule 50 mcg PO DAILY bupropion HCl 300 MG tablet extended release 24 hr 300 mg PO QHS albuterol sulfate [ProAir HFA] 90 mcg/actuation HFA aerosol inhaler 2 inh inhalation Q6H PRN (Reason: sob) losartan 25 mg tablet 12.5 mg PO DAILY Qty: 45 3RF atorvastatin 80 mg tablet 80 mg PO QHS Qty: 90 3RF Held clopidogrel [Plavix] 75 mg tablet 75 mg PO DAILY Qty: 90 3RF Hold Instructions: until f/u in 1 week Patient Comments: was on hold for procedure Discontinued metronidazole 500 mg tablet 500 mg PO .COMPLEX Qty: 6 0RF Rx Instructions: 500 mg PO Take 2 (two) tablets at 1300, 1500, 2300 neomycin 500 mg tablet 500 mg PO .COMPLEX Qty: 6 0RF Rx Instructions: Take two (2) 500 mg tablets PO at 1300, 1500, 2300 Referrals / Follow Up: Jerson Vigil MD [Primary Care Provider] - Disposition Disposition (needs filled in before D/C Order can be placed): Home, Self Care
--- NOTE | 2023-11-03 21:23 | DS.PCM_ITS ---
Documented by User: Dr. Madison Florez MD 11/03/23 21:27 Providers Date of Admission: 11/02/23 Primary Care Physician: Dr. Jerson Vigil MD Reason For Visit: Laparoscopic,Right Woodrow Colectomy-E Diagnosis Discharge Diagnosis (1) S/P right hemicolectomy: Status: Acute Code(s): Z90.49 - Acquired absence of other specified parts of digestive tract Plan POD 1 will advance to transitional diet, +flatus & BM Continue Samson due to low urine output will give another 250 cc bolus. Continue pain control Continue ambulation Hemoglobin 9.1 this morning will hold on anticoagulation as well as her aspirin and Plavix currently. Madison Florez M.D. Pager: [phone] [facility] [address] [place] [address], Outpatient Pavilion, [address] [place] [address] Office: [phone] Medications at Discharge Home Medications bupropion HCl 300 mg 24 hr tablet, extended release 300 mg PO QHS DEPRESSION 09/20/18 omeprazole 20 mg capsule,delayed release 20 mg PO DAILY GERD 10/05/18 aspirin 81 mg tablet,delayed release 81 mg PO DAILY@0800 BLOOD THINNER #90 tabs 01/03/19 vitamin B complex (B Complex-Vitamin B12 tablet) 1 tab PO DAILY SUPPLEMENT 07/04/19 furosemide 40 mg tablet 40 mg PO DAILY PRN edema #90 tabs 01/04/22 metoprolol tartrate 25 mg tablet 25 mg PO BID BP #180 tabs 01/04/23 albuterol sulfate 90 mcg/actuation aerosol inhaler (ProAir HFA) 2 inh inhalation Q6H PRN sob 04/15/23 cholecalciferol (vitamin D3) 50 mcg (2,000 unit) capsule 50 mcg PO DAILY SUPPLEMENT 07/04/23 atorvastatin 80 mg tablet 80 mg PO QHS CHOLESTEROL #90 tabs 09/18/23 clopidogrel 75 mg tablet (Plavix) 75 mg PO DAILY BLOOD THINNER #90 tabs 09/18/23 losartan 25 mg tablet 12.5 mg (1/2 x 25 mg) PO DAILY BP #45 tabs 09/18/23 Hospital Course Operations colectomy (lap right hemicolectomy) Procedures None Weight / BMI Weight Weight: 159 lb 6.307 oz Body Mass Index (BMI) 29.1 ABG / Lab / Microbiology Data 11/05/23 04:52 11/05/23 04:52 Laboratory: Laboratory Results - last 24 hr 11/03/23 06:15: WBC 12.9 H, RBC 3.45 L, Hgb 9.1 L, Hct 29.9 L, MCV 86.7, MCH 26.4 L, MCHC 30.4 L, RDW Std Deviation 75.3 H, RDW Coeff of Vamshi 24.5 H, Plt Count 147 L, MPV 10.6, Differential Comment SCANNED, Sodium 132 L, Potassium 3.8, Chloride 102, Carbon Dioxide 22.0, Anion Gap 8, BUN 9, Creatinine 0.91, Estim Creat Clear Calc 47.44, Est GFR (MDRD) Af Amer 77, Est GFR (MDRD) Non-Af 63, BUN/Creatinine Ratio 9.9 L, Glucose 115 H, Calcium 9.2 D/C Instructions Discharge Diet: Light diet - advance as tolerated May shower in (days): 1 Call your doctor if your incision/area has: Continuous Slow Oozing, Sudden Increased Bleeding, Increased Pain/ Swelling, Increased Redness, Foul Smelling Discharge and Swelling at the incision site Call your doctor if you observe: Fever of 101 or Higher Cleanse incision/area with: Soap & Water Additional Dressing/Incision Instructions: Steri-Strips will fall off in 7 to 10 days, if they do not fall off okay to remove after 10 days. Please Follow Up With: Madison Florez MD When: Call the office for a follow-up appointment 2 weeks; after 5 PM and on the weekends call [phone] with any concerns. Meaningful Use Info Meaningful Use Meaningful Use Diagnoses (Choose all that apply): None applicable Ischemic Stroke Statin Dosing Therapy Reference: STATIN DOSE THERAPY REFERENCE: * Patients > 75 years receive moderate or high dose statin therapy. * Patients 75 years or YOUNGER should receive HIGH intensity statin dose unless contraindicated. You will be required to document reason for non-treatment if statin daily dose does not meet guidelines. HIGH DOSE STATIN THERAPY DAILY Atorvastatin > than or = to 40 mg Rosuvastatin > than or = to 20 mg Amlodipine + Atorvastatin > than or = to 2.5/40 mg Ezetimibe + Simvastatin 10/80 mg Simvastatin 80mg Discharge Plan Admission Admit Date/Time: 11/02/23 07:50 Attending Provider: Madison Florez Primary Care Provider: Jerson Vigil Discharge Orders/Prescriptions Prescriptions: Continued omeprazole 20 mg capsule,delayed release(DR/EC) 20 mg PO DAILY aspirin 81 mg tablet,delayed release (DR/EC) 81 mg PO DAILY@0800 Qty: 90 3RF vitamin B complex [B Complex-Vitamin B12] Tablet 1 tab PO DAILY furosemide 40 mg tablet 40 mg PO DAILY PRN (Reason: edema) Qty: 90 3RF metoprolol tartrate 25 mg tablet 25 mg PO BID Qty: 180 4RF cholecalciferol (vitamin D3) 50 mcg (2,000 unit) capsule 50 mcg PO DAILY bupropion HCl 300 MG tablet extended release 24 hr 300 mg PO QHS albuterol sulfate [ProAir HFA] 90 mcg/actuation HFA aerosol inhaler 2 inh inhalation Q6H PRN (Reason: sob) clopidogrel [Plavix] 75 mg tablet 75 mg PO DAILY Qty: 90 3RF Patient Comments: was on hold for procedure losartan 25 mg tablet 12.5 mg PO DAILY Qty: 45 3RF atorvastatin 80 mg tablet 80 mg PO QHS Qty: 90 3RF Discontinued metronidazole 500 mg tablet 500 mg PO .COMPLEX Qty: 6 0RF Rx Instructions: 500 mg PO Take 2 (two) tablets at 1300, 1500, 2300 neomycin 500 mg tablet 500 mg PO .COMPLEX Qty: 6 0RF Rx Instructions: Take two (2) 500 mg tablets PO at 1300, 1500, 2300 Referrals / Follow Up: Jerson Vigil MD [Primary Care Provider] - Disposition Disposition (needs filled in before D/C Order can be placed): Home, Self Care Documented by User: Dr. Jonah Hawkins MD 11/05/23 07:58 Providers Date of Admission: 11/02/23 Reason For Visit: Laparoscopic,Right Woodrow Colectomy-E Diagnosis Discharge Diagnosis (1) S/P right hemicolectomy: Status: Acute Code(s): Z90.49 - Acquired absence of other specified parts of digestive tract Medications at Discharge Home Medications bupropion HCl 300 mg 24 hr tablet, extended release 300 mg PO QHS DEPRESSION 09/20/18 omeprazole 20 mg capsule,delayed release 20 mg PO DAILY GERD 10/05/18 aspirin 81 mg tablet,delayed release 81 mg PO DAILY@0800 BLOOD THINNER #90 tabs 01/03/19 vitamin B complex (B Complex-Vitamin B12 tablet) 1 tab PO DAILY SUPPLEMENT 07/04/19 furosemide 40 mg tablet 40 mg PO DAILY PRN edema #90 tabs 01/04/22 metoprolol tartrate 25 mg tablet 25 mg PO BID BP #180 tabs 01/04/23 albuterol sulfate 90 mcg/actuation aerosol inhaler (ProAir HFA) 2 inh inhalation Q6H PRN sob 04/15/23 cholecalciferol (vitamin D3) 50 mcg (2,000 unit) capsule 50 mcg PO DAILY SUPPLEMENT 07/04/23 atorvastatin 80 mg tablet 80 mg PO QHS CHOLESTEROL #90 tabs 09/18/23 clopidogrel 75 mg tablet (Plavix) 75 mg PO DAILY BLOOD THINNER #90 tabs 09/18/23 losartan 25 mg tablet 12.5 mg (1/2 x 25 mg) PO DAILY BP #45 tabs 09/18/23 Hospital Course Summary of Care Provided Hospital Course: The patient had right hemicolectomy for colon cancer. Postoperatively her course was complicated with urinary retention. Attempting voiding trial today and will discharge home with or without Samson this afternoon. ABG / Lab / Microbiology Data 11/05/23 04:52 11/05/23 04:52 D/C Instructions Lifting Restrictions: 15 lbs for 4 weeks Change Dressing in: 1 day Discharge Plan Admission Admit Date/Time: 11/02/23 07:50 Attending Provider: Madison Florez Primary Care Provider: Jerson Vigil Discharge Orders/Prescriptions Prescriptions: Continued omeprazole 20 mg capsule,delayed release(DR/EC) 20 mg PO DAILY aspirin 81 mg tablet,delayed release (DR/EC) 81 mg PO DAILY@0800 Qty: 90 3RF vitamin B complex [B Complex-Vitamin B12] Tablet 1 tab PO DAILY furosemide 40 mg tablet 40 mg PO DAILY PRN (Reason: edema) Qty: 90 3RF metoprolol tartrate 25 mg tablet 25 mg PO BID Qty: 180 4RF cholecalciferol (vitamin D3) 50 mcg (2,000 unit) capsule 50 mcg PO DAILY bupropion HCl 300 MG tablet extended release 24 hr 300 mg PO QHS albuterol sulfate [ProAir HFA] 90 mcg/actuation HFA aerosol inhaler 2 inh inhalation Q6H PRN (Reason: sob) clopidogrel [Plavix] 75 mg tablet 75 mg PO DAILY Qty: 90 3RF Patient Comments: was on hold for procedure losartan 25 mg tablet 12.5 mg PO DAILY Qty: 45 3RF atorvastatin 80 mg tablet 80 mg PO QHS Qty: 90 3RF Discontinued metronidazole 500 mg tablet 500 mg PO .COMPLEX Qty: 6 0RF Rx Instructions: 500 mg PO Take 2 (two) tablets at 1300, 1500, 2300 neomycin 500 mg tablet 500 mg PO .COMPLEX Qty: 6 0RF Rx Instructions: Take two (2) 500 mg tablets PO at 1300, 1500, 2300 Referrals / Follow Up: Jerson Vigil MD [Primary Care Provider] - Disposition Disposition (needs filled in before D/C Order can be placed): Home, Self Care
[2023-11-03] MEDS: Atorvastatin Calcium 80 MG Tablet PO (22:13)
[2023-11-03] MEDS: Famotidine 20 MG Tablet PO (22:13)
[2023-11-03] MEDS: buPROPion (XL) 300 MG TABLET.XL PO (22:16)
[2023-11-03] MEDS: Pantoprazole Sodium 40 MG in 0.9% Normal Saline (100mL MB+) 100 ML 330 MG IV (23:59)
[2023-11-04] VITALS (10 sets, daily range): BP systolic 96–117; BP diastolic 38–62; PULSE 70–81; RESP 16–18; TEMP 36.1–36.8; O2SAT 93–99
--- NOTE | 2023-11-04 | NURSING ---
ASSISTED PT UP TO THE RESTROOM, HAD DIARRHEA AGAIN , THIS TIME THE STOOL SEEMED TO HAVE A RUST TINGE TO IT, WILL CONTINUE TO MONITOR, PT DID STATE THAT IT FEELS LIKE SHE HAS TO PUSH HER URINE OUT. PT BLADDER SCANNED FOR >623ML, ST CATHED FOR 800ML.
[2023-11-04] MEDS: Menthol/Lanolin/Calamine/Znox 113 GM Tube 1 APPLIC TOPICAL ×4 (00:04→21:21)
[2023-11-04] MEDS: Acetaminophen 500 MG Tablet 1000 MG PO ×4 (06:10→18:01)
[2023-11-04] MEDS: traMADol 50 MG Tablet PO ×4 (06:37→18:11)
[2023-11-04 07:39] LABS: Absolute Lymphocyte Count 1.14 X10^3/uL (0.83-4.51); Basophil# 0.02 X10^3/uL; Basophil% 0.3 % (0-1); Eosinophil# 0.17 X10^3/uL; Eosinophils% 2.3 % (0-5); Hemoglobin 9.1 g/dL (12.0-15.0); Lymphocyte # 1.14 X10^3/ul (0.83-4.51); Lymphocyte % 15.5 % (19-41); Mean Corp Hgb Conc 30.3 g/dL (32-36); Mean Corpuscular Hgb 26.5 pg (27.0-32.0); Mean Corpuscular Volume 87.2 fL (81-99); Mean Platelet Vol. 11.2 fl (6.2-12.0); Monocyte# 0.95 X10^3/uL; Monocyte% 12.9 % (0-10); NRBC Flagged by Analyzer 0 % (0-5); Neutrophil # 5.04 X10^3/uL (2.7-7.7); Neutrophil % 68.6 % (47-70); POSITIVE MORPHOLOGY YES; Platelet Count 130 K/mm3 (150-450); RBC Distribution Width CV 24.5 % (11.6-14.6); RBC Distribution Width SD 74.9 fl (35.1-43.9); Red Blood Count 3.44 M/mm3 (4.2-5.4); White Blood Count 7.4 K/mm3 (4.4-11.0)
[2023-11-04] MEDS: Furosemide 40 MG Tablet PO (07:47)
[2023-11-04 07:51] LABS: Differential Indicated SCAN CRITERIA MET
[2023-11-04] MEDS: Pantoprazole Sodium 20 MG Tablet PO (08:10)
[2023-11-04] MEDS: Metoprolol Tartrate 25 MG Tablet PO ×2 (08:13→21:21)
[2023-11-04] MEDS: Losartan Potassium 25 MG Tablet 12.5 MG PO (08:14)
[2023-11-04] MEDS: Ensure Plus High Protein 120 ML LIQUID PO ×2 (08:18→21:20)
--- NOTE | 2023-11-04 08:49 | PN.SURG_ITS ---
Subjective Subjective The patient had urinary retention overnight. She required straight catheterization and then again this morning she was having pressure and found to have over 700 cc and a Samson catheter was placed. She denies nausea or vomiting. She did have a bowel meant overnight that was rust colored with some blood. Objective Data Objective Data Vital Signs: Vital Signs Temp Pulse Resp BP Pulse Ox O2 Del Method O2 Flow Rate 97.9 F 71 18 110/54 L 99 Nasal Cannula 1 11/04/23 08:02 11/04/23 08:26 11/04/23 08:02 11/04/23 08:02 11/04/23 08:02 11/04/23 08:26 11/04/23 08:26 Oxygen Flow Rate (L/min) 1 Oxygen Delivery Method Nasal Cannula Weight: 159 lb 6.307 oz Body Mass Index (BMI) 29.1 Intake & Output: Intake and Output for Last 24 Hours 11/02/23 11/03/23 11/04/23 23:59 23:59 23:59 Intake Total 2373.34 / 2673.34 2405.33 / 2405.33 1110 / 1110 Output Total 765 / 865 875 / 875 Balance 2373.34 / 2448.34 1640.33 / 1540.33 235 / 235 Lab / Micro Data 11/04/23 06:52 11/03/23 06:15 Labs: Laboratory Results - last 24 hr 11/03/23 06:15: Differential Comment SCANNED 11/04/23 06:52: WBC 7.4, RBC 3.44 L, Hgb 9.1 L, Hct 30.0 L, MCV 87.2, MCH 26.5 L , MCHC 30.3 L, RDW Std Deviation 74.9 H, RDW Coeff of Vamshi 24.5 H, Plt Count 130 L, MPV 11.2, Immature Gran % (Auto) 0.400, Neut % (Auto) 68.6, Lymph % (Auto) 15.5 L, [place] % (Auto) 12.9 H, Eos % (Auto) 2.3, Baso % (Auto) 0.3, Absolute Neuts (auto) 5.0, Absolute Lymphs (auto) 1.14, Nucleated RBC % 0 Physical Exam Const oriented x3 and no apparent distress GI soft to palpation and non-tender Assessment & Plan Assessment/Plan (1) S/P right hemicolectomy: (2) Colon cancer: QUALIFIERS: Colon location: ascending Qualified Code(s): C18.2 - Malignant neoplasm of ascending colon PLAN: Plan The patient is having bowel function but her first bowel movement was removed and colored. I am awaiting further bowel function. She is tolerating a diet. Samson catheter in place for urinary retention. I am checking a UA. Jonah Hawkins MD Pager: [facility] [address] [place] [address] [address] [place] [address] Office:
[2023-11-04 08:57] LABS: Anisocytosis 1+; Differential Comment SCANNED
--- NOTE | 2023-11-04 15:16 | NURSING ---
Continues to sit in chair at this time. Call light and table in reach.
[2023-11-04 16:52] LABS: Bacteria 0 SEEN /hpf (None Seen); Color, Urine Yellow (Yellow); Glucose, Dipstick Normal (Normal); Ketone-Dipstick Negative (Negative); Leukocyte Esterase-Dipstick Negative /ul (Negative); Mucous, Urine 0 SEEN /hpf (<or=2+); Nitrite-Dipstick Negative (Negative); Occult Blood-Urine Negative /ul (Negative); Protein-Dipstick Negative (Negative); Red Blood Cells-Urine 0 SEEN /hpf (0-5); Squamous Epithelial Cells - UA 0 SEEN /hpf (5-10); Urine Bilirubin Dipstick Negative (Negative); Urine Clarity Clear (Clear); Urine Urobilinogen Normal (Normal); White Blood Cells 0 SEEN /hpf (0-5)
[2023-11-04] MEDS: buPROPion (XL) 300 MG TABLET.XL PO (21:20)
[2023-11-04] MEDS: Atorvastatin Calcium 80 MG Tablet PO (21:21)
[2023-11-05] MEDS: Acetaminophen 500 MG Tablet 1000 MG PO ×3 (00:17→17:22)
[2023-11-05] MEDS: traMADol 50 MG Tablet PO ×4 (00:17→17:26)
[2023-11-05] MEDS: Pantoprazole Sodium 40 MG in 0.9% Normal Saline (100mL MB+) 100 ML 330 MG IV ×2 (00:19→11:48)
[2023-11-05] MEDS: 0.9% Saline Lock 10 ML Syringe IV ×2 (00:20→11:48)
[2023-11-05 02:00] VITALS: BP 114/55; PULSE 77; RESP 16; TEMP 36.8; O2SAT 95
[2023-11-05] MEDS: Menthol/Lanolin/Calamine/Znox 113 GM Tube 1 APPLIC TOPICAL ×2 (05:50→11:49)
[2023-11-05 06:05] LABS: Absolute Lymphocyte Count 0.88 X10^3/uL (0.83-4.51); Absolute Neutrophil Count 5.2 X10^3/uL (2.0-7.7); Basophil# 0.02 X10^3/uL; Basophil% 0.3 % (0-1); Eosinophils% 2.8 % (0-5); Hematocrit 31.3 % (37-47); Hemoglobin 9.6 g/dL (12.0-15.0); Lymphocyte # 0.88 X10^3/ul (0.83-4.51); Lymphocyte % 12.2 % (19-41); Mean Corp Hgb Conc 30.7 g/dL (32-36); Mean Corpuscular Hgb 26.9 pg (27.0-32.0); Mean Corpuscular Volume 87.7 fL (81-99); Mean Platelet Vol. 10.8 fl (6.2-12.0); Monocyte# 0.88 X10^3/uL; Monocyte% 12.2 % (0-10); NRBC Flagged by Analyzer 0 % (0-5); Neutrophil # 5.23 X10^3/uL (2.7-7.7); Neutrophil % 72.2 % (47-70); POSITIVE MORPHOLOGY YES; Platelet Count 150 K/mm3 (150-450); RBC Distribution Width CV 24.8 % (11.6-14.6); RBC Distribution Width SD 76.5 fl (35.1-43.9); Red Blood Count 3.57 M/mm3 (4.2-5.4); White Blood Count 7.2 K/mm3 (4.4-11.0)
[2023-11-05 06:08] LABS: Differential Indicated SCAN CRITERIA MET
[2023-11-05 06:30] LABS: Anion Gap 6 (5-15); BUN 12 mg/dL (7-18); BUN/Creat Ratio 12.9 RATIO (10-20); Calcium,Total 8.7 mg/dL (8.5-10.1); Chloride 106 mmol/L (98-107); Creatinine, Serum 0.93 mg/dL (0.55-1.02); EST Glomerular Filtration Rate 62 mL/min (>60); Est Glom Filt Rate - Afr Amer 75 mL/min (>60); Estimated Creatinine Clearance 46.42 ml/min; Glucose 96 mg/dL (74-106); Potassium 3.6 mmol/L (3.5-5.1); Sodium Level 138 mmol/L (136-145)
--- NOTE | 2023-11-05 07:53 | PN.SURG_ITS ---
Subjective Subjective Patient reports she is comfortable and tolerating a diet. Hemoglobin is stable. Objective Data Objective Data Vital Signs: Vital Signs Temp Pulse Resp BP Pulse Ox O2 Del Method O2 Flow Rate 98.2 F 77 16 114/55 L 95 Room Air 1 11/05/23 02:00 11/05/23 02:00 11/05/23 02:00 11/05/23 02:00 11/05/23 02:00 11/05/23 02:00 11/04/23 08:52 FiO2 99 11/04/23 08:52 Oxygen Flow Rate (L/min) 1 Oxygen Delivery Method Room Air Weight: 159 lb 6.307 oz Body Mass Index (BMI) 29.1 Intake & Output: Intake and Output for Last 24 Hours 11/03/23 11/04/23 11/05/23 23:59 23:59 23:59 Intake Total 2405.33 / 2405.33 1960 / 1960 110 / 110 Output Total 765 / 865 3025 / 3525 1000 / 1000 Balance 1640.33 / 1540.33 -1065 / -1565 -890 / -890 Lab / Micro Data 11/05/23 04:52 11/05/23 04:52 Labs: Laboratory Results - last 24 hr 11/04/23 06:52: Differential Comment SCANNED, Anisocytosis 1+ 11/04/23 15:05: Urine Color Yellow, Urine Clarity Clear, Urine pH 6.0, Ur Specific [place] 1.010, Urine Protein Negative, Urine Glucose (UA) Normal, Urine Ketones Negative, Urine Occult Blood Negative, Urine Nitrite Negative, Urine Bilirubin Negative, Urine Urobilinogen Normal, Ur Leukocyte Esterase Negative, Urine RBC 0 SEEN, Urine WBC 0 SEEN, Ur Squamous Epith Cells 0 SEEN, Urine Bacteria 0 SEEN, Urine Mucus 0 SEEN 11/05/23 04:52: WBC 7.2, RBC 3.57 L, Hgb 9.6 L, Hct 31.3 L, MCV 87.7, MCH 26.9 L , MCHC 30.7 L, RDW Std Deviation 76.5 H, RDW Coeff of Vamshi 24.8 H, Plt Count 150, MPV 10.8, Immature Gran % (Auto) 0.300, Neut % (Auto) 72.2 H, Lymph % (Auto) 12.2 L, [place] % (Auto) 12.2 H, Eos % (Auto) 2.8, Baso % (Auto) 0.3, Absolute Neuts (auto) 5.2, Absolute Lymphs (auto) 0.88, Nucleated RBC % 0, Sodium 138, Potassium 3.6, Chloride 106, Carbon Dioxide 26.0, Anion Gap 6, BUN 12, Creatinine 0.93, Estim Creat Clear Calc 46.42, Est GFR (MDRD) Af Amer 75, Est GFR (MDRD) Non-Af 62, BUN/Creatinine Ratio 12.9, Glucose 96, Calcium 8.7 Physical Exam Const oriented x3 and no apparent distress Resp normal respiratory effort GI soft to palpation and non-tender Assessment & Plan Assessment/Plan (1) S/P right hemicolectomy: PLAN: The patient is doing well and has not had any bloody bowel movements overnight. Hemoglobin is stable. I am going to try a voiding trial and see if we can get her catheter out. If she tolerates this and is able to void I will discharge her home this afternoon. If she is unable to void I will replace the Samson and discharge her home this afternoon and she will follow-up this week for removal. Jonah Hawkins MD Pager: [facility] [address] [place] [address], [address] [place] [address] Office:
[2023-11-05 08:00] VITALS: BP 109/58; PULSE 80; RESP 19; TEMP 36.6; O2SAT 92
[2023-11-05 08:32] VITALS: PULSE 80
[2023-11-05] MEDS: Metoprolol Tartrate 25 MG Tablet PO (08:32)
[2023-11-05] MEDS: Losartan Potassium 25 MG Tablet 12.5 MG PO (08:33)
[2023-11-05] MEDS: Ensure Plus High Protein 120 ML LIQUID PO (08:40)
[2023-11-05] MEDS: Clopidogrel Bisulfate 75 MG Tablet PO (08:40)
[2023-11-05 09:08] VITALS: O2SAT 93
[2023-11-05 09:50] LABS: Differential Comment SCANNED
[2023-11-05 09:51] LABS: Anisocytosis 1+
[2023-11-05 14:53] VITALS: BP 128/58; PULSE 80; RESP 18; TEMP 36.7; O2SAT 96
--- NOTE | 2023-11-05 16:39 | NURSING ---
Pt voided 400cc earlier today. Dr. Hawkins is aware and also wanted PVR. This RN bladder scanned pt for 152cc. Pt then got up to void and voided 100cc. This RN then bladder scanned her again and only obtained 62cc. Dr. Hawkins made aware, okay to discharge home.
== END 2023-11-05 17:35 | disposition home or self-care (01) | DRG 331 ==
LOC: ACINP 08:01 → MS3 14:06
PROVIDERS: Anesthesiology; Surgery; Admitting Provider Surgery; PCP Family Medicine; Referring Provider Surgery; Visit Provider Surgery
PROC: 0DTF4ZZ Resection of Right Large Intestine, Percutaneous Endoscopic Approach (ICD-10-PCS; CPT 44205; principal; 2023-11-02 09:45)
DX: C18.2 Malignant neoplasm of ascending colon (principal); D64.9 Anemia, unspecified; J44.9 Chronic obstructive pulmonary disease, unspecified; I10 Essential (primary) hypertension; E78.00 Pure hypercholesterolemia, unspecified; I25.10 Atherosclerotic heart disease of native coronary artery without angina pectoris; Z79.82 Long term (current) use of aspirin; Z79.02 Long term (current) use of antithrombotics/antiplatelets; Z79.899 Other long term (current) drug therapy; Z87.891 Personal history of nicotine dependence; Z85.118 Personal history of other malignant neoplasm of bronchus and lung; Z95.5 Presence of coronary angioplasty implant and graft; Z85.3 Personal history of malignant neoplasm of breast; R33.9 Retention of urine, unspecified
CPT/HCPCS: 36415; 80048; 81001; 82962; 83735; 85025; 85027; 87086; 88309; 94668; J7120; A4216; C1760; J0744; J2405

== ENCOUNTER 2023-11-06 12:30 | Inpatient (IN) | payer MEDICARE, SELFPAY ==
[2023-11-06 12:30] VITALS: BP 142/68; PULSE 97; RESP 16; TEMP 36.1; O2SAT 100
--- NOTE | 2023-11-06 12:45 | EX.ED.DYSGE1 ---
HPI History of Present Illness Chief Complaint: Weakness Informant: patient Onset/Context/Timing Onset: Days Narrative Narrative: Patient presents secondary to generalized weakness and difficulty caring for herself at home. She was admitted to the hospital 11/01-11/04 for hemicolectomy. Patient states she went home yesterday and went straight to bed. She states she felt too weak to care for herself and lives alone. She feels that she needs to be in the hospital another 24-36 hours until she is better recovered and can care for herself. She does report that she is still passing gas and had been able to urinate. She reports having subjective fever and chills since discharge but did not check her temperature. PFSH PFS Medical History Anxiety Alcohol use Ambulates with cane DVT (deep venous thrombosis) Low iron High cholesterol Back pain Balance problems Gastric reflux Shortness of breath on exertion History of pain when walking History of edema History of stress test History of echocardiogram Cardiology follow-up encounter History of irregular heartbeat Wears glasses Wears dentures Wears hearing aid Arthritis COPD (chronic obstructive pulmonary disease) Coronary artery disease Lung nodule, solitary Essential (primary) hypertension History of ST elevation myocardial infarction (STEMI) (09/20/18) Atherosclerotic heart disease of [place] coronary artery without angina pectoris Pseudoaneurysm following procedure (09/20/18) Left bundle branch block History of breast cancer Depression Obesity Former smoker Home Medications ?Medication ?Instructions ?Recorded ?Last Taken ?Type bupropion HCl 300 mg 24 hr tablet, 300 mg PO QHS DEPRESSION 09/20/18 11/01/23 History extended release omeprazole 20 mg capsule,delayed 20 mg PO DAILY GERD 10/05/18 11/01/23 History release aspirin 81 mg tablet,delayed 81 mg PO DAILY@0800 BLOOD THINNER 01/03/19 11/01/23 Rx release #90 tabs vitamin B complex (B 1 tab PO DAILY SUPPLEMENT 07/04/19 11/01/23 History Complex-Vitamin B12 tablet) furosemide 40 mg tablet 40 mg PO DAILY PRN edema #90 tabs 01/04/22 11/01/23 Rx metoprolol tartrate 25 mg tablet 25 mg PO BID BP #180 tabs 01/04/23 11/01/23 Rx albuterol sulfate 90 mcg/actuation 2 inh inhalation Q6H PRN sob 04/15/23 Unknown History aerosol inhaler (ProAir HFA) cholecalciferol (vitamin D3) 50 50 mcg PO DAILY SUPPLEMENT 07/04/23 11/01/23 History mcg (2,000 unit) capsule atorvastatin 80 mg tablet 80 mg PO QHS CHOLESTEROL #90 tabs 09/18/23 11/01/23 Rx clopidogrel 75 mg tablet (Plavix) 75 mg PO DAILY BLOOD THINNER #90 09/18/23 10/26/23 Rx tabs losartan 25 mg tablet 12.5 mg (1/2 x 25 mg) PO DAILY BP 09/18/23 11/01/23 Rx #45 tabs Allergy/AdvReac Type Severity Reaction Status Date / Time Penicillins Allergy localized Verified 11/02/23 08:27 swelling at injection site Sulfa (Sulfonamide Allergy Hives Verified 11/02/23 08:27 Antibiotics) Family History Father CAD (coronary artery disease) Myocardial infarction Mother Hypertension Surgical History S/P right hemicolectomy Hx of esophagogastroduodenoscopy History of cardiac catheterization Hx of colonoscopy History of left mastectomy History of tonsillectomy History of coronary artery stent placement (09/20/18) H/O partial thyroidectomy Social History Smoking Status: Former smoker ROS ROS ED Constitutional Constitutional ED: Reports chills, fever(s) and subjective Eyes Eyes: Denies change in vision or discharge from eye(s) ENT ENT ED: Denies discharge from eye(s), rhinorrhea or sore throat Cardiovascular Cardiovascular: Denies chest pain or palpitations Respiratory/Chest Respiratory/Chest: Denies cough or dyspnea Gastrointestinal Gastrointestinal: Reports abdominal pain; Denies nausea or vomiting Genitourinary Genitourinary ED: Denies difficulty urinating or dysuria Musculoskeletal Musculoskeletal: Denies back pain or extremity pain Integumentary Denies Abrasions or rash Neurologic Neurologic: Reports weakness; Denies headache(s) Psychiatric Psychiatric: Denies anxiety or depression Allergic/Immunologic Allergic/Immunologic ED: Denies lip swelling or urticaria EXAM Physical Exam Const Vital Signs: 11/06/23 12:30 11/06/23 13:07 11/06/23 14:58 Temperature 96.9 F L Temperature Source Temporal Pulse Rate 97 94 Respiratory Rate 16 17 Respiratory Pattern Normal Blood Pressure 142/68 H 113/57 L Blood Pressure Mean 92 75 Pulse Ox 100 Oxygen Delivery Method Room Air 11/06/23 15:45 Temperature 98.7 F Temperature Source Pulse Rate 98 Respiratory Rate 17 Respiratory Pattern Blood Pressure 113/57 L Blood Pressure Mean 75 Pulse Ox 92 Oxygen Delivery Method Positive well nourished and well developed General Appearance ED: well developed HEENT Reports moist mucous membranes Eyes EOMs intact bilaterally Chest Wall inspection of chest normal and palpation of chest normal Resp normal respiratory effort and clear to auscultation bilaterally Cardio regular rate and regular rhythm GI GI Narrative: Mid abdominal surgical sites clean without sign of infection. Appropriate post-op tenderness noted on exam. Hypoactive bowel sounds on auscultation. Extremity normal to inspection Neuro oriented x3 and no sensory deficits noted Motor Exam: general weakness Psych mental status grossly normal Skin no rashes or lesions noted MDM MDM MDM Narrative Medical decision making narrative: IV line established. Labwork obtained to evaluate for leukocytosis, anemia, and electrolyte derangement. Urinalysis obtained to evaluate for UTI. History & Record Review Discussion w/independent historian: Patient Additional record(s) reviewed:: Prior inpatient record and Prior labs Lab Data Attestation: I reviewed the patient's lab results. Labs: Laboratory Results - last 24 hr 11/06/23 11/06/23 13:00 14:40 WBC 9.8 RBC 4.29 Hgb 11.5 L Hct 38.6 MCV 90.0 MCH 26.8 L MCHC 29.8 L RDW Std Deviation 78.9 H RDW Coeff of Vamshi 25.1 H Plt Count 183 MPV 10.2 Immature Gran % (Auto) 0.500 Neut % (Auto) 85.4 H Lymph % (Auto) 6.6 L [place] % (Auto) 6.6 Eos % (Auto) 0.6 Baso % (Auto) 0.3 Absolute Neuts (auto) 8.4 H Absolute Lymphs (auto) 0.65 L Nucleated RBC % 0 Anisocytosis RARE Sodium 136 Potassium 3.7 Chloride 104 Carbon Dioxide 23.0 Anion Gap 9 BUN 11 Creatinine 0.94 Est GFR (MDRD) Af Amer 74 Est GFR (MDRD) Non-Af 61 BUN/Creatinine Ratio 11.7 Glucose 109 H Calcium 9.2 Urine Color Yellow Urine Clarity Sl. Cloudy Urine pH 6.0 Ur Specific [place] 1.015 Urine Protein 30 H Urine Glucose (UA) Normal Urine Ketones 50 H Urine Occult Blood 10 H Urine Nitrite Negative Urine Bilirubin Negative Urine Urobilinogen Normal Ur Leukocyte Esterase 500 H Urine RBC 0 SEEN Urine WBC 25-50 SEEN Ur Squamous Epith Cells 10-25 SEEN Urine Bacteria 0 SEEN Urine Mucus 0 SEEN Treatment and Re-Evaluation :: CBC reveals normal white count at 9.8 with hemoglobin of 11.5. This is improved when compared to prior values. Chemistry studies are unremarkable with normal renal function. Urinalysis is a contaminated sample with 10-25 epithelial cells, 25-50 white cells, and 0 bacteria. On repeat exam, abdomen is unchanged with appropriate post-op tenderness noted. I spoke with Dr Hawkins, educational administration teacher for surgery. He will admit the patient and work on getting her to rehab as she reports she is unable to care for herself at home. Discharge Plan Dx/Rx/DC Orders Clinical Impression: Weakness Disposition Disposition: Acute Care Hospital [facility] Discharge Date/Time: 11/06/23 16:43
[2023-11-06 13:12] LABS: Absolute Lymphocyte Count 0.65 X10^3/uL (0.83-4.51); Absolute Neutrophil Count 8.4 X10^3/uL (2.0-7.7); Basophil# 0.03 X10^3/uL; Basophil% 0.3 % (0-1); Eosinophil# 0.06 X10^3/uL; Eosinophils% 0.6 % (0-5); Hematocrit 38.6 % (37-47); Hemoglobin 11.5 g/dL (12.0-15.0); Lymphocyte # 0.65 X10^3/ul (0.83-4.51); Lymphocyte % 6.6 % (19-41); Mean Corp Hgb Conc 29.8 g/dL (32-36); Mean Corpuscular Hgb 26.8 pg (27.0-32.0); Mean Platelet Vol. 10.2 fl (6.2-12.0); Monocyte# 0.65 X10^3/uL; Monocyte% 6.6 % (0-10); NRBC Flagged by Analyzer 0 % (0-5); Neutrophil # 8.38 X10^3/uL (2.7-7.7); Neutrophil % 85.4 % (47-70); POSITIVE MORPHOLOGY YES; Platelet Count 183 K/mm3 (150-450); RBC Distribution Width CV 25.1 % (11.6-14.6); RBC Distribution Width SD 78.9 fl (35.1-43.9); Red Blood Count 4.29 M/mm3 (4.2-5.4); White Blood Count 9.8 K/mm3 (4.4-11.0)
[2023-11-06 13:23] LABS: Differential Indicated SCAN CRITERIA MET
[2023-11-06] MEDS: Ondansetron 4 MG/2 ML Vial IV ×2 (13:26→23:30)
[2023-11-06 13:27] LABS: Anion Gap 9 (5-15); BUN 11 mg/dL (7-18); BUN/Creat Ratio 11.7 RATIO (10-20); Calcium,Total 9.2 mg/dL (8.5-10.1); Chloride 104 mmol/L (98-107); Creatinine, Serum 0.94 mg/dL (0.55-1.02); EST Glomerular Filtration Rate 61 mL/min (>60); Est Glom Filt Rate - Afr Amer 74 mL/min (>60); Glucose 109 mg/dL (74-106); Potassium 3.7 mmol/L (3.5-5.1); Sodium Level 136 mmol/L (136-145)
[2023-11-06 13:33] LABS: Anisocytosis RARE
[2023-11-06] MEDS: Mag Hydrox/Al Hydrox/Simeth 30 ML UDC PO (14:47)
[2023-11-06 14:49] LABS: Bacteria 0 SEEN /hpf (None Seen); Mucous, Urine 0 SEEN /hpf (<or=2+); Red Blood Cells-Urine 0 SEEN /hpf (0-5)
[2023-11-06 14:53] LABS: Color, Urine Yellow (Yellow); Glucose, Dipstick Normal (Normal); Ketone-Dipstick 50 mg/dl (Negative); Leukocyte Esterase-Dipstick 500 /ul (Negative); Nitrite-Dipstick Negative (Negative); Occult Blood-Urine 10 /ul (Negative); Protein-Dipstick 30 mg/dl (Negative); Specific Gravity, Urine 1.015 (1.002-1.030); Urine Bilirubin Dipstick Negative (Negative); Urine Clarity Sl. Cloudy (Clear); Urine Urobilinogen Normal (Normal)
[2023-11-06] MEDS: 0.9% Normal Saline (1000mL) 1,000 ML 150 ML IV (14:55)
[2023-11-06 14:58] VITALS: BP 113/57; PULSE 94; RESP 17
[2023-11-06 15:03] LABS: Squamous Epithelial Cells - UA 10-25 SEEN /hpf (5-10)
[2023-11-06 15:04] LABS: White Blood Cells 25-50 SEEN /hpf (0-5)
[2023-11-06 15:45] VITALS: BP 113/57; PULSE 98; RESP 17; TEMP 37.1; O2SAT 92
--- NOTE | 2023-11-06 16:23 | NURSING ---
MED SURG OBS ODALIS VALENTINO
[2023-11-06 17:21] VITALS: BP 140/67; PULSE 97; RESP 16; TEMP 36.2; O2SAT 94; BMI 30.7
[2023-11-06] MEDS: 0.9% Normal Saline (1000mL) 1,000 ML 60 ML IV (18:04)
[2023-11-06] MEDS: 0.9% Saline Lock 10 ML Syringe IV (18:04)
[2023-11-06 23:00] VITALS: BP 135/54; PULSE 99; RESP 16; TEMP 36.7; O2SAT 94
[2023-11-07] VITALS (7 sets, daily range): BP systolic 129–139; BP diastolic 57–70; PULSE 91–106; RESP 14–16; TEMP 36.2–36.7; O2SAT 92–93
[2023-11-07 07:18] LABS: Absolute Lymphocyte Count 0.92 X10^3/uL (0.83-4.51); Absolute Neutrophil Count 6.8 X10^3/uL (2.0-7.7); Basophil# 0.02 X10^3/uL; Basophil% 0.2 % (0-1); Eosinophil# 0.12 X10^3/uL; Eosinophils% 1.4 % (0-5); Hematocrit 32.3 % (37-47); Lymphocyte # 0.92 X10^3/ul (0.83-4.51); Lymphocyte % 10.5 % (19-41); Mean Corpuscular Hgb 26.7 pg (27.0-32.0); Mean Corpuscular Volume 86.4 fL (81-99); Monocyte# 0.86 X10^3/uL; Monocyte% 9.8 % (0-10); NRBC Flagged by Analyzer 0 % (0-5); Neutrophil % 77.4 % (47-70); POSITIVE MORPHOLOGY YES; Platelet Count 195 K/mm3 (150-450); RBC Distribution Width CV 24.8 % (11.6-14.6); RBC Distribution Width SD 74.9 fl (35.1-43.9); Red Blood Count 3.74 M/mm3 (4.2-5.4); White Blood Count 8.8 K/mm3 (4.4-11.0)
[2023-11-07 07:21] LABS: Differential Indicated SCAN CRITERIA MET
[2023-11-07 07:42] LABS: Anion Gap 7 (5-15); BUN 10 mg/dL (7-18); BUN/Creat Ratio 13.7 RATIO (10-20); Calcium,Total 8.5 mg/dL (8.5-10.1); Chloride 105 mmol/L (98-107); Creatinine, Serum 0.73 mg/dL (0.55-1.02); EST Glomerular Filtration Rate 82 mL/min (>60); Est Glom Filt Rate - Afr Amer 99 mL/min (>60); Estimated Creatinine Clearance 55.35 ml/min; Glucose 87 mg/dL (74-106); Magnesium 1.8 mg/dL (1.6-2.6); Phosphorus 2.8 mg/dL (2.5-4.9); Potassium 3.5 mmol/L (3.5-5.1); Sodium Level 137 mmol/L (136-145)
--- NOTE | 2023-11-07 08:10 | PN.SURG_ITS ---
Subjective Subjective Patient is evaluated resting comfortably in bed. She notes belching, intermittent nausea and heart burn symptoms. She notes once discharged, she felt overall unwell and weakness. She states her sister lives next door to her and her son leaves 3 blocks away, however no one checked on her until she contacted them that she would need to return to the hospital due to overall not feeling well. She notes passing very little flatus and has not had any further bowel movements since the procedure. She notes only being able to consume ice water as she slept most of the time. Objective Data Objective Data Vital Signs: Vital Signs Temp Pulse Resp BP Pulse Ox O2 Del Method 97.9 F 106 H 15 129/61 H 92 Room Air 11/07/23 05:15 11/07/23 05:15 11/07/23 05:15 11/07/23 05:15 11/07/23 05:15 11/07/23 05:15 Oxygen Delivery Method Room Air Weight: 167 lb 12.348 oz Body Mass Index (BMI) 30.7 Intake & Output: Intake and Output for Last 24 Hours 11/05/23 11/06/23 11/07/23 23:59 23:59 23:59 Intake Total 1000 / 1200 200 / 200 Balance 1000 / 1200 200 / 200 Lab / Micro Data 11/07/23 07:09 11/07/23 07:09 Labs: Laboratory Results - last 24 hr 11/06/23 13:00: WBC 9.8, RBC 4.29, Hgb 11.5 L, Hct 38.6, MCV 90.0, MCH 26.8 L, M CHC 29.8 L, RDW Std Deviation 78.9 H, RDW Coeff of Vamshi 25.1 H, Plt Count 183, MPV 10.2, Immature Gran % (Auto) 0.500, Neut % (Auto) 85.4 H, Lymph % (Auto) 6.6 L, [place] % (Auto) 6.6, Eos % (Auto) 0.6, Baso % (Auto) 0.3, Absolute Neuts (auto) 8.4 H, Absolute Lymphs (auto) 0.65 L, Nucleated RBC % 0, Anisocytosis RARE, Sodium 136, Potassium 3.7, Chloride 104, Carbon Dioxide 23.0, Anion Gap 9, BUN 11, Creatinine 0.94, Est GFR (MDRD) Af Amer 74, Est GFR (MDRD) Non-Af 61, BUN/Creatinine Ratio 11.7, Glucose 109 H, Calcium 9.2 11/06/23 14:40: Urine Color Yellow, Urine Clarity Sl. Cloudy, Urine pH 6.0, Ur Specific [place] 1.015, Urine Protein 30 H, Urine Glucose (UA) Normal, Urine Ketones 50 H, Urine Occult Blood 10 H, Urine Nitrite Negative, Urine Bilirubin Negative, Urine Urobilinogen Normal, Ur Leukocyte Esterase 500 H, Urine RBC 0 SEEN, Urine WBC 25-50 SEEN, Ur Squamous Epith Cells 10-25 SEEN, Urine Bacteria 0 SEEN, Urine Mucus 0 SEEN 11/07/23 07:09: WBC 8.8, RBC 3.74 L, Hgb 10.0 L, Hct 32.3 L, MCV 86.4, MCH 26.7 L, MCHC 31.0 L, RDW Std Deviation 74.9 H, RDW Coeff of Vamshi 24.8 H, Plt Count 195, MPV 10.0, Immature Gran % (Auto) 0.700, Neut % (Auto) 77.4 H, Lymph % (Auto) 10.5 L, [place] % (Auto) 9.8, Eos % (Auto) 1.4, Baso % (Auto) 0.2, Absolute Neuts (auto) 6.8, Absolute Lymphs (auto) 0.92, Nucleated RBC % 0, Sodium 137, Potassium 3.5, Chloride 105, Carbon Dioxide 25.0, Anion Gap 7, BUN 10, Creatinine 0.73, Estim Creat Clear Calc 55.35, Est GFR (MDRD) Af Amer 99, Est GFR (MDRD) Non-Af 82, BUN/Creatinine Ratio 13.7, Glucose 87, Calcium 8.5, Phosphorus 2.8, Magnesium 1.8 Physical Exam GI GI Narrative: Abdomen- incisions c/d/i. No erythema or infection noted. Nontender, soft to palpation. No incisional drainage noted. Hypoactive bowel sounds. Assessment & Plan Assessment/Plan (1) S/P right hemicolectomy: PLAN: I am following this patient in conjunction with Dr. Florez. She will independently evaluate this patient Labs reviewed from today. No changes at this time to be made Keep patient at clear liquids possible ileus Case management to assess for potential rehab facility for continues recovery May shower today PT/OT ordered for assessment and recommendations to be discharge home alone We will continue to monitor this patient Charges/Coding Visit Charges Inpatient E&M: 73086 Subs Hosp L1 (post-op; no charge)
[2023-11-07] MEDS: Pantoprazole Sodium 40 MG in 0.9% Normal Saline (100mL MB+) 100 ML 330 MG IV (09:37)
[2023-11-07] MEDS: 0.9% Normal Saline (1000mL) 1,000 ML 60 ML IV (09:53)
[2023-11-07] MEDS: Metoprolol Tartrate 25 MG Tablet PO ×2 (09:53→21:26)
[2023-11-07] MEDS: Losartan Potassium 25 MG Tablet 12.5 MG PO (09:55)
[2023-11-07] MEDS: Ondansetron 4 MG/2 ML Vial IV (09:57)
[2023-11-07 10:22] LABS: Differential Comment SCANNED; ERROR FUNCTION FLAG YES; ERROR RESULT FLAG YES
[2023-11-07 10:23] LABS: Anisocytosis 2+; Microcytosis 2+
[2023-11-07 10:24] LABS: Hypochromasia 1+
[2023-11-07 10:27] LABS: Ovalocyte 1+; Schistocytes 1+
--- NOTE | 2023-11-07 12:35 | CASEMGMT ---
Social Work Pt had informed admitting RN does not have LW/POA and declined additional information. CARMEN Sierra
--- NOTE | 2023-11-07 15:35 | CASEMGMT ---
Readmission Note: Index: 11/01- 11/05/23. Dx: Rt Hemicolectomy Readmission: 11/06/23. Dx: Colon Cancer Pt with a history of anxiety, DVT, high cholesterol, COPD, CAD, HTN, STEMI, depression, and obesity was admitted on the above-noted dates for the corresponding dx?s. Pt arrives to [facility] with c/o generalized weakness and difficulties with caring for herself at home. This RN CM to pt room at this time. Pt lives alone and states that she was not feeling well enough to be at home alone. Pt states that she feels as if she needs to stay in the hospital for a couple more days to return to her PLOF. Pt states that she was experiencing nausea and heartburn at home. Pt states that her goal is to get well enough to be able to return home alone. Pt did good with PT today and PT is not recommending any additional therapy. Pt denies the need for HHC and would like to attend OP therapy rather. Pt states that she recently finished 8 weeks of PT through [facility] and would like to return to [facility] after DC. Pt states that she will need a new Rx for this. Pt states that her previous Rx was written by her PCP. Pt states that she does not have a preference in who schedules the OP therapy appt. PLAN: Home with OP therapy once medically reayd. CM to follow and provide Rx for OP therapy and potentially schedule the appt for the pt.
--- NOTE | 2023-11-07 16:06 | CHAPLAIN ---
Type of Pastoral Visit _x__ Initial Visit ___ Follow-up Visit ___ On-call Visit ___ General Patient Visit ___ Spiritual Assessment ___ Family Conference ___ Bereavement ___ Rapid Response ___ Code Blue ___ Other (describe below) Pastoral Care Referral From _x__ Patient ___ Family ___ Nurse ___ Physician ___ Supervisor Telephone Answering Service ___ Granite Polisher ___ Other (describe below) Sacrament/Intervention _x__ Active listening ___ Anointing ___ Restorationist ___ Bereavement ___ Communion _x__ Dayami exploration ___ _x__ Life review ___ Prayer ___ Reconciliation ___ Sacrament of Sick __x_ Supportive presence ___ Wedding ___ Other (describe below) Pastoral Comments patient has been seen before; pt explains in detail how she has been diagnosed of her illnesses of late and how these four months have been; pt is expressive of her views on her work in the [employer] and her politics; pt is a member of the [employer] and that they give me great support; time to listen and give assurances of good care and support given; pt had no other needs at this time
[2023-11-07] MEDS: buPROPion (XL) 300 MG TABLET.XL PO (21:26)
[2023-11-08 05:00] VITALS: BP 119/63; PULSE 82; RESP 16; TEMP 36.3; O2SAT 92
[2023-11-08 06:47] LABS: Absolute Neutrophil Count 4.9 X10^3/uL (2.0-7.7); Basophil# 0.04 X10^3/uL; Basophil% 0.5 % (0-1); Eosinophil# 0.16 X10^3/uL; Eosinophils% 2.2 % (0-5); Hematocrit 32.6 % (37-47); Hemoglobin 9.8 g/dL (12.0-15.0); Lymphocyte % 16.4 % (19-41); Mean Corp Hgb Conc 30.1 g/dL (32-36); Mean Corpuscular Hgb 26.4 pg (27.0-32.0); Mean Corpuscular Volume 87.9 fL (81-99); Mean Platelet Vol. 10.3 fl (6.2-12.0); Monocyte# 0.97 X10^3/uL; Monocyte% 13.2 % (0-10); NRBC Flagged by Analyzer 0 % (0-5); Neutrophil # 4.93 X10^3/uL (2.7-7.7); Neutrophil % 67.3 % (47-70); POSITIVE MORPHOLOGY YES; Platelet Count 190 K/mm3 (150-450); RBC Distribution Width CV 25.1 % (11.6-14.6); Red Blood Count 3.71 M/mm3 (4.2-5.4); White Blood Count 7.3 K/mm3 (4.4-11.0)
[2023-11-08 06:56] LABS: Differential Indicated SCAN CRITERIA MET
[2023-11-08 07:50] LABS: Differential Comment SCANNED
[2023-11-08 07:51] LABS: Acanthocytes 1+; Anisocytosis 2+; Microcytosis 1+; Ovalocyte 1+
[2023-11-08 08:17] LABS: Anion Gap 7 (5-15); BUN 10 mg/dL (7-18); BUN/Creat Ratio 12.9 RATIO (10-20); Calcium,Total 8.6 mg/dL (8.5-10.1); Chloride 106 mmol/L (98-107); Creatinine, Serum 0.77 mg/dL (0.55-1.02); EST Glomerular Filtration Rate 77 mL/min (>60); Est Glom Filt Rate - Afr Amer 93 mL/min (>60); Estimated Creatinine Clearance 55.35 ml/min; Glucose 72 mg/dL (74-106); Potassium 3.5 mmol/L (3.5-5.1); Sodium Level 138 mmol/L (136-145)
--- NOTE | 2023-11-08 08:40 | HP.PCM_ITS ---
HPI - General General Date of Admission: 11/06/23 Date of Service: 11/06/23 Chief Complaint: Weakness HPI Narrative FAITH GOMEZ, is a 78 F who presents s/p laparoscopic right hemicolectomy for colon cancer secondary to weakness and difficulty caring for herself at home. She was discharged to home on 11/04. Patient voices she was discharged too soon and was unable to care for herself at home. Patient notes she felt too weak and majority of the time would just sleep. Patient notes her appetite has decreased. She notes that she was not drinking any fluids. She states she has been having heart burn, her lips were chapped and she was nauseated. Patient notes she felt she could not care for herself at home alone. Patient does state that her sister lives next door and her son lives 3 blocks away. She states that neither of her family members came to visit her after discharge to check on her until she called saying she need to go back to the hospital. No imaging was indicated in the ED to be obtained. Lab work was remarkable for decrease in Hgb which is to be expected post-operatively. [facility] Medical History Anxiety Alcohol use Ambulates with cane DVT (deep venous thrombosis) Low iron High cholesterol Back pain Balance problems Gastric reflux Shortness of breath on exertion History of pain when walking History of edema History of stress test History of echocardiogram Cardiology follow-up encounter History of irregular heartbeat Wears glasses Wears dentures Wears hearing aid Arthritis COPD (chronic obstructive pulmonary disease) Coronary artery disease Lung nodule, solitary Essential (primary) hypertension History of ST elevation myocardial infarction (STEMI) (09/20/18) Atherosclerotic heart disease of [place] coronary artery without angina pectoris Pseudoaneurysm following procedure (09/20/18) Left bundle branch block History of breast cancer Depression Obesity Former smoker Home Medications ?Medication ?Instructions ?Recorded ?Last Taken ?Type bupropion HCl 300 mg 24 hr tablet, 300 mg PO QHS DEPRESSION 09/20/18 11/01/23 History extended release omeprazole 20 mg capsule,delayed 20 mg PO DAILY GERD 10/05/18 11/01/23 History release aspirin 81 mg tablet,delayed 81 mg PO DAILY@0800 BLOOD THINNER 01/03/19 11/01/23 Rx release #90 tabs vitamin B complex (B 1 tab PO DAILY SUPPLEMENT 07/04/19 11/01/23 History Complex-Vitamin B12 tablet) furosemide 40 mg tablet 40 mg PO DAILY PRN edema #90 tabs 01/04/22 11/01/23 Rx metoprolol tartrate 25 mg tablet 25 mg PO BID BP #180 tabs 01/04/23 11/01/23 Rx albuterol sulfate 90 mcg/actuation 2 inh inhalation Q6H PRN sob 04/15/23 Unknown History aerosol inhaler (ProAir HFA) cholecalciferol (vitamin D3) 50 50 mcg PO DAILY SUPPLEMENT 07/04/23 11/01/23 History mcg (2,000 unit) capsule atorvastatin 80 mg tablet 80 mg PO QHS CHOLESTEROL #90 tabs 09/18/23 11/01/23 Rx clopidogrel 75 mg tablet (Plavix) 75 mg PO DAILY BLOOD THINNER #90 09/18/23 10/26/23 Rx tabs losartan 25 mg tablet 12.5 mg (1/2 x 25 mg) PO DAILY BP 09/18/23 11/01/23 Rx #45 tabs Allergy/AdvReac Type Severity Reaction Status Date / Time Penicillins Allergy localized Verified 11/02/23 08:27 swelling at injection site Sulfa (Sulfonamide Allergy Hives Verified 11/02/23 08:27 Antibiotics) Family History Father CAD (coronary artery disease) Myocardial infarction Mother Hypertension Surgical History S/P right hemicolectomy Hx of esophagogastroduodenoscopy History of cardiac catheterization Hx of colonoscopy History of left mastectomy History of tonsillectomy History of coronary artery stent placement (09/20/18) H/O partial thyroidectomy Social History Smoking Status: Former smoker Vital Signs Vital Signs Vital Signs: 11/07/23 09:53 11/07/23 11:00 11/07/23 17:00 Temperature 97.4 F L 98.1 F Temperature Source Oral Oral Pulse Rate 99 99 102 H Respiratory Rate 16 14 Respiratory Effort Respiratory Depth Respiratory Pattern Blood Pressure 139/63 H 137/70 H Blood Pressure Mean 88 92 Blood Pressure Source Monitor Monitor Blood Pressure Position Semi-Fowlers Semi-Fowlers Blood Pressure Location Left Arm Right Arm Pulse Ox 93 93 Oxygen Delivery Method Room Air Room Air 11/07/23 21:26 11/07/23 22:00 11/07/23 23:00 Temperature 97.2 F L Temperature Source Temporal Pulse Rate 91 91 Respiratory Rate 16 Respiratory Effort Normal Non-Labored Respiratory Depth Normal Respiratory Pattern Normal Blood Pressure 130/57 H Blood Pressure Mean 81 Blood Pressure Source Monitor Blood Pressure Position Semi-Fowlers Blood Pressure Location Right Arm Pulse Ox 93 Oxygen Delivery Method Room Air Room Air 11/08/23 04:14 11/08/23 05:00 Temperature 97.4 F L Temperature Source Temporal Pulse Rate 82 Respiratory Rate 16 Respiratory Effort Normal Non-Labored Respiratory Depth Normal Respiratory Pattern Normal Blood Pressure 119/63 Blood Pressure Mean 81 Blood Pressure Source Monitor Blood Pressure Position Semi-Fowlers Blood Pressure Location Right Arm Pulse Ox 92 Oxygen Delivery Method Room Air Room Air Weight Weight: 167 lb 12.348 oz Body Mass Index (BMI) 30.7 Physical Exam Const alert, oriented x3 and no apparent distress HEENT normocephalic and head/scalp atraumatic Eyes PERRL Neck full ROM Resp normal respiratory effort and clear to auscultation bilaterally Cardio regular rate and regular rhythm GI GI Narrative: Abdomen- soft, tenderness palpated over top of the incisions. Incisions c/d/i. No erythema or infection noted. Hypoactive bowel sounds. no CVA tenderness Back/Spine no CVA tenderness Extremity normal to inspection Skin no rashes or lesions noted Neuro no focal motor deficits and no sensory deficits noted Psych mental status grossly normal, thought process normal and cooperative Results Lab / Micro Data 11/08/23 06:15 11/08/23 06:15 Labs: Laboratory Results - last 24 hr 11/07/23 07:09: Differential Comment SCANNED, Hypochromasia 1+, Anisocytosis 2+, Microcytosis 2+, Ovalocytes 1+, Schistocytes 1+ 11/08/23 06:15: WBC 7.3, RBC 3.71 L, Hgb 9.8 L, Hct 32.6 L, MCV 87.9, MCH 26.4 L , MCHC 30.1 L, RDW Std Deviation 77.0 H, RDW Coeff of Vamshi 25.1 H, Plt Count 190, MPV 10.3, Immature Gran % (Auto) 0.400, Neut % (Auto) 67.3, Lymph % (Auto) 16.4 L, [place] % (Auto) 13.2 H, Eos % (Auto) 2.2, Baso % (Auto) 0.5, Absolute Neuts (auto) 4.9, Absolute Lymphs (auto) 1.20, Nucleated RBC % 0, Differential Comment SCANNED, Anisocytosis 2+, Microcytosis 1+, Ovalocytes 1+, Acanthocytes (Spur) 1+, Sodium 138, Potassium 3.5, Chloride 106, Carbon Dioxide 25.0, Anion Gap 7, BUN 10, Creatinine 0.77, Estim Creat Clear Calc 55.35, Est GFR (MDRD) Af Amer 93, Est GFR (MDRD) Non-Af 77, BUN/Creatinine Ratio 12.9, Glucose 72 L, Calcium 8.6 Assessment & Plan Assessment/Plan (1) Weakness: (2) S/P right hemicolectomy: PLAN: Plan I am seeing this patient in conjunction with Dr. Florez. She will independently evaluate this patient. Plan to admit patient for evaluation for potential rehab placement, IV fluids and slow increase in diet. Plan to order PT and OT evaluation to determine if patient is able to be discharged to a rehab facility or if she would be safe to return home. Plan to start IV Protonix. Patient may shower. Plan to increase diet to full liquids and transition to transitional diet at discharge. Patient has had the opportunity to ask and have questions answered. Patient verbally understands and agrees with the plan. Thank you for allowing us to participate in this patient's care. Charges/Coding Visit Charges OBSV E&M: 40800 Observ/hosp same date L2
--- NOTE | 2023-11-08 10:17 | PCM.PN.SRG ---
Subjective Subjective Patient is a 78 y/o F I am following s/p laparoscopic right hemicolectomy by Dr. Florez on 11/02/23. Patient returned to the hospital with generalized weakness and overall not feeling well. Patient today was evaluated resting comfortably in bed. She denies any incisional pain/discomfort. She notes intermittent nausea. Denies vomiting. She notes tolerating her transitional diet well. She denies feeling feverish. She notes passing flatus and having semi-solid bowel movements with no blood being noted . Objective Data Objective Data Vital Signs: Vital Signs Temp Pulse Resp BP Pulse Ox O2 Del Method 97.4 F L 82 16 119/63 92 Room Air 11/08/23 05:00 11/08/23 05:00 11/08/23 05:00 11/08/23 05:00 11/08/23 05:00 11/08/23 09:13 Oxygen Delivery Method Room Air Weight: 167 lb 12.348 oz Body Mass Index (BMI) 30.7 Intake & Output: Intake and Output for Last 24 Hours 11/06/23 11/07/23 11/08/23 23:59 23:59 23:59 Intake Total 1000 / 1200 1825 / 1945 120 / 120 Balance 1000 / 1200 1825 / 1945 120 / 120 Lab / Micro Data 11/08/23 06:15 11/08/23 06:15 Labs: Laboratory Results - last 24 hr 11/07/23 07:09: Differential Comment SCANNED, Hypochromasia 1+, Anisocytosis 2+, Microcytosis 2+, Ovalocytes 1+, Schistocytes 1+ 11/08/23 06:15: WBC 7.3, RBC 3.71 L, Hgb 9.8 L, Hct 32.6 L, MCV 87.9, MCH 26.4 L, MCHC 30.1 L, RDW Std Deviation 77.0 H, RDW Coeff of Vamshi 25.1 H, Plt Count 190, MPV 10.3, Immature Gran % (Auto) 0.400, Neut % (Auto) 67.3, Lymph % (Auto) 16.4 L, [place] % (Auto) 13.2 H, Eos % (Auto) 2.2, Baso % (Auto) 0.5, Absolute Neuts (auto) 4.9, Absolute Lymphs (auto) 1.20, Nucleated RBC % 0, Differential Comment SCANNED, Anisocytosis 2+, Microcytosis 1+, Ovalocytes 1+, Acanthocytes (Spur) 1+, Sodium 138, Potassium 3.5, Chloride 106, Carbon Dioxide 25.0, Anion Gap 7, BUN 10, Creatinine 0.77, Estim Creat Clear Calc 55.35, Est GFR (MDRD) Af Amer 93, Est GFR (MDRD) Non-Af 77, BUN/Creatinine Ratio 12.9, Glucose 72 L, Calcium 8.6 Physical Exam GI GI Narrative: Abdomen- soft, nontender. Incisions c/d/i. Steri-strips in place. No erythema or infection noted. Positive bowel sounds. Assessment & Plan Assessment/Plan (1) S/P right hemicolectomy: PLAN: I am following this patient in conjunction with Dr. Florez. She will independently evaluate this patient. Labs reviewed. No changes needed at this time PT/OT evaluation deems patient does not need additional therapy at discharge. Therefore patient will be discharged to home. Patient has been restarted on her blood pressure medication She will restart her ASA at discharge and hold on her Plavix for 5 additional days She will also bee started on omeprazole 40 mg at discharge as well Follow-up with Dr. Florez in 1 week Our office will contact patient once the final pathology has returned. Probable discharge later today I will call for a progress report Patient voices readiness to be discharged later today. She notes feeling much improved. Charges/Coding Visit Charges Inpatient E&M: 37634 Subs Hosp L1 (no charge; post-op)
[2023-11-08 10:42] VITALS: BP 118/58; PULSE 87; RESP 16; TEMP 37.1; O2SAT 93
[2023-11-08 10:44] VITALS: BP 118/58; PULSE 87
[2023-11-08] MEDS: Metoprolol Tartrate 25 MG Tablet PO (10:44)
[2023-11-08] MEDS: Losartan Potassium 25 MG Tablet 12.5 MG PO (10:44)
[2023-11-08] MEDS: Pantoprazole Sodium 40 MG in 0.9% Normal Saline (100mL MB+) 100 ML 330 MG IV (10:45)
--- NOTE | 2023-11-08 12:00 | DS.PCM_ITS ---
Providers Date of Admission: 11/06/23 Primary Care Physician: Dr. Jerson Vigil MD Reason For Visit: COLON CANCER Diagnosis Discharge Diagnosis (1) Weakness: Status: Acute Code(s): R53.1 - Weakness (2) S/P right hemicolectomy: Status: Acute Code(s): Z90.49 - Acquired absence of other specified parts of digestive tract Plan I am seeing this patient in conjunction with Dr. Florez. She will independently evaluate this patient. Plan to admit patient for evaluation for potential rehab placement, IV fluids and slow increase in diet. Plan to order PT and OT evaluation to determine if patient is able to be discharged to a rehab facility or if she would be safe to return home. Plan to start IV Protonix. Patient may shower. Plan to increase diet to full liquids and transition to transitional diet at discharge. Patient has had the opportunity to ask and have questions answered. Patient verbally understands and agrees with the plan. Thank you for allowing us to participate in this patient's care. Medications at Discharge Home Medications bupropion HCl 300 mg 24 hr tablet, extended release 300 mg PO QHS DEPRESSION 09/20/18 aspirin 81 mg tablet,delayed release 81 mg PO DAILY@0800 BLOOD THINNER #90 tabs 01/03/19 vitamin B complex (B Complex-Vitamin B12 tablet) 1 tab PO DAILY SUPPLEMENT 07/04/19 furosemide 40 mg tablet 40 mg PO DAILY PRN edema #90 tabs 01/04/22 metoprolol tartrate 25 mg tablet 25 mg PO BID BP #180 tabs 01/04/23 albuterol sulfate 90 mcg/actuation aerosol inhaler (ProAir HFA) 2 inh inhalation Q6H PRN sob 04/15/23 cholecalciferol (vitamin D3) 50 mcg (2,000 unit) capsule 50 mcg PO DAILY SUPPLEMENT 07/04/23 atorvastatin 80 mg tablet 80 mg PO QHS CHOLESTEROL #90 tabs 09/18/23 clopidogrel 75 mg tablet (Plavix) 75 mg PO DAILY BLOOD THINNER #90 tabs 09/18/23 losartan 25 mg tablet 12.5 mg (1/2 x 25 mg) PO DAILY BP #45 tabs 09/18/23 omeprazole 40 mg capsule,delayed release 40 mg PO DAILY #30 caps 11/08/23 Hospital Course Summary of Care Provided Minutes Spent on Discharge: 35 Hospital Course: Patient presented secondary to weakness, chills and nausea s/p right hemicolectomy on 11/02/23. Patient had an uneventful hospitalization. She received IV fluids and advanced her diet to transitional without any issues. Upon discharge, nausea had mostly resolved. She was tolerating a transitional diet. She noted feeling much stronger and improved. She voices readiness to be discharged. Patient was instructed to follow-up with Dr. Florez in 1 week Weight / BMI Weight Weight: 167 lb 12.348 oz Body Mass Index (BMI) 30.7 ABG / Lab / Microbiology Data 11/08/23 06:15 11/08/23 06:15 Laboratory: Laboratory Results - last 24 hr 11/08/23 06:15: WBC 7.3, RBC 3.71 L, Hgb 9.8 L, Hct 32.6 L, MCV 87.9, MCH 26.4 L , MCHC 30.1 L, RDW Std Deviation 77.0 H, RDW Coeff of Vamshi 25.1 H, Plt Count 190, MPV 10.3, Immature Gran % (Auto) 0.400, Neut % (Auto) 67.3, Lymph % (Auto) 16.4 L, Spink % (Auto) 13.2 H, Eos % (Auto) 2.2, Baso % (Auto) 0.5, Absolute Neuts (auto) 4.9, Absolute Lymphs (auto) 1.20, Nucleated RBC % 0, Differential Comment SCANNED, Anisocytosis 2+, Microcytosis 1+, Ovalocytes 1+, Acanthocytes (Spur) 1+, Sodium 138, Potassium 3.5, Chloride 106, Carbon Dioxide 25.0, Anion Gap 7, BUN 10, Creatinine 0.77, Estim Creat Clear Calc 55.35, Est GFR (MDRD) Af Amer 93, Est GFR (MDRD) Non-Af 77, BUN/Creatinine Ratio 12.9, Glucose 72 L, Calcium 8.6 D/C Instructions Discharge Diet: - (transitional diet) Discharge Activity: May Drive (in 5 days) Lifting Restrictions: 20 pounds for 2 weeks from surgery. No strenuous exercise for 4 weeks Call your doctor if your incision/area has: Continuous Slow Oozing, Sudden Increased Bleeding, Increased Pain/ Swelling, Increased Redness, Foul Smelling Discharge and Swelling at the incision site Call your doctor if you observe: Fever of 101 or Higher Suture Line Care: Avoid Pulling/Pushing and Avoid Pinching/Bending Remove Dressing in: 1 week Cleanse incision/area with: Soap & Water Please Follow Up With: Madison Florez MD When: Please contact our office at [phone] to schedule a 1 week follow-up Meaningful Use Info Meaningful Use Meaningful Use Diagnoses (Choose all that apply): None applicable Ischemic Stroke Statin Dosing Therapy Reference: STATIN DOSE THERAPY REFERENCE: * Patients > 75 years receive moderate or high dose statin therapy. * Patients 75 years or YOUNGER should receive HIGH intensity statin dose unless contraindicated. You will be required to document reason for non-treatment if statin daily dose does not meet guidelines. HIGH DOSE STATIN THERAPY DAILY Atorvastatin > than or = to 40 mg Rosuvastatin > than or = to 20 mg Amlodipine + Atorvastatin > than or = to 2.5/40 mg Ezetimibe + Simvastatin 10/80 mg Simvastatin 80mg Discharge Plan Admission Admit Date/Time: 11/06/23 16:04 Primary Reason for Your Visit: Weakness s/p right hemicolectomy Attending Provider: Madison Florez Primary Care Provider: Jerson Vigil Consulting Providers: Jonah Hawkins Instructions Additional Instructions / Restrictions: Colectomy Diet ? Start light with soups and soft bland foods. Refer to your transitional diet instruction sheet Activity ? You may drive in 5 days but not while taking narcotic pain medication. ? I encourage walking. You may go up steps, one at a time. ? Do not swim or use hot tubs for 2 weeks. Lifting ? You may lift up to 20 pounds for 2 weeks. No strenuous exercise for 4 weeks Dressings/Incision ? Do NOT tub bathe for 1 week ? You may remove steri-strips after 1 week. We recommend getting them soaking wet for easier removal. Medications ? Anesthesia used during surgery and pain medications may cause constipation. I recommend initiating on the day of surgery a fiber supplement like, Metamucil, Citrucel, FiberCon, Benefiber, or a generic form of these medications. 1 heaping tablespoon in water daily. You may continue to utilize any bowel regimen or oral laxatives that you routinely take. ? As long as you are not intolerant to Tylenol, acetaminophen, ibuprofen, Motrin, Advil, Aleve, or similar medications, I would recommend transitioning to these [id number] medicines as soon as possible instead of continued use of narcotic pain medication. Follow up ? You should call [facility] soon after surgery, at [phone] option 1 to make a follow up appointment for 7 days after discharge. Transitional Diet Beverages: ? Soda (cola, diet cola, lemon-nightmute, diet lemon-nightmute, saundra danita, diet saundra danita) ? Tea (hot or iced) ? Milk (low-fat, 2%, lactose free) ? Coffee ? Juice (without pulp) ? Oral Nutrition supplement Breakfast: ? Hot cereal (oatmeal or cream of wheat) ? Scrambled eggs ? Blueberry muffin ? Cold cereal (no whole grain cereals) ? [place] (white) Lunch or Dinner: Deli Items: Hot Items: [place] sandwich Roast [place] Tuna salad (sandwich or alone) Macaroni & Cheese Egg salad (sandwich or alone) Mashed potatoes & gravy Chicken salad (sandwich or alone) Carrots Green beans Cold Sides: Soups: Cottage cheese Vegetable soup Yogurt Chicken noodle Hardboiled egg Dessert: ? Gelatin, pudding, juice slushie Discharge Orders/Prescriptions Prescriptions: New omeprazole 40 mg capsule,delayed release(DR/EC) 40 mg PO DAILY Qty: 30 2RF Continued aspirin 81 mg tablet,delayed release (DR/EC) 81 mg PO DAILY@0800 Qty: 90 3RF vitamin B complex [B Complex-Vitamin B12] Tablet 1 tab PO DAILY furosemide 40 mg tablet 40 mg PO DAILY PRN (Reason: edema) Qty: 90 3RF metoprolol tartrate 25 mg tablet 25 mg PO BID Qty: 180 4RF cholecalciferol (vitamin D3) 50 mcg (2,000 unit) capsule 50 mcg PO DAILY bupropion HCl 300 MG tablet extended release 24 hr 300 mg PO QHS albuterol sulfate [ProAir HFA] 90 mcg/actuation HFA aerosol inhaler 2 inh inhalation Q6H PRN (Reason: sob) losartan 25 mg tablet 12.5 mg PO DAILY Qty: 45 3RF atorvastatin 80 mg tablet 80 mg PO QHS Qty: 90 3RF Held clopidogrel [Plavix] 75 mg tablet 75 mg PO DAILY Qty: 90 3RF Hold Instructions: Resume on 11/16/23. Patient Comments: was on hold for procedure Discontinued omeprazole 20 mg capsule,delayed release(DR/EC) 20 mg PO DAILY Referrals / Follow Up: Jerson Vigil MD [Primary Care Provider] - Madison Florez MD [Med Staff - Active Staff] - 11/15/23 (Please call to schedule a follow-up in 1 week) Disposition Disposition (needs filled in before D/C Order can be placed): Home, Self Care Charges/Coding Visit Charges Inpatient E&M: 98834 Disch Hosp >30min
--- NOTE | 2023-11-08 13:31 | PHA.DC.MR.R ---
Pharmacy [place] Med Reconciliation Pharmacy Service has performed discharge medication reconciliation for this patient. The patient's discharge medication list was reviewed for discrepancies and discrepancies were resolved. Medications at Discharge Home Medications bupropion HCl 300 mg 24 hr tablet, extended release 300 mg PO QHS DEPRESSION 09/20/18 aspirin 81 mg tablet,delayed release 81 mg PO DAILY@0800 BLOOD THINNER #90 tabs 01/03/19 vitamin B complex (B Complex-Vitamin B12 tablet) 1 tab PO DAILY SUPPLEMENT 07/04/19 furosemide 40 mg tablet 40 mg PO DAILY PRN edema #90 tabs 01/04/22 metoprolol tartrate 25 mg tablet 25 mg PO BID BP #180 tabs 01/04/23 albuterol sulfate 90 mcg/actuation aerosol inhaler (ProAir HFA) 2 inh inhalation Q6H PRN sob 04/15/23 cholecalciferol (vitamin D3) 50 mcg (2,000 unit) capsule 50 mcg PO DAILY SUPPLEMENT 07/04/23 atorvastatin 80 mg tablet 80 mg PO QHS CHOLESTEROL #90 tabs 09/18/23 clopidogrel 75 mg tablet (Plavix) 75 mg PO DAILY BLOOD THINNER #90 tabs 09/18/23 losartan 25 mg tablet 12.5 mg (1/2 x 25 mg) PO DAILY BP #45 tabs 09/18/23 omeprazole 40 mg capsule,delayed release 40 mg PO DAILY #30 caps 11/08/23
--- NOTE | 2023-11-08 14:50 | CASEMGMT ---
Patient has order for discharge. RN CM in to discuss needs at discharge. Patient is wanting to go to [facility] for outpatient PT again. Patient denies further needs. RN LEONID updated surgeon and script received for outappatient PT. HANG JAQUEZ faxed referral to [facility] with request to call patient to schedule appointment. HANG JAQUEZ updated patient and script provided in discharge instructions. Patient had no further questions or concerns.
== END 2023-11-08 14:05 | disposition home or self-care (01) | DRG 948 ==
LOC: ED 16:09 → PCU 16:41
PROVIDERS: Physician Assistant; Admitting Provider Surgery; Emergency Provider Emergency Medicine; PCP Family Medicine; Visit Provider Surgery
DX: R53.1 Weakness (principal); K56.7 Ileus, unspecified; J44.9 Chronic obstructive pulmonary disease, unspecified; I10 Essential (primary) hypertension; E78.00 Pure hypercholesterolemia, unspecified; I25.10 Atherosclerotic heart disease of native coronary artery without angina pectoris; I25.2 Old myocardial infarction; R12 Heartburn; Z79.82 Long term (current) use of aspirin; Z79.02 Long term (current) use of antithrombotics/antiplatelets; Z79.899 Other long term (current) drug therapy; Z87.891 Personal history of nicotine dependence; Z95.5 Presence of coronary angioplasty implant and graft; Z90.49 Acquired absence of other specified parts of digestive tract
CPT/HCPCS: 36415; 80048; 81001; 83735; 84100; 85025; 94668; 97161; 97166; 99252; 99285; J7030; A4216; G0463; J2405

== ENCOUNTER → 2023-12-11 | Outpatient (CLI) | payer MEDICARE, SELFPAY ==
--- NOTE | 2023-12-11 13:16 | CT_ITS ---
EXAM: CT CHEST WITHOUT INTRAVENOUS CONTRAST CLINICAL INDICATION: NSCLC, treated with XRT, eval response -- please compare to prior TECHNIQUE: Helically acquired images were obtained of the chest without intravenous contrast. This CT exam was performed using one or more of the following dose reduction techniques: automated exposure control, adjustment of the mA and/or kV according to patient size, and/or use of iterative reconstruction technique. COMPARISON: PET CT scan 06/27/2023 FINDINGS: LUNGS AND PLEURAL SPACES: The spiculated 2 cm right middle lobe pulmonary nodule now measures 12 mm in maximum diameter and demonstrates central cavitation residual spiculated 12 mm left upper lobe pulmonary nodule also again seen and appears partially cavitated. No pleural effusion or thickening. No pneumothorax. HEART: Normal. Normal heart size. Coronary artery stents are in place. MEDIASTINUM: Normal. No mediastinal or hilar adenopathy. Esophagus is unremarkable. No hiatal hernia. THYROID: Enlarged left thyroid lobe is again seen. Right thyroid lobe is either atrophic or surgically absent. BONES/JOINTS: No suspicious lytic or blastic abnormality. VASCULATURE: No aortic aneurysm. CT/Chest without Contrast IMPRESSION: Cavitary 12 mm right middle lobe pulmonary nodule decrease in size from prior exam. Residual cavitated 12 mm left upper lobe nodule. Electronically Signed: Arsalan Ramos MD at 14:11 EDT ,
== END | disposition home or self-care (01) ==
PROVIDERS: PCP Family Medicine; Referring Provider Student in an Organized Health Care Education/Training Program; Visit Provider Student in an Organized Health Care Education/Training Program
DX: C34.91 Malignant neoplasm of unspecified part of right bronchus or lung (principal)
CPT/HCPCS: 71250

== ENCOUNTER → 2024-03-11 | Outpatient (CLI) | payer MEDICARE, SELFPAY ==
[2024-03-11 13:09] LABS: ALB/GLOB Ratio 0.9 RATIO (0.9-2.4); AST(SGOT) 36 U/L (15-37); Alanine Aminotransfer ALT/SGPT 27 U/L (13-56); Albumin, Serum 3.1 g/dL (3.2-5.0); Alkaline Phosphatase 158 U/L (45-117); Anion Gap 5 (5-15); BUN 18 mg/dL (7-18); BUN/Creat Ratio 16.8 RATIO (10-20); Bilirubin, Direct 0.25 mg/dL (0.00-0.30); Calcium,Total 9.3 mg/dL (8.5-10.1); Chloride 107 mmol/L (98-107); Cholesterol 122 mg/dL (200); Creatinine, Serum 1.07 mg/dL (0.55-1.02); EST Glomerular Filtration Rate 53 mL/min (>60); Est Glom Filt Rate - Afr Amer 64 mL/min (>60); Globulin 3.4 g/dL (2.2-4.2); Glucose 104 mg/dL (74-106); High Density Lipoprotein 81 mg/dL; Potassium 3.8 mmol/L (3.5-5.1); Protein, Total 6.5 g/dL (6.4-8.2); Sodium Level 141 mmol/L (136-145); Triglycerides 47 mg/dL; Very Low Density Lipoprotein 9 mg/dL (5-40)
== END | disposition home or self-care (01) ==
PROVIDERS: PCP Family Medicine; Referring Provider Family Medicine; Visit Provider Family Medicine
DX: E78.5 Hyperlipidemia, unspecified (principal)
CPT/HCPCS: 36415; 80053; 80061; 82248

== ENCOUNTER → 2024-03-18 | Outpatient (CLI) | payer MEDICARE, SELFPAY ==
--- NOTE | 2024-03-18 13:05 | CT_ITS ---
STUDY: CT CHEST WITHOUT CONTRAST REASON FOR EXAM: Female, 78 years old. eval treated lung cancer bilateral -- please compare to prior. Post radiation treatment. RADIATION DOSAGE (If Supplied By Facility): CTDIvol = ( 6.43 ) mGy, DLP = ( 209.24 ) mGycm TECHNIQUE: Transaxial imaging was performed without the administration of intravenous contrast material. Multiplanar coronal and sagittal images were reformatted. Individualized dose optimization techniques were used for this CT. COMPARISON: Comparison is made with prior study dated December 11, 2023. FINDINGS: CHEST Enlargement of the left lobe of the thyroid gland with a substernal extension. There has been further decrease in size of the previously seen spiculated nodule in the anterior left upper lobe. It presently measures 5.8 mm x 6 mm. The right middle lobe nodule is once again seen. The present study measures 3.1 mm x 9.6 mm. The cavitation is less prominent at this time. Hyperinflation and emphysematous changes. There are calcifications of the coronary arteries. Normal mediastinum. Normal hilar regions. Normal unenhanced pulmonary arteries. There is atherosclerotic calcification of the aortic arch with tortuosity and elongation of the aortic arch and descending thoracic aorta. There are multi-level degenerative changes of the thoracic spine. There is no demonstrated abnormality of the visualized upper abdomen. CT/Chest without Contrast IMPRESSION: Interval decrease in size of the previously seen nodules in the left upper and right middle lobes. The remainder of the examination is unchanged. Stable enlargement of the left lobe of the thyroid gland. Electronically Signed: Rhett Brandon MD at 13:26 EDT ,
== END | disposition home or self-care (01) ==
PROVIDERS: PCP Family Medicine; Referring Provider Student in an Organized Health Care Education/Training Program; Visit Provider Student in an Organized Health Care Education/Training Program
DX: C34.91 Malignant neoplasm of unspecified part of right bronchus or lung (principal); C34.92 Malignant neoplasm of unspecified part of left bronchus or lung
CPT/HCPCS: 71250

== ENCOUNTER 2024-05-03 12:30 | Outpatient (RCR) | payer MEDICARE, SELFPAY ==
--- NOTE | 2024-04-03 16:48 | HP.PTEVAL_ITS ---
Patient's Visit Information Visit Information Visit Information: FAITH GOMEZ is a 78 year old F referred to Physical Therapy by Dr. Jerson Vigil MD with a diagnosis of BACK PAIN. Date of Evaluation: 04/03/24 Physical Therapist: Tor Figueredo PT, Cert MDT, OCS Visit Plan Frequency: 2x /Week Duration: 4 Weeks Plan: PT INTERVENTIONS DLS ,POSTURAL EX' S,HIP STRENGTHENING FUNCTIONAL STRENGTHENING AND ENDURANCE EX'S Subjective Subjective: This 78 y/o female presents to physical therapy with back pain. Patient has back pain several years which has been progressively worse. Seen DR gibson PT. Patient was hospitalized due to colon CA s/p hemicolectomy in October 2023. Patient did not have to have Chemo. Patient was d/c ~ 1 week later. Patient was here prior to surgery for back pain in PT. Aggravating factors standing/walking thus needs to use cane difficulty with lifting . Alleviating factors rest. Coughing/sneezing - Denies paresthesia/tingling. Patient has difficulty sleeping.. Patient lives alonE able to do ADLS [place] apartment 13 steps . Patient denies SOB. Patient condition affects QOL and function. SOCIAL: single VOCATION: retired Pain Bilateral Back: Pain Intensity (Out of 10): 5 Pain Intensity Range: 10 Objective Objective: POSTURE: mild forward posture ,scoliosis asymmetrical pelvis ,leg length discrepancy PALPATION: tender LS NEURO: denies paresthesia/tingling ,reflexes L3-L4 ,L4-L5 ,L5-S1 1/3 MMT: quads/hams 4/5 ,hip flexion right 21.5 ,left 23.2 ,hip abd right 12.2 ,left 11.8 LUMBAR ROM: flexion min loss ,side glides mod ,side glides mod loss FLEXABILITY: hamstrings min thigh Special Tests L/S Slump test left side: Negative L/S Slump test right side: Negative L/S Left Straight Leg Raise: Negative L/S Right Straight Leg Raise: Negative Lumbar Standing: Flexion - Mechanical Response: No effect Lumbar Standing: Flexion - Symptoms During Testing: No effect Lumbar Standing: Flexion - Symptoms After Testing: No effect Lumbar Standing: Extension - Mechanical Response: No effect Lumbar Standing: Extension - Symptoms During Testing: No effect Lumbar Standing: Extension - Symptoms After Testing: No effect Lumbar Standing: Right Side Glides - Mechanical Response: No effect Lumbar Standing: Right Side [place] - Symptoms During Testing: No effect Lumbar Standing: Right Side [place] - Symptoms After Testing: No effect Lumbar Standing: Left Side [place] - Mechanical Response: No effect Lumbar Standing: Left Side [place] - Symptoms During Testing: No effect Lumbar Standing: Left Side [place] - Symptoms After Testing: No effect Balance/Special Test Scores Oswestry Low Back Score: 27 Goals Goal 1:: Patient to be I with HEP for back Goal Time Frame: 4-6 Weeks Goal 2:: Patient to demonstrate 50% with less pain and improved function Goal Time Frame: 4-6 Weeks Goal 3:: Patient to improve peak force hips by 5# points to improve function /gait. Goal Time Frame: 4-6 Weeks Goal 4:: Patient to improve back oswestry score by 5 points to improve function Goal Time Frame: 4-6 Weeks Goal 5:: Patient to improve lumbar ROM for function to put shoes Goal Time Frame: 4-6 Weeks Rehabilitation Potential Physical Therapy Diagnosis: This pain has lumbar pain with comorbities being hospitalized with weakness with back pain with positioning walking/satnding and weakness in hips thus benefit from skilled PT Rehabilitation Potential: Good Anticipated Interventions Patient/Client Instruction: Educate patient on: Condition and Plan of Care For the Purpose of:: To decrease pain, To improve muscle performance and motor function, To improve ability to perform ADL's, To increase tolerance to activity/condition/position, To improve ability of physical actions for home/community/work/leisure, To improve health of tissue, To decrease soft tissue restriction and To increase flexibility/ROM Therapeutic Exercise to Include: Strength training, Endurance training, Balance training, Flexibilty training and Dynamic Lumbar Stabilization Comment: HIP For the Purpose of:: To decrease swelling/inflammation, To improve muscle performance and motor function, To improve ability to perform ADL's, To increase tolerance to activity/condition/position, To improve ability of physical actions for home/community/work/leisure, To decrease soft tissue restriction, To increase flexibility/ROM, To improve endurance and To improve tolerance to ADL's TENS: Yes IF ES: Yes Cryotherapy (ice pack, ice massage): Yes Thermo therapy (hot pack): Yes Ultrasound (thermal/non thermal): Yes For the Purpose of:: To decrease pain, To increase ROM, To improve nutrient delivery to tissue, To increase oxygenation perfusion, To improve health of tissue and To decrease soft tissue restriction Text: Thank you for the opportunity to evaluate your patient. For Medicare and Medicare HMO plans, please review the plan of care and approve it. It will need to be FAXED BACK to us at [phone] for Medicare purposes. For Medicare only, by signing this I certify the plan of care. Please let me know if there are questions or concerns regarding this plan of care. Physician Signature: Date:
--- NOTE | 2024-05-03 12:50 | HP.PTDCSUM ---
Discharge Summary D/C summary: It has been my pleasure to treat FAITH GOMEZ referred by Dr. Jerson Vigil MD, with the diagnosis of BACK PAIN for a total of 9 visit(s). Discharge Date: Please see the following information for a summary of their discharge status. Subjective Subjective: Ready for d/c .will do on own liver sneakers Pain Bilateral Back: Pain Intensity (Out of 10): 2 Overall Improvement % Improvement: 25 Objective Objective/Function: POSTURE: mild forward posture ,scoliosis asymmetrical pelvis ,leg length discrepancy PALPATION: tender LS NEURO: denies paresthesia/tingling ,reflexes L3-L4 ,L4-L5 ,L5-S1 1/3 MMT: quads/hams 4/5 ,hip flexion right 32.1 ,left 34.1 ,hip abd right 18.2 ,left 18.8 LUMBAR ROM: flexion min loss ,side glides mod ,side glides mod loss FLEXABILITY: hamstrings min thigh Goals Goal 1:: Patient to be I with HEP for back Goal Progress: Goal Met Goal 2:: Patient to demonstrate 50% with less pain and improved function Goal Progress: Progressing Goal 3:: Patient to improve peak force hips by 5# points to improve function /gait. Goal Progress: Goal Met Goal 4:: Patient to improve back oswestry score by 5 points to improve function Goal Progress: Progressing Goal 5:: Patient to improve lumbar ROM for function to put shoes Goal Progress: Progressing Plan Plan: D/C D/C Information d/c sentence: If there are questions or concerns regarding this patient's physical therapy, please feel free to call me at [phone]. Thank you for the referral of this patient. Sincerely, Tor Figueredo, PT, Cert MDT, OCS Balance/Gait/Functional tests Balance/Special Test Scores Oswestry Low Back Score: 13 Improvement % Improvement: 25
== END 2024-05-03 14:55 | disposition home or self-care (01) ==
LOC: PT 12:30
PROVIDERS: PCP Family Medicine; Referring Provider Family Medicine; Visit Provider Family Medicine
DX: M54.9 Dorsalgia, unspecified (principal)
CPT/HCPCS: 97110; 97162; 97530

== ENCOUNTER → 2024-07-22 | Outpatient (CLI) | payer MEDICARE, SELFPAY ==
--- NOTE | 2024-07-22 13:03 | CT_ITS ---
PROCEDURE: CHEST WITHOUT CONTRAST REASON FOR EXAM: Six-month follow-up for squamous cell carcinoma. History of colon carcinoma. History of breast carcinoma. TECHNIQUE: Chest CT without contrast. COMPARISON: Comparison is made with prior study dated March 19, 2024. FINDINGS: Hardware: Left breast prostheses. Stable enlargement of the left lobe of the thyroid. Lymph nodes: Small mediastinal lymph nodes. Heart and Vasculature: Normal heart size. No pericardial effusion. Thoracic aorta and pulmonary arteries have normal contours; noncontrast technique limits evaluation. Coronary Artery Calcifications: Present Lungs and Airways: Hyperinflation and emphysematous changes. Since prior study, there has been progressive irregular densities with bronchiectasis in the medial aspect of the left upper lobe. 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 Stable 6 mm spiculated nodule in the peripheral anterior aspect of the left upper lobe. There is evidence of irregular linear density with a focal nodule measuring 6.3 mm in the lateral posterior aspect of the right upper lobe with areas of scarring surrounding the nodular density and thickening of the right minor fissure. This nodule has decreased in size as compared to prior study. A previously measured 9.6 mm. There is also evidence of a 1.2 cm nodule in the anterior aspect of the right lower lobe abutting the right major fissure. Pleura: No pleural effusion. No pneumothorax. Upper Abdomen: Visualized portions of the upper abdominal viscera are unremarkable. Bones: Degenerative changes of the thoracic spine. CT/Chest without Contrast IMPRESSION: Interval decrease in size of the previously seen nodule in the posterolateral a spect of the right upper lobe with surrounding findings suggestive of post radiation scarring. Progressive scarring in the left upper lobe. Stable 6 mm spiculated nodule in the peripheral anterior aspect of the left upper lobe. One or more dose reduction techniques were used (e.g., Automated exposure contr ol, adjustment of the mA and/or kV according to patient size, use of iterative reconstruction technique). Reading Location: [facility]
== END | disposition home or self-care (01) ==
LOC: CT 12:56
PROVIDERS: PCP Family Medicine; Referring Provider Student in an Organized Health Care Education/Training Program; Visit Provider Student in an Organized Health Care Education/Training Program
DX: C34.91 Malignant neoplasm of unspecified part of right bronchus or lung (principal); C34.92 Malignant neoplasm of unspecified part of left bronchus or lung
CPT/HCPCS: 71250

== ENCOUNTER → 2024-10-01 | Outpatient (CLI) | payer MEDICARE, SELFPAY ==
--- NOTE | 2024-10-01 15:29 | ST.MBS ---
Modified Barium Swallow Patient Information Study Date: 10/01/24 Study Time: 12:45 Direct Billable Minutes: 86 Total Minutes procedure & reportin Diagnosis: Dysphagia R13.10 Referring Physician: Jerson Vigil Reason for Referral: Patient reports increased difficulty swallowing her pills. Pills will become stuck in her throat, and one time she had to cough hard until she got it back up. No hx of choking. She denies difficulty swallowing food/drink. She acknowledged hx of GERD w/ use of TUMS as needed. A nurse told her to tuck her chin to help her swallow, but this maneuver has not helped. ENGRAVING OPERATOR cautioned that chin tucks should only be used for swallowing if recommended by an instrumental swallowing assessment. Medical History: Anxiety, Alcohol use, DVT, Low iron, High cholesterol, Gastric reflux, SOB on exertion, History of irregular heartbeat, Wears glasses, Wears dentures, Wears hearing aid, COPD, CAD, STEMI (09/20/2018), Hx of breast cancer, Former smoker, SCC of the lung s/p SBRT, hx of partial thyroidectomy () ? See EMR for full PMH. Dentition: Upper Dentures and Missing Teeth Mental Status: WNL Respiratory Status: Oxygenating on Room Air Penetration-Aspiration Scale Penetration-Aspiration Scale: OBJECTIVE ASSESSMENT OF SWALLOW FUNCTION (QUANTITATIVE ? PER TRIAL): PENETRATION / ASPIRATION SCALE (GILMORE): 1 = does not enter airway 2 = enters airway/above vocal folds/ejected 3 = enters airway/above vocal folds/not ejected 4 = enters airway/contacts vocal folds/ejected 5 = enters airway/contacts vocal folds/not ejected 6 = enters airway/below vocal folds/ejected 7 = enters airway/below vocal folds/not ejected despite effort 8 = enters airway/below vocal folds/no effort VIDEOFLOROSCOPIC SCALE SCORE (GILMORE): Grade I = aspiration of material that has penetrated into the laryngeal vestibule, intact cough reflex Grade II = aspiration < 10 % of the bolus, intact cough reflex Grade III = aspiration of < 10 % of the bolus, reduced cough reflex or aspiration of > 10 % of the bolus, intact cough reflex Grade IV = aspiration of > 10 % of the bolus, reduced cough reflex Penetration-Aspiration Scale Score Thin Liquid via teaspoon: Result: 1= does not enter airway Thin Liquid via teaspoon Trial 2: Result: 1= does not enter airway Thin Liquid via small single sip: cup: Result: 1= does not enter airway [place] Thick Liquid via small single sip: cup: Result: 1= does not enter airway Pudding via teaspoon: Result: 1= does not enter airway Comment: Esophageal screen - Retention in the upper and middle esophagus. Thin Liquid via single sip: straw: Result: 1= does not enter airway Comment: Esophageal screen - Liquid wash mostly cleared barium pudding from the esophagus. Second liquid wash made little to no impact in esophageal clearance. 1/2 Cookie: Result: 1= does not enter airway Comment: Esophageal screen - Retention in the middle and lower esophagus. Thin Liquid via sequential sips:straw: Result: 1= does not enter airway Comment: Esophageal screen - Liquid wash mostly cleared retention of cookie. Mild liquid retention in the lower esophagus. Barium Tablet w/ water: Result: 1= does not enter airway Comment: Three liquid washes required to clear the tablet from the vallecula. Esophageal screen - Retention of barium tablet in the upper esophagus. Pudding provided during the esophageal screen, which cleared the tablet to the lower esophagus; however, pudding retention throughout the esophagus. Thin Liquid via single sip: straw Trial 2: Result: 1= does not enter airway Comment: Esophageal screen - Liquid wash cleared the barium tablet and majority of pudding retention. Barium tablet in applesauce with an Effortful swallow: Result: 1= does not enter airway Comment: Esophageal screen - Complete clearance of barium tablet. Oral Phase Labial Seal: No Labial Escape Tongue Control During Bolus Hold: Cohesive bolus between tongue to palatal seal Bolus Preparation/Mastication: Slow prolonged chewing/mashing with complete recollection Bolus Transport/Lingual Motion: Brisk tongue motion Oral Residue: Trace residue lining oral structures Pharyngeal Phase Initiation of Pharyngeal Swallow: Bolus head in valleculae Soft Palate Elevation: Trace column of contrast/air between soft palate and pharyngeal wall Laryngeal Elevation: Comp. Superior move thyroid cart w/comp. apprx arytenoid cart-epig pet Anterior Hyoid Excursion: Complete anterior movement Epiglottic Movement: Complete inversion Laryngeal Vestibule Closure at Height of Swallow: Complete; no air/contrast in laryngeal vestibule Pharyngeal Stripping Wave: Present - diminished Pharyngoesophageal Segment Opening: Parital distension and partial duration; parital obstruction of flow Tongue Base Retraction: Narrow column of contrast between tongue base & post. pharyngeal wall Pharyngeal Residue: Collection of residue within or on pharyngeal structures Esophageal Phase Esophageal Clearance: Esophageal retention w/ retrograde flow through pharyngoesophageal seg Diagnosis/Impression Diagnosis: Mild pharyngeal dysphagia R13.13; Esophageal dysphagia R13.14 Impression: Oral phase is grossly WNL. The pharyngeal phase is marked by... -Mildly decreased TB retraction and pharyngeal stripping wave w/ mild pharyngeal residue of cookie and retention of barium tablet in the vallecula. Effortful swallow w/ the barium tablet in applesauce effectively cleared the tablet through the pharynx. -No laryngeal penetration or aspiration observed during the exam. The esophageal phase is marked by... -Trace retention of barium pudding in the UES w/ retrograde flow to the pyriform sinuses. -Esophageal retention of barium pudding and cookie, which mostly cleared w/ thin liquid washes. See details in trials above. -Esophageal retention of the barium tablet when consumed with liquids. Pudding and an additional liquid wash helped to clear the tablet. Barium tablet in applesauce fully cleared through the esophagus and LES. Recommendations Diet: Regular Textures and Thin Liquids Comment: Medications whole w/ applesauce w/ a hard swallow and liquid wash following each pill Compensatory Strategies: Small Bites, Small Sips, Slow Rate, Alternate bites/solids and sips/liquids (1:1 ratio), Sitting upright and Remain sitting upright for 30 minutes after PO intake Recommend Repeat Modified Barium Swallow: No Need for Skilled Speech Therapy Services: No Comment: Pt denies difficulty swallowing food/drink. Mild pharyngeal residue effectively cleared w/ liquid wash or use of effortful swallow (in applesauce, for pills). No speech therapy warranted at this time. Recommended Referrals: GI Consult Education Completed: 1. Described result of evaluation. Status Active ST Patient: Active Contact Information [facility] Speech Therapy:: Trish Madrid M.A. CCC-ENGRAVING OPERATOR? Speech-Language Pathologist?? [facility] [address] [place] [address]? [email or web address]?? [phone]
== END | disposition home or self-care (01) ==
PROVIDERS: PCP Family Medicine; Referring Provider Family Medicine; Visit Provider Family Medicine
DX: R13.10 Dysphagia, unspecified (principal)
CPT/HCPCS: 74230; 92611

== ENCOUNTER → 2024-10-11 | Outpatient (CLI) | payer MEDICARE, SELFPAY ==
--- NOTE | 2024-10-11 10:51 | CT_ITS ---
PROCEDURE: CHEST WITHOUT CONTRAST 10/11/2024 REASON FOR EXAM: FOLLOW UP TREATED BILATERAL LUNG SCC, three-month follow-up for squamous cell carcinoma of the lung. Additional history of colon and breast carcinoma. TECHNIQUE: Chest CT without contrast. Coronal and Sagittal reconstruction series were provided. One or more dose reduction techniques were used (e.g., Automated exposure control, adjustment of the mA and/or kV according to patient size, use of iterative reconstruction technique. RADIATION DOSE SUMMARY: CTDlvol: 8 mGy DLP: 261 mGycm COMPARISON: Comparison made to: CT chest 07/22/2024, 03/18/2024, and 12/11/2023. FINDINGS: Hypertrophy of the left thyroid gland, without actionable nodule. Hardware: None. Lymph nodes: Visualization is limited without the use of IV contrast. Stable small mediastinal nodes. No large thoracic lymphadenopathy. Heart and Vasculature: The heart is normal in size with severe coronary artery calcifications or prior stenting. Moderate calcific plaque of the thoracic aorta. The great vessels are normal in caliber. Lungs and Airways: The central airways are patent. Stable findings of emphysema with scattered areas of pleural-parenchymal scarring. No pleural effusion or pneumothorax. RIGHT: -No significant change in size of the spiculated right middle lobe pulmonary nodule adjacent to the minor fissure, measuring 0.9 cm (series 4, image 62), previously measuring 0.9 cm when measured in a similar fashion on CT chest 07/22/2024. Unchanged mild nodularity and linear scarring surrounding the small pulmonary nodule, likely posttreatment changes. -Additional stable right lower lobe pulmonary nodularity along the major fissure, measuring 1.5 cm (series 4, image 70), previously measuring 1.5 cm when measured in a similar fashion. This area of nodularity was present on prior examination 07/22/2024, however not present on more remote prior examinations. LEFT: -Stable to slight increased size of the spiculated left upper lobe pulmonary nodule measuring 0.7 cm (series 4, image 35), previously measuring 0.6 cm when measured in a similar fashion. -Additional areas of architectural distortion and nodularity throughout the left upper lobe. Upper Abdomen: Calcific plaque of the upper abdominal aorta. Bones/soft tissue: Prior left mastectomy. Severe osseous demineralization. Cervical and thoracic spondylosis. Stable moderate compression fracture deformities of the T12 and L1 vertebral bodies. CT/Chest without Contrast IMPRESSION: 1. Stable to slight increased size of the small spiculated right middle lobe an d left upper lobe pulmonary nodules, most compatible with postradiation changes/scarring. Continued attention on follow- up imaging recommended. 2. Stable nodularity along the right lower lobe, present on prior examination, however not present on more remote examinations. Findings are likely secondary to posttreatment changes/scarring of the radiatio n field, however continued attention on follow-up imaging recommended, or correlation with radiation treatment field to exclude v iable tumor. 3. Emphysema. 4. Severe coronary artery calcifications/prior stenting. Reading Location: [id number]
== END | disposition home or self-care (01) ==
LOC: CT 10:50
PROVIDERS: PCP Family Medicine; Referring Provider Student in an Organized Health Care Education/Training Program; Visit Provider Student in an Organized Health Care Education/Training Program
DX: C34.91 Malignant neoplasm of unspecified part of right bronchus or lung (principal); C34.92 Malignant neoplasm of unspecified part of left bronchus or lung
CPT/HCPCS: 71250

== ENCOUNTER 2025-01-09 13:00 | Outpatient (RCR) | payer MEDICARE, SELFPAY ==
--- NOTE | 2024-11-20 15:18 | HP.OTEVAL_ITS ---
Patient's Visit Information Visit Information Visit Information: FAITH GOMEZ is a 79 year old F, referred to Occupational Therapy by Dr. Jerson Vigil MD, with a diagnosis of R hand pain. Date of Evaluation: 11/20/24 Occupational Therapist: Gaye Lowery Subjective Subjective: Patient arrives for OT evaluation for right wrist and thumb pain. 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 She is left hand dominant. She reports no x rays or scans were taken. No prior falls or injuries. Patient reports her right hand/wrist just started hurting. Reports shes been using her daily medication and topical cream for pain with her right wrist. She reports heat exacerbates the pain. Patient reports she has additional issues as well including L elbow pain and questionable bursitis and B leg pain in the morning. She lives by herself in a two bedroom apartment. [employer] only approved this date, submitted for add visits. ADLs Comments: having difficulty opening containers and two handed tasks reports the random pain will impact her daily living skills and she will drop things Pain R wrist/thumb region: Current Pain Intensity: 0 ROM ROM Comments: ROM intact bilateral upper extremities Strength Business Continuity Planning Director: R 30#; L 37# (L dominant) Lateral Pinch: R 7#, L 10# Tripod Pinch: R 8#, L8# Tip-to-Tip Pinch: R 3#, L5# Edema Other: no edema Sensation Sensation Comments: denies numbness and tingling Quick DASH-Disab of Arm,Shoulder& Hand Quick DASH Score: 25.0000 Goals Goal:: Patient will demonstrate increased R java application developer strength for ADL participation by 2# (32# or more) by d/c. Goal:: Patient will be independent with 1-2 strategies to increase ADL independence thru use of adaptive tools or modifications (i.e. electric can marksmanship instructor, jar marksmanship instructor, etc). Goal:: Patient will report decreased pain overall by 50% by discharge (self report). Goal:: Patient will be indep with HEP. Rehabilitation General Assessment: Patient arrives with pain in her R CMC that spreads down through her wrist. She reports h/o arthritis in the joints of her hands as well as elbows and shoulders. She reports she is most limited by the pain in her right thumb region with daily living tasks. She presents with intact range of motion but decreased functional strength in the right hand. She would benefit from skilled OT services to reduce pain and increase fxnal use of right hand thru use of modalities, task adaptation, joint protection strategies, and exercises. Rehabilitation Potential: Good Anticipated Interventions Anticipated Interventions: A/AAROM/PROM, Strengthening, Triggerpoint Release, Modalities, Orthoses and Joint Protection/Energy Conservation Visit Plan Frequency: 1x/Week Duration: 2 Months General Plan: 1x/week for 8 weeks modalities to reduce pain, joint protection, strategies for upper body exercise that don't require holding objects or resistance in the R hand, thumb stabilization exercises, splinting to R hand, gym exercises that she could do safely 11/20/24: provided HEP with yellow theraband placed on forearms for abduction and adduction and shoulder retraction. Provided print out for R CMC comfort cool brace size medium to be worn daytime during ax and as night as needed. PRovided joint protection hand out to review for R hand and wrist use. Manual therapy to R hand/wrist for increase blood flow and mobilization Recommended consider physical therapy for reported lower body pain and difficulty with ambulation in the AM. This therapist will notify MD for a script for PT. TEXT: Thank you for the opportunity to evaluate your patient. For Medicare and Medicare HMO plans, please review the plan of care and approve it. It will need to be FAXED BACK to us at [phone] for Medicare purposes. Please let me know if there are questions or concerns regarding this plan of care. Physician Signature: Date:
--- NOTE | 2024-11-27 13:42 | HP.OTEVAL ---
Patient's Visit Information Visit Information Visit Information: FAITH GOMEZ is a 79 year old F, referred to Occupational Therapy by Dr. Jerosn Vigil MD, with a diagnosis of R hand pain. Date of Evaluation: 11/20/24 Occupational Therapist: Gaye Lowery Subjective Subjective: Patient arrives for OT evaluation for right wrist and thumb pain. 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 She is left hand dominant. She reports no x rays or scans were taken. No prior falls or injuries. Patient reports her right hand/wrist just started hurting. Reports shes been using her daily medication and topical cream for pain with her right wrist. She reports heat exacerbates the pain. Patient reports she has additional issues as well including L elbow pain and questionable bursitis and B leg pain in the morning. She lives by herself in a two bedroom apartment. [employer] only approved this date, submitted for add visits. ADLs Comments: having difficulty opening containers and two handed tasks reports the random pain will impact her daily living skills and she will drop things Pain R wrist/thumb region: Current Pain Intensity: 0 ROM ROM Comments: ROM intact bilateral upper extremities Strength Access Services Assistant: R 30#; L 37# (L dominant) Lateral Pinch: R 7#, L 10# Tripod Pinch: R 8#, L8# Tip-to-Tip Pinch: R 3#, L5# Edema Other: no edema Sensation Sensation Comments: denies numbness and tingling Quick DASH-Disab of Arm,Shoulder& Hand Quick DASH Score: 25.0000 Goals Goal:: Patient will demonstrate increased R cellophane press operator strength for ADL participation by 2# (32# or more) by d/c. Goal:: Patient will be independent with 1-2 strategies to increase ADL independence thru use of adaptive tools or modifications (i.e. electric can military equipment specialist, jar military equipment specialist, etc). Goal:: Patient will report decreased pain overall by 50% by discharge (self report). Goal:: Patient will be indep with HEP. Rehabilitation General Assessment: Patient arrives with pain in her R CMC that spreads down through her wrist. She reports h/o arthritis in the joints of her hands as well as elbows and shoulders. She reports she is most limited by the pain in her right thumb region with daily living tasks. She presents with intact range of motion but decreased functional strength in the right hand. She would benefit from skilled OT services to reduce pain and increase fxnal use of right hand thru use of modalities, task adaptation, joint protection strategies, and exercises. Rehabilitation Potential: Good Anticipated Interventions Anticipated Interventions: A/AAROM/PROM, Strengthening, Triggerpoint Release, Modalities, Orthoses and Joint Protection/Energy Conservation Visit Plan Frequency: 1x/Week Duration: 2 Months General Plan: 1x/week for 8 weeks modalities to reduce pain, joint protection, strategies for upper body exercise that don't require holding objects or resistance in the R hand, thumb stabilization exercises, splinting to R hand, gym exercises that she could do safely 11/20/24: provided HEP with yellow theraband placed on forearms for abduction and adduction and shoulder retraction. Provided print out for R CMC comfort cool brace size medium to be worn daytime during ax and as night as needed. PRovided joint protection hand out to review for R hand and wrist use. Manual therapy to R hand/wrist for increase blood flow and mobilization Recommended consider physical therapy for reported lower body pain and difficulty with ambulation in the AM. This therapist will notify MD for a script for PT. TEXT: Thank you for the opportunity to evaluate your patient. For Medicare and Medicare HMO plans, please review the plan of care and approve it. It will need to be FAXED BACK to us at [phone] for Medicare purposes. Please let me know if there are questions or concerns regarding this plan of care. Physician Signature: Date:
--- NOTE | 2025-01-09 14:06 | HP.OTDCSUM_ITS ---
Discharge Summary D/C Summary: It has been my pleasure to treat FAITH GOMEZ under orders from Dr. Jerson Vigil MD, for the diagnosis of R hand pain for a total of 7 visit(s). Please see the following information for a summary of their discharge status. Overall Improvement % Improvement: 25 Goals Patient Goals: Decrease Pain, Improve Fine Motor Skills and Be More Independent in ADLS Goal:: Patient will demonstrate increased R merchandising specialist strength for ADL participation by 2# (32# or more) by d/c. (goal met) Goal:: Patient will be independent with 1-2 strategies to increase ADL independence thru use of adaptive tools or modifications (i.e. electric can food equipment service technician, jar food equipment service technician, etc). ( pt has not purchased ) Goal:: Patient will report decreased pain overall by 50% by discharge (self report). (goal met) Goal:: Patient will be indep with HEP. ( goal met) Plan Plan: D/C with HEP D/C Information Discharge Comments: therapy ed. pt on protective bracing and joint protection melissa. pt has not purchased the supportive brace as she has not had the sharp pains when she takes her meloxicam. pt demo understanding of joint protection melissa. and when she get her brace may use with daily tasks that cause pain. pt agrees to d/c with HEP. d/c sentence: If there are questions or concerns regarding this patient's occupational therapy, please fell free to call me at [phone]. Thank you for the refe rral of this patient. Sincerely, Tete Toro, OTR/L, CHT
== END 2025-01-09 19:00 | disposition home or self-care (01) ==
LOC: OT 13:00
PROVIDERS: PCP Family Medicine; Referring Provider Family Medicine; Visit Provider Family Medicine
DX: M79.641 Pain in right hand (principal)
CPT/HCPCS: 97035; 97110; 97140; 97166; 97530

== ENCOUNTER → 2025-01-14 | Outpatient (CLI) | payer MEDICARE, SELFPAY ==
--- NOTE | 2025-01-14 15:02 | CT_ITS ---
PROCEDURE: CHEST WITHOUT CONTRAST 01/14/2025 REASON FOR EXAM: TREATED BILATERAL LUNG CANCER TECHNIQUE: Chest CT without contrast. Coronal and Sagittal reconstruction series were provided. One or more dose reduction techniques were used (e.g., Automated exposure control, adjustment of the mA and/or kV according to patient size, use of iterative reconstruction technique RADIATION DOSE SUMMARY: CTDlvol: 6 mGy DLP: 217 mGycm COMPARISON: 10/11/2024 FINDINGS: Central airways are patent. On the left, there is upper lobe scar/atelectasis, with linear and nodular components, stable. On the right, there is middle and lower lobe scar/atelectasis, with linear nodular components, stable. No consolidation, effusion, pneumothorax, or suspicious lung nodule. Asymmetrically enlarged left thyroid lobe. Unremarkable axilla. Normal esophagus. Normal heart size. No acute vascular pathology. Thoracic spine scoliosis and degeneration. Status post left mastectomy. No acute chest wall findings. Bilateral 2 mm renal calcifications. No acute upper abdominal findings. Multiple thoracic and lumbar spine compression deformities, no evidence of acuity. CT/Chest without Contrast IMPRESSION: Stable bilateral lung densities most consistent with scar/atelectasis. No evidence for new chest pathology. Reading Location: [place] [id number]
== END | disposition home or self-care (01) ==
LOC: CT 15:01
PROVIDERS: PCP Family Medicine; Referring Provider Student in an Organized Health Care Education/Training Program; Visit Provider Student in an Organized Health Care Education/Training Program
DX: Z85.118 Personal history of other malignant neoplasm of bronchus and lung (principal)
CPT/HCPCS: 71250

== ENCOUNTER → 2025-03-06 | Outpatient (CLI) | payer MEDICARE, SELFPAY ==
[2025-03-06 18:07] LABS: AST(SGOT) 39 U/L (<=31); Alanine Aminotransfer ALT/SGPT 34 U/L (<=34); Albumin, Serum 3.9 g/dL (3.4-4.8); Alkaline Phosphatase 145 U/L (35-104); Anion Gap 12 (5-15); BUN 17 mg/dL (4-19); BUN/Creat Ratio 19.7 RATIO (10-20); Calcium,Total 9.3 mg/dL (7.6-11.0); Carbon Dioxide 23.3 mmol/L (21.0-32.0); Chloride 105 mmol/L (98-108); Cholesterol 118 mg/dL (<=200); Globulin 2.3 g/dL (2.2-4.2); Glucose 98 mg/dL (70-99); Low Density Lipoprotein Calc. 28 mg/dL; Potassium 3.9 mmol/L (3.3-5.1); Triglycerides 55 mg/dL; Very Low Density Lipoprotein 11 mg/dL (5-40); cholesterol:hdl ratio screen 1.48
== END | disposition home or self-care (01) ==
LOC: MTLAB 14:15
PROVIDERS: PCP Family Medicine; Referring Provider Family Medicine; Visit Provider Family Medicine
DX: E78.5 Hyperlipidemia, unspecified (principal); R74.01 Elevation of levels of liver transaminase levels
CPT/HCPCS: 36415; 80053; 80061

== ENCOUNTER 2025-04-09 14:59 | Emergency (ER) | payer MEDICARE, SELFPAY ==
[2025-04-09 15:00] VITALS: BP 134/74; PULSE 73; RESP 16; TEMP 36.9; O2SAT 95; BMI 28.0
[2025-04-09 16:16] LABS: Mucous, Urine 0 SEEN /hpf (<or=2+)
[2025-04-09 16:22] LABS: Color, Urine Straw (Yellow); Glucose, Dipstick Normal (Normal); Ketone-Dipstick Negative (Negative); Leukocyte Esterase-Dipstick Negative /ul (Negative); Nitrite-Dipstick Negative (Negative); Occult Blood-Urine 25 /ul (Negative); Protein-Dipstick Negative (Negative); Specific Gravity, Urine 1.010 (1.002-1.030); Urine Bilirubin Dipstick Negative (Negative)
[2025-04-09 16:40] LABS: Hematocrit 39.3 % (37-47); Hemoglobin 12.8 g/dL (12.0-15.0); Immature Granulocytes Count 0.030 X10^3/uL (0.0-0.0); Mean Corp Hgb Conc 32.6 g/dL (32-36); Mean Corpuscular Volume 97.0 fL (81-99); Mean Platelet Vol. 11.4 fl (6.2-12.0); NRBC Flagged by Analyzer 0 % (0-5); Platelet Count 153 K/mm3 (150-450); RBC Distribution Width CV 13.8 % (11.6-14.6); RBC Distribution Width SD 49.5 fl (35.1-43.9); Red Blood Count 4.05 M/mm3 (4.2-5.4); White Blood Count 8.3 K/mm3 (4.4-11.0)
--- NOTE | 2025-04-09 16:40 | EX.ED.DYSGE1 ---
HPI History of Present Illness Chief Complaint: Flank Pain Detail of Chief Complaint: Flank pain started today and was preceded by frequency Informant: patient Onset/Context/Timing Onset: Today and Yesterday (Urinary frequency and discomfort with urination) Context: Sudden Onset Timing: Intermittent Quality: Urinary symptoms now complaining of left flank pain Location: Left flank pain. Current Severity: Mild Maximum Severity: Moderate Worsened by: Nothing specific Relieved by: Nothing Associated Symptoms Associated Symptoms: Frequency and discomfort with urination Narrative Narrative: Patient is 79-year-old woman who presents with urinary symptoms. She does have history of urinary tract infection and pyelonephritis. She has not had urinary tract infection in years. She denies abrupt onset of flank pain. She denies fever or chills. She does endorse nausea. The flank pain started today. The urinary symptom started yesterday. She denies change in bowels. She denies trauma. Prior similar symptoms: Yes (UTI) Recent Illness/Hospitalization: No PFSH PFSH Medical History Anxiety Alcohol use Ambulates with cane DVT (deep venous thrombosis) Low iron High cholesterol Back pain Balance problems Gastric reflux Shortness of breath on exertion History of pain when walking History of edema History of stress test History of echocardiogram Cardiology follow-up encounter History of irregular heartbeat Wears glasses Wears dentures Wears hearing aid Arthritis COPD (chronic obstructive pulmonary disease) Coronary artery disease Lung nodule, solitary Essential (primary) hypertension History of ST elevation myocardial infarction (STEMI) (09/20/18) Atherosclerotic heart disease of [place] coronary artery without angina pectoris Pseudoaneurysm following procedure (09/20/18) Left bundle branch block History of breast cancer Depression Obesity Former smoker Home Medications ?Medication ?Instructions ?Recorded ?Last Taken ?Type aspirin 81 mg tablet,delayed 81 mg PO DAILY@0800 BLOOD THINNER 01/03/19 11/01/23 Rx release #90 tabs vitamin B complex (B 1 tab PO DAILY SUPPLEMENT 07/04/19 11/01/23 History Complex-Vitamin B12 tablet) furosemide 40 mg tablet 40 mg PO DAILY PRN edema #90 tabs 01/04/22 11/01/23 Rx cholecalciferol (vitamin D3) 50 50 mcg PO DAILY SUPPLEMENT 07/04/23 11/01/23 History mcg (2,000 unit) capsule Lactobacillus acidophilus 10 mg PO QDAY 05/15/24 Unknown History (Acidophilus capsule) ferrous sulfate 325 mg (65 mg 325 mg PO QDAY 05/15/24 Unknown History iron) tablet (Feosol) omeprazole 40 mg capsule,delayed 20 mg PO DAILY 05/15/24 Unknown History release atorvastatin 80 mg tablet 80 mg PO QHS CHOLESTEROL #90 tabs 09/19/24 Unknown Rx losartan 25 mg tablet 12.5 mg (1/2 x 25 mg) PO DAILY BP 09/19/24 Unknown Rx #45 tabs gabapentin 300 mg capsule 300 mg PO QHS 11/19/24 Unknown History meloxicam 15 mg tablet 15 mg PO QDAY 11/19/24 Unknown History metoprolol tartrate 25 mg tablet 25 mg PO QDAY BP #90 tabs 03/18/25 Unknown Rx phenazopyridine 200 mg tablet 200 mg PO TID 3 days #9 tabs 04/09/25 Unknown Rx (Pyridium) Allergy/AdvReac Type Severity Reaction Status Date / Time Penicillins Allergy localized Verified 04/09/25 15:02 swelling at injection site Sulfa (Sulfonamide Allergy Hives Verified 04/09/25 15:02 Antibiotics) Family History Father CAD (coronary artery disease) Myocardial infarction Mother Hypertension Surgical History S/P right hemicolectomy Hx of esophagogastroduodenoscopy History of cardiac catheterization Hx of colonoscopy History of left mastectomy History of tonsillectomy History of coronary artery stent placement (09/20/18) H/O partial thyroidectomy Social History Smoking Status: Former smoker ROS ROS ED Constitutional Constitutional ED: Denies chills, fever(s) or subjective Eyes Eyes: Denies blurry vision or change in vision Gastrointestinal Gastrointestinal: Reports abdominal pain and nausea; Denies constipation, diarrhea, melena or vomiting Genitourinary Genitourinary ED: Reports dysuria and urinary frequency; Denies hematuria Musculoskeletal Musculoskeletal: Denies arthralgias, back pain, myalgias or neck pain Integumentary Denies rash Neurologic Neurologic: Denies paresthesias or weakness Psychiatric Psychiatric: Denies anxiety or depression Hematologic/Lymphatic Hematologic/Lymphatic: Reports systems reviewed and no addt'l complaints, except as documented EXAM Physical Exam Const Vital Signs: 04/09/25 15:00 04/09/25 17:40 Temperature 98.4 F Temperature Source Oral Pulse Rate 73 71 Respiratory Rate 16 18 Blood Pressure 134/74 H 130/71 H Blood Pressure Mean 94 90 Pulse Ox 95 100 Oxygen Delivery Method Room Air Room Air Positive well nourished and well developed General Appearance ED: well developed and NAD; Negative for pallor HEENT Reports moist mucous membranes Eyes PERRL and EOMs intact bilaterally General Eye ED: Negative for pale conjunctiva or scleral icterus Neck no lymphadenopathy, supple and no JVD Resp normal respiratory effort and clear to auscultation bilaterally Cardio regular rate, regular rhythm, S1 normal heart sound and S2 normal heart sound; Negative for no murmurs GI normal to inspection, nondistended, normoactive bowel sounds, non-distended and no masses; Negative for non-tender or hepatosplenomegaly Palpation: soft and tender suprapubic Back/Spine no CVA tenderness Extremity General Extremety ED: Yes edema General Extremity: edema Neuro oriented x3 and CN's II-XII intact bilaterally Sensorium / Orientation: alert Psych mental status grossly normal Skin no rashes or lesions noted, no wounds and skin turgor normal General Skin Exam: Negative for jaundice or pallor MDM MDM MDM Narrative Medical decision making narrative: Dysuria of unknown cause, UTI, pyelonephritis, history is not consistent with kidney stone. Will obtain CBC to assess white count differential, BMP to assess renal function and UA. Lab Data Attestation: I reviewed the patient's lab results. Lab results narrative: CBC is unremarkable. Basic metabolic panel is remarkable for a estimated GFR of 53. BUN and creatinine are 25 and 1.06. BUN to Cardio-H is elevated. UA is negative. Labs: Laboratory Results - last 24 hr 04/09/25 16:00 WBC 8.3 RBC 4.05 L Hgb 12.8 Hct 39.3 MCV 97.0 MCH 31.6 MCHC 32.6 RDW Std Deviation 49.5 H RDW Coeff of Vamshi 13.8 Plt Count 153 MPV 11.4 Immature Gran % (Auto) 0.400 Neut % (Auto) 77.6 H Lymph % (Auto) 12.9 L Bibb % (Auto) 7.0 Eos % (Auto) 1.6 Baso % (Auto) 0.5 Absolute Neuts (auto) 6.5 Absolute Lymphs (auto) 1.08 Nucleated RBC % 0 Sodium 139 Potassium 3.7 Chloride 103 Carbon Dioxide 25.3 Anion Gap 11 BUN 25 H Creatinine 1.06 Estim Creat Clear Calc 39.30 L Est GFR (MDRD) Non-Af 53 L BUN/Creatinine Ratio 23.4 H Glucose 112 H Calcium 9.6 Urine Color Straw Urine Clarity Clear Urine pH 6.0 Ur Specific [place] 1.010 Urine Protein Negative Urine Glucose (UA) Normal Urine Ketones Negative Urine Occult Blood 25 H Urine Nitrite Negative Urine Bilirubin Negative Urine Urobilinogen Normal Ur Leukocyte Esterase Negative Urine RBC 0-5 SEEN Urine WBC 0-5 SEEN Ur Squamous Epith Cells 0-5 SEEN Urine Bacteria 0 SEEN Urine Mucus 0 SEEN Treatment and Re-Evaluation :: Patient and sister were informed of results. Plan is Pyridium for her dysuria. She was referred to Dr. Trejo since she has not seen a urologist in the past. Discharge Plan Triage Chief Complaint: Flank Pain ED Provider: Gavin Francois Dx/Rx/DC Orders Clinical Impression: Dysuria-frequency syndrome, Essential (primary) hypertension, History of breast cancer, Iron deficiency anemia Instructions: ED Dysuria, Uncertain Cause (Adult) Prescriptions: New phenazopyridine [Pyridium] 200 mg tablet 200 mg PO TID 3 Days Qty: 9 0RF No Action aspirin 81 mg tablet,delayed release (DR/EC) 81 mg PO DAILY@0800 Qty: 90 3RF vitamin B complex [B Complex-Vitamin B12] Tablet 1 tab PO DAILY furosemide 40 mg tablet 40 mg PO DAILY PRN (Reason: edema) Qty: 90 3RF cholecalciferol (vitamin D3) 50 mcg (2,000 unit) capsule 50 mcg PO DAILY omeprazole 40 mg capsule,delayed release(DR/EC) 20 mg PO DAILY ferrous sulfate [Feosol] 325 mg (65 mg iron) tablet 325 mg PO QDAY Acidophilus Capsule 10 mg PO QDAY meloxicam 15 mg tablet 15 mg PO QDAY gabapentin 300 mg capsule 300 mg PO QHS atorvastatin 80 mg tablet 80 mg PO QHS Qty: 90 3RF losartan 25 mg tablet 12.5 mg PO DAILY Qty: 45 3RF metoprolol tartrate 25 mg tablet 25 mg PO QDAY Qty: 90 3RF Primary Care Provider: Jerson Vigil Referrals: Peggy Trejo MD [Med Staff - Active Staff, Urology] - 3-5 Days if not improving Jerson Vigil MD [Primary Care Provider, Family Practice] Print Language: Yoruba Disposition Disposition: Home, Self Care
[2025-04-09 16:46] LABS: Anion Gap 11 (5-15); BUN 25 mg/dL (4-19); BUN/Creat Ratio 23.4 RATIO (10-20); Calcium,Total 9.6 mg/dL (7.6-11.0); Carbon Dioxide 25.3 mmol/L (21.0-32.0); Chloride 103 mmol/L (98-108); Estimated Creatinine Clearance 39.30 ml/min (50-250); Glucose 112 mg/dL (70-99); Potassium 3.7 mmol/L (3.3-5.1)
[2025-04-09 17:40] VITALS: BP 130/71; PULSE 71; RESP 18; O2SAT 100
[2025-04-09 17:56] LABS: Red Blood Cells-Urine 0-5 SEEN /hpf (0-5); Squamous Epithelial Cells - UA 0-5 SEEN /hpf (5-10)
[2025-04-09 18:21] VITALS: BP 130/71; PULSE 71; RESP 18; TEMP 36.6; O2SAT 100
== END 2025-04-09 18:28 | disposition home or self-care (01) ==
PROVIDERS: Emergency Provider Emergency Medicine; PCP Family Medicine; Visit Provider Emergency Medicine
DX: R10.A0 Flank pain, unspecified side (principal); J44.9 Chronic obstructive pulmonary disease, unspecified; I10 Essential (primary) hypertension; E78.00 Pure hypercholesterolemia, unspecified; Z87.891 Personal history of nicotine dependence; I25.10 Atherosclerotic heart disease of native coronary artery without angina pectoris; Z85.3 Personal history of malignant neoplasm of breast; Z79.82 Long term (current) use of aspirin; K21.9 Gastro-esophageal reflux disease without esophagitis; Z79.899 Other long term (current) drug therapy; Z90.12 Acquired absence of left breast and nipple; Z95.5 Presence of coronary angioplasty implant and graft; R30.0 Dysuria; D50.9 Iron deficiency anemia, unspecified
CPT/HCPCS: 80048; 81001; 85025; 99283

== ENCOUNTER → 2025-05-26 | Outpatient (CLI) | payer MEDICARE, SELFPAY ==
--- NOTE | 2025-05-26 13:00 | CT_ITS ---
PROCEDURE: CHEST WITHOUT CONTRAST 05/26/2025 REASON FOR EXAM: FOLLOW UP TREATED LUNG CANCER TECHNIQUE: Chest CT without contrast. Coronal and Sagittal reconstruction series were provided. One or more dose reduction techniques were used (e.g., Automated exposure control, adjustment of the mA and/or kV according to patient size, use of iterative reconstruction technique RADIATION DOSE SUMMARY: CTDlvol: 8.20 mGy DLP: 288.93 mGycm COMPARISON: 01/14/2025 FINDINGS: Note that evaluation of the vasculature, elvie, and soft tissues is limited in the absence of IV contrast. Heart/pericardium: Coronary atherosclerosis and/or stents. Mild aortic and trace mitral annular calcification. Aorta: Mild/moderate atherosclerosis. Pulmonary arteries: Normal in caliber. Lymph nodes: Suboptimally evaluated in the absence of IV contrast. Similar mildly prominent but technically nonenlarged precarinal node, 8 mm short axis. Lungs/pleura: Grossly similar irregular and vaguely linear opacities in the RIGHT middle lobe and RIGHT upper lobe favorable for posttreatment scarring. Associated nodular opacities in the region within the RIGHT middle lobe measure 9 x 9 mm and 15 x 8 mm, unchanged from at least 07/22/2024, measured similarly. Similar findings on the LEFT are difficult to measure but also grossly similar to at least 07/22/2024, up to roughly 13 x 7 mm. Similar finding in the RIGHT lower lobe along the major fissure is also unchanged from 07/22/2024, but again, a finding in the RIGHT lower new from 03/18/2024 (series 4 image 66). Mild interlobular septal thickening. Trace atelectasis/scarring elsewhere. Airways: Unremarkable. Chest wall: LEFT mastectomy. Atrophic or surgically absent RIGHT lobe. Enlarged and slightly heterogeneous LEFT lobe with questioned nodules.. Upper abdomen: Suboptimally evaluated. 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 Tiny punctate nonobstructing intrarenal calculi on the RIGHT. Atherosclerosis. Musculoskeletal: Demineralization. Degenerative findings. Thoracic dextroscoliosis. Similar compression deformities of the thoracolumbar junction.. CT/Chest without Contrast IMPRESSION: 1. Similar nodular opacities up to 15 mm and surrounding presumed posttreatment changes since at least 07/22/2024, one of which is again new from 03/18/2024. Continued follow-up is recommended to ensure rose oing stability. 2. Recommend thyroid ultrasound. 3. Additional description as above. Incidental Finding Alert: As above. Recommend follow-up with thyroid ultrasoun d. Management of this incidental finding should follow the [employer] ([employer]) Incidental Findings Committee re commendations. Reading Location: [id number]
== END | disposition home or self-care (01) ==
LOC: CT 12:57
PROVIDERS: PCP Family Medicine; Referring Provider Student in an Organized Health Care Education/Training Program; Visit Provider Student in an Organized Health Care Education/Training Program
DX: C34.92 Malignant neoplasm of unspecified part of left bronchus or lung (principal); C34.91 Malignant neoplasm of unspecified part of right bronchus or lung
CPT/HCPCS: 71250